=== PATIENT | male | born 1955 | race Caucasian/White ===

== ENCOUNTER 2020-08-28 14:32 | Emergency (ER) | payer OTHER, SELFPAY ==
[2020-08-28 14:33] VITALS: BP 138/88; PULSE 91; RESP 17; TEMP 36.4; O2SAT 99
[2020-08-28] MEDS: SODIUM CHLORIDE 0.9% IV 1,000 ML 999 ML IV CONT (15:15)
[2020-08-28 15:22] LABS: Basophils Absolute Auto 0.1 K/mm3 (0.0-0.1); Basophils Percent Auto 0.7 % (0.2-1.2); Eosinophils Absolute Auto 0.2 K/mm3 (0-0.3); Eosinophils Percent Auto 2.7 % (0-4.4); Hematocrit 46.1 % (42.0-52.0); Immature Granulocyte Absolute 0.02 K/mm3 (0.00-0.031); Immature Granulocyte Percent A 0.3 % (0-0.5); Lymphocytes Percent Auto 33.7 % (18.3-44.2); Mean Corpuscular HGB Conc 34.7 g/dl (32-36); Mean Corpuscular Hemoglobin 31.7 pg (26-34); Mean Corpuscular Volume 91.5 fl (80-100); Monocytes Absolute Auto 0.6 K/mm3 (0.1-0.6); Monocytes Percent Auto 7.4 % (2.6-8.5); Neutrophils Absolute Auto 4.1 K/mm3 (1.3-6.7); Neutrophils Percent Auto 55.2 % (45.5-73.1); Platelet Count Result 150 k/mm3 (150-375); Red Blood Count 5.04 M/mm3 (4.6-6.20); Red Cell Distribution Width 12.8 % (11.5-14.5); White Blood Count 7.4 K/mm3 (4.5-10.0)
[2020-08-28 15:30] LABS: Alanine Aminotransferase 61 U/L (4-50); Albumin Level 4.8 g/dL (3.5-5.1); Alkaline Phosphatase 71 U/L (38-126); Anion Gap 12 mmol/L (8-16); Aspartate Amino Transferase 48 U/L (17-59); Bilirubin,Total 0.4 mg/dL (0.2-1.3); Blood Urea Nitrogen 20 mg/dL (9-20); Carbon Dioxide 23 mmol/L (22-30); Chloride 103 mmol/L (98-107); Estimated Glomerular Filt Rate > 60; Glucose 150 mg/dL (75-110); Sodium 138 mmol/L (137-145)
[2020-08-28 15:36] LABS: Add Urine Microscopic? YES; Appearance Urine Clear (Clear); Bilirubin Urine Negative (Negative); Blood Urine Negative (Negative); Color Urine Yellow (Yellow); Glucose Urine UA 3+ mg/dL (Negative); Ketones Urine Negative (Negative); Leukocyte Esterase Ur Negative LEU/UL (Negative); Nitrate Urine Negative (Negative); Protein Urine Negative (Negative); RBC Urine 0-2 /hpf (0-2); Urobilinogen Urine Negative mg/dL (<2.0); WBC Urine 0-3 /hpf
[2020-08-28 16:11] LABS: Specific Grav Ur 1.036 (1.001-1.035)
[2020-08-28 16:20] LABS: Glucose Point of Care 89 (65-105)
--- NOTE | 2020-08-28 16:24 | ED.GENADULT ---
HPI - General Adult General Chief complaint: Recheck/Abnormal Lab/Rx Stated complaint: hyperglycemia Time Seen by Provider: 08/28/20 14:42 Source: RN notes reviewed History of Present Illness HPI narrative: Patient presents to emergency department from home for hyperglycemia. Patient states that he takes NovoLog 3 times a day 50 units with meals he states that he took his dose at 1230 and ate lunch and then his blood sugar was 570. States that time he dosed himself an additional 50 units of NovoLog at 1 PM and called his PCP recommend come to ER for further evaluation patient states has been feeling fine he denies any nausea or vomiting he states his PCP is setting up to see solution design engineer as well as a diabetic dietitian. He states that his blood sugar has progressed aggressively decreased since taking the medication Related Data Home Medications Medication Instructions Recorded Confirmed aripiprazole 5 mg tablet 5 mg PO BID tablet 08/14/20 atorvastatin 20 mg tablet 20 mg PO DAILY 08/14/20 bupropion HCl 200 mg tablet,12 hr 200 mg PO BID 08/14/20 sustained-release carvedilol 12.5 mg tablet 12.5 mg PO Q12H 08/14/20 empagliflozin 25 mg tablet 25 mg PO DAILY 08/14/20 finasteride 5 mg tablet 5 mg PO DAILY 08/14/20 insulin detemir U-100 100 unit/mL 48 unit SUBCUT QHS ml 08/14/20 subcutaneous solution meloxicam 15 mg tablet 15 mg PO DAILY 08/14/20 omeprazole 20 mg capsule,delayed 20 mg PO DAILY 08/14/20 release tamsulosin 0.4 mg capsule 0.4 mg PO DAILY 08/14/20 Allergies Allergy/AdvReac Type Severity Reaction Status Date / Time No Known Allergies Allergy Verified 08/28/20 14:36 Review of Systems Review of Systems: Narrative: Gen.: Denies fevers or chills ENT: Denies congestion Respiratory: Denies shortness of breath or cough CV: Denies chest pain or palpitations GI: Denies abdominal pain nausea, emesis or diarrhea Musculoskeletal: Denies back pain or muscle pain Neuro: Denies numbness, tingling, weakness or focal weakness Skin: Denies rash Endocrine: See HPI Except as documented, all other systems reviewed and negative PMFSH Past Medical History Medical History Anxiety Depression Diabetes Social History Social History (Updated 08/14/20 @ 10:32 by Christina Irby CMA) Smoking packs per day: 0.5 Smoking cigarettes per day: 10.0 Years smoked: 8 Smoking pack-years: 4.00 Smoking status: Current every day smoker Alcohol intake: never Substance use: never Exam Narrative: Exam Narrative: APPEARANCE: No acute distress, nontoxic, resting in bed EYES: EOMI HEENT: Normocephalic, atraumatic, OMM RESPIRATORY: No respiratory distress Clear to auscultation bilaterally with no rhonchi wheezing or rales. CARDIOVASCULAR: Regular rate and rhythm without murmurs rubs or gallops. ABDOMINAL: Soft, nontender, nondistended, no rebound or guarding MUSCULOSKELETAl: Moves all extremities. No clubbing, cyanosis or edema. NEURO: Awake and alert. Following commands, speech normal, no focal deficits SKIN:: Warm, dry. No rashes lesions or abrasions PSYCHIATRIC: Normal affect/mood, Course Course Emergency Course: Patient's blood sugars remained stable in the ED Of note the patient's blood sugar was 89 I did have the patient eat a sandwich Discussed with patient results of workup and diagnosis. Discussed need for follow-up with primary care, proper use of medication, and reasons to return to the emergency department. Patient understands and agrees to current treatment plan Patient eloped prior to being discharged or receiving paperwork Vital Signs Vital signs: Vital Signs Temperature 97.6 F 08/28/20 14:33 Pulse Rate 91 08/28/20 14:33 Respiratory Rate 17 08/28/20 14:33 Blood Pressure 138/88 08/28/20 14:33 Pulse Oximetry 99 08/28/20 14:33 Temperature 97.6 F 08/28/20 14:33 Pulse Rate 91 08/28/20 14:33 Respiratory Ra
--- NOTE | 2020-08-28 16:40 | PC.NURSE ---
Pt to nurse's desk and states he is not waiting for discharge papers and he is leaving now. Ambulatory out of dept with steady gait.
== END 2020-08-28 16:46 | disposition left against medical advice (07) ==
PROVIDERS: Emergency Provider Emergency Medicine; PCP Family Medicine
DX: E11.65 Type 2 diabetes mellitus with hyperglycemia (principal); F17.210 Nicotine dependence, cigarettes, uncomplicated; F41.9 Anxiety disorder, unspecified; F32.9 Major depressive disorder, single episode, unspecified
CPT/HCPCS: 36415; 80053; 81001; 82948; 85025; 96360; 99283; J7030

== ENCOUNTER 2020-10-31 09:25 | Outpatient (CLI) | payer OTHER, SELFPAY ==
[2020-10-31 16:42] LABS: Hemoglobin A1C 8.3 % (<5.7)
[2020-10-31 16:50] LABS: Free T4 Free Thyroxine 0.79 ng/mL (0.78-2.19)
[2020-10-31 16:59] LABS: Creatinine Urine 81.3 mg/dL
[2020-10-31 17:05] LABS: MALB Creatinine Ratio 115.7 mg/g (0-30); Microalbumin Urine Random 94.1 mg/L (0-16.7)
[2020-11-03 04:47] LABS: Fructosamine 358 umol/L (205-285)
== END 2020-10-31 09:26 | disposition home or self-care (01) ==
PROVIDERS: PCP Family Medicine; Visit Provider Internal Medicine Endocrinology, Diabetes & Metabolism
DX: E11.9 Type 2 diabetes mellitus without complications (principal)
CPT/HCPCS: 36415; 82043; 82985; 83036; 84439; 84443

== ENCOUNTER 2020-11-02 08:00 | Outpatient (CLI) | payer OTHER, SELFPAY ==
--- NOTE | ~2020-11-02 | XR_ITS ---
XR chest 2V DATE: 11/02/2020 08:50 INDICATION: Nicotine dependence TECHNIQUE: PA and lateral views COMPARISON: None FINDINGS: Normal heart size. No hilar or mediastinal enlargement. No pulmonary infiltrate or consolidation, pleural effusion or pulmonary vascular congestion or pneumo thorax is detected. Included skeletal structures are unremarkable. IMPRESSION: No active cardiopulmonary disease Reviewed, dictated and finalized at location A.
[2020-11-02 20:06] LABS: Basophils Absolute Auto 0.1 K/mm3 (0.0-0.1); Eosinophils Absolute Auto 0.2 K/mm3 (0-0.3); Eosinophils Percent Auto 3.1 % (0-4.4); Hematocrit 47.8 % (42.0-52.0); Hemoglobin 15.8 g/dL (14.0-18.0); Immature Granulocyte Absolute 0.01 K/mm3 (0.00-0.031); Immature Granulocyte Percent A 0.1 % (0-0.5); Lymphocytes Absolute Auto 2.03 K/mm3 (0.9-3.2); Lymphocytes Percent Auto 30.1 % (18.3-44.2); Mean Corpuscular HGB Conc 33.1 g/dl (32-36); Mean Corpuscular Hemoglobin 31.8 pg (26-34); Mean Corpuscular Volume 96.2 fl (80-100); Mean Platelet Volume 10.8 fl (7.4-10.4); Monocytes Absolute Auto 0.5 K/mm3 (0.1-0.6); Neutrophils Percent Auto 58.7 % (45.5-73.1); Platelet Count Result 151 k/mm3 (150-375); Red Blood Count 4.97 M/mm3 (4.6-6.20); Red Cell Distribution Width 13.2 % (11.5-14.5); White Blood Count 6.7 K/mm3 (4.5-10.0)
[2020-11-02 20:10] LABS: Add Urine Microscopic? YES; Appearance Urine Clear (Clear); Bilirubin Urine Negative (Negative); Blood Urine Negative (Negative); Color Urine Yellow (Yellow); Glucose Urine UA 3+ mg/dL (Negative); Ketones Urine Negative (Negative); Leukocyte Esterase Ur Negative LEU/UL (Negative); Mucus Urine Heavy /lpf; Nitrate Urine Negative (Negative); Protein Urine 1+ mg/dL (Negative); RBC Urine 0-2 /hpf (0-2); Squamous Epithelial Cell Urine Rare /hpf (Few); Urobilinogen Urine Negative mg/dL (<2.0)
[2020-11-02 20:25] LABS: Specific Grav Ur 1.032 (1.001-1.035)
[2020-11-02 20:28] LABS: Alanine Aminotransferase 81 U/L (4-50); Albumin Level 4.6 g/dL (3.5-5.1); Alkaline Phosphatase 64 U/L (38-126); Anion Gap 13 mmol/L (8-16); Aspartate Amino Transferase 71 U/L (17-59); Bilirubin,Total 0.5 mg/dL (0.2-1.3); Blood Urea Nitrogen 18 mg/dL (9-20); Calcium 9.6 mg/dL (8.4-10.2); Carbon Dioxide 25 mmol/L (22-30); Chloride 103 mmol/L (98-107); Cholesterol 138 mg/dL (0-200); Estimated Glomerular Filt Rate > 60; Glucose 70 mg/dL (65-110); HDL Direct 29 mg/dL; Potassium 3.9 mmol/L (3.4-5.0); Sodium 141 mmol/L (137-145); Triglycerides 246 mg/dL (<150)
[2020-11-02 20:40] LABS: LDL Cholesterol Direct 71 mg/dL
[2020-11-02 21:01] LABS: Prostate Specific Antigen 0.4 ng/mL (< OR = 4.0)
[2020-11-02 21:23] LABS: Hemoglobin A1C 8.4 % (<5.7)
[2020-11-02 21:35] LABS: Folic Acid 13.3 ng/mL (2.76->20)
[2020-11-06 20:54] LABS: C-Peptide 0.27 ng/mL (0.80-3.85)
== END 2020-11-02 08:01 | disposition home or self-care (01) ==
PROVIDERS: PCP Family Medicine; Visit Provider Family Medicine
DX: Z12.5 Encounter for screening for malignant neoplasm of prostate (principal); Z87.891 Personal history of nicotine dependence; E11.9 Type 2 diabetes mellitus without complications; F31.9 Bipolar disorder, unspecified; M25.561 Pain in right knee; M25.562 Pain in left knee; I10 Essential (primary) hypertension; Z82.62 Family history of osteoporosis; Z51.81 Encounter for therapeutic drug level monitoring; Z79.899 Other long term (current) drug therapy; Z00.00 Encounter for general adult medical examination without abnormal findings
CPT/HCPCS: 36415; 71046; 80053; 80061; 81001; 82306; 82607; 82746; 83036; 84153; 84443; 84681; 85025; G0103

== ENCOUNTER 2020-11-17 09:01 | Outpatient (CLI) | payer OTHER, SELFPAY | END 2020-11-17 09:02 | disposition home or self-care (01) | PROVIDERS: PCP Family Medicine; Visit Provider Family Medicine | DX: R74.8 Abnormal levels of other serum enzymes (principal); E11.9 Type 2 diabetes mellitus without complications | CPT/HCPCS: 36415; 84443 ==

== ENCOUNTER 2020-12-28 09:05 | Outpatient (CLI) | payer OTHER, SELFPAY ==
[2020-12-28 19:56] LABS: Add Urine Microscopic? YES; Appearance Urine Clear (Clear); Bilirubin Urine Negative (Negative); Blood Urine Negative (Negative); Color Urine Yellow (Yellow); Glucose Urine UA 3+ mg/dL (Negative); Ketones Urine Negative (Negative); Leukocyte Esterase Ur Negative LEU/UL (NEGATIVE); Mucus Urine Rare /lpf; Nitrate Urine Negative (Negative); Protein Urine 1+ mg/dL (Negative); RBC Urine 0-2 /hpf (0-2); Specific Grav Ur 1.022 (1.001-1.035); Urobilinogen Urine Negative mg/dL (<2.0); WBC Urine 0-3 /hpf (0-3)
[2020-12-28 20:13] LABS: Alanine Aminotransferase 64 U/L (4-50); Albumin Level 4.8 g/dL (3.5-5.1); Alkaline Phosphatase 79 U/L (38-126); Aspartate Amino Transferase 43 U/L (17-59); Bilirubin,Total 0.7 mg/dL (0.2-1.3)
[2020-12-28 20:20] LABS: Hemoglobin A1C 7.7 % (<5.7)
== END 2020-12-28 09:06 | disposition home or self-care (01) ==
PROVIDERS: PCP Family Medicine; Visit Provider Family Medicine
DX: R74.8 Abnormal levels of other serum enzymes (principal); E11.9 Type 2 diabetes mellitus without complications
CPT/HCPCS: 36415; 80076; 81001; 83036

== ENCOUNTER 2021-03-30 12:18 | Outpatient (CLI) | payer OTHER, SELFPAY ==
--- NOTE | 2021-03-30 | ECG_ITS ---
Measurements Intervals [place] Rate: 85 P: 30 FL: 176 QRS: -12 QRSD: 92 T: 19 QT: 354 QTc: 423 Interpretive Statements SINUS RHYTHM DELAYED PRECORDIAL R/S TRANSITION BORDERLINE ECG Electronically Signed On 03-30-2021 13:17:38 MANAGER POST by Derrek Paredes D.O.
[2021-03-30 13:11] LABS: Albumin Level 4.9 g/dL (3.5-5.1); Estimated Glomerular Filt Rate > 60; Glucose 299 mg/dL (65-110); Hemoglobin A1C 7.6 % (<5.7)
[2021-03-30 13:15] LABS: Urine Cotinine NEGATIVE
== END 2021-03-30 12:19 | disposition home or self-care (01) ==
LOC: ANHLAB 12:26
PROVIDERS: PCP Family Medicine; Visit Provider Orthopaedic Surgery
DX: M17.11 Unilateral primary osteoarthritis, right knee (principal); Z01.818 Encounter for other preprocedural examination; R94.31 Abnormal electrocardiogram [ECG] [EKG]
CPT/HCPCS: 80307; 82040; 82565; 82947; 83036; 85014; 85018; 93005

== ENCOUNTER 2021-05-08 12:08 | Outpatient (CLI) | payer OTHER, SELFPAY ==
[2021-05-08 13:31] LABS: Glucose Point of Care 269 mg/dl (65-105)
[2021-05-08 14:04] LABS: Basophils Percent Auto 0.4 % (0.2-1.2); Eosinophils Absolute Auto 0.1 K/mm3 (0-0.3); Eosinophils Percent Auto 1.3 % (0-4.4); Hematocrit 44.8 % (42.0-52.0); Hemoglobin 15.7 g/dL (14.0-18.0); Immature Granulocyte Absolute 0.02 K/mm3 (0.00-0.031); Immature Granulocyte Percent A 0.2 % (0-0.5); Lymphocytes Percent Auto 16.7 % (18.3-44.2); Mean Corpuscular Hemoglobin 31.6 pg (26-34); Mean Corpuscular Volume 90.1 fl (80-100); Mean Platelet Volume 9.4 fl (7.4-10.4); Monocytes Absolute Auto 0.5 K/mm3 (0.1-0.6); Monocytes Percent Auto 5.4 % (2.6-8.5); Neutrophils Absolute Auto 7.3 K/mm3 (1.3-6.7); Platelet Count Result 159 k/mm3 (150-375); Red Blood Count 4.97 M/mm3 (4.6-6.20); Red Cell Distribution Width 12.8 % (11.5-14.5); White Blood Count 9.6 K/mm3 (4.5-10.0)
[2021-05-08 14:28] LABS: Anion Gap 15 mmol/L (8-16); Blood Urea Nitrogen 13 mg/dL (9-20); Carbon Dioxide 26 mmol/L (22-30); Chloride 97 mmol/L (98-107); Estimated Glomerular Filt Rate > 60; Glucose 290 mg/dL (65-110); Potassium 5.1 mmol/L (3.4-5.0); Sodium 138 mmol/L (137-145)
== END 2021-05-08 12:09 | disposition home or self-care (01) ==
LOC: ANHSURGERY 12:12
PROVIDERS: Anesthesiology; PCP Family Medicine; Visit Provider Orthopaedic Surgery
DX: M17.11 Unilateral primary osteoarthritis, right knee (principal); E11.9 Type 2 diabetes mellitus without complications; Z01.818 Encounter for other preprocedural examination
CPT/HCPCS: 36415; 80048; 82948; 85025; 86850; 86900; 86901; 87081

== ENCOUNTER 2021-05-09 10:29 | Outpatient (CLI) | payer OTHER, SELFPAY ==
--- NOTE | 2021-05-09 10:32 | EST_ITS ---
Patient Info Name: Edwardo Ricci Age: 65 years : 1955 Gender: Male Ht: 68 in Wt: 210 lbs BSA: 2.17 m2 HR: 73 bpm BP: 125 / 80 mmHg Exam Date: 05/09/2021 10:44 AM Exam Location: [facility] Patient Status: Outpatient Admit Date: 05/09/2021 Staff Ordering Physician: Derrek Paredes DO Attending Provider: Derrek Paredes DO Exercise Technologist: Jenifer Valentin CT Exercise Physician: Derrek Paredes DO Exam Type: CA stress test treadmill Study Info Indications Z01.810 - Encounter for preprocedural cardiovascular examination R06.02 - Shortness of breath An exercise stress test was performed. Summary 1. 1. Negative Davian exercise stress test for ischemic ST changes by ECG criteria. However, he achieved only 74% MPHR for age group which reduces sensitivity of the test limited primarily by knee pains and he took Carvedilol dose this morning. 2. 2. Reduced functional capacity, achieving 5.6 METs of workload. 3. 3. Appropriate HR response to exercise. 4. 4. Appropriate HR recovery at 1 minute post exercise. 5. 5. No imaging with stress testing. 6. 6. Paient informed of the above results. Protocol: [facility] Stress ECG Details Stage: REST Duration (min): 1 min : 2 sec Speed (mph): 0.0 Grade (%): 0 HR (bpm): 73 SBP (mmHg): 125 DBP (mmHg): 80 METS: --- Stage: REST Duration (min): 6 min : 8 sec Speed (mph): 0.0 Grade (%): 0 HR (bpm): 79 SBP (mmHg): 125 DBP (mmHg): 80 METS: --- Stage: STAGE 1 Duration (min): 1 min : 0 sec Speed (mph): 1.7 Grade (%): 10 HR (bpm): 98 SBP (mmHg): 125 DBP (mmHg): 80 METS: --- Stage: STAGE 1 Duration (min): 2 min : 0 sec Speed (mph): 1.7 Grade (%): 10 HR (bpm): 106 SBP (mmHg): 125 DBP (mmHg): 80 METS: --- Stage: STAGE 1 Duration (min): 3 min : 0 sec Speed (mph): 1.7 Grade (%): 10 HR (bpm): 111 SBP (mmHg): 125 DBP (mmHg): 80 METS: --- Stage: STAGE 2 Duration (min): 0 min : 30 sec Speed (mph): 2.5 Grade (%): 12 HR (bpm): 115 SBP (mmHg): 125 DBP (mmHg): 80 METS: --- Stage: RECOVERY Duration (min): 0 min : 29 sec Speed (mph): 0.0 Grade (%): 0 HR (bpm): 116 SBP (mmHg): 125 DBP (mmHg): 80 METS: --- Stage: RECOVERY Duration (min): 1 min : 29 sec Speed (mph): 0.0 Grade (%): 0 HR (bpm): 108 SBP (mmHg): 142 DBP (mmHg): 106 METS: --- Stage: RECOVERY Duration (min): 2 min : 29 sec Speed (mph): 0.0 Grade (%): 0 HR (bpm): 92 SBP (mmHg): 142 DBP (mmHg): 106 METS: --- Stage: RECOVERY Duration (min): 2 min : 51 sec Speed (mph): 0.0 Grade (%): 0 HR (bpm): 93 SBP (mmHg): 140 DBP (mmHg): 96 METS: --- Rest HR: 79 bpm Peak HR: 116 bpm Rest Sys BP: 125 mmHg Peak Sys BP: 142 mmHg Max Pred HR: 157 bpm % Max Pred HR: 74 % Target HR: 133 bpm Max RPP: 16,472 bpm*mmHg Bose Score: -1 Termination Reason: Maximal effort/unable
== END 2021-05-09 10:30 | disposition home or self-care (01) ==
PROVIDERS: PCP Family Medicine; Visit Provider Internal Medicine Cardiovascular Disease
DX: Z01.810 Encounter for preprocedural cardiovascular examination (principal); R06.00 Dyspnea, unspecified
CPT/HCPCS: 93017

== ENCOUNTER 2021-05-10 00:38 | Day surgery (SDC) | payer OTHER, SELFPAY ==
[2021-05-08 12:34] VITALS: BP 129/81; PULSE 110; RESP 18; TEMP 36.2; O2SAT 96; BMI 32.5
--- NOTE | 2021-05-08 12:51 | PC.NURSE ---
Report to the Outpatient Waiting Room, entrance under the green pavilion located off [facility], at time ___6:00AM____ on date __05/10/21 . OR Time: __7:30AM . - You and your visitor will be asked a series of questions to screen for COVID 19 for your protection. - A mask is required within the hospital. - Only one visitor is allowed at this time. Patient visitors will be guided where to wait when not with patient. Preoperative COVID Testing Requirements: No COVID Test needed if: (proof is required; if not received patient will have Rapid Test prior to entry) - Patient has received COVID Vaccine at least 14 days prior to procedure date or - Patient has positive COVID test result within last 90 days of surgery date. COVID Test needed if above criteria is not met If not COVID vaccinated a COVID test must be conducted within 72 hours of surgery and patient is asked to isolate self from time of testing until procedure. You will go to the [facility] for your COVID testing. The [facility] is located at the corner of [address] [facility]. You will only be called if COVID results are positive and your surgeon may reschedule your elective surgery date. Patients may have clear liquids (water, carbonated beverages, clear teas, apple juice) until 3 hours prior to surgery with a maximum of 20 ounces. - No food from midnight until time of surgery - Infants may have breast milk until 4 hours before surgery, infant formula 6 hours prior to surgery. - Children will be allowed to drink immediately following surgery. If applicable, please bring a bottle or sippy cup to assist with drinking. Juice, water, soda, and popsicles are readily available. For infants on formula, please bring formula the day of surgery. Pacifiers are allowed. Take the following medications with a SIP of water the morning of surgery: ___AMITRIPTYLINE, ARIPIPRAZOLE, BUPROPIAN, CARVEDILOL Medications to discontinue per physician NONE Date to take last dose Please no make-up, nail macanese, hairspray, perfume, deodorant, or body powder the day of surgery. No jewelry (including any body piercings) or valuables the day of surgery, leave them at home. Please take a shower or bath the night before, or the morning of, surgery with an antibacterial soap. Wear comfortable, loose fitting clothing. Children are encouraged to wear pajamas. - Jewelry must be removed prior to entering the operating room. Rings and piercings that are not removed may be cut off. - The hospital will not accept responsibility for valuables. - Please leave all valuables, including medications, at home the day of surgery. If you are going home after surgery, a licensed clark driver must drive you home. - NO public transportation without another adult. - We recommend that an adult stay with you for 24 hours following discharge. - We also recommend that you do not drive, make important decision, drink alcoholic beverages, or take any drugs that were not prescribed by your health care provider for at least 24 hours after your discharge time. For Pediatric surgeries, we recommend two adults accompany the child home (only one inside the building at this time). Follow any additional instructions given to you from your surgeon. Telephone instructions given to ___PATIENT and asked if any additional questions and then verbalized understanding. Patient advised to call surgeon office or pre surgery nurse liaison [phone] if any additional questions.
--- NOTE | 2021-05-08 13:44 | PC.NURSE ---
1330 PT C/O FEELING LIKE BLOOD SUGAR IS TOO HIGH OR TOO LOW, UNABLE TO DECIDE WHICH. REQUESTING THAT WE CHECK HIS BLOOD SUGAR. FINGER LGAEO=[id number], HE STATES THAT IS NORMAL FOR HIM. PLANS TO GO HOME EAT LUNCH AND TAKE SLIDING SCALE INSULIN ORDERED.
--- NOTE | 2021-05-09 13:52 | WPDANESEPPF ---
Anes - Initial Pre Proc Eval Procedure: Operation Date: 05/10/21 07:30 Proposed Procedures p Right Total Knee Arthroplasty - Guillaume Gann MD Date/Time: 05/09/21 13:52 Surgeon: Guillaume Gann MD Pre Op Diagnosis: primary oa right knee Patient Data Age: 65 Gender: M Height: 1.73 m Weight: 97.1 kg Last Vital Signs Temp 36.2 C L 05/08/21 12:34 Pulse 110 H 05/08/21 12:34 Resp 18 05/08/21 12:34 BP 129/81 05/08/21 12:34 Pulse Ox 96 05/08/21 12:34 Allergies Allergy/AdvReac Type Severity Reaction Status Date / Time No Known Allergies Allergy Verified 05/10/21 06:12 Home Medications Medication Instructions Recorded Confirmed Type insulin syringe-needle U-100 1 mL #100 ea 09/13/20 05/09/21 Rx 31 gauge x 5/16 quetiapine 25 mg tablet 25 mg PO QHS #90 tablet 09/18/20 05/10/21 Rx quetiapine 50 mg tablet 50 mg PO QHS #90 tablet 11/27/20 05/10/21 Rx carvedilol 12.5 mg tablet 12.5 mg PO Q12H #60 tablet 02/15/21 05/10/21 Rx metformin 1,000 mg tablet 1,000 mg PO BID #180 tablet 02/20/21 05/10/21 Rx finasteride 5 mg tablet 5 mg PO DAILY #90 tablet 02/26/21 05/10/21 Rx meloxicam 15 mg tablet 15 mg PO DAILY #30 tablet 02/26/21 05/10/21 Rx flash glucose scanning reader #1 ea 02/28/21 05/09/21 Rx flash glucose sensor #1 ea 02/28/21 05/09/21 Rx atorvastatin 20 mg tablet 20 mg PO DAILY #90 tablet 03/12/21 05/10/21 Rx insulin syringe-needle U-100 1 mL #100 ea 03/26/21 05/09/21 Rx 31 gauge x 5/16 tamsulosin 0.4 mg capsule 0.4 mg PO DAILY #90 cap 04/25/21 05/10/21 Rx insulin aspart U-100 100 unit/mL See Rx Instructions .ROUTE TID #30 04/30/21 05/10/21 Rx subcutaneous solution ml amitriptyline 50 mg PO QAM 05/08/21 05/10/21 History aripiprazole 10 mg PO BID 05/08/21 05/10/21 History bupropion HCl 200 mg PO BID 05/08/21 05/10/21 History insulin glargine [Lantus U-100 80 unit SUBCUT HS 05/08/21 05/10/21 History Insulin] omeprazole 20 mg PO QAM 05/08/21 05/10/21 History Patient hx anesthesia problems: none Family hx anesthesia problems: none Results Review: All pre-operative results and documents have been reviewed as part of the pre-operative evaluation. PMFSH Past Medical History Medical History Anxiety Arthritis of right knee Bipolar depression Depression Diabetes Elevated cholesterol History of tobacco abuse Hypertension Paresthesia Right knee pain Smoking addiction Surgical History Surgical History History of right knee surgery x4 Social History Social History Smoking packs per day: 0.5 Smoking cigarettes per day: 10.0 Years smoked: 6 Smoking pack-years: 3.00 Smoking status: Former smoker Tobacco type: cigarettes Smoking end date: 04/11/21 Alcohol intake: never Substance use: never Living arrangements: with family Additional living arrangements comments: Spiritual care concerns: No Anes - Eval Final PreProcedure Day of Procedure 05/09/21 13:52 Patient weight: obese Heart: regular rate and rhythm Lungs: clear to auscultation and normal air movement Airway: Mallampati scale class II Neurological: alert and oriented Last oral intake: >/= 8 hours ASA classification: III Emergent: no Anesthetic plan: proceed Anesthesia type and monitoring: general LMA Results Review: All pre-operative results and documents have been reviewed as part of the pre-operative evaluation. Informed Consent: The patient's anesthetic plan and its attendant risks and benefits were discussed with the patient/family/POA. Questions were solicited and answers provided to the satisfaction of the patient/family/POA.
[2021-05-10] VITALS (18 sets, daily range): BP systolic 119–139; BP diastolic 70–95; PULSE 77–94; RESP 10–20; TEMP 36.2–36.9; O2SAT 90–100
--- NOTE | ~2021-05-10 | XR_ITS ---
EXAMINATION: XR knee RT 2V DATE: 05/10/2021 11:11 CUSTOMER RELATIONS ADVISOR INDICATION: Right total knee arthroplasty TECHNIQUE: 2 views right knee FINDINGS: There is a right total knee arthroplasty in expected position. Subcutaneous gas with fluid and air in the joint are consistent with recent surgery. No evidence of periprosthetic fracture. The re is a partially visualized intramedullary missy in the proximal aspect of the tibia. There is a parti ally visualized healed fracture of the fibular diaphysis. IMPRESSION: 1. Recent right total knee arthroplasty. Reviewed, dictated and finalized at location B. OMER RELATIONS ADVISOR
--- NOTE | ~2021-05-10 | XR_ITS ---
EXAMINATION: XR surgery orthopedic EXAM DATE: 05/10/2021 10:25 INDICATION: Intra Op Knee Right . TECHNIQUE: Portable intraoperative projections of the right knee, tibia and fibula. There is no cecilia or study for comparison. FINDINGS: There is a femoral component to right knee replacement hardware in expected position. Possi ble patellar component or resurfacing, correlate with procedure note. Old fibular and tibial fractur es. Tibial intramedullary missy. IMPRESSION: Intraoperative right knee, tibia/fibula images. Reviewed, dictated and finalized at location A. CART PEDDLER
[2021-05-10] MEDS: ACETAMINOPHEN 500 MG TABLET 1000 MG PO (06:40)
[2021-05-10] MEDS: LACTATED RINGERS 1,000 ML 30 ML IV CONT ×2 (06:45→10:43)
[2021-05-10 06:46] LABS: Glucose Point of Care 269 mg/dl (65-105)
[2021-05-10] MEDS: TRANEXAMIC ACID 1,000MG/ISO100 1,000 MG/100 ML BAG 200 MG IVPB (07:00)
--- NOTE | 2021-05-10 07:08 | SUR.PREOP ---
0630- PT MRSA IS PENDING. LAB CALLED AND STATED IT WAS NOT SENT OUT TILL YESTERDAY AND TAKES 24 HOURS TO RESULT. CALLED DR. STEPHENS AT HOME TO INFORM HIM MRSA WILL NOT BE BACK. HE STATED TO PROCEED WITH SURGERY.
[2021-05-10] MEDS: INSULIN HUMAN REGULAR (*BKC) 100 UNITS/ML SUB-Q (07:10)
[2021-05-10] MEDS: ceFAZolin 2 GM/D5W 50 ML 2 GM/50 ML BAG IVPB ×2 (07:30→16:25)
--- NOTE | 2021-05-10 07:31 | WPDHPUPDATE1 ---
History and Physical Update Update Date/Time: 05/10/21 07:31 History and Physical has been reviewed, including an updated exam of the patient. There are NO changes in the patient's condition. Risks, benefits, and alternatives have been discussed and questions answered. Patient agrees to proceed with procedure.
[2021-05-10] MEDS: GENTAMICIN BONE CEMENT REFOBACIN 1 EACH TOPICAL (09:30)
--- NOTE | 2021-05-10 10:49 | SUR.PHASEI ---
1049- Notified Dr. Llamas patient's BG [phone] at this time. Continue to monitor per Dr. Llamas no orders received at this time.
[2021-05-10 10:50] LABS: Glucose Point of Care 247 mg/dl (65-105)
[2021-05-10] MEDS: oxyCODONE HCL (*CRX) 5 MG TAB IR PO (13:11)
[2021-05-10] MEDS: SODIUM CHLORIDE 0.9% IV 1,000 ML 125 ML IV CONT (13:12)
--- NOTE | 2021-05-10 15:33 | W.PM.PROC2 ---
Procedure Note - Detailed Date of Procedure 05/10/21 Pre-op Diagnosis 1. Primary oa right knee 2. History of tibial shaft fracture with deformity. Post-op Diagnosis same Procedure Performed Right total knee arthroplasty. Surgeon Guillaume Gann MD Butt Welder Sweta Aranda PA-C Anesthesia general Indications Advanced arthritis and tibia recurvatum. Gait disturbance with severe varus thrust and mild hyperextension. History of multiple knee operations in his youth including patellar stabilization surgery with fairly long incision, as well as tibia fibula shaft fractures treated with a flexible missy starting from the proximal 3rd of the tibia. Findings Tibia recurvatum managed with adding posterior slope to the tibia. Confirmed with intraoperative radiographs. Bone quality good. Patella tracked well. Previous incision used. Evidence for distal tendon augmentation from previous patellar instability surgery. Patlella tracking excellent without lateral release. Description of Procedure Preoperative antibiotics were given. Patient was prepped and draped in usual sterile fashion. The knee was carefully examined preoperatively. He was significantly lax both medially but especially laterally in extension. The knee tended toward slight hyperextension accentuated by the recurvatum of the tibia. Previous scar was outlined. The patella tracked very nicely without instability or tilt. The limb was exsanguinated and the tourniquet inflated to 300 mmHg for 99 minutes total during the procedure. A longitudinal incision was created along the anteromedial scar. This was fairly typical for a total knee scar. The tissues were in good shape and healthy-appearing. A trivector approach to the knee was performed. The patella translated laterally easily. At the proximal tibia there appeared to be a significant strip of tendinous tissue migrating from the patella tendon, along the proximal tibia medially. This appeared to perhaps have been part of a reconstructive effort that he had in his youth. Care was taken to preserve some of this tissue throughout the procedure. A modest medial release was performed initially and then increased slightly later during the procedure while doing final balancing. The trochlea showed dysplasia. The intramedullary drill was placed in the femoral canal. 5 degree valgus cut was taken. Slightly more bone was resected medially. 8 mm resection was taken. Bone quality was good. Attention was turned to the tibia. The ACL and PCL were released. The extramedullary guide was placed. There was a missy from a childhood tibia fracture in shaft of the tibia. This would not impact the proximal tibial prosthesis. Tibial slope was difficult to gauge due to the recurvatum. Initial conservative resection was taken with a skim cut through the medial aspect of the worn tibia. Intraoperative x-rays of the entire tibia and knee joint confirmed the suspicion that the cut appeared to be excessively sloped. This was adjusted by adjusting the guide to indicate 0 slope. The final cut had an appropriate amount of slope to compensate for the recurvatum which was important to limit risk of persistent gait disturbance and hyperextension deformity later. Gap balancing and trialing confirmed equal flexion and extension gaps. The medial side was tight ultimately, and a slight additional needle release with an 18 gauge needle was performed. The patella was cut for resurfacing. Patellar tracking was excellent with no thumbs. The meniscal remnants were removed. The tibial bone was prepared. Pulsatile lavage was performed on all bony surfaces prior to cementation. The real components were cemented into position with the trial tibial insert. The real 14 mm posterior stabilized tibial component was placed. The knee demonstrated full range of motion. Good mechanics and appearance. 2-3 mm gap in extension laterally, 2 mm gap posteriorly in flexion. 1 mm gap med
[2021-05-10 16:37] LABS: Glucose Point of Care 329 mg/dl (65-105)
[2021-05-10] MEDS: oxyCODONE HCL (*CRX) 5 MG TAB IR 10 MG PO ×2 (17:09→21:00)
[2021-05-10] MEDS: buPROPion HCL SR (12HR) 100 MG TABCR 200 MG PO (17:15)
[2021-05-10] MEDS: ARIPiprazole 10 MG TABLET PO (17:16)
[2021-05-10] MEDS: INSULIN ASPART (*BKC) 100 UNITS/ML 20 UNITS SUB-Q (17:24)
[2021-05-10] MEDS: INSULIN ASPART (*BKC) 100 UNITS/ML SUB-Q (17:26)
[2021-05-10] MEDS: ASPIRIN 81 MG ENTERIC TABLET PO (17:50)
[2021-05-10] MEDS: metFORMIN HCL 500 MG TABLET 1000 MG PO (17:50)
[2021-05-10] MEDS: SENNA/DOCUSATE SODIUM TABLET 2 TAB PO (17:50)
--- NOTE | 2021-05-10 19:52 | PM.IMCN ---
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 Management per primary service. Patient does have some hyperglycemia with his diabetes mellitus. He usually takes 65 units of Lantus each evening. He has not yet received his Lantus. I have asked the patient to repeat his Accu-Chek at around 11:00 a.m. after he has received his Lantus. If his glucoses are still above 250 at that time will give the patient a small dose of sliding scale insulin. I would like the patient to be closer to euglycemia given his recent operative procedure. He does report frequent hypoglycemic events around lunch time. I suspect the patient's mealtime bolus dose of insulin with his breakfast is likely too large. Will monitor glucoses closely and make adjustments as appropriate. The patient's last hemoglobin A1c was 7.6. Patient does have a history of essential hypertension but his blood pressures are stable and within goal range. Will continue home antihypertensive regimen. The patient does have some history of BPH will continue his home Flomax and finasteride. Will need to monitor urine output as the patient reports having slow weak urinary stream. He still feels as if he is emptying his bladder completely. HPI Data of Consult Consult date: 05/10/21 Requesting Physician: Guillaume Gann MD Primary Care Provider: Srikanth Schrader MD Consult Narrative Narrative: Edwardo Ricci is a 65 year old male with a past medical history of diabetes, hypertension, BPH who presented to the hospital for elective right total knee arthroplasty. The patient underwent surgery earlier today and has done well. He has actually ambulated to the bathroom. He reports that his knee pain is currently a 7/10 in intensity but he just received [place] prior to my evaluation. He does report some slow weak urine stream in the postop interval. He did eat a hamburger, chips and [place] postop. He did not take any insulin with his food and subsequently he has been hyperglycemic with blood glucose is is of 329. At the time of my evaluation the patient has a continuous glucose [place] monitor in place and he checked his sugars while I was at bedside and he was down to 299. He denies any postop nausea. He reports that he is on omeprazole at home due to random intermittent and episodes of vomiting with an empty stomach. He denies history of actual GERD. He was recently diagnosed with peripheral neuropathy after multiple episodes of falls. He does have chronic dry mouth which he attributes to some of his home medications. He reports his last bowel movement was yesterday and was normally formed. He received his 1st 2 doses of Moderna vaccine with his last vaccine July 31, 2020. But has not yet received his booster. Review of Systems Review of Systems: 12 systems were reviewed with pertinent positives and negatives per HPI. Except as documented in the HPI, all other systems were reviewed and are negative. [facility] Past Medical History Medical History (Updated 05/10/21 @ 21:34 b
[2021-05-10] MEDS: INSULIN GLARGINE (*BKC) 100 UNITS/ML 65 UNITS SUB-Q (20:55)
[2021-05-10] MEDS: carvediloL 12.5 MG TABLET PO (20:56)
[2021-05-10] MEDS: QUEtiapine FUMARATE 25 MG TABLET 50 MG PO (20:57)
[2021-05-10] MEDS: QUEtiapine FUMARATE 25 MG TABLET PO (20:57)
[2021-05-11] MEDS: ceFAZolin 2 GM/D5W 50 ML 2 GM/50 ML BAG IVPB ×2 (00:14→07:54)
[2021-05-11 02:00] VITALS: BP 126/83; PULSE 87; RESP 18; TEMP 36.3; O2SAT 96
[2021-05-11] MEDS: oxyCODONE HCL (*CRX) 5 MG TAB IR 10 MG PO ×3 (02:43→12:08)
[2021-05-11 06:00] VITALS: BP 142/77; PULSE 90; RESP 18; TEMP 36.8; O2SAT 96
[2021-05-11 07:47] LABS: Glucose Point of Care 285 mg/dl (65-105)
[2021-05-11 07:55] LABS: Basophils Percent Auto 0.4 % (0.2-1.2); Eosinophils Absolute Auto 0.1 K/mm3 (0-0.3); Eosinophils Percent Auto 1.4 % (0-4.4); Hematocrit 38.4 % (42.0-52.0); Hemoglobin 13.1 g/dL (14.0-18.0); Immature Granulocyte Absolute 0.02 K/mm3 (0.00-0.031); Immature Granulocyte Percent A 0.2 % (0-0.5); Lymphocytes Absolute Auto 0.99 K/mm3 (0.9-3.2); Lymphocytes Percent Auto 11.9 % (18.3-44.2); Mean Corpuscular HGB Conc 34.1 g/dl (32-36); Mean Corpuscular Hemoglobin 31.6 pg (26-34); Mean Corpuscular Volume 92.8 fl (80-100); Monocytes Absolute Auto 0.6 K/mm3 (0.1-0.6); Monocytes Percent Auto 7.3 % (2.6-8.5); Neutrophils Absolute Auto 6.6 K/mm3 (1.3-6.7); Neutrophils Percent Auto 78.8 % (45.5-73.1); Platelet Count Result 155 k/mm3 (150-375); Red Blood Count 4.14 M/mm3 (4.6-6.20); Red Cell Distribution Width 12.9 % (11.5-14.5); White Blood Count 8.4 K/mm3 (4.5-10.0)
[2021-05-11] MEDS: INSULIN ASPART (*BKC) 100 UNITS/ML SUB-Q (07:58)
[2021-05-11] MEDS: INSULIN ASPART (*BKC) 100 UNITS/ML 20 UNITS SUB-Q ×3 (07:58→13:39)
[2021-05-11 08:04] VITALS: PULSE 100
[2021-05-11] MEDS: carvediloL 12.5 MG TABLET PO (08:04)
[2021-05-11] MEDS: polyethylene glycoL 3350 17 GM POWD.PACK PO (08:04)
[2021-05-11] MEDS: SENNA/DOCUSATE SODIUM TABLET 2 TAB PO (08:05)
[2021-05-11] MEDS: MELOXICAM 7.5 MG TABLET 15 MG PO (08:05)
[2021-05-11] MEDS: buPROPion HCL SR (12HR) 100 MG TABCR 200 MG PO (08:05)
[2021-05-11] MEDS: ARIPiprazole 10 MG TABLET PO (08:05)
[2021-05-11] MEDS: AMITRIPTYLINE HCL 25 MG TABLET 50 MG PO (08:05)
[2021-05-11] MEDS: metFORMIN HCL 500 MG TABLET 1000 MG PO (08:05)
[2021-05-11] MEDS: FINASTERIDE 5 MG TABLET PO (08:05)
[2021-05-11] MEDS: ASPIRIN 81 MG ENTERIC TABLET PO (08:05)
[2021-05-11] MEDS: ATORVASTATIN 20 MG TABLET PO (08:05)
--- NOTE | 2021-05-11 08:15 | P.PNIM_ITS ---
Progress Note: A&P Assessment and Plan (1) Status post total right knee replacement: Onset Date: 05/10/21 Code(s): Z96.651 - Presence of right artificial knee joint Status: Acute Assessment and Plan: * Patient is having some moderate amount of postoperative pain. Management per primary service * Current pain is an 8 and 10. * Pain medicine is working * Patient is postop day 1. 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 * Give 1 dose of 70/30 20 units (4) Benign prostatic hyperplasia: Code(s): N40.0 - Benign prostatic hyperplasia without lower urinary tract symptoms Status: Acute Assessment and Plan: * History of BPH will continue his home Flomax and finasteride. * monitor urine output * Reports emptying his bladder completely. (5) Hypomagnesemia: Code(s): E83.42 - Hypomagnesemia Status: Acute Assessment and Plan: * Magnesium 1.6 * Replace with 4 g IV once * Trend * Replace as indicated Time Spent With Patient Time with patient: Greater than 35 minutes Subjective Date/time seen: 05/11/21 0815 Interval history: Date/Time 05/10/211952 Edwardo Ricci is a 65 year old male with a past medical history of diabetes, hypertension, BPH who presented to the hospital for elective right total knee arthroplasty. The patient underwent surgery earlier today and has done well. He has actually ambulated to the bathroom. He reports that his knee pain is currently a 7/10 in intensity but he just received [place] prior to my evaluation. He does report some slow weak urine stream in the postop interval. He did eat a hamburger, chips and [place] postop. He did not take any insulin with his food and subsequently he has been hyperglycemic with blood glucose is is of 329. At the time of my evaluation the patient has a continuous glucose [place] monitor in place and he checked his sugars while I was at bedside and he was down to 299. He denies any postop nausea. He reports that he is on omeprazole at home due to random intermittent and episodes of vomiting with an empty stomach. He denies history of actual GERD. He was recently diagnosed with peripheral neuropathy after multiple episodes of falls. He does have chronic dry mouth which he attributes to some of his home medications. He reports his last bowel movement was yesterday and was normally formed. He received his 1st 2 doses of Moderna vaccine with his last vaccine July 31, 2020. But has not yet received his booster. Date/Time 05/11/21 [id number] Patient is sitting in a chair. Kelly
--- NOTE | 2021-05-11 08:15 | PM.IMPN ---
Progress Note: A&P Assessment and Plan (1) Status post total right knee replacement: Onset Date: 05/10/21 Code(s): Z96.651 - Presence of right artificial knee joint Status: Acute Assessment and Plan: Patient is having some moderate amount of postoperative pain. Management per primary service Current pain is an 8 and 10. Pain medicine is working Patient is postop day 1. 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 Give 1 dose of 70/30 20 units (4) Benign prostatic hyperplasia: Code(s): N40.0 - Benign prostatic hyperplasia without lower urinary tract symptoms Status: Acute Assessment and Plan: History of BPH will continue his home Flomax and finasteride. monitor urine output Reports emptying his bladder completely. (5) Hypomagnesemia: Code(s): E83.42 - Hypomagnesemia Status: Acute Assessment and Plan: Magnesium 1.6 Replace with 4 g IV once Trend Replace as indicated Time Spent With Patient Time with patient: Greater than 35 minutes Subjective Date/time seen: 05/11/21 0815 Interval history: Date/Time 05/10/211952 Edwardo Ricci is a 65 year old male with a past medical history of diabetes, hypertension, BPH who presented to the hospital for elective right total knee arthroplasty. The patient underwent surgery earlier today and has done well. He has actually ambulated to the bathroom. He reports that his knee pain is currently a 7/10 in intensity but he just received [place] prior to my evaluation. He does report some slow weak urine stream in the postop interval. He did eat a hamburger, chips and [place] postop. He did not take any insulin with his food and subsequently he has been hyperglycemic with blood glucose is is of 329. At the time of my evaluation the patient has a continuous glucose [place] monitor in place and he checked his sugars while I was at bedside and he was down to 299. He denies any postop nausea. He reports that he is on omeprazole at home due to random intermittent and episodes of vomiting with an empty stomach. He denies history of actual GERD. He was recently diagnosed with peripheral neuropathy after multiple episodes of falls. He does have chronic dry mouth which he attributes to some of his home medications. He reports his last bowel movement was yesterday and was normally formed. He received his 1st 2 doses of Moderna vaccine with his last vaccine July 31, 2020. But has not yet received his booster. Date/Time 05/11/21 7731 Patient is sitting in a chair. Patient stated that he has pain 8/10 especially in the knee. Patient stated does hurt to walk but he is able to do stairs up and down. He is urinating and fully emptying at this time. Sugars are labile in the 200-300s. However patient did state that he was normally 150-350 is at home. Patient takes insulin at home and is shown to be well controlled. Will give him 1 dose of 70 30 prior to his discharge
[2021-05-11 08:20] LABS: Alanine Aminotransferase 46 U/L (4-50); Albumin Level 4.4 g/dL (3.5-5.1); Alkaline Phosphatase 77 U/L (38-126); Anion Gap 12 mmol/L (8-16); Aspartate Amino Transferase 37 U/L (17-59); Bilirubin,Total 1.2 mg/dL (0.2-1.3); Blood Urea Nitrogen 11 mg/dL (9-20); Calcium 9.1 mg/dL (8.4-10.2); Carbon Dioxide 22 mmol/L (22-30); Chloride 97 mmol/L (98-107); Estimated CRCL calculation 69 ml/min; Estimated Glomerular Filt Rate > 60; Glucose 297 mg/dL (65-110); Magnesium 1.6 mg/dL (1.6-2.3); Potassium 4.5 mmol/L (3.4-5.0); Sodium 131 mmol/L (137-145)
[2021-05-11] MEDS: TAMSULOSIN HCL 0.4 MG CAPSULE PO (09:54)
[2021-05-11] MEDS: PANTOPRAZOLE 40 MG TABLET PO (09:55)
[2021-05-11] MEDS: CYCLOBENZAPRINE HCL 10 MG TABLET PO (09:55)
--- NOTE | 2021-05-11 10:42 | PM.DS ---
DS: Admitting Diagnosis Discharge Date 05/11/21 Admitting Diagnosis OA knee Right DS: Discharge Diagnosis Discharge Diagnosis (1) Status post total right knee replacement: Onset Date: 05/10/21 Code(s): Z96.651 - Presence of right artificial knee joint Status: Acute Assessment and Plan: Postop day 1: Right total knee arthroplasty. Complex case. Patient tolerated procedure well. No complications. Pain manageable with pain medication. No numbness or tingling. We had a lengthy discussion regarding postoperative wound care, limitations, expectations, and exercises. Patient shows good understanding. He has had initial physical therapy and is tolerating it well. DVT prophylaxis: 81 mg baby aspirin b.i.d. for 14 days. Pain medication: Percocet. Patient has followup appointment with Dr. Gann in 3 weeks. DS: Summary Hospital Course Reason for hospitalization: Total knee arthroplasty Hospital Course: Patient tolerated procedure well. Has had initial PT/OT. Status at Discharge Functional status at discharge: uses cane/walker Overall status at discharge: patient is progressing back to baseline Time Spent with Patient Time attestation: Total time spent providing and/or coordinating discharge services: Exam Narrative: Overweight 65 y/o Male. Resting comfortably in bed. Wearing compression socks bilaterally. Dressing intact with no drainage. Moderate swelling. No ecchymosis. No erythema. No hematoma. Range of motion limited due to pain. Calf nontender. Neurologic status intact. No varicosities. Distal pulses palpable. DS: Data Data Completed and Pending Labs on day of discharge: Labs from last 24 hours 05/11/21 05/11/21 05/11/21 07:38 07:26 07:26 WBC 8.4 RBC 4.14 L Hgb 13.1 L Hct 38.4 L MCV 92.8 MCH 31.6 MCHC 34.1 RDW 12.9 Plt Count 155 MPV 10.0 Immature Gran % (Auto) 0.2 Neut % (Auto) 78.8 H Lymph % (Auto) 11.9 L [place] % (Auto) 7.3 Eos % (Auto) 1.4 Baso % (Auto) 0.4 Lymph # (Auto) 0.99 [place] # (Auto) 0.6 Eos # (Auto) 0.1 Baso # (Auto) 0.0 Abs Immat Gran (auto) 0.02 Absolute Neuts (auto) 6.6 Absolute Nucleated RBC 0.0 Nucleated RBC % 0.0 Sodium 131 L Potassium 4.5 Chloride 97 L Carbon Dioxide 22 Anion Gap 12 BUN 11 Creatinine 1.10 Estim Creat Clear Calc 69 Estimated GFR > 60 Glucose 297 H POC Capillary Glucose 285 H Calcium 9.1 Magnesium 1.6 Total Bilirubin 1.2 AST 37 ALT 46 Alkaline Phosphatase 77 Total Protein 7.0 Albumin 4.4 05/10/21 05/10/21 16:30 10:48 WBC RBC Hgb Hct MCV MCH MCHC RDW Plt Count MPV Immature Gran % (Auto) Neut % (Auto) Lymph % (Auto) [place] % (Auto) Eos % (Auto) Baso % (Auto) Lymph # (Auto) [place] # (Auto) Eos # (Auto) Baso # (Auto) Abs Immat Gran (auto) Absolute Neuts (auto) Absolute Nucleated RBC Nucleated RBC % Sodium Potassium Chloride Carbon Dioxide Anion Gap BUN Creatinine Estim Creat Clear Calc Estimated GFR Glucose POC Capillary Glucose 329 H 247 H Calcium Magnesium Total Bilirubin AST ALT Alkaline Phosphatase Total Protein Albumin Discharge Plan Discharge Patient Disposition: Home, Self-Care Discharge Instructions: See green instruction sheet Stand Alone Forms: General Discharge Instructions Follow-up/Referrals: Sweta Aranda PA [Physician Client Resource Specialist] - Discharge Medications: New aspirin 81 mg tablet,delayed release (DR/EC) 81 mg PO BID 14 Days Qty: 28 RF: 0 oxycodone-acetaminophen 5-325 mg tablet 1 - 2 tablet PO Q4-6H MDD 6 PRN (Reason: pain) Qty: 30 RF: 0 Continued Lantus U-100 Insulin 100 unit/mL solution 65 unit subcut HS RF: 0 omeprazole 20 mg capsule,delayed release(DR/EC) 20 mg PO QAM RF: 0 aripiprazole 10 mg tablet
[2021-05-11] MEDS: INSULIN HUMAN NPH (*BKC) 100 UNITS/ML 15 UNITS SUB-Q (12:08)
[2021-05-11 12:34] LABS: Glucose Point of Care 408 mg/dl (65-105)
[2021-05-11 12:34] LABS: Glucose Point of Care 410 mg/dl (65-105)
[2021-05-11 13:34] LABS: Glucose Point of Care 397 mg/dl (65-105)
[2021-05-11 14:50] LABS: Glucose Point of Care 341 mg/dl (65-105)
== END 2021-05-11 15:00 | disposition home or self-care (01) ==
LOC: ANHSURGERY 05:45 → ANHSUROVER 12:17 → ANH2MED 05-11 10:42
PROVIDERS: Nurse Practitioner; PCP Family Medicine; Visit Provider Orthopaedic Surgery
PROC: (CPT 27447; principal; 2021-05-10 07:30)
DX: M17.11 Unilateral primary osteoarthritis, right knee (principal); Z87.81 Personal history of (healed) traumatic fracture; M25.561 Pain in right knee; R53.83 Other fatigue; F31.9 Bipolar disorder, unspecified; R61 Generalized hyperhidrosis; R20.2 Paresthesia of skin; Z87.891 Personal history of nicotine dependence; Z79.84 Long term (current) use of oral hypoglycemic drugs; Z79.4 Long term (current) use of insulin; Z79.82 Long term (current) use of aspirin; E66.9 Obesity, unspecified; Z68.32 Body mass index [BMI] 32.0-32.9, adult; I10 Essential (primary) hypertension; E11.65 Type 2 diabetes mellitus with hyperglycemia; N40.0 Benign prostatic hyperplasia without lower urinary tract symptoms; E83.42 Hypomagnesemia; K21.9 Gastro-esophageal reflux disease without esophagitis; E78.00 Pure hypercholesterolemia, unspecified; G62.9 Polyneuropathy, unspecified
CPT/HCPCS: 27447; 36415; 73560; 80048; 80053; 82948; 83735; 85025; 86850; 86900; 86901; 87081; 93017; 97110; 97116; 97161; 97165; 97530; A9270; C1713; C1776; J0131; J0171; J0690; J1170; J1815; J1885; J2250; J2270; J2405; J2704; J2795; J3010; J7030; J7120

== ENCOUNTER 2021-07-05 11:04 | Outpatient (CLI) | payer OTHER, SELFPAY ==
[2021-07-05 18:58] LABS: Hemoglobin A1C 7.1 % (<5.7)
== END 2021-07-05 11:05 | disposition home or self-care (01) ==
LOC: ANHBWCLAB 11:06
PROVIDERS: PCP Family Medicine; Visit Provider Family Medicine
DX: E11.65 Type 2 diabetes mellitus with hyperglycemia (principal); Z79.4 Long term (current) use of insulin
CPT/HCPCS: 36415; 83036

== ENCOUNTER 2021-08-14 12:52 | Outpatient (CLI) | payer OTHER, SELFPAY ==
[2021-08-14 13:32] LABS: Hematocrit 43.1 % (42.0-52.0); Hemoglobin 14.8 g/dL (14.0-18.0); Mean Corpuscular HGB Conc 34.3 g/dl (32-36); Mean Corpuscular Hemoglobin 30.6 pg (26-34); Platelet Count Result 149 k/mm3 (150-375); Red Blood Count 4.84 M/mm3 (4.6-6.20); Red Cell Distribution Width 13.1 % (11.5-14.5); White Blood Count 10.2 K/mm3 (4.5-10.0)
[2021-08-14 13:34] LABS: Appearance Urine Clear (Clear); Bilirubin Urine Negative (Negative); Blood Urine Negative (Negative); Color Urine Yellow (Yellow); Glucose Urine UA 2+ mg/dL (Negative); Ketones Urine Trace mg/dL (Negative); Leukocyte Esterase Ur Negative LEU/UL (NEGATIVE); Nitrate Urine Negative (Negative); Protein Urine 1+ mg/dL (Negative); Urobilinogen Urine 0.2 mg/dL (<2.0)
[2021-08-14 13:43] LABS: Mucus Urine Rare /lpf; WBC Urine 0-3 /hpf (0-3)
[2021-08-14 13:44] LABS: Alanine Aminotransferase 65 U/L (4-50); Alkaline Phosphatase 87 U/L (38-126); Anion Gap 14 mmol/L (8-16); Aspartate Amino Transferase 48 U/L (17-59); Bilirubin,Total 0.8 mg/dL (0.2-1.3); Blood Urea Nitrogen 11 mg/dL (9-20); Calcium 9.6 mg/dL (8.4-10.2); Carbon Dioxide 22 mmol/L (22-30); Chloride 97 mmol/L (98-107); Estimated Glomerular Filt Rate > 60; Glucose 273 mg/dL (65-110); Potassium 4.3 mmol/L (3.4-5.0); Sodium 133 mmol/L (137-145)
[2021-08-14 13:55] LABS: Add Urine Microscopic? YES
== END 2021-08-14 12:53 | disposition home or self-care (01) ==
PROVIDERS: PCP Family Medicine; Visit Provider Family Medicine
DX: R47.81 Slurred speech (principal); R26.89 Other abnormalities of gait and mobility; R35.0 Frequency of micturition
CPT/HCPCS: 36415; 80053; 81001; 85027; 87077; 87086; 87186

== ENCOUNTER 2021-08-21 06:37 | Outpatient (CLI) | payer OTHER, SELFPAY ==
--- NOTE | ~2021-08-21 | MR_ITS ---
EXAMINATION: MR brain IAC wo con DATE: 08/21/2021 07:41 INDICATION: Slurred speech TECHNIQUE: Magnetic resonance imaging (MRI) of the brain and brainstem was performed without intraven ous contrast. Sequences included sagittal and axial T1-weighted FSE, axial diffusion-weighted FS EPI, axial T2*-weighted GRE, axial T2-weighted FLAIR Propeller, axial T2-weighted Propeller, small field- of-view coronal FIESTA, small lokct-ie-uzri coronal T1-weighted FSE, and small fvmvf-na-kszy axial T1 -weighted SPGR. Apparent diffusion coefficient (ADC) maps were created. COMPARISON: None. FINDINGS: There are no areas of restricted diffusion to suggest acute infarction. No intracranial hemorrhage or abnormal intracranial mass lesion. There are a few scattered areas of nonspecific increased T2-weigh george signal intensity in the cerebral white matter, predominantly involving the deep and periventricul ar white matter which is within normal limits for age. There are no intraparenchymal signal abnormali ties seen on the other pulse sequences. The ventricles are symmetric and normal in size. There are no abnormal extra-axial fluid collections. Normal seventh/eighth cranial nerve complexes. No cerebello pontine angles masses. No evidence of mastoid or middle ear fluid. Flow voids are seen in the cerebr al arteries on the T2-weighted sequences consistent with their expected patency. Mild mucoperiosteal thickening at the bilateral ethmoid sinuses. Visualized orbits and soft tissues are unremarkable. IMPRESSION: 1. No acute intracranial process. 2. A few scattered small foci of nonspecific white matter T2 hyperintensity which is within normal li mits for age and likely sequela of chronic small vessel ischemic disease. Reviewed, dictated and finalized at location A. IMPRESSION: 1. No acute intracranial process. 2. A few scattered small foci of nonspecific white matter T2 hyperintensity whi ch is within normal limits for age and likely sequela of chronic small vessel i schemic disease.
== END 2021-08-21 06:38 | disposition home or self-care (01) ==
PROVIDERS: PCP Family Medicine; Visit Provider Family Medicine
DX: R47.81 Slurred speech (principal); R26.89 Other abnormalities of gait and mobility
CPT/HCPCS: 70551

== ENCOUNTER 2021-10-16 09:37 | Outpatient (CLI) | payer OTHER, SELFPAY ==
--- NOTE | 2021-10-16 11:30 | NEURO_ITS ---
Impression: # Complains of pain and numbness of lower extremities. History of bilateral total knee replacement. 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 # Needle/EMG exam neurogenic. Nerve Conduction Studies Anti Sensory Summary Table Stim Site NR Peak (ms) P-T Amp (?V) Site1 Site2 Delta-P (ms) Dist (cm) Michael (m/s) Left Sup Fibular Anti Sensory (Ant Lat Mall) 14 cm 3.7 5.7 14 cm Ant Lat Mall 3.7 16.0 43 Right Sup Fibular Anti Sensory (Ant Lat Mall) 14 cm 4.0 22.3 14 cm Ant Lat Mall 4.0 16.0 40 Left Sural Anti Sensory (Lat Mall) Calf 3.6 17.6 Calf Lat Mall 3.6 16.0 44 Right Sural Anti Sensory (Lat Mall) Calf 3.9 6.7 Calf Lat Mall 3.9 16.0 41 Motor Summary Table Stim Site NR Onset (ms) O-P Amp (mV) Site1 Site2 Delta-0 (ms) Dist (cm) Michael (m/s) Left Peroneal Motor (Vastus Med) Ankle 4.2 3.3 Popit Ankle 8.8 39.0 44 Popit 13.0 2.0 Right Peroneal Motor (Vastus Med) Ankle 4.4 3.7 Popit Ankle 9.3 37.0 40 Popit 13.7 2.7 Left Tibial Motor (Abd Whitley Brev) Ankle 4.7 2.5 Knee Ankle 8.4 41.0 49 Knee 13.1 0.1 Right Tibial Motor (Abd Whitley Brev) Ankle 4.5 4.6 Knee Ankle 9.6 40.0 42 Knee 14.1 3.1 F Wave Studies NR F-Lat (ms) L-R F-Lat (ms) Left Peroneal (Mrkrs) (EDB) 50.01 0.95 Right Peroneal (Mrkrs) (EDB) 50.96 0.95 Left Tibial (Mrkrs) (Abd Hallucis) 51.67 1.60 Right Tibial (Mrkrs) (Abd Hallucis) 50.06 1.60 EMG Side Muscle Nerve Root Ins Act Fibs Amp Dur Recrt Comment Right AntTibialis Dp Br Fibular L4-5 Nml Nml Nml Nml Nml Right Gastroc Tibial S1-2 Nml Nml Nml Nml Reduced Right Fibularis Long Sup Br Fibular L5-S1 Nml Nml Nml Nml Nml Right Flex Dig Long Tibial L5-S2 Nml Nml Nml Nml Reduced Right Ext Dig Brev Dp Br Fibular L5, S1 Nml Nml Nml Nml Nml Left AntTibialis Dp Br Fibular L4-5 Nml Nml Nml Nml Nml Left Gastroc Tibial S1-2 Nml Nml Nml Nml Reduced Left Fibularis Long Sup Br Fibular L5-S1 Nml Nml Nml Nml Nml Left Flex Dig Long Tibial L5-S2 Nml Nml Nml Nml Reduced Left Ext Dig Brev Dp Br Fibular L5, S1 Nml Nml Nml Nml Nml MTDD
== END 2021-10-16 09:38 | disposition home or self-care (01) ==
PROVIDERS: PCP Family Medicine; Visit Provider Psychiatry & Neurology Neurology
DX: G62.9 Polyneuropathy, unspecified (principal)
CPT/HCPCS: 95886; 95910

== ENCOUNTER 2021-10-29 13:33 | Emergency (ER) | payer OTHER, SELFPAY ==
--- NOTE | ~2021-10-29 | XR_ITS ---
EXAMINATION: XR chest 2V Exam Date/Time: 10/29/2021 14:03 CDT HISTORY: cough UNTIL VOMITING Comparison: 11/02/2020. RESULT: Lines, tubes, and devices: Cholecystectomy clips. Lungs and pleura: Clear. Cardiomediastinal silhouette: Stable cardiomediastinal silhouette. Other: No acute osseous or upper abdominal finding. IMPRESSION: No acute cardiopulmonary process. Reviewed, dictated and finalized at location K.
[2021-10-29 13:35] VITALS: BP 131/87; PULSE 94; RESP 15; TEMP 36.3; O2SAT 100
--- NOTE | 2021-10-29 13:48 | PC.NURSE ---
Orders placed in triage per Dr. Elizabeth's verbal orders.
[2021-10-29 14:01] LABS: Basophils Percent Auto 0.6 % (0.2-1.2); Eosinophils Absolute Auto 0.1 K/mm3 (0-0.3); Eosinophils Percent Auto 1.6 % (0-4.4); Hematocrit 44.7 % (42.0-52.0); Hemoglobin 14.7 g/dL (14.0-18.0); Immature Granulocyte Absolute 0.01 K/mm3 (0.00-0.031); Immature Granulocyte Percent A 0.1 % (0-0.5); Lymphocytes Absolute Auto 1.74 K/mm3 (0.9-3.2); Mean Corpuscular HGB Conc 32.9 g/dl (32-36); Mean Corpuscular Hemoglobin 30.9 pg (26-34); Mean Corpuscular Volume 93.9 fl (80-100); Mean Platelet Volume 9.9 fl (7.4-10.4); Monocytes Absolute Auto 0.4 K/mm3 (0.1-0.6); Neutrophils Absolute Auto 4.4 K/mm3 (1.3-6.7); Neutrophils Percent Auto 65.7 % (45.5-73.1); Platelet Count Result 146 k/mm3 (150-375); Red Blood Count 4.76 M/mm3 (4.6-6.20); White Blood Count 6.7 K/mm3 (4.5-10.0)
[2021-10-29 14:10] LABS: Alanine Aminotransferase 75 U/L (6-50); Alkaline Phosphatase 84 U/L (38-126); Anion Gap 11 mmol/L (8-16); Aspartate Amino Transferase 59 U/L (17-59); Bilirubin,Total 0.7 mg/dL (0.2-1.3); Blood Urea Nitrogen 9 mg/dL (9-20); Calcium 9.6 mg/dL (8.4-10.2); Carbon Dioxide 23 mmol/L (22-30); Chloride 101 mmol/L (98-107); Estimated CRCL calculation 73 ml/min; Estimated Glomerular Filt Rate > 60; Glucose 222 mg/dL (65-110); Potassium 4.2 mmol/L (3.4-5.0); Sodium 135 mmol/L (137-145)
[2021-10-29 14:37] LABS: Influenza A QL RT-PCR Negative (Negative); Influenza B QL RT-PCR Negative (Negative); SARS-CoV-2 RNA PCR Negative
[2021-10-29 16:35] VITALS: BP 141/80; PULSE 94; RESP 16; O2SAT 96
--- NOTE | 2021-10-29 17:48 | ED.GENADULT ---
HPI - General Adult General Chief complaint: Unspecified Stated complaint: vomiting induced by cough x months Time Seen by Provider: 10/29/21 16:37 History of Present Illness HPI narrative: 66-year-old male presenting to the emergency department for evaluation of cough for about 4 months and intermittent nausea for about 2 weeks. Patient states that he has been a smoker for the last 8 years. Patient states that the cough that he has sometimes causes him to have posttussive emesis. Patient also reports he does have some other episodes of emesis unrelated to coughing. Patient denies any associated chest pain or shortness of breath. Related Data Home Medications Medication Instructions Recorded Confirmed amitriptyline 50 mg tablet 50 mg PO QAM 05/08/21 10/18/21 aripiprazole 10 mg tablet 10 mg PO BID 05/08/21 10/18/21 bupropion HCl 200 mg tablet,12 hr 200 mg PO BID 05/08/21 10/18/21 sustained-release Allergies Allergy/AdvReac Type Severity Reaction Status Date / Time No Known Allergies Allergy Verified 10/29/21 13:34 Review of Systems Review of Systems: CONSTITUTIONAL: Denies fever, chills, or sweats. EYES: Denies visual changes, redness, or discharge. ENT: Denies rhinorrhea, congestion, sore throat, or otalgia. CARDIOVASCULAR: Denies chest pain, palpitations, or edema. RESPIRATORY: Intermittent cough, see HPI GASTROINTESTINAL: No abdominal pain but does have some nausea and vomiting not associated with posttussive emesis. See HPI GENITOURINARY: Denies dysuria or hematuria. SKIN: Denies rash or itching. MUSCULOSKELETAL: Denies back pain, joint pain, or myalgia. NEUROLOGIC: Denies headache, numbness, or weakness. PSYCHIATRIC: Denies anxiety or depression. [facility] Past Medical History Medical History Anxiety Arthritis of right knee Ataxia Balance disorder Benign prostatic hyperplasia Bilateral knee pain Bipolar depression BPH (benign prostatic hyperplasia) Chronic insomnia Elevated cholesterol Elevated liver enzymes Former cigarette smoker Gait abnormality GERD (gastroesophageal reflux disease) Hyperlipidemia Hypertension Hypomagnesemia Inadequate sleep hygiene Liver cell damage Neuropathic pain Peripheral neuropathy Pure hypercholesterolemia, unspecified Rib fracture Slurred speech Type 2 diabetes mellitus with hyperglycemia Surgical History Surgical History History of arthroscopy of left knee History of right knee surgery x4 Status post total right knee replacement (05/10/21) Family History Family History Father Age older than 80 years Mother Age older than 80 years Patient's mother is in good health Sibling Fibromyalgia Social History Social History Social History: Patient reported that he started smoking 6 years ago after a bitter divorce. He stops smoking April 11, 2021. He is now remarried. 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 He has 4 children who are all healthy and 21 grand children. He he does not drink alcohol or use illicit substances. Code status: Full code Surrogate decision maker: Smoking packs per day: 0.5 Smoking cigarettes per day: 10.0 Years smoked: 8 Smoking pack-years: 4.00 Smoking status: Current every day smoker Tobacco type: cigarettes Alcohol intake: never Substance use: never Additional living arrangements comments: Spiritual care concerns: No Exam Narrative: APPEARANCE: Well appearing, no pain, no distress, well-nourished. HEAD: normocephalic, atraumatic. EYES: PERRLA/EOMI, conjunctivae clear. NOSE: Normal no drainage THROAT: Pharynx clear, no exudate. NECK: Supple. No adenopathy, no masses. RESPIRATORY: Airway patent, respirations nonlabored. Clear to auscultation
[2021-10-29] MEDS: AZITHROMYCIN 250 MG TABLET 500 MG PO (18:00)
== END 2021-10-29 18:11 | disposition home or self-care (01) ==
PROVIDERS: Emergency Medicine; Emergency Provider Emergency Medicine; PCP Family Medicine
DX: J18.9 Pneumonia, unspecified organism (principal); Z20.822 Contact with and (suspected) exposure to COVID-19; N40.0 Benign prostatic hyperplasia without lower urinary tract symptoms; E78.5 Hyperlipidemia, unspecified; I10 Essential (primary) hypertension; E11.42 Type 2 diabetes mellitus with diabetic polyneuropathy; M17.11 Unilateral primary osteoarthritis, right knee; F31.9 Bipolar disorder, unspecified; F41.9 Anxiety disorder, unspecified; Z96.651 Presence of right artificial knee joint; F17.210 Nicotine dependence, cigarettes, uncomplicated; R11.0 Nausea; Z79.4 Long term (current) use of insulin; Z79.84 Long term (current) use of oral hypoglycemic drugs
CPT/HCPCS: 36415; 71046; 80053; 85025; 87502; 99283; A9270; C9803; U0003; U0005

== ENCOUNTER 2021-11-17 08:19 | Emergency (ER) | payer OTHER, SELFPAY ==
--- NOTE | ~2021-11-17 | XR_ITS ---
XR chest 2V DATE: 11/17/2021 08:58 INDICATION: Cough for a week. Chest/epigastric pain. TECHNIQUE: PA and lateral views COMPARISON: 10/29/2021 PA and lateral chest FINDINGS: Normal heart size. No hilar or mediastinal enlargement. No pulmonary infiltrate or consolid ation, pleural effusion or pulmonary vascular congestion or pneumothorax is detected. Right upper quadrant surgical clips, likely due to cholecystectomy. IMPRESSION: No active cardiopulmonary disease Reviewed, dictated and finalized at location A.
[2021-11-17 08:20] VITALS: BP 146/91; PULSE 107; RESP 16; TEMP 36.6; O2SAT 98
--- NOTE | 2021-11-17 08:51 | ECG_ITS ---
Measurements Intervals [place] Rate: 103 P: 20 AL: 201 QRS: -52 QRSD: 86 T: 6 QT: 303 QTc: 397 Interpretive Statements SINUS TACHYCARDIA INFERIOR MYOCARDIAL INFARCTION , PROBABLY OLD [40+ ms Q WAVE AND/OR ST/T ABNORMALITY IN II/aVF] ANTEROLATERAL MYOCARDIAL INFARCTION , OF INDETERMINATE AGE [40+ ms Q WAVE IN I/aVL/V3- V6] COMPARED TO ECG 03/30/2021 12:53:50 SMALL R-WAVES IN PRECORDIAL LEADS ARE NO LONGER SEEN ? SLIGHTLY DIFFERENT LEAD POSITION VERSUS INTERVAL ME Electronically Signed On 11-17-2021 14:48:59 CDT by Gabo Amezcua M.D.
[2021-11-17] MEDS: IPRATROPIUM BR 0.02% INH SOLN 0.5 MG/2.5 ML VIAL 1 MG INHALATION (09:00)
[2021-11-17] MEDS: ALBUTEROL SULFATE NEB 2.5 MG/3 ML INH 15 MG INHALATION (09:00)
[2021-11-17 09:03] VITALS: PULSE 101; RESP 18
[2021-11-17] MEDS: predniSONE 20 MG TABLET 60 MG PO (09:26)
[2021-11-17 09:58] LABS: Basophils Percent Auto 0.6 % (0.2-1.2); Eosinophils Absolute Auto 0.1 K/mm3 (0-0.3); Eosinophils Percent Auto 2.1 % (0-4.4); Hematocrit 44.5 % (42.0-52.0); Hemoglobin 15.2 g/dL (14.0-18.0); Immature Granulocyte Absolute 0.07 K/mm3 (0.00-0.031); Immature Granulocyte Percent A 1.1 % (0-0.5); Lymphocytes Percent Auto 25.4 % (18.3-44.2); Mean Corpuscular HGB Conc 34.2 g/dl (32-36); Mean Corpuscular Hemoglobin 31.5 pg (26-34); Mean Corpuscular Volume 92.3 fl (80-100); Mean Platelet Volume 10.1 fl (7.4-10.4); Monocytes Absolute Auto 0.3 K/mm3 (0.1-0.6); Monocytes Percent Auto 5.1 % (2.6-8.5); Neutrophils Absolute Auto 4.1 K/mm3 (1.3-6.7); Neutrophils Percent Auto 65.7 % (45.5-73.1); Platelet Count Result 166 k/mm3 (150-375); Red Blood Count 4.82 M/mm3 (4.6-6.20); Red Cell Distribution Width 13.6 % (11.5-14.5); White Blood Count 6.3 K/mm3 (4.5-10.0)
[2021-11-17 10:10] LABS: Alanine Aminotransferase 87 U/L (6-50); Albumin Level 5.1 g/dL (3.5-5.1); Alkaline Phosphatase 90 U/L (38-126); Anion Gap 15 mmol/L (8-16); Aspartate Amino Transferase 82 U/L (17-59); Bilirubin,Total 0.7 mg/dL (0.2-1.3); Blood Urea Nitrogen 14 mg/dL (9-20); Calcium 9.8 mg/dL (8.4-10.2); Carbon Dioxide 20 mmol/L (22-30); Chloride 100 mmol/L (98-107); Estimated CRCL calculation 81 ml/min; Estimated Glomerular Filt Rate > 60; Glucose 255 mg/dL (65-110); Magnesium 1.7 mg/dL (1.6-2.3); Potassium 4.4 mmol/L (3.4-5.0); Sodium 135 mmol/L (137-145)
[2021-11-17 10:14] VITALS: PULSE 107; RESP 28
[2021-11-17 10:18] LABS: NT Pro B Type Natriuretic Pept 41 pg/mL (5-100)
[2021-11-17 10:38] LABS: SARS-CoV-2 RNA PCR Negative
--- NOTE | 2021-11-17 12:13 | PC.NURSE ---
patient opening the door to exam room. patient states that he is ready to go and will leave regardless of results . patient requesting hospital staff email patient with results of labs and imaging. education provided.
--- NOTE | 2021-11-17 17:50 | ED.GENADULT ---
HPI - General Adult General Chief complaint: Unspecified Stated complaint: cough so hard, ruptured something in abd Time Seen by Provider: 11/17/21 08:48 History of Present Illness HPI narrative: 66-year-old male states that he has been coughing for the past week, and he feels that he has been coughing so hard that he popped something in his abdomen. Denies any abdominal pain unless he coughs hard, then it feels sore. No fevers/chills. No n/v. Related Data Home Medications Medication Instructions Recorded Confirmed amitriptyline 50 mg tablet 50 mg PO QAM 05/08/21 11/15/21 aripiprazole 10 mg tablet 10 mg PO BID 05/08/21 11/15/21 bupropion HCl 200 mg tablet,12 hr 200 mg PO BID 05/08/21 11/15/21 sustained-release Allergies Allergy/AdvReac Type Severity Reaction Status Date / Time No Known Allergies Allergy Verified 11/15/21 08:30 Review of Systems Review of Systems: CONST: No fever. HEENT: No sore throat C/V: No chest pain RESP: Cough GI: Reports abdominal soreness when coughing : No dysuria. M/S: No joint pain. SKIN: No rash. NEURO: [No headache or focal numbness or weakness] PSYCH: [No depression] [facility] Past Medical History Medical History Anxiety Arthritis of right knee Ataxia Balance disorder Benign prostatic hyperplasia Bilateral knee pain Bipolar depression BPH (benign prostatic hyperplasia) Chronic insomnia Elevated cholesterol Elevated liver enzymes Former cigarette smoker Gait abnormality GERD (gastroesophageal reflux disease) Hyperlipidemia Hypertension Hypomagnesemia Inadequate sleep hygiene Liver cell damage Neuropathic pain Peripheral neuropathy Pure hypercholesterolemia, unspecified Rib fracture Slurred speech Type 2 diabetes mellitus with hyperglycemia Surgical History Surgical History History of arthroscopy of left knee History of right knee surgery x4 Status post total right knee replacement (05/10/21) Family History Family History Father Age older than 80 years Mother Age older than 80 years Patient's mother is in good health Sibling Fibromyalgia Social History Social History Social History: Patient reported that he started smoking 6 years ago after a bitter divorce. He stops smoking April 11, 2021. He is now remarried. 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 He has 4 children who are all healthy and 21 grand children. He he does not drink alcohol or use illicit substances. Code status: Full code Surrogate decision maker: Smoking packs per day: 0.5 Smoking cigarettes per day: 10.0 Years smoked: 8 Smoking pack-years: 4.00 Smoking status: Current every day smoker Tobacco type: cigarettes Alcohol intake: never Substance use: never Additional living arrangements comments: Spiritual care concerns: No Exam Narrative: EXAMINATION OF ORGAN SYSTEMS/BODY AREAS: Constitutional: Vital signs per nursing GENERAL:[No acute distress, non-toxic appearing.] HEAD: Normal with no signs of head trauma. EYES: EOMI, conjunctiva normal ENT: Hearing grossly intact LUNGS: Prolonged expirations HEART: Tachycardic ABD: [Soft], [nontender to palpation] EXT: Normal range of motion SKIN: [No rashes or lesions.] NEURO: [Alert and oriented x 3. No gross focal sensory or strength deficits.] PSYCH: Normal affect Course Vital Signs Vital signs: Vital Signs Temperature 97.8 F 11/17/21 08:20 Pulse Rate 107 H 11/17/21 08:20 Respiratory Rate 16 11/17/21 08:20 Blood Pressure 146/91 H 11/17/21 08:20 Pulse Oximetry 98 11/17/21 08:20 Oxygen Delivery Room Air 11/17/21 08:20 Temperature 97.8 F 11/17/21 08:20 Pulse Rate 107 H 11/17/21 10:14 Respiratory Rate 28 H 11/17/21 10:14 Blood Pressure 146/91 H 11/17/21
== END 2021-11-17 12:36 | disposition home or self-care (01) ==
PROVIDERS: Emergency Provider Emergency Medicine; PCP Family Medicine
DX: R05.9 Cough, unspecified (principal); Z20.822 Contact with and (suspected) exposure to COVID-19; E11.42 Type 2 diabetes mellitus with diabetic polyneuropathy; E78.5 Hyperlipidemia, unspecified; N40.0 Benign prostatic hyperplasia without lower urinary tract symptoms; K21.9 Gastro-esophageal reflux disease without esophagitis; F31.9 Bipolar disorder, unspecified; F41.9 Anxiety disorder, unspecified; Z96.651 Presence of right artificial knee joint; Z87.891 Personal history of nicotine dependence; Z79.84 Long term (current) use of oral hypoglycemic drugs; Z79.4 Long term (current) use of insulin
CPT/HCPCS: 36415; 71046; 80053; 83735; 83880; 85025; 93005; 94640; 99284; C9803; J7512; U0003; U0005

== ENCOUNTER 2022-01-10 13:44 | Outpatient (CLI) | payer OTHER, SELFPAY ==
[2022-01-10 19:24] LABS: Appearance Urine Clear (Clear); Bilirubin Urine Negative (Negative); Blood Urine Negative (Negative); Color Urine Yellow (Yellow); Glucose Urine UA 3+ mg/dL (Negative); Ketones Urine Trace mg/dL (Negative); Leukocyte Esterase Ur Negative LEU/UL (Negative); Nitrate Urine Negative (Negative); Protein Urine Negative (Negative); Specific Grav Ur 1.025 (1.001-1.035); Urobilinogen Urine 0.2 mg/dL (<2.0); pH Urine 5.5 (5.0-9.0)
[2022-01-10 19:30] LABS: Bacteria Urine Trace /hpf; Mucus Urine Rare /lpf; RBC Urine 0-2 /hpf (0-2); WBC Urine 0-3 /hpf
[2022-01-10 19:35] LABS: Add Urine Microscopic? YES
[2022-01-10 20:30] LABS: Alanine Aminotransferase 101 U/L (6-50); Alkaline Phosphatase 100 U/L (38-126); Anion Gap 15 mmol/L (8-16); Aspartate Amino Transferase 89 U/L (17-59); Bilirubin,Total 0.6 mg/dL (0.2-1.3); Blood Urea Nitrogen 14 mg/dL (9-20); Calcium 10.4 mg/dL (8.4-10.2); Carbon Dioxide 25 mmol/L (22-30); Chloride 97 mmol/L (98-107); Estimated Glomerular Filt Rate > 60; Glucose 216 mg/dL (65-110); Sodium 137 mmol/L (137-145)
[2022-01-10 20:44] LABS: Hepatitis B Surface Antigen Negative (Negative)
[2022-01-10 20:50] LABS: HAV RESULT Negative (Negative); Hepatitis B Core IgM Result Negative (Negative)
[2022-01-10 21:02] LABS: Hepatitis C Virus Antibody Negative (Negative)
== END 2022-01-10 13:45 | disposition home or self-care (01) ==
PROVIDERS: PCP Family Medicine; Visit Provider Family Medicine
DX: R30.0 Dysuria (principal); R74.8 Abnormal levels of other serum enzymes; N28.9 Disorder of kidney and ureter, unspecified; R74.01 Elevation of levels of liver transaminase levels
CPT/HCPCS: 36415; 80069; 80074; 80076; 81001

== ENCOUNTER 2022-01-17 07:45 | Outpatient (CLI) | payer OTHER, SELFPAY ==
--- NOTE | ~2022-01-17 | US_ITS ---
EXAMINATION: US abdomen limited DATE: 01/17/2022 08:35 INDICATION: Right upper quadrant pain TECHNIQUE: Multiple grayscale and Doppler ultrasound images of the abdomen were obtained. COMPARISON: None available FINDINGS: Bowel gas obscures visualization of the pancreas. The liver demonstrates increased echogeni city, heterogenous echotexture, and decreased through transmission. No surface nodularity. Normal hep atopetal flow in the main portal vein. The gallbladder is surgically absent. The normal common bile d uct measures 5 mm. IMPRESSION: 1. Diffuse hepatic steatosis. Reviewed, dictated and finalized at location B.
== END 2022-01-17 07:46 | disposition home or self-care (01) ==
LOC: ANHIMG 07:46
PROVIDERS: PCP Family Medicine; Visit Provider Family Medicine
DX: R74.8 Abnormal levels of other serum enzymes (principal); K76.0 Fatty (change of) liver, not elsewhere classified
CPT/HCPCS: 76705

== ENCOUNTER 2022-01-24 17:40 | Emergency (ER) | payer OTHER, SELFPAY ==
[2022-01-24] VITALS (7 sets, daily range): BP systolic 105–137; BP diastolic 72–89; PULSE 88–91; RESP 15–22; TEMP 36.1; O2SAT 96–100
[2022-01-24 18:54] LABS: Glucose Point of Care 54 mg/dl (65-105)
--- NOTE | 2022-01-24 18:54 | PC.NURSE ---
Pt given meal and juice to increase blood sugar.
--- NOTE | 2022-01-24 19:59 | ED.GENADULT ---
HPI - General Adult General Chief complaint: Recheck/Abnormal Lab/Rx Stated complaint: emesis, high blood sugar Time Seen by Provider: 01/24/22 19:02 History of Present Illness HPI narrative: Patient is a 66-year-old male who presents ER with concerns for nausea and vomiting and possible DKA. Reports his blood sugar this morning was around 350 and he took his insulin aspart. He then had an episode of vomiting in the morning and 1 episode of vomiting in the evening. He did not eat all day long. Upon arrival here his sugar was in the 50s and he was feeling sweaty. He has now been able to drink juice, eat a bag of chips, and eat a sandwich. No abdominal discomfort. No vomiting at this time. No fevers or chills or sweats. No chest pain or chest pressure. Related Data Home Medications Medication Instructions Recorded Confirmed amitriptyline 50 mg tablet 50 mg PO QAM 05/08/21 11/15/21 aripiprazole 10 mg tablet 10 mg PO BID 05/08/21 11/15/21 bupropion HCl 200 mg tablet,12 hr 200 mg PO BID 05/08/21 11/15/21 sustained-release Allergies Allergy/AdvReac Type Severity Reaction Status Date / Time No Known Allergies Allergy Verified 01/24/22 18:45 Review of Systems Review of Systems: All systems reviewed & are unremarkable except as noted in HPI and below Constitutional: Constitutional: Denies chills, Denies fatigue and Denies fever(s) ENT: Denies nasal congestion and Denies sore throat Cardiovascular: Cardiovascular: Denies chest pain, Denies rapid heart rate and Denies radiating jaw, neck or arm pain Respiratory: Respiratory: Denies cough and Denies dyspnea Gastrointestinal: Gastrointestinal: Denies abdominal pain, Denies diarrhea, Reports nausea and Reports vomiting [facility] Past Medical History Medical History Anxiety Arthritis of right knee Ataxia Balance disorder Benign prostatic hyperplasia Bilateral knee pain Bipolar depression BPH (benign prostatic hyperplasia) Chronic insomnia Elevated cholesterol Elevated liver enzymes Former cigarette smoker Gait abnormality GERD (gastroesophageal reflux disease) Hyperlipidemia Hypertension Hypomagnesemia Inadequate sleep hygiene Liver cell damage Neuropathic pain Peripheral neuropathy Pure hypercholesterolemia, unspecified Rib fracture Slurred speech Type 2 diabetes mellitus with hyperglycemia Surgical History Surgical History History of arthroscopy of left knee History of right knee surgery x4 Status post total right knee replacement (05/10/21) Family History Family History Father Age older than 80 years Mother Age older than 80 years Patient's mother is in good health Sibling Fibromyalgia Social History Social History Social History: Patient reported that he started smoking 6 years ago after a bitter divorce. He stops smoking April 11, 2021. He is now remarried. 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 He has 4 children who are all healthy and 21 grand children. He he does not drink alcohol or use illicit substances. Code status: Full code Surrogate decision maker: Smoking packs per day: 0.5 Smoking cigarettes per day: 10.0 Years smoked: 8 Smoking pack-years: 4.00 Smoking status: Current every day smoker Tobacco type: cigarettes Alcohol intake: never Substance use: never Additional living arrangements comments: Spiritual care concerns: No Exam Narrative: GENERAL: Well-appearing, well-nourished, and in no acute distress. HEAD: Normocephalic, atraumatic. EYES: PERRL and EOMI. ENT: Mucous membranes moist. CHEST: Clear to auscultation. No respiratory distress. HEART: Regular rate and rhythm. Normal peripheral pulses. ABDOMEN: Soft, nontender, non
[2022-01-24 20:01] LABS: Glucose Point of Care 70 mg/dl (65-105)
[2022-01-24 20:01] LABS: Glucose Point of Care 127 mg/dl (65-105)
[2022-01-24 20:03] LABS: Basophils Absolute Auto 0.1 K/mm3 (0.0-0.1); Basophils Percent Auto 0.5 % (0.2-1.2); Eosinophils Absolute Auto 0.2 K/mm3 (0-0.3); Eosinophils Percent Auto 1.1 % (0-4.4); Hematocrit 46.9 % (42.0-52.0); Hemoglobin 15.9 g/dL (14.0-18.0); Immature Granulocyte Absolute 0.09 K/mm3 (0.00-0.031); Immature Granulocyte Percent A 0.7 % (0-0.5); Lymphocytes Percent Auto 29.5 % (18.3-44.2); Mean Corpuscular HGB Conc 33.9 g/dl (32-36); Mean Corpuscular Hemoglobin 32.3 pg (26-34); Mean Corpuscular Volume 95.3 fl (80-100); Mean Platelet Volume 9.8 fl (7.4-10.4); Monocytes Percent Auto 7.3 % (2.6-8.5); Neutrophils Absolute Auto 8.3 K/mm3 (1.3-6.7); Neutrophils Percent Auto 60.9 % (45.5-73.1); Platelet Count Result 302 k/mm3 (150-375); Red Blood Count 4.92 M/mm3 (4.6-6.20); Red Cell Distribution Width 13.5 % (11.5-14.5); White Blood Count 13.6 K/mm3 (4.5-10.0)
[2022-01-24 20:12] LABS: Alanine Aminotransferase 77 U/L (6-50); Albumin Level 5.3 g/dL (3.5-5.1); Alkaline Phosphatase 108 U/L (38-126); Anion Gap 18 mmol/L (8-16); Aspartate Amino Transferase 60 U/L (17-59); Bilirubin,Total 0.7 mg/dL (0.2-1.3); Blood Urea Nitrogen 26 mg/dL (9-20); Carbon Dioxide 23 mmol/L (22-30); Chloride 96 mmol/L (98-107); Estimated CRCL calculation 66 ml/min; Estimated Glomerular Filt Rate > 60; Glucose 61 mg/dL (65-110); Potassium 3.9 mmol/L (3.4-5.0); Sodium 137 mmol/L (137-145)
[2022-01-24 20:53] LABS: Glucose Point of Care 113 mg/dl (65-105)
== END 2022-01-24 21:45 | disposition home or self-care (01) ==
PROVIDERS: Emergency Provider Emergency Medicine; PCP Family Medicine
DX: E11.649 Type 2 diabetes mellitus with hypoglycemia without coma (principal); E11.42 Type 2 diabetes mellitus with diabetic polyneuropathy; Z79.4 Long term (current) use of insulin; F41.9 Anxiety disorder, unspecified; M17.9 Osteoarthritis of knee, unspecified; N40.0 Benign prostatic hyperplasia without lower urinary tract symptoms; E78.00 Pure hypercholesterolemia, unspecified; Z87.891 Personal history of nicotine dependence; K21.9 Gastro-esophageal reflux disease without esophagitis; E78.5 Hyperlipidemia, unspecified; I10 Essential (primary) hypertension; Z96.651 Presence of right artificial knee joint
CPT/HCPCS: 36415; 80053; 82948; 85025; 99283

== ENCOUNTER 2022-02-14 10:42 | Outpatient (CLI) | payer OTHER, SELFPAY ==
[2022-02-14 19:15] LABS: Prostate Specific Antigen 0.2 ng/mL (< OR = 4.0)
== END 2022-02-14 10:43 | disposition home or self-care (01) ==
LOC: ANHBWCLAB 10:43
PROVIDERS: PCP Family Medicine; Visit Provider Family Medicine
DX: Z00.00 Encounter for general adult medical examination without abnormal findings (principal); E11.9 Type 2 diabetes mellitus without complications; F31.9 Bipolar disorder, unspecified; Z12.5 Encounter for screening for malignant neoplasm of prostate; I10 Essential (primary) hypertension; R94.5 Abnormal results of liver function studies; R27.0 Ataxia, unspecified; G62.9 Polyneuropathy, unspecified; N40.0 Benign prostatic hyperplasia without lower urinary tract symptoms; E78.5 Hyperlipidemia, unspecified
CPT/HCPCS: 36415; 84153; G0103

== ENCOUNTER 2022-02-28 09:15 | Outpatient (RCR) | payer OTHER, SELFPAY ==
[2022-02-21 09:37] VITALS: BMI 29.9
[2022-02-21 10:23] VITALS: BMI 29.9
== END 2022-05-20 14:34 | disposition home or self-care (01) ==
LOC: ANHDMC 09:15
PROVIDERS: PCP Family Medicine; Visit Provider Internal Medicine Endocrinology, Diabetes & Metabolism
DX: E11.65 Type 2 diabetes mellitus with hyperglycemia (principal); Z71.3 Dietary counseling and surveillance; Z71.89 Other specified counseling
CPT/HCPCS: 97802; 99199; G0108

== ENCOUNTER 2022-03-18 14:14 | Outpatient (CLI) | payer OTHER, SELFPAY ==
[2022-03-18 19:09] LABS: Alanine Aminotransferase 75 U/L (6-50); Albumin Level 5.2 g/dL (3.5-5.1); Alkaline Phosphatase 79 U/L (38-126); Anion Gap 15 mmol/L (8-16); Aspartate Amino Transferase 81 U/L (17-59); Bilirubin,Total 0.5 mg/dL (0.2-1.3); Blood Urea Nitrogen 15 mg/dL (9-20); Calcium 10.6 mg/dL (8.4-10.2); Carbon Dioxide 22 mmol/L (22-30); Chloride 102 mmol/L (98-107); Estimated Glomerular Filt Rate > 60; Glucose 88 mg/dL (65-110); Potassium 4.1 mmol/L (3.4-5.0); Sodium 139 mmol/L (137-145)
== END 2022-03-18 14:15 | disposition home or self-care (01) ==
PROVIDERS: PCP Family Medicine; Visit Provider Family Medicine
DX: E11.29 Type 2 diabetes mellitus with other diabetic kidney complication (principal); E11.65 Type 2 diabetes mellitus with hyperglycemia; R80.9 Proteinuria, unspecified; Z79.4 Long term (current) use of insulin; G62.9 Polyneuropathy, unspecified; I10 Essential (primary) hypertension
CPT/HCPCS: 36415; 80053

== ENCOUNTER 2022-04-02 11:25 | Outpatient (CLI) | payer OTHER, SELFPAY | END 2022-04-02 11:26 | disposition home or self-care (01) | PROVIDERS: PCP Family Medicine; Visit Provider Family Medicine | DX: K21.9 Gastro-esophageal reflux disease without esophagitis (principal); R11.10 Vomiting, unspecified | CPT/HCPCS: 36415; 82607 ==

== ENCOUNTER 2022-04-30 07:12 | Outpatient (CLI) | payer OTHER, SELFPAY ==
--- NOTE | ~2022-04-30 | NM_ITS ---
EXAM: NM gastric emptying study DATE: 04/30/2022 11:54 INDICATION: Nausea and vomiting TECHNIQUE: A gastric emptying study was performed using the methodology of Hailey CARPENTER, et al. J Nucl Med 2007; 48:568-572. The patient was given a meal consisting of 2 scrambled eggs labeled with 1.037 mCi Tc-99m sulfur colloid, 2 slices of toast, two packages of jam, and approximately 120 mL of water . Simultaneous anterior and posterior 1-min images of the abdomen were obtained with the patient supi ne at multiple time points over a total period of 4 hours. The geometric mean of anterior and posteri or views was determined, and the percentage retention was calculated for each time point. COMPARISON: None. FINDINGS: Gastric retention of the radiotracer-labeled meal was 39%, 21%, and 10% at the 1-hour, 2-hour, and 4- hour time points, respectively. With this technique, apparent rapid gastric emptying is suggested by <30% gastric retention at 1 hour. Delayed gastric emptying is defined by gastric retention of >90% at 1 hour, >60% retention at 2 hours, or >10% retention at 4 hours. IMPRESSION: 1. Normal gastric emptying. Reviewed, dictated and finalized at location A. E CUTTER IMPRESSION: 1. Normal gastric emptying.
== END 2022-04-30 07:13 | disposition home or self-care (01) ==
PROVIDERS: PCP Family Medicine; Visit Provider Nurse Practitioner
DX: R11.2 Nausea with vomiting, unspecified (principal); R68.81 Early satiety; E11.65 Type 2 diabetes mellitus with hyperglycemia; Z79.4 Long term (current) use of insulin
CPT/HCPCS: 78264; A9541

== ENCOUNTER 2022-05-02 13:27 | Outpatient (CLI) | payer OTHER, SELFPAY ==
--- NOTE | ~2022-05-02 | CT_ITS ---
EXAMINATION: CTA brain carotid DATE: 05/02/2022 14:18 INDICATION: Abnormal gait and mobility. TECHNIQUE: Computed tomographic angiography (CTA) of the head was performed without and with 100 mL O mnipaque-350 intravenous contrast. CTA of the neck was performed with intravenous contrast. Automated exposure control and iterative reconstruction technique were employed. The dose-length product was 1 733.79 mGy-cm. Maximum intensity projection and volume rendered 3D-reconstructions were created by allie carrero technologist on a separate workstation. COMPARISON: Brain MRI 08/21/2021 FINDINGS: HEAD CTA: There is no intracranial hemorrhage, acute infarction, or abnormal intracranial mass lesion . There are scattered areas of low attenuation in the cerebral white matter, which is within normal l imits for the patient's age. The ventricles are normal in size. The orbits are normal. There is mild mucosal thickening in the paranasal sinuses. The mastoid air cells are normal. The vertebral arteries are codominant. There is no significant stenosis of basilar artery or the posterior cerebral arterie s. There is total occlusion of cervical right internal carotid artery with supraclinoid reconstitutio n. There is no significant stenosis of intracranial left internal carotid artery. There is no signifi cant stenosis of the anterior or middle cerebral arteries. Anterior communicating artery is normal. T here is no significant stenosis of the posterior communicating arteries. There is no aneurysm. NECK CTA: The visualized portions of the lung apices demonstrate patchy airspace and groundglass opac ities in right upper lobe. There is mild atelectasis bilaterally. There are no pathologically enlarge d lymph nodes. There is no significant stenosis of the vertebral arteries. There is total occlusion o f right cervical internal carotid artery. There is no visible plaque in proximal left internal caroti d artery. There is 0% stenosis of the proximal left internal carotid artery relative to normal distal artery lumen diameter. There is mild cervical spondylosis. IMPRESSION: 1. Normal aging brain. 2. 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 3. 0% stenosis of the proximal left internal carotid artery relative to normal distal artery lumen di ameter. 4. Patchy airspace and groundglass opacities in right lung upper lobe, consistent with atelectasis ve rsus pneumonia. Reviewed, dictated and finalized at location A. LEM MANAGER IMPRESSION: 1. Normal aging brain. 2. 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 3. 0% stenosis of the proximal left internal carotid artery relative to normal distal artery lumen diameter. 4. Patchy airspace and groundglass opacities in right lung upper lobe, consiste nt with atelectasis versus pneumonia.
[2022-05-02 13:56] LABS: Estimated Glomerular Filt Rate > 60
== END 2022-05-02 13:28 | disposition home or self-care (01) ==
PROVIDERS: PCP Family Medicine; Visit Provider Psychiatry & Neurology Neurology
DX: R26.9 Unspecified abnormalities of gait and mobility (principal); I65.21 Occlusion and stenosis of right carotid artery; R91.8 Other nonspecific abnormal finding of lung field
CPT/HCPCS: 70496; 70498; Q9967

== ENCOUNTER 2022-05-10 10:11 | Outpatient (CLI) | payer OTHER, SELFPAY ==
--- NOTE | ~2022-05-10 | XR_ITS ---
EXAMINATION: XR UGIAC w barium swallow DATE: 05/10/2022 10:53 INDICATION: Nausea with vomiting. TECHNIQUE: Thick barium contrast with gas effervescent crystals were administered orally. Fluoroscop ic images of the esophagus, stomach, and proximal duodenum were obtained in various projections. The reafter, overhead images of the abdomen were performed. 1.4 minutes minutes of fluroscopy. 51 images. FINDINGS: Gastric emptying study dated 04/30/2022 Tertiary contractions are present in the mid and distal esophagus, consistent with presbyesophagus. N o persistent areas of narrowing or obstruction of flow of contrast. Small sliding hiatal hernia with gastroesophageal reflux. The gastric folds are normal. There is a diverticulum of the third segment o f the duodenum. IMPRESSION: 1. Small sliding hiatal hernia with gastroesophageal reflux. 2: Duodenal diverticulum. 3: Presbyesophagus. Reviewed, dictated and finalized at location A. RY PACKER
== END 2022-05-10 10:12 | disposition home or self-care (01) ==
PROVIDERS: PCP Family Medicine; Visit Provider Nurse Practitioner
DX: R11.2 Nausea with vomiting, unspecified (principal); R68.81 Early satiety; E11.65 Type 2 diabetes mellitus with hyperglycemia; Z79.4 Long term (current) use of insulin; K44.9 Diaphragmatic hernia without obstruction or gangrene; K57.10 Diverticulosis of small intestine without perforation or abscess without bleeding; K22.89 Other specified disease of esophagus
CPT/HCPCS: 74246

== ENCOUNTER 2022-05-18 06:10 | Emergency (ER) | payer OTHER, SELFPAY ==
[2022-05-18] VITALS (16 sets, daily range): BP systolic 121–142; BP diastolic 74–93; PULSE 71–103; RESP 13–22; TEMP 36.7–36.8; O2SAT 95–99
--- NOTE | ~2022-05-18 | CT_ITS ---
EXAMINATION: CTA brain carotid DATE: 05/18/2022 08:00 INDICATION: Left-sided facial tingling TECHNIQUE: Computed tomographic angiography (CTA) of the head was performed without and with 100 mL O mnipaque-350 intravenous contrast. CTA of the neck was performed with intravenous contrast. The dose- length product was 1687.21 mGy-cm. Maximum intensity projection and volume rendered 3D-reconstruction s were created by the technologist on a separate workstation. Automated exposure control and iterativ e reconstruction technique were employed. COMPARISON: 05/02/2022 FINDINGS: HEAD CTA: There is no acute intraparenchymal hemorrhage. No evidence of mass lesion. No evidence of a cute infarction. There is mild periventricular and subcortical hypodensity probably related to small vessel ischemic disease. Intracranial calcified cerebral atherosclerosis is noted. There are no extra -axial collections. There is no mass effect or midline shift. Changes in the globes are likely from o cular lens surgery. There is mild mucosal thickening of the paranasal sinuses. There is no significant stenosis of the basilar artery or posterior cerebral arteries. There is no si gnificant stenosis of the intracranial internal carotid arteries or the anterior or middle cerebral a rteries. The anterior communicating artery and posterior communicating arteries are normal. There is no aneurysm. NECK CTA: The thyroid gland is unremarkable. The submandibular and parotid glands are symmetric. Ther e is no lymphadenopathy. There are no masses identified. The airway is unremarkable. There is mild ce rvical spondylosis. The superior mediastinum is unremarkable. Mild atelectasis is noted in the visual ized lung apices. There is complete occlusion of the cervical right internal carotid artery. There is 0% stenosis of th e proximal left internal carotid artery relative to normal distal artery lumen diameter. IMPRESSION: 1. No acute intracranial abnormality. Normal head CTA. 2. Complete occlusion of the cervical internal right carotid artery. 3. 0% stenosis of the proximal left internal carotid artery relative to normal distal artery lumen di ameter. Reviewed, dictated and finalized at location A. SFORMATION LEAD IMPRESSION: 1. No acute intracranial abnormality. Normal head CTA. 2. Complete occlusion of the cervical internal right carotid artery. 3. 0% stenosis of the proximal left internal carotid artery relative to normal distal artery lumen diameter.
--- NOTE | 2022-05-18 06:32 | ECG_ITS ---
Measurements Intervals [place] Rate: 90 P: 21 MO: 183 QRS: -25 QRSD: 92 T: 10 QT: 355 QTc: 435 Interpretive Statements SINUS RHYTHM INDETERMINATE AXIS POSSIBLE ANTERIOR MYOCARDIAL INFARCTION , PROBABLY OLD [30 ms Q WAVE IN V3/V4, OR R < 0.2 mV IN V4] CANNOT RULE OUT INFERIOR INFARCTION, AGE UNDETERMINED NONSPECIFIC T-WAVE ABNORMALITY ABNORMAL ECG COMPARED TO ECG 11/17/2021 09:21:22 SINUS RHYTHM NOW PRESENT Electronically Signed On 05-18-2022 12:47:55 HEALTH CARE MARKETING SPECIALIST by Alfie Chu M.D.
--- NOTE | 2022-05-18 06:36 | ED.GENADULT ---
HPI - General Adult General Chief complaint: Neuro Symptoms/Deficit <Mina Quinones MD - Last Filed: 05/18/22 18:55> Stated complaint: left side face pain, started at 1999 yesterday <Mina Quinones MD - Last Filed: 05/18/22 18:55> Time Seen by Provider: 05/18/22 06:30 <Mina Quinones MD - Last Filed: 05/18/22 18:55> History of Present Illness HPI narrative: 66-year-old male presenting to the emergency department for evaluation of intermittent left-sided facial pain since 8 PM last night. Patient states since last night he has had intermittent short lasting left-sided facial pain that involves the left forehead and behind his left eye. Patient states he has had no associated numbness or weakness. Patient describes the pain as sharp and brief. Patient is unsure of how many times the pain has occurred. Patient denies any falls or injuries. Patient states he has been taking his blood thinners. Patient does have a significant history of CVA with his most recent being in January. Patient does take Plavix. At time of exam patient denies any headache and denies any current facial pain. Patient recent CTA brain did show complete occlusion of the cervical right internal carotid artery. <Mina Quinones MD - Last Filed: 05/18/22 18:55> Related Data Home medications: Home Medications Medication Instructions Recorded Confirmed aripiprazole 10 mg tablet 10 mg PO BID 05/08/21 05/09/22 bupropion HCl 200 mg tablet,12 hr 200 mg PO BID 05/08/21 05/09/22 sustained-release varenicline 1 mg tablet 1 mg PO DAILY 05/13/22 05/13/22 amitriptyline 50 mg tablet mg 05/18/22 flash glucose sensor (FreeStyle 05/18/22 05/18/22 Emmy 2 Sensor kit) ketorolac 0.5 % eye drops drp 05/18/22 lorazepam 2 mg tablet mg 05/18/22 moxifloxacin 0.5 % eye drops drp 05/18/22 prednisolone acetate 1 % eye drp 05/18/22 drops,suspension quetiapine 50 mg tablet mg 05/18/22 <Mina Quinones MD - Last Filed: 05/18/22 18:55> Allergies/adverse reactions: Allergies Allergy/AdvReac Type Severity Reaction Status Date / Time No Known Allergies Allergy Verified 05/18/22 06:31 <Mina Quinones MD - Last Filed: 05/18/22 18:55> Review of Systems Review of Systems: CONSTITUTIONAL: Denies fever, chills, or sweats. EYES: Denies visual changes, redness, or discharge. ENT: Denies rhinorrhea, congestion, sore throat, or otalgia. CARDIOVASCULAR: Denies chest pain, palpitations, or edema. RESPIRATORY: Denies cough or dyspnea. GASTROINTESTINAL: Denies abdominal pain, nausea, vomiting, or diarrhea. GENITOURINARY: Denies dysuria or hematuria. SKIN: Denies rash or itching. MUSCULOSKELETAL: Denies back pain, joint pain, or myalgia. NEUROLOGIC: Left-sided facial pain <Mina Quinones MD - Last Filed: 05/18/22 18:55> [facility] Past Medical History Medical History: Medical History Anxiety Arthritis of right knee Ataxia Balance disorder Benign prostatic hyperplasia Bilateral knee pain Bipolar depression BPH (benign prostatic hyperplasia) Cataracts, bilateral Chronic insomnia Early satiety Elevated cholesterol Elevated liver enzymes Former cigarette smoker Gait abnormality GERD (gastroesophageal reflux disease) Hx of colonic polyp Hyperlipidemia Hypertension Hypomagnesemia Inadequate sleep hygiene Liver cell damage Nausea and vomiting Neuropathic pain Peripheral neuropathy Pulmonary embolism 02/2022 Pure hypercholesterolemia, unspecified Rib fracture Slurred speech Type 2 diabetes mellitus with hyperglycemia <Mina Quinones MD - Last Filed: 05/18/22 18:55> Surgical History Surgical History: Surgical History History of arthroscopy of left knee History of eye surgery 04/2022-removal bilateral cataracts History of right knee surgery x4 Status post total right knee repla
[2022-05-18 06:43] LABS: Glucose Point of Care 357 mg/dl (65-105)
[2022-05-18 06:49] LABS: Basophils Absolute Auto 0.1 K/mm3 (0.0-0.1); Basophils Percent Auto 0.9 % (0.2-1.2); Eosinophils Absolute Auto 0.2 K/mm3 (0-0.3); Eosinophils Percent Auto 3.3 % (0-4.4); Hematocrit 40.1 % (42.0-52.0); Hemoglobin 13.1 g/dL (14.0-18.0); Immature Granulocyte Absolute 0.01 K/mm3 (0.00-0.031); Immature Granulocyte Percent A 0.2 % (0-0.5); Lymphocytes Absolute Auto 1.54 K/mm3 (0.9-3.2); Lymphocytes Percent Auto 27.8 % (18.3-44.2); Mean Corpuscular HGB Conc 32.7 g/dl (32-36); Mean Corpuscular Hemoglobin 29.6 pg (26-34); Mean Corpuscular Volume 90.5 fl (80-100); Mean Platelet Volume 9.7 fl (7.4-10.4); Monocytes Absolute Auto 0.4 K/mm3 (0.1-0.6); Monocytes Percent Auto 6.3 % (2.6-8.5); Neutrophils Absolute Auto 3.4 K/mm3 (1.3-6.7); Neutrophils Percent Auto 61.5 % (45.5-73.1); Platelet Count Result 149 k/mm3 (150-375); Red Blood Count 4.43 M/mm3 (4.6-6.20); Red Cell Distribution Width 14.1 % (11.5-14.5); White Blood Count 5.5 K/mm3 (4.5-10.0)
[2022-05-18] MEDS: SODIUM CHLORIDE 0.9% IV 1,000 ML 999 ML IV CONT (06:56)
[2022-05-18 06:59] LABS: INR 1.1; Prothrombin Time 13.3 Seconds (11.1-14.7)
[2022-05-18 07:00] LABS: Chloride 101 mmol/L (98-107); Partial Thromboplastin Time 27.1 SECONDS (22.3-36.8)
[2022-05-18 07:05] LABS: Alanine Aminotransferase 57 U/L (6-50); Albumin Level 4.1 g/dL (3.5-5.1); Alkaline Phosphatase 73 U/L (38-126); Anion Gap 12 mmol/L (8-16); Aspartate Amino Transferase 52 U/L (17-59); Bilirubin,Total 0.5 mg/dL (0.2-1.3); Blood Urea Nitrogen 12 mg/dL (9-20); Calcium 8.9 mg/dL (8.4-10.2); Carbon Dioxide 22 mmol/L (22-30); Estimated CRCL calculation 80 ml/min; Estimated Glomerular Filt Rate > 60; Glucose 361 mg/dL (65-110); Potassium 4.3 mmol/L (3.4-5.0); Sodium 135 mmol/L (137-145)
[2022-05-18] MEDS: INSULIN HUMAN REGULAR (*BKC) 100 UNITS/ML 7 UNITS IV PUSH (07:12)
[2022-05-18 09:12] LABS: Appearance Urine Clear (Clear); Bilirubin Urine Negative (Negative); Blood Urine Negative (Negative); Color Urine Yellow (Yellow); Glucose Urine UA 2+ mg/dL (Negative); Ketones Urine Negative (Negative); Leukocyte Esterase Ur Negative LEU/UL (Negative); Nitrate Urine Negative (Negative); Protein Urine Negative (Negative); Urobilinogen Urine 0.2 mg/dL (<2.0); pH Urine 5.5 (5.0-9.0)
[2022-05-18 09:23] LABS: Add Urine Microscopic? YES; Mucus Urine Rare /lpf; RBC Urine 0-2 /hpf (0-2)
== END 2022-05-18 10:04 | disposition home or self-care (01) ==
PROVIDERS: Emergency Medicine; Emergency Provider Emergency Medicine; PCP Family Medicine
DX: R51.9 Headache, unspecified (principal); E11.65 Type 2 diabetes mellitus with hyperglycemia; E78.5 Hyperlipidemia, unspecified; I10 Essential (primary) hypertension; F41.9 Anxiety disorder, unspecified; F32.A Depression, unspecified; Z87.891 Personal history of nicotine dependence; Z86.711 Personal history of pulmonary embolism; Z79.01 Long term (current) use of anticoagulants; Z86.73 Personal history of transient ischemic attack (TIA), and cerebral infarction without residual deficits
CPT/HCPCS: 36415; 70496; 70498; 80053; 81001; 82948; 85025; 85610; 85730; 93005; 96361; 96374; 99284; J1815; J7030; Q9967

== ENCOUNTER 2022-08-12 09:23 | Outpatient (CLI) | payer OTHER, SELFPAY ==
[2022-08-12 18:35] LABS: Microalbumin Urine Random 11.7 mg/L (0-16.7)
[2022-08-12 18:46] LABS: Creatinine Urine 47.7 mg/dL; MALB Creatinine Ratio 24.5 mg/g (0-30)
[2022-08-12 18:57] LABS: Hemoglobin A1C 7.7 % (<5.7)
== END 2022-08-12 09:24 | disposition home or self-care (01) ==
PROVIDERS: PCP Family Medicine; Visit Provider Family Medicine
DX: E11.9 Type 2 diabetes mellitus without complications (principal)
CPT/HCPCS: 36415; 82043; 83036

== ENCOUNTER 2022-08-20 08:00 | Outpatient (RCR) | payer OTHER, SELFPAY ==
[2022-06-04 09:31] VITALS: BMI 31.1
[2022-06-04 10:30] VITALS: BMI 31.1
[2022-08-20 08:04] VITALS: BMI 32.1
[2022-08-20 08:24] VITALS: BMI 32.1
== END 2022-08-29 08:23 | disposition home or self-care (01) ==
LOC: ANHDMC 08:00
PROVIDERS: PCP Family Medicine; Visit Provider Internal Medicine Endocrinology, Diabetes & Metabolism
DX: E11.65 Type 2 diabetes mellitus with hyperglycemia (principal); Z71.3 Dietary counseling and surveillance
CPT/HCPCS: 97803

== ENCOUNTER 2022-08-21 10:14 | Outpatient (CLI) | payer OTHER, SELFPAY ==
[2022-08-21 17:42] LABS: HDL Direct 24 mg/dL
[2022-08-21 17:53] LABS: LDL Cholesterol Direct 63 mg/dL
== END 2022-08-21 10:15 | disposition home or self-care (01) ==
LOC: ANHWCLAB 10:15
PROVIDERS: PCP Family Medicine; Visit Provider Internal Medicine Endocrinology, Diabetes & Metabolism
DX: E11.29 Type 2 diabetes mellitus with other diabetic kidney complication (principal); E11.65 Type 2 diabetes mellitus with hyperglycemia; E78.5 Hyperlipidemia, unspecified; R74.8 Abnormal levels of other serum enzymes; R80.9 Proteinuria, unspecified; Z71.3 Dietary counseling and surveillance
CPT/HCPCS: 36415; 83718; 83721

== ENCOUNTER 2022-09-10 15:03 | Outpatient (CLI) | payer OTHER, SELFPAY ==
[2022-09-10 20:12] LABS: Appearance Urine Clear (Clear); Bacteria Urine 2+ /hpf; Bilirubin Urine Negative (Negative); Blood Urine Negative (Negative); Color Urine Yellow (Yellow); Glucose Urine UA 1+ mg/dL (Negative); Ketones Urine Negative (Negative); Leukocyte Esterase Ur 2+ LEU/UL (Negative); Nitrate Urine Negative (Negative); Non Pathogenic Casts 0-2; Protein Urine Negative (Negative); RBC Urine 0-2 /hpf (0-2); Specific Grav Ur 1.017 (1.001-1.035); Squamous Epithelial Cell Urine None seen /hpf (Few); Urobilinogen Urine 0.2 mg/dL (<2.0); WBC Urine 51-100 /hpf
[2022-09-10 20:19] LABS: Add Urine Microscopic? YES
== END 2022-09-10 15:04 | disposition home or self-care (01) ==
LOC: ANHBWCLAB 15:04
PROVIDERS: PCP Family Medicine; Visit Provider Nurse Practitioner
DX: R30.0 Dysuria (principal)
CPT/HCPCS: 81001; 87086; 87147; 87181; 87186

== ENCOUNTER 2022-09-11 14:19 | Outpatient (CLI) | payer OTHER, SELFPAY ==
--- NOTE | ~2022-09-11 | MR_ITS ---
MRI of the lumbar spine Clinical History: Back pain, unsteady gait Technique: Axial T2-weighted images, and sagittal T1-weighted, T2-weighted, and T2 fat-sat images wer e acquired. Findings: There is no fracture or subluxation of the lumbar spine. Vertebral bodies maintain normal h eight and alignment. No focal or suspicious bone marrow signal abnormality seen. At L1-L2, L2-L3, L3-L4, there is no significant disc bulge or herniation. No spinal canal stenosis or neural foraminal narrowing at these levels. There is mild to moderate facet arthropathy at these lev els. At L4-L5, there is diffuse disc bulge with moderate to advanced facet arthropathy. There is bilateral lateral recess stenosis, right worse than left. There is moderate to severe bilateral neural foramin al narrowing. At L5-S1, there is disc bulge with tiny annular fissure. There is moderate facet arthropathy. No spin al canal stenosis. There is minimal left neural foraminal narrowing. Right neural foramen preserved. Paravertebral soft tissues are unremarkable. Impression: Moderate degenerative spondylosis at L4-L5. Mild degenerative spondylitic changes at L5-S1. Reviewed, dictated and finalized at [facility]. Impression: Moderate degenerative spondylosis at L4-L5. Mild degenerative spondylitic changes at L5-S1.
--- NOTE | ~2022-09-11 | MR_ITS ---
EXAMINATION: MR brain/brain stem wo con DATE: 09/11/2022 15:12 INDICATION: ataxia TECHNIQUE: Magnetic resonance imaging (MRI) of the brain and brainstem was performed without intraven ous contrast. Sequences included sagittal and axial T1-weighted SE, axial diffusion-weighted FS EPI A SSET, axial T2*-weighted GRE, axial T2-weighted FLAIR Propeller, and axial T2-weighted Propeller. Pos tcontrast axial and coronal T1-weighted SE was obtained. Apparent diffusion coefficient (ADC) maps we re created. COMPARISON: MRI brain 08/21/2021, CTA brain carotid 05/02/2022 and 05/18/2022. FINDINGS: No abnormal restricted diffusion to suggest acute ischemic infarct. No MRI evidence of hemorrhage or extra-axial collection. No suspicious foci of susceptibility to suggest prior intraparenchymal hemorr lynn. Scattered foci of white matter hyperintensity, likely representing mild small vessel ischemic d isease. No evidence of advanced or lobar predominant parenchymal volume loss. Normal ventricular morp hology and size. The basilar cisterns are patent. Loss of normal flow void in the right internal curran tid artery, representing the known chronic occlusion. Paranasal sinuses are within normal limits. Ronald ateral lens replacements, otherwise the globes and orbital contents are within normal limits. IMPRESSION: No acute intracranial process detected. Reviewed, dictated and finalized at location K.
== END 2022-09-11 14:20 | disposition home or self-care (01) ==
PROVIDERS: PCP Family Medicine; Visit Provider Student in an Organized Health Care Education/Training Program
DX: R26.89 Other abnormalities of gait and mobility (principal); M47.896 Other spondylosis, lumbar region; M47.897 Other spondylosis, lumbosacral region
CPT/HCPCS: 70551; 72148

== ENCOUNTER 2022-09-19 10:25 | Emergency (ER) | payer OTHER, SELFPAY ==
[2022-09-19 10:27] VITALS: BP 117/79; PULSE 70; RESP 19; TEMP 36.6; O2SAT 99
[2022-09-19 10:34] LABS: Glucose Point of Care 65 mg/dl (65-105)
[2022-09-19 10:41] VITALS: RESP 13; O2SAT 99
[2022-09-19 11:35] VITALS: BP 124/72; PULSE 70; RESP 16; O2SAT 99
[2022-09-19 11:46] LABS: Glucose Point of Care 157 mg/dl (65-105)
[2022-09-19 12:27] LABS: Glucose Point of Care 235 mg/dl (65-105)
[2022-09-19 13:20] LABS: Basophils Percent Auto 0.4 % (0.2-1.2); Eosinophils Absolute Auto 0.1 K/mm3 (0-0.3); Eosinophils Percent Auto 1.4 % (0-4.4); Immature Granulocyte Absolute 0.04 K/mm3 (0.00-0.031); Immature Granulocyte Percent A 0.5 % (0-0.5); Lymphocytes Absolute Auto 1.46 K/mm3 (0.9-3.2); Mean Corpuscular HGB Conc 31.7 g/dl (32-36); Mean Corpuscular Hemoglobin 28.4 pg (26-34); Mean Corpuscular Volume 89.7 fl (80-100); Mean Platelet Volume 9.6 fl (7.4-10.4); Monocytes Absolute Auto 0.4 K/mm3 (0.1-0.6); Monocytes Percent Auto 4.3 % (2.6-8.5); Neutrophils Absolute Auto 6.1 K/mm3 (1.3-6.7); Neutrophils Percent Auto 75.4 % (45.5-73.1); Platelet Count Result 166 k/mm3 (150-375); Red Blood Count 4.57 M/mm3 (4.6-6.20); Red Cell Distribution Width 14.9 % (11.5-14.5); White Blood Count 8.1 K/mm3 (4.5-10.0)
[2022-09-19 13:36] LABS: Alanine Aminotransferase 69 U/L (6-50); Albumin Level 4.8 g/dL (3.5-5.1); Alkaline Phosphatase 70 U/L (38-126); Anion Gap 14 mmol/L (8-16); Aspartate Amino Transferase 65 U/L (17-59); Bilirubin,Total 0.4 mg/dL (0.2-1.3); Blood Urea Nitrogen 11 mg/dL (9-20); Calcium 8.8 mg/dL (8.4-10.2); Carbon Dioxide 22 mmol/L (22-30); Chloride 96 mmol/L (98-107); Estimated CRCL calculation 75 ml/min; Estimated Glomerular Filt Rate > 60; Glucose 253 mg/dL (65-110); Potassium 4.3 mmol/L (3.4-5.0); Sodium 132 mmol/L (137-145)
[2022-09-19 13:55] VITALS: BP 110/67; PULSE 78; RESP 16; O2SAT 99
--- NOTE | 2022-09-19 14:10 | ED.RECABL ---
HPI - Recheck/Abnormal Lab/Rx General Chief Complaint: Recheck/Abnormal Lab/Rx Stated Complaint: LOW BG Time Seen by Provider: 09/19/22 12:07 History of Present Illness HPI narrative: This is a 66-year-old male with past history of type 2 diabetes, on metformin and insulin (15 units with sliding scale adjustment 3 times a day with meals), who presents emergency department for hypoglycemia. The patient states he was seated on a couch, when he became lightheaded and diaphoretic. His monitor noted a low blood glucose in the 50s. Despite eating, he continued to have decrease in blood sugars. EMS was contacted and the patient's glucose was in the 20s. He was given D10 and transported here for evaluation. The patient states he has not had any recent change of his medications, and has not felt sick lately The patient's who is at bedside, notes the patient's memory appears to be worsening and is not sure if he may be overdosing his insulin. She also notes the patient has been exercising more regularly. Related Data Home Medications Medication Instructions Recorded Confirmed aripiprazole 10 mg tablet 10 mg PO BID 05/08/21 09/17/22 bupropion HCl 200 mg tablet,12 hr 200 mg PO BID 05/08/21 09/17/22 sustained-release amitriptyline 50 mg tablet mg 05/18/22 09/17/22 flash glucose sensor (FreeStyle 05/18/22 09/17/22 Emmy 2 Sensor kit) quetiapine 50 mg tablet mg 05/18/22 09/17/22 Allergies Allergy/AdvReac Type Severity Reaction Status Date / Time No Known Allergies Allergy Verified 09/19/22 10:39 Review of Systems Review of Systems: CONSTITUTIONAL: Denies fever, chills, or sweats. CARDIOVASCULAR: Denies chest pain, palpitations, or edema. RESPIRATORY: Denies cough or dyspnea. GASTROINTESTINAL: Denies abdominal pain, nausea, vomiting, or diarrhea. GENITOURINARY: Denies dysuria or hematuria. SKIN: Denies rash or itching. MUSCULOSKELETAL: Denies back pain, joint pain, or myalgia. NEUROLOGIC: Denies headache, numbness, dizziness, or weakness. PSYCHIATRIC: Denies anxiety or depression. [facility] Past Medical History Medical History Anxiety Arthritis of right knee Ataxia Balance disorder Benign prostatic hyperplasia Bilateral knee pain Bipolar depression BPH (benign prostatic hyperplasia) Burning with urination Cataracts, bilateral Chronic insomnia Early satiety Elevated cholesterol Elevated liver enzymes Former cigarette smoker Gait abnormality GERD (gastroesophageal reflux disease) Hx of colonic polyp Hyperlipidemia Hypertension Hypomagnesemia Inadequate sleep hygiene Liver cell damage Nausea and vomiting Neuropathic pain Peripheral neuropathy Pulmonary embolism 02/2022 Pure hypercholesterolemia, unspecified Rib fracture Slurred speech Type 2 diabetes mellitus with hyperglycemia Surgical History Surgical History History of arthroscopy of left knee History of eye surgery 04/2022-removal bilateral cataracts History of right knee surgery x4 Status post total right knee replacement (05/10/21) Family History Family History Father Age older than 80 years Mother Age older than 80 years Patient's mother is in good health Sibling Fibromyalgia Social History Social History Social History: Patient reported that he started smoking 6 years ago after a bitter divorce. He stops smoking April 11, 2021. He is now remarried. 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 He has 4 children who are all healthy and 21 grand children. He he does not drink alcohol or use illicit substances. Code status: Full code Surrogate decision maker: Smoking packs per day: 0.5 Smoking cigarettes per day: 10.0 Years smoked: 8 Smoking pack-years: 4.00 Smoking status: Current every day
== END 2022-09-19 15:15 | disposition home or self-care (01) ==
PROVIDERS: Emergency Provider Preventive Medicine Aerospace Medicine; PCP Family Medicine
DX: E11.649 Type 2 diabetes mellitus with hypoglycemia without coma (principal); I10 Essential (primary) hypertension; E11.42 Type 2 diabetes mellitus with diabetic polyneuropathy; E78.00 Pure hypercholesterolemia, unspecified; N40.0 Benign prostatic hyperplasia without lower urinary tract symptoms; M17.11 Unilateral primary osteoarthritis, right knee; K21.9 Gastro-esophageal reflux disease without esophagitis; F41.9 Anxiety disorder, unspecified; F31.9 Bipolar disorder, unspecified; Z96.651 Presence of right artificial knee joint; Z86.711 Personal history of pulmonary embolism; Z87.891 Personal history of nicotine dependence; Z86.010 Personal history of colon polyps; Z98.42 Cataract extraction status, left eye; Z98.41 Cataract extraction status, right eye; Z79.84 Long term (current) use of oral hypoglycemic drugs; Z79.4 Long term (current) use of insulin
CPT/HCPCS: 36415; 80053; 82948; 85025; 99283

== ENCOUNTER 2022-10-08 11:03 | Outpatient (CLI) | payer OTHER, SELFPAY ==
--- NOTE | ~2022-10-08 | XR_ITS ---
Right foot Technique: AP and lateral views were obtained. Clinical History: Pain Findings: No acute fracture or dislocation is seen. Osseous alignment is anatomic. Joint spaces are p reserved without erosive or degenerative change. Soft tissues are unremarkable. Impression: Unremarkable right foot radiographs. Reviewed, dictated and finalized at location . Impression: Unremarkable right foot radiographs.
== END 2022-10-08 11:04 | disposition home or self-care (01) ==
LOC: ANHBWCIMG 11:04
PROVIDERS: PCP Family Medicine; Visit Provider Nurse Practitioner Adult Health
DX: M79.671 Pain in right foot (principal)
CPT/HCPCS: 73620

== ENCOUNTER 2022-10-29 07:50 | Outpatient (RCR) | payer OTHER, SELFPAY ==
[2022-10-29 07:59] VITALS: BMI 31.4
[2022-10-29 08:23] VITALS: BMI 31.4
== END 2023-01-20 12:55 | disposition home or self-care (01) ==
LOC: ANHDMC 07:50
PROVIDERS: PCP Family Medicine; Visit Provider Internal Medicine Endocrinology, Diabetes & Metabolism
DX: E11.65 Type 2 diabetes mellitus with hyperglycemia (principal); Z71.3 Dietary counseling and surveillance
CPT/HCPCS: 97803

== ENCOUNTER 2022-11-07 11:10 | Outpatient (CLI) | payer OTHER, SELFPAY ==
[2022-11-07 19:52] LABS: Alanine Aminotransferase 59 U/L (6-50); Albumin Level 5.1 g/dL (3.5-5.1); Alkaline Phosphatase 70 U/L (38-126); Anion Gap 16 mmol/L (8-16); Aspartate Amino Transferase 77 U/L (17-59); Bilirubin,Total 0.5 mg/dL (0.2-1.3); Blood Urea Nitrogen 12 mg/dL (9-20); Calcium 9.7 mg/dL (8.4-10.2); Carbon Dioxide 23 mmol/L (22-30); Chloride 99 mmol/L (98-107); Estimated Glomerular Filt Rate > 60; Glucose 117 mg/dL (65-110); Potassium 3.7 mmol/L (3.4-5.0); Sodium 138 mmol/L (137-145)
[2022-11-07 20:09] LABS: Hemoglobin A1C 8.2 % (<5.7)
[2022-11-07 20:09] LABS: Free T4 Free Thyroxine 0.98 ng/mL (0.78-2.19)
[2022-11-07 20:14] LABS: Basophils Absolute Auto 0.1 K/mm3 (0.0-0.1); Basophils Percent Auto 0.8 % (0.2-1.2); Eosinophils Absolute Auto 0.2 K/mm3 (0-0.3); Eosinophils Percent Auto 2.4 % (0-4.4); Hematocrit 44.3 % (42.0-52.0); Hemoglobin 13.5 g/dL (14.0-18.0); Immature Granulocyte Absolute 0.02 K/mm3 (0.00-0.031); Immature Granulocyte Percent A 0.3 % (0-0.5); Lymphocytes Absolute Auto 1.56 K/mm3 (0.9-3.2); Lymphocytes Percent Auto 20.6 % (18.3-44.2); Mean Corpuscular HGB Conc 30.5 g/dl (32-36); Mean Corpuscular Hemoglobin 28.2 pg (26-34); Mean Corpuscular Volume 92.7 fl (80-100); Mean Platelet Volume 9.9 fl (7.4-10.4); Monocytes Absolute Auto 0.5 K/mm3 (0.1-0.6); Neutrophils Absolute Auto 5.2 K/mm3 (1.3-6.7); Neutrophils Percent Auto 68.9 % (45.5-73.1); Platelet Count Result 183 k/mm3 (150-375); Red Blood Count 4.78 M/mm3 (4.6-6.20); Red Cell Distribution Width 15.9 % (11.5-14.5); White Blood Count 7.6 K/mm3 (4.5-10.0)
[2022-11-07 20:20] LABS: Prostate Specific Antigen 1.1 ng/mL (< OR = 4.0)
[2022-11-07 20:30] LABS: Appearance Urine Cloudy (Clear); Bacteria Urine None Seen /hpf; Bilirubin Urine Negative (Negative); Blood Urine Negative (Negative); Color Urine Yellow (Yellow); Glucose Urine UA Negative (Negative); Ketones Urine Negative (Negative); Leukocyte Esterase Ur 3+ LEU/UL (Negative); Need Manual Microscopic Reviewed; Nitrate Urine Negative (Negative); Non Pathogenic Casts 0-2; Protein Urine Trace mg/dL (Negative); RBC Urine 0-2 /hpf (0-2); Specific Grav Ur 1.019 (1.001-1.035); Squamous Epithelial Cell Urine Occasional /hpf (Few); Urobilinogen Urine 0.2 mg/dL (<2.0); WBC Urine >100 /hpf; pH Urine 5.5 (5.0-9.0)
[2022-11-07 20:33] LABS: Add Urine Microscopic? YES
[2022-11-07 20:56] LABS: Folic Acid 5.3 ng/mL (2.76->20)
== END 2022-11-07 11:11 | disposition home or self-care (01) ==
PROVIDERS: PCP Family Medicine; Visit Provider Nurse Practitioner Adult Health
DX: R68.89 Other general symptoms and signs (principal); R41.3 Other amnesia; N40.0 Benign prostatic hyperplasia without lower urinary tract symptoms; Z12.5 Encounter for screening for malignant neoplasm of prostate; E11.649 Type 2 diabetes mellitus with hypoglycemia without coma; Z79.899 Other long term (current) drug therapy
CPT/HCPCS: 36415; 80053; 81001; 82607; 82746; 83036; 84153; 84439; 84443; 85025; 87086; 87147; 87181; 87186; G0103

== ENCOUNTER 2022-11-15 08:17 | Observation (INO) | payer OTHER, SELFPAY ==
[2022-11-15] VITALS (19 sets, daily range): BP systolic 121–150; BP diastolic 71–99; PULSE 85–120; RESP 20–31; TEMP 36.8–38.1; O2SAT 94–100; BMI 31.8
--- NOTE | ~2022-11-15 | XR_ITS ---
EXAMINATION: XR chest 1V portable DATE: 11/15/2022 08:43 INDICATION: Cough. Back pain. TECHNIQUE: A single frontal view of the chest was obtained. COMPARISON: Chest 2 views 11/17/2021 FINDINGS: There is no pneumonia, pleural effusion, or pneumothorax. The heart size is normal. There a re prominent paracardial fat pads. IMPRESSION: 1. No acute cardiopulmonary disease. Reviewed, dictated and finalized at location B.
--- NOTE | ~2022-11-15 | CT_ITS ---
EXAMINATION: CTA chest PE abdomen pel DATE: 11/15/2022 09:56 INDICATION: Shortness of breath. Fever. Suprapubic tenderness. TECHNIQUE: Computed tomography angiography (CTA) of the chest was performed with 100 mL Omnipaque-350 intravenous contrast timed to evaluate the pulmonary arteries. Coronal maximum intensity projection 3D-reconstructions were created by the technologist. Computed tomography (CT) of the abdomen and pelv is was performed with intravenous contrast. Automated exposure control and iterative reconstruction t echnique were employed. The dose-length product was 1432.83 mGy-cm. COMPARISON: None. FINDINGS: CTA chest: There are airspace and groundglass opacities involving right upper lobe and right lower lo be, consistent with pneumonia. There is mild atelectasis in left lower lobe. No pleural effusion. The heart size is normal. There are coronary artery calcifications. No pericardial effusion. There is no pulmonary embolus. There is a moderate-sized sliding hiatal hernia. There is mild chronic anterior w edging of T11 vertebral body. CT abdomen and pelvis: The liver and spleen are normal. There are changes of cholecystectomy. The murcia creas, adrenal glands, and right kidney are normal. There is a 2 mm stone in left kidney. There is ca lcified atherosclerosis of the aorta and many of the other arteries. The bladder is decompressed by a Chand catheter. The prostate is mildly enlarged. There are bilateral inguinal hernias containing fat . There are no dilated loops of bowel. The appendix is normal. There are no pathologically enlarged l ymph nodes. There is no free intraperitoneal fluid. There is subcutaneous fat stranding in right lowe r quadrant of the abdomen. There is a chronic right L5 pars defect. There is mild lumbar spondylosis. IMPRESSION: 1. No pulmonary embolus. 2. Airspace and groundglass opacities involving right upper lobe and right lower lobe, consistent wit h pneumonia. 3. Moderate-sized sliding hiatal hernia. 4. Subcutaneous fat stranding in right lower quadrant of the abdomen, consistent with inflammation. Reviewed, dictated and finalized at location B. IMPRESSION: 1. No pulmonary embolus. 2. Airspace and groundglass opacities involving right upper lobe and right lowe r lobe, consistent with pneumonia. 3. Moderate-sized sliding hiatal hernia. 4. Subcutaneous fat stranding in right lower quadrant of the abdomen, consisten t with inflammation.
--- NOTE | 2022-11-15 08:30 | ECG_ITS ---
Measurements Intervals [place] Rate: 117 P: 20 LA: 184 QRS: -38 QRSD: 88 T: 15 QT: 310 QTc: 433 Interpretive Statements SINUS TACHYCARDIA INDETERMINATE AXIS PREVIOUS INFERIOR WALL TN POOR R-WAVE PROGRESSION ABNORMAL ECG COMPARED TO ECG 05/18/2022 06:41:49 SINUS TACHYCARDIA NOW PRESENT Electronically Signed On 11-15-2022 13:07:12 CDT by Gabo Amezcua M.D.
--- NOTE | 2022-11-15 08:36 | ED.GENADULT ---
HPI - General Adult General Chief complaint: Weakness Stated complaint: gen weak History of Present Illness HPI narrative: 67-year-old male presented the ED for evaluation of increased generalized weakness, tachycardia low-grade fever. Patient reports he has felt weak over the last few days. Patient reports he has had a dry cough. Patient does have history of urinary tension. Patient was walking to the restroom today when he felt that the walk took him longer than usual due to his increased fatigue. Patient denies any current chest pain or shortness of breath. Patient states he has a history of smoking and is a current smoker Related Data Home Medications Medication Instructions Recorded Confirmed aripiprazole 10 mg tablet 10 mg PO BID 05/08/21 11/15/22 bupropion HCl 200 mg tablet,12 hr 200 mg PO BID 05/08/21 11/15/22 sustained-release amitriptyline 50 mg tablet 50 mg PO QHS 05/18/22 11/15/22 flash glucose sensor (FreeStyle 05/18/22 11/11/22 Emmy 2 Sensor kit) quetiapine 50 mg tablet 50 mg PO QHS 05/18/22 11/15/22 Allergies Allergy/AdvReac Type Severity Reaction Status Date / Time tramadol AdvReac Itching Verified 11/15/22 12:06 Review of Systems Review of Systems: All systems reviewed & are unremarkable except as noted in HPI and below PMFSH Past Medical History Medical History Anxiety Arthritis of right knee Ataxia Balance disorder Benign prostatic hyperplasia Bilateral knee pain Bipolar depression BPH (benign prostatic hyperplasia) Burning with urination Cataracts, bilateral Chronic insomnia Early satiety Elevated cholesterol Elevated liver enzymes Former cigarette smoker Gait abnormality GERD (gastroesophageal reflux disease) Hx of colonic polyp Hyperlipidemia Hypertension Hypomagnesemia Inadequate sleep hygiene Liver cell damage Nausea and vomiting Neuropathic pain Peripheral neuropathy Pulmonary embolism 02/2022 Pure hypercholesterolemia, unspecified Rib fracture Slurred speech Type 2 diabetes mellitus with hyperglycemia Surgical History Surgical History H/O colonoscopy with polypectomy History of arthroscopy of left knee History of eye surgery 04/2022-removal bilateral cataracts History of right knee surgery x4 Status post total right knee replacement (05/10/21) Family History Family History Father Age older than 80 years Hypertension Mother Age older than 80 years Patient's mother is in good health Sibling Fibromyalgia Diabetes mellitus Mother Dementia Social History Social History Social History: Patient reported that he started smoking 6 years ago after a bitter divorce. He stops smoking April 11, 2021. He is now remarried. 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 He has 4 children who are all healthy and 21 grand children. He he does not drink alcohol or use illicit substances. Code status: Full code Surrogate decision maker: Smoking packs per day: 0.5 Smoking cigarettes per day: 10.0 Years smoked: 8 Smoking pack-years: 4.00 Smoking status: Current every day smoker Tobacco type: cigarettes Second hand tobacco smoke exposure: No Smoking end date: 04/12/22 Alcohol intake: never Substance use: never Substance use type: does not use Lack of Transportation: No Lack of Food: Never True Current Housing: I Have Housing Concerned About Future Housing: No Difficulty Paying Gas/Electric Bills: No Difficulty Paying for Meds: No Currently Unemployed: No Education: Trade/Vocational Certificate Difficulty w/ Childcare or Family Care: No Living arrangements: with family Additional living arrangements comments: Gender identity (if verbalized by the patient): Male Spiritual
[2022-11-15 08:53] LABS: Basophils Absolute Auto 0.1 K/mm3 (0.0-0.1); Basophils Percent Auto 0.5 % (0.2-1.2); Eosinophils Absolute Auto 0.1 K/mm3 (0-0.3); Eosinophils Percent Auto 0.5 % (0-4.4); Hematocrit 40.6 % (42.0-52.0); Hemoglobin 13.1 g/dL (14.0-18.0); Immature Granulocyte Absolute 0.05 K/mm3 (0.00-0.031); Immature Granulocyte Percent A 0.5 % (0-0.5); Lymphocytes Absolute Auto 0.72 K/mm3 (0.9-3.2); Lymphocytes Percent Auto 6.8 % (18.3-44.2); Mean Corpuscular HGB Conc 32.3 g/dl (32-36); Mean Corpuscular Hemoglobin 28.4 pg (26-34); Mean Corpuscular Volume 87.9 fl (80-100); Mean Platelet Volume 10.5 fl (7.4-10.4); Monocytes Absolute Auto 0.5 K/mm3 (0.1-0.6); Monocytes Percent Auto 4.7 % (2.6-8.5); Neutrophils Absolute Auto 9.2 K/mm3 (1.3-6.7); Platelet Count Result 175 k/mm3 (150-375); Red Blood Count 4.62 M/mm3 (4.6-6.20); Red Cell Distribution Width 15.6 % (11.5-14.5); White Blood Count 10.6 K/mm3 (4.5-10.0)
[2022-11-15] MEDS: ACETAMINOPHEN 500 MG TABLET 1000 MG PO (08:57)
[2022-11-15 08:59] LABS: Appearance Urine Clear (Clear); Bilirubin Urine Negative (Negative); Blood Urine Negative (Negative); Color Urine Yellow (Yellow); Glucose Urine UA 3+ mg/dL (Negative); Ketones Urine 1+ mg/dL (Negative); Leukocyte Esterase Ur Negative LEU/UL (Negative); Nitrate Urine Negative (Negative); Protein Urine Negative (Negative); pH Urine 6.5 (5.0-9.0)
[2022-11-15 09:02] LABS: Lactic Acid Reflex 3.5 mmol/L (0.7-2.0)
[2022-11-15 09:03] LABS: Alanine Aminotransferase 55 U/L (6-50); Albumin Level 4.7 g/dL (3.5-5.1); Alkaline Phosphatase 69 U/L (38-126); Anion Gap 13 mmol/L (8-16); Aspartate Amino Transferase 54 U/L (17-59); Bilirubin,Total 0.7 mg/dL (0.2-1.3); Blood Urea Nitrogen 13 mg/dL (9-20); Calcium 9.5 mg/dL (8.4-10.2); Carbon Dioxide 20 mmol/L (22-30); Chloride 99 mmol/L (98-107); Estimated CRCL calculation 65 ml/min; Estimated Glomerular Filt Rate > 60; Glucose 280 mg/dL (65-110); Potassium 4.4 mmol/L (3.4-5.0); Sodium 132 mmol/L (137-145)
[2022-11-15 09:08] LABS: Prothrombin Time 13.1 Seconds (11.1-14.7)
[2022-11-15 09:08] LABS: Add Urine Microscopic? NO
[2022-11-15 09:09] LABS: Partial Thromboplastin Time 25.5 SECONDS (22.3-36.8)
[2022-11-15] MEDS: SODIUM CHLORIDE 0.9% IV 1,000 ML 999 ML IV CONT (09:25)
[2022-11-15 09:28] LABS: Influenza A QL RT-PCR Negative (Negative); Influenza B QL RT-PCR Negative (Negative); RSV RNA, RT-PCR Negative (Negative); SARS-CoV-2 RNA PCR Negative (Negative)
[2022-11-15] MEDS: SODIUM CHLORIDE 0.9% IV 2,700 ML/1,000 ML BAG 999 ML IV CONT (10:21)
[2022-11-15 10:29] LABS: Glucose Point of Care 279 mg/dl (65-105)
[2022-11-15] MEDS: AZITHROMYCIN 500 MG/NS 250 ML 500 MG/250 ML BAG 250 MG IVPB (10:36)
--- NOTE | 2022-11-15 11:43 | ADMGEN ---
This patient, Edwardo Ricci, was admitted to [facility] Surg Room 323-02. Patient/family oriented to hospital policies and general routines including ID bracelet, bed and alarms, visiting hours, pain management, procedures, bathroom and other care routines, personal items, smoking policy, room service/diet, and visiting hours. Information on how to activate the Rapid Response Team has been discussed. Patient/Family are encouraged to report perceived risks to care and to ask questions if they do not understand what they are told or what they should do.
[2022-11-15 11:48] LABS: Glucose Point of Care 250 mg/dl (65-105)
[2022-11-15 11:49] LABS: Reflex Lactic Acid Yes or No Add Lactic
--- NOTE | 2022-11-15 12:25 | PM.IMHP ---
H&P: HPI History of Present Illness Date/Time: 11/15/22 12:25 Chief Complaint: Generalized weakness Narrative: This is a 67-year-old male patient who came into the emergency room to be assessed for generalized weakness and tachycardia with a low-grade fever. The patient has a history of BPH and is now having some urinary retention. The patient stated that he just saw his urologist and was placed on medication for BPH. The patient is still having difficulty urinating. He has also been having a dry cough. The patient was walking to the restroom today when he felt too weak to walk. He denies any chest pain or shortness for breath. The patient is a current smoker. His white counts 10.6 H&H is 13.1 and 40.6. Sodium 132 and carbon dioxide 20. His glucose is 280. The patient does have a continues glucose monitor and is on insulin. His lactic acid was 3.5 now 2.4. He has 3+ glucose in his urine and 1+ ketone. He is negative for influenza A/B RSV and COVID. Chest x-ray was read as the following. No pulmonary embolus. 2. Airspace and groundglass opacities involving right upper lobe and right lower lobe, consistent with pneumonia. 3. Moderate-sized sliding hiatal hernia. 4. Subcutaneous fat stranding in right lower quadrant of the abdomen, consistent with inflammation. Chest x-ray was read as no acute cardiopulmonary disease. The patient was given Tylenol normal saline fluids, Rocephin, and azithromycin, the patient is being admitted to observation status on the date of service of 11/15/2022 Review of Systems Review of Systems: All systems reviewed & are unremarkable except as noted in HPI and below Constitutional: Constitutional: Reports as per HPI and Reports no additional constitutional complaints Eyes: Eyes: Reports as per HPI and Reports no additional eye complaints ENT: Reports system reviewed and no additional complaints, except as documented and Reports Normal hearing present Cardiovascular: Cardiovascular: Reports no additional cardiovascular complaints Respiratory: Respiratory: Reports no additional respiratory complaints and Reports no additional respiratory complaints Gastrointestinal: Gastrointestinal: Reports as per HPI and Reports no additional gastrointestinal complaints Musculoskeletal: Musculoskeletal: Reports no additional musculoskeletal complaints Integumentary/Breasts: Skin/Breast: Reports system reviewed and no additional complaints, except as docu and Reports as per HPI Neurologic: Reports system reviewed and no additional complaints, except as documented, Reports as per HPI and Reports Normal hearing present Psychiatric: Psychiatric: Reports no additional psychiatric complaints and Reports as per HPI Endocrine: Endocrine: Reports no additional endocrine complaints Hematologic/Lymphatic: Hematologic/Lymphatic: Reports no additional hematologic/lymphatic complaints Allergic/Immunologic: Allergic/Immunologic: Reports no additional allergic/immunologic complaints [facility] Past Medical History Medical History Anxiety Arthritis of right knee Ataxia Balance disorder Benign prostatic hyperplasia Bilateral knee pain Bipolar depression BPH (benign prostatic hyperplasia) Burning with urination Cataracts, bilateral Chronic insomnia Early satiety Elevated cholesterol Elevated liver enzymes Former cigarette smoker Gait abnormality GERD (gastroesophageal reflux disease) Hx of colonic polyp Hyperlipidemia Hypertension Hypomagnesemia Inadequate sleep hygiene Liver cell damage Nausea and vomiting Neuropathic pain Peripheral neuropathy Pulmonary embolism 02/2022 Pure hypercholesterolemia, unspecified Rib fracture Slurred speech Type 2 diabetes mellitus with hyperglycemia Surgical History Surgical History (Updated 11/15/22 @ 15:10 by Sherry Weiner NP) H/O colonoscopy with polypectomy History of arthroscopy of left knee History of eye surgery 1/2
[2022-11-15 12:59] LABS: Lactic Acid 2.4 mmol/L (0.7-2.0)
--- NOTE | 2022-11-15 16:28 | WPDURCON ---
Assessment and Plan Assessment and plan (1) Acute urinary retention: Code(s): R33.8 - Other retention of urine Status: Acute Assessment and Plan: I suggest keeping tom in for 7-10 days then f/u in the office for a voiding trial. Secondary to either UTI or BPH that is refractory to medications. (2) BPH (benign prostatic hyperplasia): Code(s): N40.0 - Benign prostatic hyperplasia without lower urinary tract symptoms Status: Acute Assessment and Plan: If he fails a voiding trial in the office I suggested he have a cysto in preparation for a TURP. He declines keeping a tom in for a week, although he understands removing it too early runs a risk of another UTI or retention that could cause him another trip to the ER for a tom or VISHAL. He doesn't comprehend the repercussion of removing his Tom today after it was just placed. (3) UTI (urinary tract infection): Code(s): N39.0 - Urinary tract infection, site not specified Status: Acute Assessment and Plan: Continue IV ceftriaxone and tailor to repeat culture results. NO further evaluation necessary at this time. Urology Consult Note HPI Date Seen: 11/15/22 Time Seen: 16:28 Requesting Physician: Haroldo Kat MD Primary Care Provider: Srikanth Schrader MD Consult Narrative Reason for consult: Retention/Chronic UTI/BPH Narrative: Edwardo Ricci is a 67 year old male who has a history of Bi-Polar disorder, BPH and retention as well as chronic UTI's. He was seen by PCP on 11/07/22 who diagnosed him with a UTI and treated him with Cipro. He has had 2 days of Cipro BID for his Coagulase Negative Staph infection, but is c/o frequency, urgency, nocturia x4, slow stream, but denies dysuria, hematuria. He has had symptoms of BPH for years and has been on Tamsulosin and Finasteride from Dr. Case. He had a tom placed in the ER today with >500cc of urine on return. He had a UTI prior to the one on 11/07/22. He is upset about having a tom in place and want's it removed right away. He had a CTA today that was urologically normal, a creatinine that was 1.10, WBC 10.6. he is afebrile currently but reported a fever upon arrival. Review of Systems Cardiovascular: Cardiovascular: Denies chest pain Respiratory: Respiratory: Reports no additional respiratory complaints Gastrointestinal: Gastrointestinal: Denies abdominal pain, Denies nausea and Denies vomiting Genitourinary: Genitourinary: Denies hematuria, Denies dysuria, Denies flank pain, Reports urinary frequency, Reports urinary hesitancy, Denies urinary incontinence and Reports urinary urgency [facility] Past Medical History Medical History Anxiety Arthritis of right knee Ataxia Balance disorder Benign prostatic hyperplasia Bilateral knee pain Bipolar depression BPH (benign prostatic hyperplasia) Burning with urination Cataracts, bilateral Chronic insomnia Early satiety Elevated cholesterol Elevated liver enzymes Former cigarette smoker Gait abnormality GERD (gastroesophageal reflux disease) Hx of colonic polyp Hyperlipidemia Hypertension Hypomagnesemia Inadequate sleep hygiene Liver cell damage Nausea and vomiting Neuropathic pain Peripheral neuropathy Pulmonary embolism 02/2022 Pure hypercholesterolemia, unspecified Rib fracture Slurred speech Type 2 diabetes mellitus with hyperglycemia Surgical History Surgical History H/O colonoscopy with polypectomy History of arthroscopy of left knee History of eye surgery 04/2022-removal bilateral cataracts History of right knee surgery x4 Status post total right knee replacement (05/10/21) Family History Family History Father Age older than 80 years Hypertension Mother Age older than 80 years Patient's mother is in good he
[2022-11-15 16:51] LABS: Glucose Point of Care 293 mg/dl (65-105)
[2022-11-15] MEDS: ARIPiprazole 10 MG TABLET PO (17:11)
[2022-11-15] MEDS: buPROPion HCL SR (12HR) 100 MG TABCR 200 MG PO (17:11)
[2022-11-15] MEDS: PANTOPRAZOLE 40 MG TABLET PO (17:11)
[2022-11-15] MEDS: TAMSULOSIN HCL 0.4 MG CAPSULE 0.8 MG PO (17:12)
[2022-11-15] MEDS: INSULIN ASPART (*BKC) 100 UNITS/ML SUB-Q ×2 (17:12→20:59)
[2022-11-15] MEDS: carvediloL 12.5 MG TABLET PO (20:55)
[2022-11-15] MEDS: QUEtiapine FUMARATE 25 MG TABLET 50 MG PO (20:55)
[2022-11-15] MEDS: AMITRIPTYLINE HCL 25 MG TABLET 50 MG PO (20:55)
[2022-11-15 22:13] LABS: Glucose Point of Care 348 mg/dl (65-105)
[2022-11-15] MEDS: INSULIN GLARGINE (*BKC) 100 UNITS/ML 40 UNITS SUB-Q (22:25)
--- NOTE | 2022-11-16 02:22 | PCRCNOTE ---
Pt did not want to be woken for his 0200 tx, will resume at 0800
[2022-11-16 05:12] LABS: Glucose Point of Care 240 mg/dl (65-105)
[2022-11-16 06:00] VITALS: BP 114/64; PULSE 69; RESP 20; TEMP 36.5; O2SAT 97
[2022-11-16 06:54] LABS: Basophils Percent Auto 0.6 % (0.2-1.2); Eosinophils Absolute Auto 0.1 K/mm3 (0-0.3); Eosinophils Percent Auto 1.5 % (0-4.4); Hemoglobin 10.7 g/dL (14.0-18.0); Immature Granulocyte Absolute 0.03 K/mm3 (0.00-0.031); Immature Granulocyte Percent A 0.5 % (0-0.5); Immature Platelet Fraction Pct 3.9 % (0.9-11.2); Lymphocytes Absolute Auto 1.28 K/mm3 (0.9-3.2); Lymphocytes Percent Auto 19.6 % (18.3-44.2); Mean Corpuscular HGB Conc 31.5 g/dl (32-36); Mean Corpuscular Hemoglobin 27.7 pg (26-34); Mean Corpuscular Volume 88.1 fl (80-100); Monocytes Absolute Auto 0.3 K/mm3 (0.1-0.6); Monocytes Percent Auto 4.8 % (2.6-8.5); Neutrophils Absolute Auto 4.8 K/mm3 (1.3-6.7); Platelet Count Result 141 k/mm3 (150-375); Red Blood Count 3.86 M/mm3 (4.6-6.20); Red Cell Distribution Width 15.8 % (11.5-14.5); White Blood Count 6.5 K/mm3 (4.5-10.0)
[2022-11-16 07:06] LABS: Alanine Aminotransferase 37 U/L (6-50); Albumin Level 3.7 g/dL (3.5-5.1); Alkaline Phosphatase 56 U/L (38-126); Anion Gap 7 mmol/L (8-16); Aspartate Amino Transferase 26 U/L (17-59); Bilirubin,Total 0.4 mg/dL (0.2-1.3); Blood Urea Nitrogen 9 mg/dL (9-20); Calcium 8.6 mg/dL (8.4-10.2); Carbon Dioxide 24 mmol/L (22-30); Chloride 104 mmol/L (98-107); Estimated CRCL calculation 80 ml/min; Estimated Glomerular Filt Rate > 60; Glucose 212 mg/dL (65-110); Lactate Dehydrogenase 115 U/L (120-246); Magnesium 1.9 mg/dL (1.6-2.3); Potassium 3.7 mmol/L (3.4-5.0); Sodium 135 mmol/L (137-145)
[2022-11-16 07:29] LABS: Glucose Point of Care 228 mg/dl (65-105)
[2022-11-16 07:30] LABS: Hemoglobin A1C 8.2 % (<5.7)
[2022-11-16] MEDS: ENOXAPARIN 40 MG/0.4 ML SYRINGE SUB-Q (08:37)
[2022-11-16 08:38] VITALS: PULSE 74
[2022-11-16] MEDS: ATORVASTATIN 20 MG TABLET PO (08:38)
[2022-11-16] MEDS: carvediloL 12.5 MG TABLET PO (08:38)
[2022-11-16] MEDS: buPROPion HCL SR (12HR) 100 MG TABCR 200 MG PO ×2 (08:38→16:58)
[2022-11-16] MEDS: CLOPIDOGREL BISULFATE 75 MG TABLET PO (08:38)
[2022-11-16] MEDS: PANTOPRAZOLE 40 MG TABLET PO ×2 (08:38→16:58)
[2022-11-16] MEDS: ARIPiprazole 10 MG TABLET PO ×2 (08:38→16:58)
[2022-11-16] MEDS: TAMSULOSIN HCL 0.4 MG CAPSULE 0.8 MG PO (08:38)
[2022-11-16] MEDS: GABAPENTIN 100 MG CAPSULE PO ×3 (08:42→16:58)
[2022-11-16] MEDS: INSULIN ASPART (*BKC) 100 UNITS/ML SUB-Q ×3 (08:42→16:58)
[2022-11-16] MEDS: AZITHROMYCIN 500 MG/NS 250 ML 500 MG/250 ML BAG 250 MG IVPB (08:56)
[2022-11-16 08:59] VITALS: PULSE 78; RESP 16
[2022-11-16] MEDS: ALBUTEROL SULFATE NEB 2.5 MG/3 ML INH INHALATION (09:07)
[2022-11-16] MEDS: IPRATROPIUM BR 0.02% INH SOLN 0.5 MG/2.5 ML VIAL INHALATION (09:07)
[2022-11-16 09:15] VITALS: PULSE 73; RESP 16
[2022-11-16 09:16] VITALS: O2SAT 97
[2022-11-16 11:56] LABS: Glucose Point of Care 306 mg/dl (65-105)
[2022-11-16 14:00] VITALS: BP 117/73; PULSE 72; RESP 20; TEMP 36.1; O2SAT 97
[2022-11-16 16:39] LABS: Glucose Point of Care 256 mg/dl (65-105)
--- NOTE | 2022-11-16 17:32 | PM.DS ---
DS: Admitting Diagnosis Discharge Date 11/16/22 Admitting Diagnosis Generalized weakness. DS: Discharge Diagnosis Discharge Diagnosis (1) Sepsis: Code(s): A41.9 - Sepsis, unspecified organism Status: Acute (2) Pneumonia: Code(s): J18.9 - Pneumonia, unspecified organism Status: Acute (3) UTI (urinary tract infection): Code(s): N39.0 - Urinary tract infection, site not specified Status: Acute (4) Acute urinary retention: Code(s): R33.8 - Other retention of urine Status: Acute (5) Type 2 diabetes mellitus with hypoglycemia without coma: Qualifiers: Diabetes mellitus director long term care insulin use: with alf use Qualified Code(s): E11.649 - Type 2 diabetes mellitus with hypoglycemia without coma; Z79.4 - director long term care (current) use of insulin Code(s): E11.649 - Type 2 diabetes mellitus with hypoglycemia without coma Status: Acute (6) BPH (benign prostatic hyperplasia): Code(s): N40.0 - Benign prostatic hyperplasia without lower urinary tract symptoms Status: Acute (7) Hyperlipidemia: Qualifiers: Hyperlipidemia type: other hyperlipidemia Qualified Code(s): E78.49 - Other hyperlipidemia Code(s): E78.5 - Hyperlipidemia, unspecified Status: Acute (8) Anxiety: Code(s): F41.9 - Anxiety disorder, unspecified Status: Acute (9) Neuropathic pain: Code(s): M79.2 - Neuralgia and neuritis, unspecified Status: Acute (10) Hypertension: Qualifiers: Hypertension type: primary hypertension Qualified Code(s): I10 - Essential (primary) hypertension Code(s): I10 - Essential (primary) hypertension Status: Acute DS: Summary Hospital Course Reason for hospitalization: 67-year-old male patient who came into the emergency room to be assessed for generalized weakness and tachycardia with a low-grade fever.??Please see H&P for details Hospital Course: Patient presents with weakness. EKG shows sinus tachycardia and old inferior wall TX with poor R-wave progression. No change from prior EKG except patient now with sinus tachycardia. He had a temperature 100.5?. His lactic acid was elevated 3.5 and this trended downward. Patient had a positive urine culture with coag-negative staph on 11/07/2022. Patient was seen by Urology on 11/13/2022 and started on ciprofloxacin. Blood culture collected here and is negative to date. Chest x-ray was clear. CT of the chest, abdomen and pelvis showed no PE but did show airspace disease with ground-glass opacities involving the right upper lobe and right lower lobe consistent with pneumonia. He also had a moderate size hiatal hernia and subcutaneous fat stranding in the right lower quadrant of the abdomen consistent with inflammation although nothing seen on exam. In the emergency room patient was noted to have urine retention with at least 500 mL of retained urine. Patient was started on Rocephin azithromycin for pneumonia. It was felt patient had sepsis on admission with his tachycardia, low-grade fever and lactic acidosis. The source was pneumonia. White count was mildly elevated at 10 but on repeat this normalized. Had a mild non gap metabolic acidosis but that resolved probably related to lactic acidosis. His glucose was elevated but his hemoglobin A1c was 8.2 suggesting poor diabetic control prior to admission. TSH was normal. Urinalysis showed 3+ glucose 1+ ketone but otherwise was negative. Influenza, RSV and COVID were negative. Urology was consulted. They recommended discharging patient with Chand catheter with a voiding trial to be performed in the clinic. Patient is agreeable to be discharged with Chand catheter. Patient overall did well and was able to be discharged home on 11/16/2022. Will decrease Elavil given the urine retention. Status at Discharge Cognitive/behavioral status at discharge: stable Time Spent with Patient T
== END 2022-11-16 18:43 | disposition home or self-care (01) ==
LOC: ANHED 10:22 → ANH3MEDSUR 12:24
PROVIDERS: Nurse Practitioner; Admitting Provider Hospitalist; Emergency Provider Emergency Medicine; PCP Family Medicine; Visit Provider Internal Medicine
DX: A41.9 Sepsis, unspecified organism (principal); J18.9 Pneumonia, unspecified organism; N39.0 Urinary tract infection, site not specified; N40.1 Benign prostatic hyperplasia with lower urinary tract symptoms; R33.8 Other retention of urine; Z20.822 Contact with and (suspected) exposure to COVID-19; E11.649 Type 2 diabetes mellitus with hypoglycemia without coma; F41.9 Anxiety disorder, unspecified; R53.83 Other fatigue; E78.00 Pure hypercholesterolemia, unspecified; R26.9 Unspecified abnormalities of gait and mobility; E11.42 Type 2 diabetes mellitus with diabetic polyneuropathy; E11.65 Type 2 diabetes mellitus with hyperglycemia; I10 Essential (primary) hypertension; K76.9 Liver disease, unspecified; K44.9 Diaphragmatic hernia without obstruction or gangrene; E87.1 Hypo-osmolality and hyponatremia; R94.31 Abnormal electrocardiogram [ECG] [EKG]; E83.42 Hypomagnesemia; E78.49 Other hyperlipidemia; D64.9 Anemia, unspecified; Z83.3 Family history of diabetes mellitus; K21.9 Gastro-esophageal reflux disease without esophagitis; R74.01 Elevation of levels of liver transaminase levels; M17.11 Unilateral primary osteoarthritis, right knee; F51.04 Psychophysiologic insomnia; F31.9 Bipolar disorder, unspecified; Z96.0 Presence of urogenital implants; Z79.01 Long term (current) use of anticoagulants; Z79.4 Long term (current) use of insulin; Z79.84 Long term (current) use of oral hypoglycemic drugs; Z79.899 Other long term (current) drug therapy; Z86.711 Personal history of pulmonary embolism; Z87.891 Personal history of nicotine dependence; Z82.49 Family history of ischemic heart disease and other diseases of the circulatory system
CPT/HCPCS: 36415; 71045; 71275; 74177; 80053; 81003; 82948; 83036; 83605; 83615; 83735; 84443; 85025; 85055; 85610; 85730; 87040; 87637; 93005; 94640; 96361; 96365; 96372; 96375; 96376; 99285; A9270; G0378; J0456; J0696; J1650; J1815; J7030; Q9967

== ENCOUNTER 2022-11-19 10:01 | Inpatient (IN) | payer OTHER, SELFPAY ==
[2022-11-19] VITALS (34 sets, daily range): BP systolic 118–150; BP diastolic 66–87; PULSE 68–127; RESP 16–27; TEMP 36.8–37.7; O2SAT 92–99; BMI 31.6; BMI 30.3
--- NOTE | ~2022-11-19 | CT_ITS ---
Clinical Indication: Shortness of breath CT Scan of the Chest with Contrast: Technique: Contiguous sections were acquired throughout the chest after intravenous administration of 100 cc of Omnipaque 350. Dose reduction technique was used on this scan by utilizing automated expos ure control and iterative reconstruction technique. The dose-length product (DLP) was 1211.06 mGy-cm. COMPARISON: 11/15/2022 Findings: There is no evidence of any significant mediastinal, hilar or axillary lymphadenopathy. There is no f illing defect in the pulmonary arterial tree to suggest pulmonary embolus. There is no evidence of ao rtic dissection or aneurysm. Small hiatal hernia present. There is no evidence of pleural or pericardial effusion. There patchy areas of groundglass pulmonary disease, worst in the bilateral upper lobes, but also pre sent in the superior segment of the right lower lobe. Images through the upper abdomen reveal no abnormalities. Impression: No evidence of pulmonary embolus, aortic dissection, or aortic aneurysm. Patchy groundglass pulmonary disease, as detailed above, suspicious for multifocal pneumonia. Small hiatal hernia. Reviewed, dictated and finalized at [facility]. Impression: No evidence of pulmonary embolus, aortic dissection, or aortic aneurysm. Patchy groundglass pulmonary disease, as detailed above, suspicious for multifo crista pneumonia. Small hiatal hernia.
--- NOTE | ~2022-11-19 | XR_ITS ---
EXAMINATION: XR barium swallow modified DATE: 11/20/2022 09:32 INDICATION: Dysphagia. Recurrent pneumonia. TECHNIQUE: The patient was given barium-containing material of multiple consistencies to swallow by t arun speech pathologist while I performed fluoroscopy. Fluoroscopy exposure time was 0.8 minutes. The n umber of fluoroscopy images saved to the PACS was 1. Dose-area product was 0.653 Gy-cm^2. FINDINGS: The oral stage, pharyngeal stage, and cervical/esophageal stage of the swallow are normal. IMPRESSION: 1. Normal modified barium swallow. 2. Please refer to the speech therapy report for recommendations. Reviewed, dictated and finalized at location A.
--- NOTE | ~2022-11-19 | XR_ITS ---
Clinical Indication: Weakness AP and lateral views of the chest: Comparison: 11/15/2022 Findings: The lungs are clear, without evidence of focal consolidation or pleural effusion. Cardiome diastinal silhouette is within normal limits. Bones and soft tissues are unremarkable. Impression: Clear lungs. Reviewed, dictated and finalized at location . Impression: Clear lungs.
--- NOTE | 2022-11-19 10:09 | ECG_ITS ---
Measurements Intervals [place] Rate: 124 P: 25 PA: 172 QRS: -34 QRSD: 88 T: 20 QT: 312 QTc: 449 Interpretive Statements SINUS TACHYCARDIA INDETERMINATE AXIS CONSIDER PREVIOUS INFERIOR CA ABNORMAL ECG COMPARED TO ECG 11/15/2022 08:43:10 NO SIGNIFICANT CHANGES Electronically Signed On 11-19-2022 13:23:52 CDT by Gabo Amezcua M.D.
[2022-11-19 10:33] LABS: Basophils Percent Auto 0.3 % (0.2-1.2); Eosinophils Absolute Auto 0.1 K/mm3 (0-0.3); Hematocrit 40.2 % (42.0-52.0); Hemoglobin 13.2 g/dL (14.0-18.0); Immature Granulocyte Absolute 0.03 K/mm3 (0.00-0.031); Immature Granulocyte Percent A 0.3 % (0-0.5); Lymphocytes Absolute Auto 0.56 K/mm3 (0.9-3.2); Lymphocytes Percent Auto 5.9 % (18.3-44.2); Mean Corpuscular HGB Conc 32.8 g/dl (32-36); Mean Corpuscular Hemoglobin 28.1 pg (26-34); Mean Corpuscular Volume 85.7 fl (80-100); Mean Platelet Volume 9.5 fl (7.4-10.4); Monocytes Absolute Auto 0.5 K/mm3 (0.1-0.6); Monocytes Percent Auto 5.4 % (2.6-8.5); Neutrophils Absolute Auto 8.2 K/mm3 (1.3-6.7); Neutrophils Percent Auto 87.1 % (45.5-73.1); Platelet Count Result 181 k/mm3 (150-375); Red Blood Count 4.69 M/mm3 (4.6-6.20); Red Cell Distribution Width 15.5 % (11.5-14.5); White Blood Count 9.5 K/mm3 (4.5-10.0)
[2022-11-19 10:39] LABS: Appearance Urine Clear (Clear); Bacteria Urine None Seen /hpf; Bilirubin Urine Negative (Negative); Blood Urine 2+ (Negative); Color Urine Yellow (Yellow); Glucose Urine UA 2+ mg/dL (Negative); Ketones Urine Trace mg/dL (Negative); Leukocyte Esterase Ur Negative LEU/UL (Negative); Nitrate Urine Negative (Negative); Non Pathogenic Casts 0-2; Protein Urine 1+ mg/dL (Negative); RBC Urine 21-50 /hpf (0-2); Squamous Epithelial Cell Urine None seen /hpf (Few); Urobilinogen Urine 0.2 mg/dL (<2.0); WBC Urine 0-5 /hpf; pH Urine 7.5 (5.0-9.0)
[2022-11-19 10:40] LABS: Add Urine Microscopic? YES
[2022-11-19 10:44] LABS: Alanine Aminotransferase 66 U/L (6-50); Alkaline Phosphatase 78 U/L (38-126); Anion Gap 14 mmol/L (8-16); Aspartate Amino Transferase 64 U/L (17-59); Bilirubin,Total 0.8 mg/dL (0.2-1.3); Blood Urea Nitrogen 15 mg/dL (9-20); Calcium 9.9 mg/dL (8.4-10.2); Carbon Dioxide 24 mmol/L (22-30); Chloride 99 mmol/L (98-107); Estimated CRCL calculation 60 ml/min; Estimated Glomerular Filt Rate > 60; Glucose 262 mg/dL (65-110); Potassium 4.2 mmol/L (3.4-5.0); Sodium 137 mmol/L (137-145)
--- NOTE | 2022-11-19 12:04 | ED.WEAKNESS ---
HPI - Weakness General Chief complaint: Weakness Stated complaint: weakness Time Seen by Provider: 11/19/22 12:00 History of Present Illness HPI Narrative: Patient is a 67-year-old male with a history of diabetes, BPH, hyperlipidemia presenting with confusion and weakness. Patient's is at bedside and assists with the history. He was recently hospitalized here for pneumonia and discharged several days ago. He was sent home on a Z-Harshil and Augmentin. States that he completed the Z-Harshil. States that he seemed to be improving over the weekend but over the last day he has been increasingly weak and confused. His states that he was unable to get out of bed today because he was so weak. Patient complains of some shortness of breath and generalized weakness but denies chest pain, abdominal pain, headache, numbness, leg swelling, vomiting, diarrhea. States that he was discharged with a Chand catheter and he has had some burning in his penis. Related Data Home Medications Medication Instructions Recorded Confirmed aripiprazole 10 mg tablet 10 mg PO BID 05/08/21 11/19/22 bupropion HCl 200 mg tablet,12 hr 200 mg PO BID 05/08/21 11/19/22 sustained-release flash glucose sensor (FreeStyle 05/18/22 11/19/22 Emmy 2 Sensor kit) quetiapine 50 mg tablet 50 mg PO QHS 05/18/22 11/19/22 insulin aspart U-100 100 unit/mL 5 unit subcut TID 11/19/22 11/19/22 subcutaneous solution insulin glargine-yfgn 100 unit/mL 40 unit subcut HS 11/19/22 11/19/22 subcutaneous solution (Semglee (insulin glargine-yfgn)) Allergies Allergy/AdvReac Type Severity Reaction Status Date / Time tramadol AdvReac Itching Verified 11/19/22 17:22 Review of Systems Review of Systems: All systems reviewed & are unremarkable except as noted in HPI and below PMFSH Past Medical History Medical History Anxiety Arthritis Ataxia Benign prostatic hyperplasia Bipolar depression Chronic insomnia Colon polyp Former cigarette smoker Gastroesophageal reflux disease Hyperlipidemia Hypertension Peripheral neuropathy Pulmonary embolism (02/2022) Rib fracture 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 Type 2 diabetes mellitus Surgical History Surgical History (Updated 11/19/22 @ 16:34 by Meseret Colvin PA-C) History of arthroscopy of left knee History of bilateral cataract extraction (04/2022) History of colonoscopy with polypectomy History of right knee joint replacement (05/10/21) History of right knee surgery x4 Family History Family History Father Age older than 80 years Hypertension Mother Age older than 80 years Patient's mother is in good health Sibling Fibromyalgia Diabetes mellitus Mother Dementia Social History Social History (Updated 11/19/22 @ 16:35 by Meseret Colvin PA-C) Social History: Patient reported that he started smoking 6 years ago after a bitter divorce. He stops smoking April 11, 2021. He is now remarried. 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 He has 4 children who are all healthy and 21 grand children. He he does not drink alcohol or use illicit substances. Code status: Full code Surrogate decision maker: Mona Mandistella, spouse Smoking packs per day: 0.5 Smoking cigarettes per day: 10.0 Years smoked: 8 Smoking pack-years: 4.00 Smoking status: Former smoker Tobacco type: cigarettes Second hand tobacco smoke exposure: No Smoking end date: 04/12/22 Alcohol intake: never Substance use: never Substance use type: does not use Lack of Transportation: No Lack of Food: Never True Current Housing: I Have Housing Concerned About Future Housing: No Difficulty Paying Gas/Electric Bills: No Difficulty Paying for Meds: No Currently Unemployed: No Educat
[2022-11-19] MEDS: LACTATED RINGERS 1,000 ML 999 ML IV CONT ×2 (12:27)
[2022-11-19] MEDS: KETOROLAC 15 MG/ML VIAL (*BKC) IV PUSH (12:31)
[2022-11-19 12:48] LABS: Lactic Acid Reflex 2.6 mmol/L (0.7-2.0)
[2022-11-19 13:14] LABS: Influenza A QL RT-PCR Negative (Negative); Influenza B QL RT-PCR Negative (Negative); SARS-CoV-2 RNA PCR Negative (Negative)
[2022-11-19] MEDS: CEFEPIME 2 GM/NS 50 ML 2 GM/50 ML BAG IVPB ×2 (14:08→21:03)
[2022-11-19] MEDS: VANCOMYCIN 1,250 MG/NS 250 ML 1,250 MG/250 ML BAG 166.67 MG IVPB (14:53)
[2022-11-19 15:12] LABS: Glucose Point of Care 369 mg/dl (65-105)
[2022-11-19] MEDS: INSULIN HUMAN REGULAR (*BKC) 100 UNITS/ML 7 UNITS SUB-Q (15:22)
[2022-11-19 15:36] LABS: Reflex Lactic Acid Yes or No Add Lactic
--- NOTE | 2022-11-19 15:40 | PM.IMHP ---
H&P: HPI History of Present Illness Date/Time: 11/19/22 16:00 Chief Complaint: Weakness. Narrative: This is a pleasant 67-year-old male with history of TIA, insulin-dependent diabetes, hypertension, hyperlipidemia, benign prostatic hyperplasia, bipolar disorder, and more recent issues with memory loss who presented to the emergency department via EMS from home for evaluation of weakness. The patient provides the following history for he does not really remember what happened earlier today and his provides additional history. He was discharged from the hospital 3 days ago after an overnight stay in which he was admitted with pneumonia and acute urinary retention. He improved quickly and was discharged on amoxicillin/clavulanic acid and azithromycin. Chand catheter remained in place on discharge. He seemed to be doing okay on discharge however the last 24 hours or so he has become increasingly weak and confused. This morning he was still sleep when his left for work which is unusual for him. A couple of hours thereafter she tried to phone him to remind him about an upcoming appointment this afternoon however he did not answer the phone. She went home to check on him and reports that she was able to wake him up however he was quite confused and in fact he was not even able to swing his legs to the side of the bed to stand up. She then called 911. The patient does not remember what exactly transpired this morning and he does not even remember the ambulance ride. At this time he reports feeling just fine. His appetite remains poor however he does deny nausea, vomiting, and dysgeusia. He has a cough which does not seem to be productive. He denies fever, chills, and sweats. He also denies headache, neck ache, sinus congestion, and sore throat. No chest pain or pleuritic pain. He denies diarrhea. He also denies recent issues with dysphagia and concerns for aspiration. In the ED: Temperature was 99.9? on arrival with stable vital signs. CBC was pretty unremarkable. Electrolytes were normal. Random glucose was 262. AST and ALT were mildly elevated but not significantly so. Urine was positive for 2+ glucose, trace ketones, 2+ blood, 21 to 50 rbc's, 0 to 5 WBC. He tested negative for influenza and COVID. Chest x-ray was normal. Chest CTA showed patchy ground-glass pulmonary disease suspicious for multifocal pneumonia and a small hiatal hernia. It was negative for PE. He received a dose of cefepime 2 g IV and vancomycin 1250 mg IV. He is being admitted in this setting for further treatment. Review of Systems Review of Systems: Twelve systems were reviewed. He reports ongoing issues with memory loss the last few years and in fact he had an appointment with Dr. Barrios today for evaluation. He is worried that he has early dementia. He seems to have more short-term memory loss but he has been having issues with getting lost while driving. For instance he got lost driving to his doctor's appointment; he has been seeing that doctor for many years. He has ataxia. No recent falls, trauma, or head injuries. No recent change in medications. He denies drug and alcohol abuse. Reports some mild discomfort at the Chand catheter site. No lower back or suprapubic pain. Except as documented, all other systems were reviewed and are negative. [facility] Past Medical History Medical History Anxiety Arthritis Ataxia Benign prostatic hyperplasia Bipolar depression Chronic insomnia Colon polyp Former cigarette smoker Gastroesophageal reflux disease Hyperlipidemia Hypertension Peripheral neuropathy Pulmonary embolism (02/2022) Rib fracture 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 Type 2 diabetes mellitus Surgical History Surgical History (Updated 11/19/22 @ 16:34 by Meseret Colvin PA-C) History of arthroscopy of left knee His
[2022-11-19] MEDS: VANCOMYCIN 1,000 MG/NS 250 ML 1,000 MG/250 ML BAG 250 MG IVPB (16:29)
[2022-11-19 16:30] LABS: Lactic Acid 2.6 mmol/L (0.7-2.0)
--- NOTE | 2022-11-19 16:34 | ADMGEN ---
This patient, Edwardo Ricci, was admitted to [facility] Surg Room 324-01. Patient/family oriented to hospital policies and general routines including ID bracelet, bed and alarms, visiting hours, pain management, procedures, bathroom and other care routines, personal items, smoking policy, room service/diet, and visiting hours. Information on how to activate the Rapid Response Team has been discussed. Patient/Family are encouraged to report perceived risks to care and to ask questions if they do not understand what they are told or what they should do.
[2022-11-19] MEDS: INSULIN ASPART (*BKC) 100 UNITS/ML SUB-Q ×2 (18:41→21:38)
[2022-11-19] MEDS: INSULIN GLARGINE (*BKC) 100 UNITS/ML 40 UNITS SUB-Q (23:32)
[2022-11-19] MEDS: carvediloL 12.5 MG TABLET PO (23:36)
[2022-11-19] MEDS: AMITRIPTYLINE HCL 25 MG TABLET PO (23:39)
[2022-11-19] MEDS: buPROPion HCL SR (12HR) 100 MG TABCR 200 MG PO (23:40)
[2022-11-19] MEDS: ARIPiprazole 10 MG TABLET PO (23:40)
[2022-11-19] MEDS: QUEtiapine FUMARATE 25 MG TABLET 50 MG PO (23:41)
[2022-11-19] MEDS: GABAPENTIN 100 MG CAPSULE PO (23:41)
[2022-11-20 01:23] VITALS: BP 119/70; PULSE 76; RESP 16; TEMP 36.4; O2SAT 96
[2022-11-20 01:37] LABS: Glucose Point of Care 377 mg/dl (65-105)
[2022-11-20 01:37] LABS: Glucose Point of Care 294 mg/dl (65-105)
[2022-11-20 01:37] LABS: Glucose Point of Care 370 mg/dl (65-105)
[2022-11-20] MEDS: CEFEPIME 2 GM/NS 50 ML 2 GM/50 ML BAG IVPB ×3 (05:28→21:08)
[2022-11-20 06:00] VITALS: BP 113/76; PULSE 65; RESP 18; TEMP 36.3; O2SAT 97
[2022-11-20 06:33] LABS: Mean Corpuscular HGB Conc 32.4 g/dl (32-36); Mean Corpuscular Hemoglobin 28.4 pg (26-34); Mean Corpuscular Volume 87.9 fl (80-100); Mean Platelet Volume 9.7 fl (7.4-10.4); Platelet Count Result 159 k/mm3 (150-375); Red Blood Count 3.87 M/mm3 (4.6-6.20); Red Cell Distribution Width 15.6 % (11.5-14.5); White Blood Count 7.4 K/mm3 (4.5-10.0)
[2022-11-20 06:40] LABS: Lactic Acid Reflex 1.4 mmol/L (0.7-2.0)
[2022-11-20 06:46] LABS: Alanine Aminotransferase 44 U/L (6-50); Alkaline Phosphatase 56 U/L (38-126); Anion Gap 8 mmol/L (8-16); Aspartate Amino Transferase 34 U/L (17-59); Bilirubin,Total 0.6 mg/dL (0.2-1.3); Blood Urea Nitrogen 13 mg/dL (9-20); CRP 7.6 mg/dL (<1.0); Calcium 8.7 mg/dL (8.4-10.2); Carbon Dioxide 25 mmol/L (22-30); Chloride 99 mmol/L (98-107); Estimated CRCL calculation 72 ml/min; Estimated Glomerular Filt Rate > 60; Glucose 284 mg/dL (65-110); Magnesium 1.9 mg/dL (1.6-2.3); Potassium 3.9 mmol/L (3.4-5.0); Sodium 132 mmol/L (137-145)
[2022-11-20 07:44] LABS: Glucose Point of Care 321 mg/dl (65-105)
[2022-11-20] MEDS: buPROPion HCL SR (12HR) 100 MG TABCR 200 MG PO ×2 (09:42→21:09)
[2022-11-20] MEDS: ATORVASTATIN 20 MG TABLET PO (09:42)
[2022-11-20 09:44] VITALS: PULSE 66
[2022-11-20] MEDS: TAMSULOSIN HCL 0.4 MG CAPSULE 0.8 MG PO (09:44)
[2022-11-20] MEDS: CLOPIDOGREL BISULFATE 75 MG TABLET PO (09:44)
[2022-11-20] MEDS: carvediloL 12.5 MG TABLET PO ×2 (09:44→21:09)
[2022-11-20] MEDS: PANTOPRAZOLE 40 MG TABLET PO ×2 (09:44→17:13)
[2022-11-20] MEDS: GABAPENTIN 100 MG CAPSULE PO ×3 (09:44→17:12)
[2022-11-20] MEDS: ARIPiprazole 10 MG TABLET PO ×2 (09:44→21:09)
[2022-11-20] MEDS: INSULIN ASPART (*BKC) 100 UNITS/ML SUB-Q ×3 (09:47→17:12)
--- NOTE | 2022-11-20 09:48 | PCSTNOTE ---
Please refer to the Bedside Swallow Evaluation in the EMR. Please note, silent aspiration cannot be ruled out at bedside.
--- NOTE | 2022-11-20 09:48 | PCSTNOTE ---
Please refer to the Modified Barium Swallow Evaluation in the EMR. Please ignore note for Bedside Swallow Evaluation completed. Thank you.
[2022-11-20] MEDS: SODIUM CHLORIDE 0.9% IV 1,000 ML 100 ML IV CONT (09:57)
[2022-11-20] MEDS: ENOXAPARIN 40 MG/0.4 ML SYRINGE SUB-Q (09:57)
--- NOTE | 2022-11-20 11:28 | PM.IMPN ---
Progress Note: A&P Assessment and Plan (1) Pneumonia: Code(s): J18.9 - Pneumonia, unspecified organism Status: Acute Assessment and Plan: Continue cefepime and vancomycin. Modified swallow study obtained to rule out aspiration. Patient cleared. Check Legionella and pneumococcal urinary antigens as well as mycoplasma IgM. (2) Confusion: Code(s): R41.0 - Disorientation, unspecified Status: Acute Assessment and Plan: He reports issues with memory loss the past couple of years. Ataxia as well. increasing confusion the last 24 hours is likely due to underlying infection. (3) Type 2 diabetes mellitus with hyperglycemia: Qualifiers: Diabetes mellitus shelter insulin use: with varnish supervisor use Qualified Code(s): E11.65 - Type 2 diabetes mellitus with hyperglycemia; Z79.4 - shelter (current) use of insulin Code(s): E11.65 - Type 2 diabetes mellitus with hyperglycemia Status: Acute Assessment and Plan: Recent hemoglobin A1c was 8.2%. Continue basal insulin. Initiate sliding scale insulin, Accu-Cheks, and hypoglycemic protocol. (4) Urinary retention: Code(s): R33.9 - Retention of urine, unspecified Status: Acute Assessment and Plan: Chand catheter remains in place. Follow-up with Urology as outpatient. (5) Hypertension: Qualifiers: Hypertension type: primary hypertension Qualified Code(s): I10 - Essential (primary) hypertension Code(s): I10 - Essential (primary) hypertension Status: Acute Assessment and Plan: Continue antihypertensives and monitor. (6) Right carotid artery occlusion: Code(s): I65.21 - Occlusion and stenosis of right carotid artery Status: Acute Assessment and Plan: Chronic total occlusion of the cervical right ICA noted on CTA in May 2022. (7) Elevated LFTs: Code(s): R79.89 - Other specified abnormal findings of blood chemistry Status: Acute Assessment and Plan: AST and ALT are mildly elevated, does not appear to an uncommon finding for this patient. Abdominal exam is benign. Monitor. Subjective Date/time seen: 11/20/22 11:28 Interval history: Stable Review of Systems Review of Systems: All systems reviewed & are unremarkable except as noted in HPI and below Exam Narrative: General: Well-developed, nontoxic-appearing gentleman supine in bed. HEENT: Normocephalic, atraumatic. PERRL, EOMI. Changes of prior cataract surgery with lens implants. Sclera anicteric. Conjunctiva mildly injected. Oral mucosa moist. Oropharynx clear. Neck: Supple. No lymphadenopathy. Respiratory: Respirations are nonlabored and he is speaking in full sentences. Lung sounds are a bit diminished at the right base but are otherwise clear to auscultation. Cardiovascular: Tachycardic with S1-S2. Gastrointestinal: Abdomen is soft, nontender, and nondistended with positive bowel sounds. Skin: Warm and dry. No rash or lesions on limited exam. Extremities: No cyanosis, clubbing, or edema. Radial and pedal pulses intact. Neurological: Alert and oriented x3; he is confused about the events that happened earlier this morning however. Cranial nerves 2-12 are grossly intact. Speech is clear. No facial asymmetry. No pronator drift. No gross focal deficits to casual conversation. Psychiatric: Pleasant and cooperative. Appropriate mood. Slightly forgetful. Objective Data Vital Signs Vital Signs: Vital Signs - 24 hr 11/19/22 11:30 11/19/22 11:46 11/19/22 12:00 Temperature Pulse Rate 116 H 116 H 116 H Respiratory Rate 20 21 H 23 H Blood Pressure Pulse Oximetry Oxygen Delivery 11/19/22 12:15 11/19/22 12:30 11/19/22 12:36 Temperature Pulse Rate 114 H 110 H 106 H Respiratory Rate 23 H 16 17 Blood Pressure 122/84 Pulse Oximetry 95 95 Oxygen Delivery 11/19/22 12:45 11/19/22 12:46 11/19/22 13:21 Temperature
[2022-11-20 11:55] LABS: Glucose Point of Care 452 mg/dl (65-105)
[2022-11-20] MEDS: INSULIN ASPART (*BKC) 100 UNITS/ML 10 UNITS SUB-Q ×2 (12:08→17:12)
[2022-11-20 14:00] VITALS: BP 120/80; PULSE 73; RESP 20; TEMP 36.6; O2SAT 96
[2022-11-20 17:01] LABS: Glucose Point of Care 306 mg/dl (65-105)
[2022-11-20] MEDS: INSULIN GLARGINE (*BKC) 100 UNITS/ML 40 UNITS SUB-Q (21:02)
[2022-11-20] MEDS: QUEtiapine FUMARATE 25 MG TABLET 50 MG PO (21:09)
[2022-11-20] MEDS: AMITRIPTYLINE HCL 25 MG TABLET PO (21:10)
[2022-11-20 21:11] LABS: Glucose Point of Care 356 mg/dl (65-105)
[2022-11-20 22:00] VITALS: BP 127/75; PULSE 74; RESP 18; TEMP 35.8; O2SAT 95
[2022-11-21] VITALS (7 sets, daily range): BP systolic 108–128; BP diastolic 74–80; PULSE 67–77; RESP 12–16; TEMP 35.9–37.1; O2SAT 97–98
[2022-11-21 02:20] LABS: Estimated CRCL calculation 71 ml/min; Estimated Glomerular Filt Rate > 60
[2022-11-21 02:35] LABS: Vancomycin Trough 8.2 ug/mL (10.0-20.0)
[2022-11-21] MEDS: VANCOMYCIN HCL 2,000 MG in SODIUM CHLORIDE 0.9% IV 500 ML 250 MG IVPB (04:24)
[2022-11-21 05:24] LABS: Glucose Point of Care 343 mg/dl (65-105)
[2022-11-21] MEDS: CEFEPIME 2 GM/NS 50 ML 2 GM/50 ML BAG IVPB ×3 (06:01→23:15)
[2022-11-21 08:15] LABS: Glucose Point of Care 318 mg/dl (65-105)
--- NOTE | 2022-11-21 08:16 | PM.IMPN ---
Progress Note: A&P Assessment and Plan (1) Pneumonia: Code(s): J18.9 - Pneumonia, unspecified organism Status: Acute Assessment and Plan: Continue cefepime and vancomycin started 11/19. No signs of aspiration on MBS. Check Legionella and pneumococcal urinary antigens as well as mycoplasma IgM. 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 Continue basal insulin. Initiate sliding scale insulin, Accu-Cheks, and hypoglycemic protocol. Blood glucose reviewed 11/21 (4) Urinary retention: Code(s): R33.9 - Retention of urine, unspecified Status: Acute Assessment and Plan: Chand catheter remains in place. Follow-up with Urology as outpatient. (5) Hypertension: Qualifiers: Hypertension type: primary hypertension Qualified Code(s): I10 - Essential (primary) hypertension Code(s): I10 - Essential (primary) hypertension Status: Acute Assessment and Plan: Continue antihypertensives and monitor. Blood pressure reviewed 11/21 (6) Right carotid artery occlusion: Code(s): I65.21 - Occlusion and stenosis of right carotid artery Status: Acute Assessment and Plan: Chronic total occlusion of the cervical right ICA noted on CTA in May 2022. (7) Elevated LFTs: Code(s): R79.89 - Other specified abnormal findings of blood chemistry Status: Acute Assessment and Plan: AST and ALT are mildly elevated, does not appear to an uncommon finding for this patient. Abdominal exam is benign. Monitor. Plan DVT prophylaxis with Lovenox GI prophylaxis not indicated Code status full code Subjective Date/time seen: 11/21/22 08:16 Interval history: 67-year-old male with history of TIA, diabetes, hypertension, hyperlipidemia is presenting with weakness and being treated for multifocal pneumonia. No overnight events noted. No chest pain or shortness of breath. No nausea, vomiting or diarrhea. No fevers or chills. Review of Systems Review of Systems: 12 point review of systems was assessed and was negative except as noted in the HPI Exam Narrative: General: No acute distress, alert and oriented per baseline HEENT: Atraumatic, normocephalic, mucous membranes moist CV: Regular rate and rhythm, S1, S2 Lungs: Clear to auscultation bilaterally, no rales or crackles noted, no wheezes, good air entry Abdomen: Soft, nontender, nondistended Extremities: Normal to inspection Skin: No rashes noted, no lesions or wounds seen Psych: Euthymic, normal affect Objective Data Vital Signs Vital Signs: Vital Signs - 24 hr 11/20/22 09:44 11/20/22 14:00 11/20/22 20:00 Temperature 97.9 F Pulse Rate 66 73 Respiratory Rate 20 Blood Pressure 120/80 Pulse Oximetry 96 Oxygen Delivery Room Air 11/20/22 22:00 11/21/22 06:00 Temperature 96.4 F L 96.7 F L Pulse Rate 74 67 Respiratory Rate 18 16 Blood Pressure 127/75 125/80 Pulse Oximetry 95 98 Oxygen Delivery Intake/Output Intake/Output: Intake & Output 11/18/22 11/19/22 11/20/22 11/21/22 23:59 23:59 23:59 23:59 Intake Total 2840 1800 200 Output Total 1625 3350 750 Balance 9215 -0922 -219 Meds/Results Medications: Active Medications Generic Name Dose Route Start Last Admin Trade Name Freq PRN Reason Stop Dose Admin Acetaminophen 650 mg 11/19/22 16:49 Acetaminophen 325 Mg Tablet PO Q6H PRN
[2022-11-21 08:25] LABS: Basophils Percent Auto 0.5 % (0.2-1.2); Eosinophils Absolute Auto 0.1 K/mm3 (0-0.3); Eosinophils Percent Auto 2.3 % (0-4.4); Hematocrit 36.6 % (42.0-52.0); Hemoglobin 11.6 g/dL (14.0-18.0); Immature Granulocyte Absolute 0.03 K/mm3 (0.00-0.031); Immature Granulocyte Percent A 0.5 % (0-0.5); Lymphocytes Absolute Auto 1.39 K/mm3 (0.9-3.2); Lymphocytes Percent Auto 24.6 % (18.3-44.2); Mean Corpuscular HGB Conc 31.7 g/dl (32-36); Mean Corpuscular Hemoglobin 28.6 pg (26-34); Mean Corpuscular Volume 90.1 fl (80-100); Mean Platelet Volume 10.4 fl (7.4-10.4); Monocytes Absolute Auto 0.3 K/mm3 (0.1-0.6); Monocytes Percent Auto 5.1 % (2.6-8.5); Neutrophils Absolute Auto 3.8 K/mm3 (1.3-6.7); Platelet Count Result 176 k/mm3 (150-375); Red Blood Count 4.06 M/mm3 (4.6-6.20); Red Cell Distribution Width 15.7 % (11.5-14.5); White Blood Count 5.7 K/mm3 (4.5-10.0)
[2022-11-21] MEDS: INSULIN ASPART (*BKC) 100 UNITS/ML SUB-Q ×4 (08:29→20:50)
[2022-11-21] MEDS: INSULIN ASPART (*BKC) 100 UNITS/ML 10 UNITS SUB-Q ×3 (08:29→17:06)
[2022-11-21] MEDS: buPROPion HCL SR (12HR) 100 MG TABCR 200 MG PO ×2 (08:30→21:09)
[2022-11-21] MEDS: ATORVASTATIN 20 MG TABLET PO (08:30)
[2022-11-21] MEDS: CLOPIDOGREL BISULFATE 75 MG TABLET PO (08:30)
[2022-11-21] MEDS: PANTOPRAZOLE 40 MG TABLET PO ×2 (08:30→17:09)
[2022-11-21] MEDS: GABAPENTIN 100 MG CAPSULE PO ×3 (08:30→17:06)
[2022-11-21] MEDS: TAMSULOSIN HCL 0.4 MG CAPSULE 0.8 MG PO (08:30)
[2022-11-21] MEDS: ARIPiprazole 10 MG TABLET PO ×2 (08:30→21:08)
[2022-11-21] MEDS: carvediloL 12.5 MG TABLET PO ×2 (08:31→21:07)
[2022-11-21] MEDS: ENOXAPARIN 40 MG/0.4 ML SYRINGE SUB-Q (08:31)
[2022-11-21 08:34] LABS: Alanine Aminotransferase 46 U/L (6-50); Albumin Level 4.2 g/dL (3.5-5.1); Alkaline Phosphatase 65 U/L (38-126); Anion Gap 9 mmol/L (8-16); Aspartate Amino Transferase 54 U/L (17-59); Bilirubin,Total 0.5 mg/dL (0.2-1.3); Blood Urea Nitrogen 14 mg/dL (9-20); Calcium 8.9 mg/dL (8.4-10.2); Carbon Dioxide 27 mmol/L (22-30); Chloride 98 mmol/L (98-107); Estimated CRCL calculation 72 ml/min; Estimated Glomerular Filt Rate > 60; Glucose 340 mg/dL (65-110); Potassium 4.3 mmol/L (3.4-5.0); Sodium 134 mmol/L (137-145)
[2022-11-21 11:34] LABS: Glucose Point of Care 351 mg/dl (65-105)
[2022-11-21 12:50] LABS: Mycoplasma IgM Antibody Titer 166 U/mL (<770)
[2022-11-21 16:58] LABS: Glucose Point of Care 260 mg/dl (65-105)
[2022-11-21] MEDS: INSULIN GLARGINE (*BKC) 100 UNITS/ML 40 UNITS SUB-Q (20:54)
[2022-11-21 20:55] LABS: Glucose Point of Care 405 mg/dl (65-105)
[2022-11-21] MEDS: QUEtiapine FUMARATE 25 MG TABLET 50 MG PO (21:06)
[2022-11-21] MEDS: AMITRIPTYLINE HCL 25 MG TABLET PO (21:08)
[2022-11-22 01:27] LABS: Glucose Point of Care 331 mg/dl (65-105)
[2022-11-22] MEDS: CEFEPIME 2 GM/NS 50 ML 2 GM/50 ML BAG IVPB ×2 (05:20→13:18)
[2022-11-22 06:00] VITALS: BP 115/80; PULSE 65; RESP 16; TEMP 36.3; O2SAT 96
[2022-11-22 06:24] LABS: Basophils Percent Auto 0.6 % (0.2-1.2); Eosinophils Absolute Auto 0.1 K/mm3 (0-0.3); Eosinophils Percent Auto 2.9 % (0-4.4); Hematocrit 38.2 % (42.0-52.0); Hemoglobin 12.3 g/dL (14.0-18.0); Immature Granulocyte Absolute 0.03 K/mm3 (0.00-0.031); Immature Granulocyte Percent A 0.6 % (0-0.5); Lymphocytes Absolute Auto 1.24 K/mm3 (0.9-3.2); Lymphocytes Percent Auto 25.8 % (18.3-44.2); Mean Corpuscular HGB Conc 32.2 g/dl (32-36); Mean Corpuscular Hemoglobin 27.9 pg (26-34); Mean Corpuscular Volume 86.6 fl (80-100); Monocytes Absolute Auto 0.3 K/mm3 (0.1-0.6); Monocytes Percent Auto 6.3 % (2.6-8.5); Neutrophils Absolute Auto 3.1 K/mm3 (1.3-6.7); Neutrophils Percent Auto 63.8 % (45.5-73.1); Platelet Count Result 188 k/mm3 (150-375); Red Blood Count 4.41 M/mm3 (4.6-6.20); Red Cell Distribution Width 15.1 % (11.5-14.5); White Blood Count 4.8 K/mm3 (4.5-10.0)
[2022-11-22 06:39] LABS: Alanine Aminotransferase 65 U/L (6-50); Albumin Level 4.3 g/dL (3.5-5.1); Alkaline Phosphatase 71 U/L (38-126); Anion Gap 9 mmol/L (8-16); Aspartate Amino Transferase 65 U/L (17-59); Bilirubin,Total 0.7 mg/dL (0.2-1.3); Blood Urea Nitrogen 14 mg/dL (9-20); Calcium 9.1 mg/dL (8.4-10.2); Carbon Dioxide 23 mmol/L (22-30); Chloride 97 mmol/L (98-107); Estimated CRCL calculation 71 ml/min; Estimated Glomerular Filt Rate > 60; Glucose 365 mg/dL (65-110); Potassium 4.3 mmol/L (3.4-5.0); Sodium 129 mmol/L (137-145)
[2022-11-22 07:55] LABS: Glucose Point of Care 385 mg/dl (65-105)
[2022-11-22] MEDS: INSULIN ASPART (*BKC) 100 UNITS/ML 10 UNITS SUB-Q (09:15)
[2022-11-22] MEDS: CLOPIDOGREL BISULFATE 75 MG TABLET PO (09:16)
[2022-11-22] MEDS: PANTOPRAZOLE 40 MG TABLET PO (09:16)
[2022-11-22] MEDS: buPROPion HCL SR (12HR) 100 MG TABCR 200 MG PO (09:16)
[2022-11-22] MEDS: ATORVASTATIN 20 MG TABLET PO (09:16)
[2022-11-22] MEDS: INSULIN ASPART (*BKC) 100 UNITS/ML SUB-Q (09:16)
[2022-11-22 09:17] VITALS: PULSE 65
[2022-11-22] MEDS: carvediloL 12.5 MG TABLET PO (09:17)
[2022-11-22] MEDS: TAMSULOSIN HCL 0.4 MG CAPSULE 0.8 MG PO (09:17)
[2022-11-22] MEDS: ENOXAPARIN 40 MG/0.4 ML SYRINGE SUB-Q (09:17)
[2022-11-22] MEDS: GABAPENTIN 100 MG CAPSULE PO ×2 (09:17→12:21)
--- NOTE | 2022-11-22 09:31 | PM.DS ---
DS: Admitting Diagnosis Discharge Date 11/22/22 Admitting Diagnosis sob DS: Discharge Diagnosis Discharge Diagnosis (1) Pneumonia: Code(s): J18.9 - Pneumonia, unspecified organism Status: Acute Assessment and Plan: Continue cefepime and vancomycin started 11/19. No signs of aspiration on MBS. Check Legionella and pneumococcal urinary antigens as well as mycoplasma IgM. (2) Confusion: Code(s): R41.0 - Disorientation, unspecified Status: Acute Assessment and Plan: Resolving, likely secondary to infection, monitor (3) Type 2 diabetes mellitus with hyperglycemia: Qualifiers: Diabetes mellitus long-term insulin use: with long-term use Qualified Code(s): E11.65 - Type 2 diabetes mellitus with hyperglycemia; Z79.4 - intermediate (current) use of insulin Code(s): E11.65 - Type 2 diabetes mellitus with hyperglycemia Status: Acute Assessment and Plan: Recent hemoglobin A1c was 8.2%. Continue basal insulin. Initiate sliding scale insulin, Accu-Cheks, and hypoglycemic protocol. Blood glucose reviewed 11/21 (4) Urinary retention: Code(s): R33.9 - Retention of urine, unspecified Status: Acute Assessment and Plan: Chand catheter remains in place. Follow-up with Urology as outpatient. (5) Hypertension: Qualifiers: Hypertension type: primary hypertension Qualified Code(s): I10 - Essential (primary) hypertension Code(s): I10 - Essential (primary) hypertension Status: Acute Assessment and Plan: Continue antihypertensives and monitor. Blood pressure reviewed 11/21 (6) Right carotid artery occlusion: Code(s): I65.21 - Occlusion and stenosis of right carotid artery Status: Acute Assessment and Plan: Chronic total occlusion of the cervical right ICA noted on CTA in May 2022. (7) Elevated LFTs: Code(s): R79.89 - Other specified abnormal findings of blood chemistry Status: Acute Assessment and Plan: AST and ALT are mildly elevated, does not appear to an uncommon finding for this patient. Abdominal exam is benign. Monitor. Plan DVT prophylaxis with Lovenox GI prophylaxis not indicated Code status full code DS: Summary Hospital Course Hospital Course: 67-year-old male with history of TIA, diabetes, hypertension, hyperlipidemia is presenting with weakness and being treated for multifocal pneumonia. He was initiated on vancomycin cefepime and all symptoms resolved. Versus well came back negative and vancomycin was discontinued. He continued to improve. He was discharged on Levaquin to complete a 14 day course. He should follow-up outpatient with repeat CT to confirm resolution with his PCP. Please see above and med rec for details. Time Spent with Patient Time attestation: Total time spent providing and/or coordinating discharge services: Exam Narrative: General: No acute distress, alert and oriented per baseline HEENT: Atraumatic, normocephalic, mucous membranes moist CV: Regular rate and rhythm, S1, S2 Lungs: Clear to auscultation bilaterally, no rales or crackles noted, no wheezes, good air entry Abdomen: Soft, nontender, nondistended Extremities: Normal to inspection Skin: No rashes noted, no lesions or wounds seen Psych: Euthymic, normal affect DS: Data Data Completed and Pending Labs on day of discharge: Labs from last 24 hours 11/22/22 11/22/22 11/22/22 07:31 05:53 01:24 WBC 4.8 RBC 4.41 L Hgb 12.3 L Hct 38.2 L MCV 86.6 MCH 27.9 MCHC 32.2 RDW 15.1 H Plt Count 188 MPV 10.0 Immature Gran % (Auto) 0.6 H Neut % (Auto) 63.8 Lymph % (Auto) 25.8 [place] % (Auto) 6.3 Eos % (Auto) 2.9 Baso % (Auto) 0.6 Lymph # (Auto) 1.24 [place] # (Auto) 0.3 Eos # (Auto) 0.1 Baso # (Auto) 0.0 Abs Immat Gran (auto) 0.03 Absolute Neuts (auto) 3.1 Absolute Nucleat
[2022-11-22] MEDS: ARIPiprazole 10 MG TABLET PO (09:55)
[2022-11-22 11:52] LABS: Glucose Point of Care 424 mg/dl (65-105)
[2022-11-22] MEDS: INSULIN ASPART (*BKC) 100 UNITS/ML 20 UNITS SUB-Q (12:21)
[2022-11-22 13:29] LABS: Glucose Point of Care 434 mg/dl (65-105)
[2022-11-23 22:46] LABS: Pneumococcal Antigen Urine Not Detected (Not Detected)
[2022-11-26 06:46] LABS: Legionella pneumophila Ag Ur Not Detected (Not Detected)
== END 2022-11-22 14:30 | disposition home or self-care (01) | DRG 195 ==
LOC: ANHED 12:00 → ANH3MEDSUR 16:12
PROVIDERS: Emergency Medicine; Hospitalist; Physician Assistant; Admitting Provider Chiropractor; Emergency Provider Emergency Medicine; PCP Family Medicine; Visit Provider Student in an Organized Health Care Education/Training Program
DX: J18.9 Pneumonia, unspecified organism (principal); R41.0 Disorientation, unspecified; R27.0 Ataxia, unspecified; E11.65 Type 2 diabetes mellitus with hyperglycemia; E11.42 Type 2 diabetes mellitus with diabetic polyneuropathy; N40.1 Benign prostatic hyperplasia with lower urinary tract symptoms; R33.8 Other retention of urine; I10 Essential (primary) hypertension; I65.21 Occlusion and stenosis of right carotid artery; K21.9 Gastro-esophageal reflux disease without esophagitis; E78.5 Hyperlipidemia, unspecified; R74.01 Elevation of levels of liver transaminase levels; F41.9 Anxiety disorder, unspecified; F31.9 Bipolar disorder, unspecified; Z79.4 Long term (current) use of insulin; Z87.891 Personal history of nicotine dependence; Z86.73 Personal history of transient ischemic attack (TIA), and cerebral infarction without residual deficits; Z86.711 Personal history of pulmonary embolism; Z98.42 Cataract extraction status, left eye; Z98.41 Cataract extraction status, right eye; Z96.651 Presence of right artificial knee joint; Z79.84 Long term (current) use of oral hypoglycemic drugs; Z79.02 Long term (current) use of antithrombotics/antiplatelets
CPT/HCPCS: 36415; 71046; 71275; 80053; 80202; 81001; 82565; 82607; 82948; 83605; 83735; 84443; 85025; 85027; 86140; 86738; 87040; 87081; 87449; 87636; 87899; 92611; 93005; 96361; 96365; 96366; 96367; 96372; 96375; 99285; A9270; G0378; J0692; J1650; J1815; J1885; J3370; J7030; J7040; J7120; Q9967

== ENCOUNTER 2022-11-28 11:50 | Emergency (ER) | payer OTHER, SELFPAY ==
--- NOTE | ~2022-11-28 | XR_ITS ---
EXAMINATION: XR chest 1V portable DATE: 11/28/2022 13:39 INDICATION: Congestion. COVID-19 positive. TECHNIQUE: A single frontal view of the chest was obtained. COMPARISON: Chest 2 views 11/19/2022 FINDINGS: The patient is rotated to his left. There is no pneumonia, pleural effusion, or pneumothora x. The heart size is normal. There is a prominent left paracardial fat pad. IMPRESSION: 1. No acute cardiopulmonary disease. Reviewed, dictated and finalized at location A.
[2022-11-28 11:50] VITALS: BP 108/67; PULSE 66; RESP 20; TEMP 36.6; O2SAT 100
[2022-11-28 11:54] VITALS: O2SAT 100
[2022-11-28 12:00] VITALS: PULSE 67; RESP 22; O2SAT 100
[2022-11-28 12:01] VITALS: BP 107/67; PULSE 67; RESP 24; O2SAT 99
[2022-11-28 12:02] LABS: Glucose Point of Care 76 mg/dl (65-105)
[2022-11-28 12:23] VITALS: PULSE 66; RESP 27; O2SAT 100
[2022-11-28 12:45] LABS: Influenza A QL RT-PCR Negative (Negative); Influenza B QL RT-PCR Negative (Negative); SARS-CoV-2 RNA PCR Positive (Negative)
[2022-11-28 13:02] VITALS: PULSE 68; RESP 20; O2SAT 95
--- NOTE | 2022-11-28 13:19 | ED.GENADULT ---
HPI - General Adult General Chief complaint: Upper Respiratory Infection Stated complaint: upper respiratory Time Seen by Provider: 11/28/22 12:38 History of Present Illness HPI narrative: 67-year-old male presented the ED for evaluation for burning in his lungs after his recently tested positive for COVID. Patient was just discharged from the hospital recently for a double pneumonia and is still on antibiotics. Patient states that he does have increased burning in his chest but denies any shortness of breath. Patient denies any chest pain nausea vomiting diarrhea Related Data Home Medications Medication Instructions Recorded Confirmed aripiprazole 10 mg tablet 10 mg PO BID 05/08/21 11/19/22 bupropion HCl 200 mg tablet,12 hr 200 mg PO BID 05/08/21 11/19/22 sustained-release flash glucose sensor (FreeStyle 05/18/22 11/19/22 Emmy 2 Sensor kit) quetiapine 50 mg tablet 50 mg PO QHS 05/18/22 11/19/22 insulin aspart U-100 100 unit/mL 5 unit subcut TID 11/19/22 11/19/22 subcutaneous solution insulin glargine-yfgn 100 unit/mL 40 unit subcut HS 11/19/22 11/19/22 subcutaneous solution (Semglee (insulin glargine-yfgn)) Allergies Allergy/AdvReac Type Severity Reaction Status Date / Time tramadol AdvReac Itching Verified 11/28/22 11:57 Review of Systems Review of Systems: All systems reviewed & are unremarkable except as noted in HPI and below PMFSH Past Medical History Medical History Anxiety Arthritis Ataxia Benign prostatic hyperplasia Bipolar depression Chronic insomnia Colon polyp Former cigarette smoker Gastroesophageal reflux disease Hyperlipidemia Hypertension Peripheral neuropathy Pulmonary embolism (02/2022) Rib fracture 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 Type 2 diabetes mellitus Surgical History Surgical History (Updated 11/19/22 @ 16:34 by Meseret Colvin PA-C) History of arthroscopy of left knee History of bilateral cataract extraction (04/2022) History of colonoscopy with polypectomy History of right knee joint replacement (05/10/21) History of right knee surgery x4 Family History Family History Father Age older than 80 years Hypertension Mother Age older than 80 years Patient's mother is in good health Sibling Fibromyalgia Diabetes mellitus Mother Dementia Social History Social History (Updated 11/19/22 @ 16:35 by Meseret Colvin PA-C) Social History: Patient reported that he started smoking 6 years ago after a bitter divorce. He stops smoking April 11, 2021. He is now remarried. 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 He has 4 children who are all healthy and 21 grand children. He he does not drink alcohol or use illicit substances. Code status: Full code Surrogate decision maker: Mona Ricci, spouse Smoking packs per day: 0.5 Smoking cigarettes per day: 10.0 Years smoked: 8 Smoking pack-years: 4.00 Smoking status: Former smoker Tobacco type: cigarettes Second hand tobacco smoke exposure: No Smoking end date: 04/12/22 Alcohol intake: never Substance use: never Substance use type: does not use Lack of Transportation: No Lack of Food: Never True Current Housing: I Have Housing Concerned About Future Housing: No Difficulty Paying Gas/Electric Bills: No Difficulty Paying for Meds: No Currently Unemployed: No Education: Trade/Vocational Certificate Difficulty w/ Childcare or Family Care: No Living arrangements: with family Additional living arrangements comments: Lives with in [place]. 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 Spiritual care concerns: No Exam Narrative: APPEARANCE: Well appearing, no pain, no di
== END 2022-11-28 14:02 | disposition home or self-care (01) ==
PROVIDERS: Emergency Provider Emergency Medicine; PCP Family Medicine
DX: U07.1 COVID-19 (principal); E11.9 Type 2 diabetes mellitus without complications; I10 Essential (primary) hypertension; Z86.711 Personal history of pulmonary embolism; Z87.891 Personal history of nicotine dependence
CPT/HCPCS: 71045; 82948; 87636; 99283

== ENCOUNTER 2022-11-29 06:34 | Outpatient (CLI) | payer OTHER, SELFPAY ==
--- NOTE | ~2022-11-29 | CT_ITS ---
EXAMINATION: CT abdomen pelvis wo con DATE: 11/29/2022 07:05 INDICATION: Chronic urinary tract infection TECHNIQUE: Computed tomography (CT) of the abdomen and pelvis was performed without intravenous contr ast. The dose-length product (DLP) was 874.33 mGy-cm. Automated exposure control and iterative recons truction technique were employed. COMPARISON: 11/15/2022 FINDINGS: The lung bases are clear. The heart size is normal. There are changes of cholecystectomy. T he liver, spleen, pancreas, and adrenal glands are normal. A moderate-sized sliding hiatal hernia is noted. The right kidney is unremarkable. There is a 2 mm nonobstructing stone of the left kidney. No pathologically enlarged abdominal or pelvic lymph nodes are identified. No free intraperitoneal gas o r evidence of bowel obstruction. The appendix is normal. A chronic right L5 pars defect is noted. The re is mild lumbar spondylosis. There are bilateral inguinal hernias containing fat. There is persiste nt subcutaneous fat stranding in the right lower quadrant of the abdomen, consistent with inflammatio n. IMPRESSION: 1. Nonobstructing left nephrolithiasis. Reviewed, dictated and finalized at location B.
--- NOTE | ~2022-11-29 | XR_ITS ---
EXAMINATION: XR abdomen/kub 1V INDICATION: Chronic urinary tract infection TECHNIQUE: Supine views of the abdomen were obtained on 2 radiographs. COMPARISON: CT from today FINDINGS: The small left kidney stone described on CT is not identified. The lung bases are clear. Th e bowel gas pattern is normal. Cholecystectomy clips are noted. There is mild osteoarthritis of the h ips. IMPRESSION: 1. Known small left kidney stone not identified. Reviewed, dictated and finalized at location B.
== END 2022-11-29 06:35 | disposition home or self-care (01) ==
PROVIDERS: PCP Family Medicine; Visit Provider Nurse Practitioner Adult Health
DX: N39.0 Urinary tract infection, site not specified (principal); N20.0 Calculus of kidney
CPT/HCPCS: 74018; 74176

== ENCOUNTER 2022-12-02 21:57 | Emergency (ER) | payer OTHER, SELFPAY ==
--- NOTE | ~2022-12-02 | XR_ITS ---
EXAMINATION: XR chest 2V DATE: 12/03/2022 00:57 INDICATION: Cough. COVID-19 positive. TECHNIQUE: Frontal and lateral views of the chest were obtained. COMPARISON: Chest single view 11/28/2022, CT abdomen and pelvis 11/29/2022 FINDINGS: There is mild atelectasis in the lower lung zones. No pleural effusion or pneumothorax. The heart size is normal. Surgical clips in the right upper quadrant are likely from cholecystectomy. IMPRESSION: 1. Mild atelectasis in the lower lung zones. Reviewed, dictated and finalized at location A.
--- NOTE | 2022-12-03 00:58 | ED.GENADULT ---
HPI - General Adult General Chief complaint: Upper Respiratory Infection <MATTHIEU Momin Last Filed: 12/03/22 03:44> Source: patient <MATTHIEU Momin Last Filed: 12/03/22 03:44> Mode of arrival: ambulatory <MATTHIEU Momin Last Filed: 12/03/22 03:44> Limitations: no limitations <MATTHIEU Momin Last Filed: 12/03/22 03:44> History of Present Illness HPI narrative: This is a 67-year-old male who presents to the ED with chief complaint of persistent cough for 1-1/2 weeks. Patient states that he was diagnosed with double pneumonia by his primary care doctor but has not had a chest x-ray and is scheduled for for this. Patient states that he took levofloxacin for a week and finished that 2 days ago. He states he is still having cough, runny nose, congestion. He states that he coughed so much tonight that he hurt his low back. Denies productive cough. Denies fevers, chills, shortness of breath, chest pain. After I reviewed the charts it is revealed that he had COVID diagnosed 5 days ago in this department. I asked him about this and he states he has no recollection of being diagnosed with COVID. <Cristobal Nix PA-C - Last Filed: 12/03/22 03:44> Related Data Home medications: Home Medications Medication Instructions Recorded Confirmed aripiprazole 10 mg tablet 10 mg PO BID 05/08/21 11/19/22 bupropion HCl 200 mg tablet,12 hr 200 mg PO BID 05/08/21 11/19/22 sustained-release flash glucose sensor (FreeStyle 05/18/22 11/19/22 Emmy 2 Sensor kit) quetiapine 50 mg tablet 50 mg PO QHS 05/18/22 11/19/22 insulin aspart U-100 100 unit/mL 5 unit subcut TID 11/19/22 11/19/22 subcutaneous solution insulin glargine-yfgn 100 unit/mL 40 unit subcut HS 11/19/22 11/19/22 subcutaneous solution (Semglee (insulin glargine-yfgn)) <MATTHIEU Momin Last Filed: 12/03/22 03:44> Allergies/adverse reactions: Allergies Allergy/AdvReac Type Severity Reaction Status Date / Time tramadol AdvReac Itching Verified 12/03/22 01:18 <Cristobal Nix PA-C - Last Filed: 12/03/22 03:44> Review of Systems Review of Systems: All systems as dictated in HPI <Cristobal Nix PA-C - Last Filed: 12/03/22 03:44> [facility] Past Medical History Medical History: Medical History Anxiety Arthritis Ataxia Benign prostatic hyperplasia Bipolar depression Chronic insomnia Colon polyp Former cigarette smoker Gastroesophageal reflux disease Hyperlipidemia Hypertension Peripheral neuropathy Pulmonary embolism (02/2022) Rib fracture 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 Type 2 diabetes mellitus <Cristobal Nix PA-C - Last Filed: 12/03/22 03:44> Surgical History Surgical History: Surgical History (Updated 11/19/22 @ 16:34 by Meseret Colvin PA-C) History of arthroscopy of left knee History of bilateral cataract extraction (04/2022) History of colonoscopy with polypectomy History of right knee joint replacement (05/10/21) History of right knee surgery x4 <Cristobal Nix PA-C - Last Filed: 12/03/22 03:44> Family History Family History: Family History Father Age older than 80 years Hypertension Mother Age older than 80 years Patient's mother is in good health Sibling Fibromyalgia Diabetes mellitus Mother Dementia <Cristobal Nix PA-C - Last Filed: 12/03/22 03:44> Social History Social History: Social History (Updated 11/19/22 @ 16:35 by Meseret Colvin PA-C) Social History: Patient reported that he started smoking 6 years ago after a bitter divorce. He stops smoking April 11, 2021. He is now remarried. 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 He has 4 children who are all healthy and 21 grand children. He he does not dri
--- NOTE | 2022-12-03 01:14 | PC.NURSE ---
This RN assumed care of pt @0100. Report given by Irena FLORES.
[2022-12-03 01:15] VITALS: BP 120/83; PULSE 81; RESP 14; TEMP 36.9; O2SAT 98
[2022-12-03 01:18] VITALS: O2SAT 98
[2022-12-03] MEDS: ACETAMINOPHEN 325 MG TABLET 650 MG PO (01:41)
[2022-12-03] MEDS: IBUPROFEN 600 MG TABLET PO (01:41)
== END 2022-12-03 02:03 | disposition home or self-care (01) ==
PROVIDERS: Emergency Provider Physician Assistant; PCP Family Medicine
DX: U07.1 COVID-19 (principal); I10 Essential (primary) hypertension; I65.21 Occlusion and stenosis of right carotid artery; E78.5 Hyperlipidemia, unspecified; E11.42 Type 2 diabetes mellitus with diabetic polyneuropathy; N40.0 Benign prostatic hyperplasia without lower urinary tract symptoms; M19.90 Unspecified osteoarthritis, unspecified site; F31.9 Bipolar disorder, unspecified; F41.9 Anxiety disorder, unspecified; Z96.651 Presence of right artificial knee joint; Z86.010 Personal history of colon polyps; Z87.891 Personal history of nicotine dependence; Z86.711 Personal history of pulmonary embolism; Z98.42 Cataract extraction status, left eye; Z98.41 Cataract extraction status, right eye; Z79.4 Long term (current) use of insulin; Z79.84 Long term (current) use of oral hypoglycemic drugs
CPT/HCPCS: 71046; 99283; A9270

== ENCOUNTER 2022-12-06 14:54 | Outpatient (CLI) | payer OTHER, SELFPAY ==
--- NOTE | ~2022-12-06 | CT_ITS ---
EXAMINATION: CT diagnostic chest wo con DATE: 12/06/2022 15:20 INDICATION: Covid 19 pneumonia. Cough. TECHNIQUE: Computed tomography (CT) of the chest was performed without intravenous contrast. Automate d exposure control and iterative reconstruction technique were employed. Exam dose: 340.21 mGy-cm to emilee exam DLP. COMPARISON: 12/03/2022 PA and lateral chest 11/28/2021 portable AP chest 11/19/2022 CT pulmonary scan FINDINGS: Normal heart size. Coronary artery calcifications. No pericardial or pleural effusion. Normal caliber of the thoracic aorta. No hilar or mediastinal mass lesion or lymphadenopathy. There is virtually complete resolution of right upper and lower lobe patchy groundglass infiltrates s emilia 11/19/2022. There is persistent patchy groundglass infiltrate of the left upper lobe including lingula, mildly im proved since 11/19/2022. Status post cholecystectomy. Normal morphology of the adrenal glands. Small sliding hiatal hernia. No suspicious osteolytic or osteoblastic lesions. IMPRESSION: Interval improvement of patchy bilateral groundglass infiltrates, especially on the righ t, consistent with resolving pneumonia, very possibly Covid 19 Reviewed, dictated and finalized at Location A. Reviewed, dictated and finalized at location A. IMPRESSION: Interval improvement of patchy bilateral groundglass infiltrates, especially on the right, consistent with resolving pneumonia, very possibly Cov id 19
== END 2022-12-06 14:55 | disposition home or self-care (01) ==
LOC: ANHIMG 15:02
PROVIDERS: PCP Family Medicine; Visit Provider Nurse Practitioner Adult Health
DX: U07.1 COVID-19 (principal); J12.82 Pneumonia due to coronavirus disease 2019
CPT/HCPCS: 71250

== ENCOUNTER 2022-12-09 07:46 | Outpatient (CLI) | payer OTHER, SELFPAY ==
[2022-12-09 19:54] LABS: Anion Gap 11 mmol/L (8-16); Blood Urea Nitrogen 11 mg/dL (9-20); Calcium 9.4 mg/dL (8.4-10.2); Carbon Dioxide 26 mmol/L (22-30); Chloride 99 mmol/L (98-107); Estimated Glomerular Filt Rate > 60; Glucose 247 mg/dL (65-110); Potassium 4.4 mmol/L (3.4-5.0); Sodium 136 mmol/L (137-145)
== END 2022-12-09 07:47 | disposition home or self-care (01) ==
PROVIDERS: PCP Family Medicine; Visit Provider Family Medicine
DX: E87.1 Hypo-osmolality and hyponatremia (principal)
CPT/HCPCS: 36415; 80048

== ENCOUNTER 2023-01-25 08:49 | Observation (INO) | payer OTHER, SELFPAY ==
[2023-01-25] VITALS (36 sets, daily range): BP systolic 106–137; BP diastolic 61–89; PULSE 69–85; RESP 13–23; TEMP 36.3–36.9; O2SAT 96–100; BMI 29.9
--- NOTE | ~2023-01-25 | MR_ITS ---
EXAMINATION: MR brain/brain stem wo/w con DATE: 01/26/2023 12:26 INDICATION: Cerebrovascular accident. TECHNIQUE: Magnetic resonance imaging (MRI) of the brain and brainstem was performed without and with 17 mL MultiHance intravenous contrast. COMPARISON: Head CT 01/25/2023, brain MRI 09/11/2022 FINDINGS: There are scattered areas of nonspecific increased T2-weighted signal intensity in the cere bral white matter, which is within normal limits for the patient's age. There is no intracranial hemo rrhage, acute infarction, or abnormal intracranial mass lesion. The ventricles are normal in size. Th ere is chronic total occlusion of right internal carotid artery. There are likely changes of ocular l ens replacement surgeries. The mastoid air cells are normal. The paranasal sinuses are clear. IMPRESSION: 1. Normal aging brain. 2. 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 Reviewed, dictated and finalized at location A.
--- NOTE | ~2023-01-25 | XR_ITS ---
EXAMINATION: XR hip LT min 3V w AP pelvis DATE: 01/26/2023 11:53 INDICATION: Left hip pain. Fall. TECHNIQUE: An anteroposterior view of the pelvis on 2 radiographs and 3 views of left hip were obtain ed. COMPARISON: None. FINDINGS: Bone alignment is normal. No fracture. There is mild osteoarthritis of the hips. IMPRESSION: 1. Mild osteoarthritis of the hips. Reviewed, dictated and finalized at location A.
--- NOTE | ~2023-01-25 | CT_ITS ---
EXAMINATION: CTA brain carotid DATE: 01/25/2023 10:12 INDICATION: Left hemiparesis. Confusion. TECHNIQUE: Computed tomographic angiography (CTA) of the head was performed without and with 100 mL O mnipaque-350 intravenous contrast. CTA of the neck was performed with intravenous contrast. Automated exposure control and iterative reconstruction technique were employed. The dose-length product was 1 701.78 mGy-cm. Maximum intensity projection and volume rendered 3D-reconstructions were created by allie carrero technologist on a separate workstation. COMPARISON: Head CT 05/18/2022, brain MRI 09/11/2022 FINDINGS: HEAD CTA: There is no intracranial hemorrhage, acute infarction, or abnormal intracranial mass lesion . The ventricles are normal in size. There are likely changes of ocular lens replacement surgeries. T here is mild mucosal thickening in the paranasal sinuses. The mastoid air cells are normal. The verte bral arteries are codominant. There is no significant stenosis of basilar artery or the posterior cer ebral arteries. There is total occlusion of right internal carotid artery with supraclinoid reconstit ution. There is no significant stenosis of the anterior or middle cerebral arteries. Anterior communi cating artery is normal. Right posterior communicating artery is normal. A left posterior communicati ng artery is not identified. There is no aneurysm. NECK CTA: There are no pathologically enlarged lymph nodes. There is no significant stenosis of the v ertebral arteries. There is total occlusion of cervical right internal carotid artery. There is 0% st enosis of the proximal left internal carotid artery relative to normal distal artery lumen diameter ( NASCET criteria). There is mild cervical spondylosis. IMPRESSION: 1. Normal brain. 2. 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 3. 0% stenosis of the proximal left internal carotid artery relative to normal distal artery lumen di amtyrel. Reviewed, dictated and finalized at location A. IMPRESSION: 1. Normal brain. 2. 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 3. 0% stenosis of the proximal left internal carotid artery relative to normal distal artery lumen diameter.
--- NOTE | ~2023-01-25 | XR_ITS ---
EXAMINATION: XR chest 2V DATE: 01/26/2023 11:53 INDICATION: Weakness. TECHNIQUE: Frontal and lateral views of the chest were obtained. COMPARISON: Chest 2 views 12/03/2022 FINDINGS: There is no pneumonia, pleural effusion, or pneumothorax. The heart size is normal. IMPRESSION: 1. No acute cardiopulmonary disease. Reviewed, dictated and finalized at location A.
--- NOTE | 2023-01-25 09:17 | ECG_ITS ---
Measurements Intervals [place] Rate: 77 P: 9 NH: 200 QRS: -29 QRSD: 107 T: 14 QT: 366 QTc: 416 Interpretive Statements SINUS RHYTHM LOW QRS VOLTAGE IN PRECORDIAL LEADS PATTERN CONSISTENT WITH PULMONARY DISEASE Electronically Signed On 01-26-2023 12:52:20 CDT by Arthur Grossman M.D.
[2023-01-25 09:39] LABS: Basophils Percent Auto 0.5 % (0.2-1.2); Eosinophils Absolute Auto 0.1 K/mm3 (0-0.3); Eosinophils Percent Auto 2.3 % (0-4.4); Hematocrit 36.4 % (42.0-52.0); Hemoglobin 11.4 g/dL (14.0-18.0); Immature Granulocyte Absolute 0.02 K/mm3 (0.00-0.031); Immature Granulocyte Percent A 0.4 % (0-0.5); Lymphocytes Absolute Auto 1.46 K/mm3 (0.9-3.2); Lymphocytes Percent Auto 26.3 % (18.3-44.2); Mean Corpuscular HGB Conc 31.3 g/dl (32-36); Mean Corpuscular Hemoglobin 28.2 pg (26-34); Mean Corpuscular Volume 90.1 fl (80-100); Mean Platelet Volume 10.7 fl (7.4-10.4); Monocytes Absolute Auto 0.4 K/mm3 (0.1-0.6); Monocytes Percent Auto 6.8 % (2.6-8.5); Neutrophils Absolute Auto 3.5 K/mm3 (1.3-6.7); Neutrophils Percent Auto 63.7 % (45.5-73.1); Platelet Count Result 176 k/mm3 (150-375); Red Blood Count 4.04 M/mm3 (4.6-6.20); Red Cell Distribution Width 15.8 % (11.5-14.5); White Blood Count 5.6 K/mm3 (4.5-10.0)
[2023-01-25 09:50] LABS: Lactic Acid Reflex 2.9 mmol/L (0.7-2.0)
[2023-01-25 09:51] LABS: Alanine Aminotransferase 38 U/L (6-50); Albumin Level 4.5 g/dL (3.5-5.1); Alkaline Phosphatase 68 U/L (38-126); Anion Gap 10 mmol/L (8-16); Aspartate Amino Transferase 38 U/L (17-59); Bilirubin,Total 0.6 mg/dL (0.2-1.3); Blood Urea Nitrogen 15 mg/dL (9-20); Carbon Dioxide 26 mmol/L (22-30); Chloride 98 mmol/L (98-107); Estimated CRCL calculation 62 ml/min; Estimated Glomerular Filt Rate > 60; Glucose 251 mg/dL (65-110); Potassium 4.4 mmol/L (3.4-5.0); Sodium 134 mmol/L (137-145)
[2023-01-25 09:55] LABS: Partial Thromboplastin Time 26.9 SECONDS (22.3-36.8); Prothrombin Time 13.6 Seconds (11.1-14.7)
[2023-01-25 10:31] LABS: Influenza A QL RT-PCR Negative (Negative); Influenza B QL RT-PCR Negative (Negative); RSV RNA, RT-PCR Negative (Negative); SARS-CoV-2 RNA PCR Negative (Negative)
--- NOTE | 2023-01-25 10:43 | ED.GENADULT ---
HPI - General Adult General Chief complaint: Weakness Stated complaint: frequent falls Time Seen by Provider: 01/25/23 08:56 History of Present Illness HPI narrative: 67-year-old male with history of TIA approximately 2 years ago and current diabetes presents to the emergency department for evaluation for gait instability. Patient reports approximate 2 days ago he was having low blood sugar and was found in the front yard with a blood sugar in the 20s. Patient was treated by EMS but patient declined transport to the hospital at that time. Patient family state that he has had worsening gait instability since then has been leaning to the left even when using a walker. Patient denies any focal numbness or weakness. Related Data Home Medications Medication Instructions Recorded Confirmed aripiprazole 10 mg tablet 10 mg PO BID 05/08/21 01/25/23 bupropion HCl 200 mg tablet,12 hr 200 mg PO BID 05/08/21 01/25/23 sustained-release quetiapine 50 mg tablet 100 mg PO QHS 05/18/22 01/25/23 amitriptyline 50 mg tablet 75 mg PO QHS 01/25/23 01/25/23 tamsulosin 0.4 mg capsule 0.4 mg PO BID 01/25/23 01/25/23 Allergies Allergy/AdvReac Type Severity Reaction Status Date / Time No Known Allergies Allergy Unverified 01/25/23 09:22 Review of Systems Review of Systems: All systems reviewed & are unremarkable except as noted in HPI and below PMFSH Past Medical History Medical History Anxiety Arthritis Ataxia Benign prostatic hyperplasia Bipolar depression Chronic insomnia Colon polyp Former cigarette smoker Gastroesophageal reflux disease Hyperlipidemia Hypertension Peripheral neuropathy Pulmonary embolism (02/2022) Rib fracture 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 Type 2 diabetes mellitus Surgical History Surgical History History of arthroscopy of left knee History of bilateral cataract extraction (04/2022) History of colonoscopy with polypectomy History of right knee joint replacement (05/10/21) History of right knee surgery x4 Family History Family History Father Age older than 80 years Hypertension Mother Age older than 80 years Patient's mother is in good health Sibling Fibromyalgia Diabetes mellitus Mother Dementia Social History Social History Social History: Patient reported that he started smoking 6 years ago after a bitter divorce. He stops smoking April 11, 2021. He is now remarried. 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 He has 4 children who are all healthy and 21 grand children. He he does not drink alcohol or use illicit substances. Code status: Full code Surrogate decision maker: Mona Ricci, spouse Smoking packs per day: 0.5 Smoking cigarettes per day: 10.0 Years smoked: 8 Smoking pack-years: 4.00 Smoking status: Former smoker Second hand tobacco smoke exposure: No Alcohol intake: never Substance use: never Substance use type: does not use Lack of Transportation: No Lack of Food: Never True Current Housing: I Have Housing Concerned About Future Housing: No Difficulty Paying Gas/Electric Bills: No Difficulty Paying for Meds: No Currently Unemployed: No Education: Trade/Vocational Certificate Difficulty w/ Childcare or Family Care: No Living arrangements: with family Additional living arrangements comments: Lives with in [place]. 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 Spiritual care concerns: No Exam Narrative: APPEARANCE: Well appearing, no pain, no distress, well-nourished. HEAD: normocephalic, atraumatic. EYES: PERRLA/EOMI, conjunctivae cinthya
[2023-01-25] MEDS: SODIUM CHLORIDE 0.9% IV 500 ML 999 ML IV CONT (11:18)
--- NOTE | 2023-01-25 11:46 | PC.NURSE ---
pt unable to void at this time. pt offered ice water and has fluids going.
[2023-01-25 12:08] LABS: Appearance Urine Clear (Clear); Bilirubin Urine Negative (Negative); Blood Urine Negative (Negative); Color Urine Yellow (Yellow); Glucose Urine UA 1+ mg/dL (Negative); Ketones Urine Negative (Negative); Leukocyte Esterase Ur Negative LEU/UL (Negative); Nitrate Urine Negative (Negative); Protein Urine Negative (Negative); Urobilinogen Urine 0.2 mg/dL (<2.0); pH Urine 5.5 (5.0-9.0)
[2023-01-25 12:14] LABS: Specific Grav Ur 1.075 (1.001-1.035)
[2023-01-25 12:15] LABS: Add Urine Microscopic? NO
[2023-01-25 12:37] LABS: Reflex Lactic Acid Yes or No Add Lactic
--- NOTE | 2023-01-25 13:05 | PC.NURSE ---
called for food tray @[id number]
[2023-01-25 13:22] LABS: Lactic Acid 3.3 mmol/L (0.7-2.0)
--- NOTE | 2023-01-25 13:59 | PM.IMHP ---
H&P: HPI History of Present Illness Date/Time: 01/25/23 14:00 Chief Complaint: Frequent falls. Narrative: This is a pleasant 67-year-old male with history of TIA, insulin-dependent diabetes, hypertension, hyperlipidemia, benign prostatic hyperplasia, bipolar disorder, and more recent issues with memory loss who presented to the emergency department via EMS from home for evaluation of frequent falls. The patient provides the following history. His balance has been poor for well over a year and he has a history of falls despite using a cane or walker at home. He has participated in physical therapy 3 times which he states did not help him whatsoever. encouraged him to come in today as he has fallen 4 times since last evening. Two of those times he hit the ground and the other 2 times he fell back onto the couch in which he was trying to stand. thinks his left side looked weak today but the patient had not really notice that. He has some bruising on his thigh but luckily he sustained no injuries in the falls and there was no head trauma or loss of consciousness. He denies syncope, near syncope, lightheadedness, dizziness, and vertigo. He also denies chest pain, pleuritic pain, racing heart, and shortness of breath. No vertigo, acute vision changes, facial droop, or difficulty speaking or swallowing. He denies focal weakness and paresthesias however he was noted to have a weaker left hip flexor on that side when compared to the right on exam. Of note he did have an episode of hypoglycemia several days ago in which neighbors found him lying in his yd. EMS was summoned and he was given dextrose with improvement. He declines transport to the hospital at that time. He has not had any episodes of hypoglycemia and the last couple of days. Review of Systems Review of Systems: Twelve systems were reviewed and are negative except for as per HPI. [facility] Past Medical History Medical History Anxiety Arthritis Ataxia Benign prostatic hyperplasia Bipolar depression Chronic insomnia Colon polyp Former cigarette smoker Gastroesophageal reflux disease Hyperlipidemia Hypertension Peripheral neuropathy Pulmonary embolism (02/2022) Rib fracture 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 Type 2 diabetes mellitus Surgical History Surgical History History of arthroscopy of left knee History of bilateral cataract extraction (04/2022) History of colonoscopy with polypectomy History of right knee joint replacement (05/10/21) History of right knee surgery x4 Family History Family History Father Age older than 80 years Hypertension Mother Age older than 80 years Patient's mother is in good health Sibling Fibromyalgia Diabetes mellitus Mother Dementia Social History Social History (Updated 01/25/23 @ 18:28 by Meseret Colvin PA-C) Social History: Code status: Full code Surrogate decision maker: Mona Mandistelal, spouse Smoking packs per day: 0.5 Smoking cigarettes per day: 10.0 Years smoked: 8 Smoking pack-years: 4.00 Smoking status: Former smoker Second hand tobacco smoke exposure: No Alcohol intake: never Substance use: never Substance use type: does not use Lack of Transportation: No Lack of Food: Never True Current Housing: I Have Housing Concerned About Future Housing: No Difficulty Paying Gas/Electric Bills: No Difficulty Paying for Meds: No Currently Unemployed: No Education: Trade/Vocational Certificate Difficulty w/ Childcare or Family Care: No Living arrangements: with family Additional living arrangements comments: Lives with in [place]. Has 4 children and 21 grandchildren. Occupation/Educ
--- NOTE | 2023-01-25 15:27 | ADMGEN ---
This patient, Edwardo Ricci, was admitted to Medical Room 349-01. Patient/family oriented to hospital policies and general routines including ID bracelet, bed and alarms, visiting hours, pain management, procedures, bathroom and other care routines, personal items, smoking policy, room service/diet, and visiting hours. Information on how to activate the Rapid Response Team has been discussed. Patient/Family are encouraged to report perceived risks to care and to ask questions if they do not understand what they are told or what they should do.
[2023-01-25 17:04] LABS: Glucose Point of Care 166 mg/dl (65-105)
[2023-01-25] MEDS: PANTOPRAZOLE 40 MG TABLET BY MOUTH (20:30)
[2023-01-25] MEDS: AMITRIPTYLINE HCL 25 MG TABLET 75 MG PO (20:31)
[2023-01-25] MEDS: carvediloL 12.5 MG TABLET BY MOUTH (20:31)
[2023-01-25] MEDS: QUEtiapine FUMARATE 100 MG TABLET PO (20:33)
[2023-01-25 21:30] LABS: Glucose Point of Care 257 mg/dl (65-105)
[2023-01-26] VITALS (12 sets, daily range): BP systolic 116–150; BP diastolic 65–106; PULSE 71–99; RESP 16–20; TEMP 36.2; O2SAT 96–99
[2023-01-26 00:17] LABS: Glucose Point of Care 256 mg/dl (65-105)
[2023-01-26 05:40] LABS: Hematocrit 36.3 % (42.0-52.0); Hemoglobin 11.6 g/dL (14.0-18.0); Mean Corpuscular Hemoglobin 28.1 pg (26-34); Mean Corpuscular Volume 87.9 fl (80-100); Mean Platelet Volume 9.7 fl (7.4-10.4); Platelet Count Result 152 k/mm3 (150-375); Red Blood Count 4.13 M/mm3 (4.6-6.20); Red Cell Distribution Width 15.5 % (11.5-14.5); White Blood Count 5.3 K/mm3 (4.5-10.0)
[2023-01-26 05:52] LABS: Potassium 4.7 mmol/L (3.4-5.0)
[2023-01-26 06:32] LABS: Anion Gap 13 mmol/L (8-16); Blood Urea Nitrogen 12 mg/dL (9-20); Carbon Dioxide 21 mmol/L (22-30); Chloride 99 mmol/L (98-107); Estimated CRCL calculation 71 ml/min; Estimated Glomerular Filt Rate > 60; Glucose 309 mg/dL (65-110); Magnesium 1.9 mg/dL (1.6-2.3); Sodium 133 mmol/L (137-145)
[2023-01-26 06:53] LABS: Glucose Point of Care 321 mg/dl (65-105)
[2023-01-26 07:49] LABS: Glucose Point of Care 336 mg/dl (65-105)
[2023-01-26] MEDS: INSULIN ASPART (*BKC) 100 UNITS/ML SUB-Q ×2 (08:50→12:32)
[2023-01-26] MEDS: PANTOPRAZOLE 40 MG TABLET BY MOUTH ×2 (08:54→20:51)
[2023-01-26] MEDS: buPROPion HCL SR (12HR) 100 MG TABCR 200 MG PO ×2 (08:54→20:51)
[2023-01-26] MEDS: ARIPiprazole 10 MG TABLET PO ×2 (08:54→17:21)
[2023-01-26] MEDS: ATORVASTATIN 20 MG TABLET PO (08:54)
[2023-01-26] MEDS: GABAPENTIN 100 MG CAPSULE PO ×2 (08:54→17:21)
[2023-01-26] MEDS: carvediloL 12.5 MG TABLET BY MOUTH ×2 (08:54→20:51)
[2023-01-26] MEDS: CLOPIDOGREL BISULFATE 75 MG TABLET PO (08:54)
[2023-01-26] MEDS: TAMSULOSIN HCL 0.4 MG CAPSULE PO ×2 (08:55→17:25)
[2023-01-26] MEDS: ENOXAPARIN 40 MG/0.4 ML SYRINGE SUB-Q (08:56)
--- NOTE | 2023-01-26 10:59 | PM.IMPN ---
Progress Note: A&P Assessment and Plan (1) Frequent falls: Code(s): R29.6 - Repeated falls Status: Acute Assessment and Plan: Patient has had falls for the past 6-12 months that are worsening. He has done PT without benefit. MR Brain in August showing no acute findings. MR Lumbar spine showing moderate degenerative spondylosis L4-5 and mild L5-S1. He does have symptoms prior to the fall and seems to occur when he is not using his walker/cane. He is on Abilify, Seroquel and Elavil that can cause orthostatic HoTN, falls, dystonia. Balance problems may be related to peripheral neuropathy and/or medications and/or lumbar pathology. Brain CT did not show any acute findings. Lactic elevated. Consider occult infection. UA clear. Check CXR and BCx. Repeat Lactic. Initiate fall precautions. Check left hip xray. PT/OT if no fracture. Check bladder scan given the risk of urine retention from his medications. Decrease Elavil. (2) Left leg weakness: Code(s): R29.898 - Other symptoms and signs involving the musculoskeletal system Status: Acute Assessment and Plan: Concern for left leg weakness. Possibly related to the lumbar spine findings. Check TSH, B12/folate/RPR. (3) Type 2 diabetes mellitus: Code(s): E11.9 - Type 2 diabetes mellitus without complications Status: Acute Assessment and Plan: Random glucose was over 250. He obtained a new insulin pump just the day before admission. He stated that he did not feel he had low glucose causing the falls but did have an episode on glucose of 20 recently. A1c 8.2 in November. The patient's blood glucose was reviewed on 01/26 Glucose uncontrolled. Continue AccuCheks covering with sliding scale. Hypoglycemia protocol available as needed. Advance lantus. (4) Hypertension: Qualifiers: Hypertension type: primary hypertension Qualified Code(s): I10 - Essential (primary) hypertension Code(s): I10 - Essential (primary) hypertension Status: Acute Assessment and Plan: Patient's blood pressure was reviewed on 01/26 Blood pressure remains well controlled. Not orthostatic. Will continue current medications. (5) Right carotid artery occlusion: Code(s): I65.21 - Occlusion and stenosis of right carotid artery Status: Acute Assessment and Plan: A known, chronic finding. Continue statin and Plavix Plan DVT Prophylaxis - Lovenox Code status - full Subjective Date/time seen: 01/26/23 10:59 Interval history: 67yo male with tobacco abuse, DM and PAD here for frequent falls. Patient has been having multiple falls over the past 6-12 months. He has noted that his falls have increased recently. He normally walks with a walker or a cane. He states he does not fall when he uses the walker or cane. He fell twice prior to admission walking from the bedroom to the living room. Denies any lightheadedness, chest pain or dizziness prior to the event. He does feel funny with whole body heaviness prior to the fall. He starts to walk with baby steps. Sometimes the symptoms pass but sometimes he falls. He denies any syncope. No seizure-like activity. He denies any incontinence or tongue biting. He does complain of left hip pain from the recent fall. He was brought to the emergency room because he had trouble getting up after the last fall. He denies any fever or chills. No shortness of breath or cough. He does have chronic left lower back pain. He smokes half a pack a day. He denies any claudication symptoms but does state that after exercising on a bicycle and treadmill, he does develop calf pain on occasion. Has peripheral neuropathy. Was on Vignesh but now stopped. He was complaining of thigh pain so his doctor increased his Elavil recently. Exam Narrative: AF 97.2 117/69 86 16 96% ra Gen - NARD Chest - Mild left basilar inspiratory crackles otherwise clear. CV - RRR S1/S2. Tele
--- NOTE | 2023-01-26 11:28 | WPDNEURCNPN ---
Assessment and Plan Assessment and plan (1) Left leg weakness: Code(s): R29.898 - Other symptoms and signs involving the musculoskeletal system Status: Acute (2) Frequent falls: Code(s): R29.6 - Repeated falls Status: Acute (3) Gait instability: Code(s): R26.81 - Unsteadiness on feet Status: Acute (4) Type 2 diabetes mellitus: Code(s): E11.9 - Type 2 diabetes mellitus without complications Status: Acute (5) Neuropathy: Code(s): G62.9 - Polyneuropathy, unspecified Status: Acute (6) Carotid artery, internal, occlusion: Code(s): I65.29 - Occlusion and stenosis of unspecified carotid artery Status: Acute Plan Edwardo Ricci is a 67 year old male with a history of HTN, HLD, diabetes, diabetic neuropathy, carotid disease, bipolar disorder presenting due to worsening of falls, in the setting of new left sided weakness. He has a history of chronic R ICA occlusion. Will need to evaluate for stroke. Suspect ongoing balance issues/falls to be related to diabetic neuropathy as evidenced on exam. - MRI brain w/o contrast - If there is stroke, will need surface echocardiogram, LDL, A1c checked - Continue Plavix 75mg daily and Lipitor 20mg daily - Add aspirin 81mg daily if there is evidence of new stroke Consult date: 01/26/23 Reason for consult: Falls HPI: Edwardo Ricci is a 67 year old male with a history of HTN, HLD, diabetes, diabetic neuropathy, carotid disease, bipolar disorder presenting due to worsening of falls. Patient has previously been seen by me in Neurology clinic in the past year. He still feels very unstable and feels that he is going to fall at anytime. He has a walker and a cane, but he still feels unsteady if he walks for a longer period. He denies any numbness or tingling in his legs. 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 He does have lower back pain. He had an MRI brain done a year ago in September 2022 that was unremarkable. The back pain stays in the lower back and does not seem to radiate. MRI lumbar spine showed mild to moderate spondylitic changes in L4/L5 and L5/S1. He had an MRI cervical spine done that showed C4-C5 spondylosis and mild spinal stenosis with left neuroforaminal narrowing. Patient presented yesterday after having four falls in the past day. also felt that his left side looked weak. He also had an episode of hypoglycemia several days ago in which neighbors found him lying in his yard. EMS was called and they gave him dextrose which helped, although he declined transfer to hospital. Patient did eventually come in yesterday due to concerns for left sided weakness and the worsening of falls. His last A1c was 8.2. He also has had CTA brain/caroid which shows complete occlusion of the cervical right ICA, which is an unchanged finding. He has previously seen a neurosurgeon for the carotid stenosis and was told that there was enough collateral flow and that he did not surgery at this time. Patient denies any numbness in his feet but does report numbness in his thighs. He cannot really elaborate what he feels before he falls but denies any dizziness or lightheadedness. He does feel something that indicates that he is about to fall, but he cannot really go into detail about what he means by this. Review of Systems Constitutional: Constitutional: Denies chills, Denies fever(s) and Denies weight loss Eyes: Eyes: Denies diplopia and Denies loss of vision ENT: Denies dizziness, Denies hearing loss and Denies tinnitus Cardiovascular: Cardiovascular: Denies chest pain, Denies syncope and Denies dyspnea Respiratory: Respiratory: Denies cough, Denies dyspnea and Denies wheezing Gastrointestinal: Gastrointestinal: Denies abdominal pain, Denies change in bowel habits and Denies vomiting Genitourinary: Genitourinary: Denies urinary incontinence Musculoskeletal: Muscul
[2023-01-26] MEDS: LORazepam (*CRX) 0.5 MG TABLET PO (11:31)
[2023-01-26 12:20] LABS: Hemoglobin A1C 7.9 % (<5.7)
[2023-01-26 12:31] LABS: Glucose Point of Care 350 mg/dl (65-105)
[2023-01-26 16:26] LABS: Reflex Lactic Acid Yes or No Add Lactic
[2023-01-26 16:55] LABS: Glucose Point of Care 401 mg/dl (65-105)
[2023-01-26] MEDS: INSULIN ASPART (*BKC) 100 UNITS/ML 10 UNITS SUB-Q ×2 (17:21→21:44)
[2023-01-26 17:33] LABS: Lactic Acid 1.6 mmol/L (0.7-2.0)
[2023-01-26] MEDS: AMITRIPTYLINE HCL 25 MG TABLET 50 MG PO (20:50)
[2023-01-26] MEDS: QUEtiapine FUMARATE 100 MG TABLET PO (20:51)
[2023-01-26] MEDS: INSULIN GLARGINE (*BKC) 100 UNITS/ML 45 UNITS SUB-Q (20:51)
[2023-01-26 21:43] LABS: Glucose Point of Care > 500 mg/dl (65-105)
[2023-01-26 21:58] LABS: Rapid Plasma Reagin Non-Reactive (NonReactive)
[2023-01-27] VITALS (10 sets, daily range): BP systolic 106–133; BP diastolic 59–82; PULSE 67–93; RESP 18; TEMP 35.9–36.5; O2SAT 98–99; BMI 29.9
[2023-01-27 06:32] LABS: Anion Gap 7 mmol/L (8-16); Blood Urea Nitrogen 13 mg/dL (9-20); Calcium 8.9 mg/dL (8.4-10.2); Carbon Dioxide 29 mmol/L (22-30); Chloride 100 mmol/L (98-107); Estimated CRCL calculation 71 ml/min; Estimated Glomerular Filt Rate > 60; Glucose 292 mg/dL (65-110); Potassium 4.2 mmol/L (3.4-5.0); Sodium 136 mmol/L (137-145)
[2023-01-27 07:29] LABS: Glucose Point of Care 327 mg/dl (65-105)
[2023-01-27] MEDS: ENOXAPARIN 40 MG/0.4 ML SYRINGE SUB-Q (08:29)
[2023-01-27] MEDS: buPROPion HCL SR (12HR) 100 MG TABCR 200 MG PO ×2 (08:30→20:19)
[2023-01-27] MEDS: ATORVASTATIN 20 MG TABLET PO (08:30)
[2023-01-27] MEDS: PANTOPRAZOLE 40 MG TABLET BY MOUTH ×2 (08:30→20:19)
[2023-01-27] MEDS: GABAPENTIN 100 MG CAPSULE PO ×2 (08:30→17:11)
[2023-01-27] MEDS: TAMSULOSIN HCL 0.4 MG CAPSULE PO ×2 (08:30→17:11)
[2023-01-27] MEDS: CLOPIDOGREL BISULFATE 75 MG TABLET PO (08:30)
[2023-01-27] MEDS: carvediloL 12.5 MG TABLET BY MOUTH ×2 (08:30→20:19)
[2023-01-27] MEDS: ARIPiprazole 10 MG TABLET PO ×2 (08:33→17:11)
[2023-01-27] MEDS: INSULIN GLARGINE (*BKC) 100 UNITS/ML 10 UNITS SUB-Q (08:50)
[2023-01-27] MEDS: INSULIN ASPART (*BKC) 100 UNITS/ML SUB-Q ×3 (08:51→17:37)
[2023-01-27 11:58] LABS: Glucose Point of Care 427 mg/dl (65-105)
[2023-01-27] MEDS: INSULIN ASPART (*BKC) 100 UNITS/ML 10 UNITS SUB-Q (12:24)
[2023-01-27 17:29] LABS: Glucose Point of Care 391 mg/dl (65-105)
--- NOTE | 2023-01-27 17:41 | PM.IMPN ---
Progress Note: A&P Assessment and Plan (1) Frequent falls: Code(s): R29.6 - Repeated falls Status: Acute Assessment and Plan: Patient has had falls for the past 6-12 months that are worsening. He has done PT without benefit. MR Brain in August showing no acute findings. MR Lumbar spine showing moderate degenerative spondylosis L4-5 and mild L5-S1. He does have pre-syncope type symptoms prior to the fall and seems to occur when he is not using his walker/cane. He is on Abilify, Seroquel and Elavil that can cause orthostatic HoTN, falls, dystonia. Balance problems may be related to peripheral neuropathy and/or medications and/or lumbar pathology. Brain CT did not show any acute findings. B12/folate normal. TSH normal. RPR nonreactive. Check MMA since B12 level around 300 Consider occult infection. Lactic elevated. UA clear. CXR clear. BCx NGTD. Repeat Lactic normal. Brain MR showing no acute findings. No pelvic of hip fractures. Continue fall precautions. Continue PT/OT Patieint does not qualift for SNF. Home tomorrow with therapy if BCx remain negative. (2) Left leg weakness: Code(s): R29.898 - Other symptoms and signs involving the musculoskeletal system Status: Acute Assessment and Plan: Concern for left leg weakness. Possibly related to the lumbar spine findings. Continue therapy (3) Type 2 diabetes mellitus: Code(s): E11.9 - Type 2 diabetes mellitus without complications Status: Acute Assessment and Plan: He obtained a new insulin pump just the day before admission. He does not feel that his falls related to low glucose A1c 7.9. The patient's blood glucose was reviewed on 01/27 Glucose still uncontrolled. Continue AccuCheks covering with sliding scale. Hypoglycemia protocol available as needed. Advance lantus. Add meal time insulin (4) Hypertension: Qualifiers: Hypertension type: primary hypertension Qualified Code(s): I10 - Essential (primary) hypertension Code(s): I10 - Essential (primary) hypertension Status: Acute Assessment and Plan: Patient's blood pressure was reviewed on 01/27 Blood pressure remains well controlled. Not orthostatic. Will continue current medications. (5) Right carotid artery occlusion: Code(s): I65.21 - Occlusion and stenosis of right carotid artery Status: Acute Assessment and Plan: A known, chronic finding. Continue statin and Plavix Plan DVT Prophylaxis - Lovenox Code status - full Subjective Date/time seen: 01/27/23 17:41 Interval history: 67yo male with tobacco abuse, DM and PAD here for frequent falls. in the room states that she works 10hour days and can not monitor the patient. Patietn is forgetful per . He was recently put on an insulin pump. She states this is better since thee wee times he would forget that he took his insulin and would take another dose. No CP or SOB. He is walking with walker with contact guard. Exam Narrative: AF 97.7 124/76 72 18 99% ra Gen - NARD Chest - CTA bilaterally, nml RR CV - RRR S1/S2. Tele showing no significant dysrhythmias Abd - Soft, NT/ND, Positive BS Ext - No pedal edema. Psych - Nml mood and affect Skin - Warm and dry. Objective Data Vital Signs Vital Signs: Vital Signs - 24 hr 01/26/23 20:51 01/26/23 20:51 01/26/23 20:00 Temperature 97.1 F L Pulse Rate 90 79 Respiratory Rate 16 Blood Pressure 150/72 H Pulse Oximetry 97 Oxygen Delivery Room Air 01/26/23 20:00 01/27/23 00:00 01/27/23 04:03 Temperature 97.6 F Pulse Rate 82 93 76 Respiratory Rate 18 Blood Pressure 129/82 Pulse Oximetry 98 Oxygen Delivery 01/27/23 04:00 01/27/23 08:30 01/27/23 08:00 Temperature Pulse Rate 68 69 67 Respiratory Rate Blood Pressure Pulse Oximetry Oxygen Delivery 01/27/23 14:00 01/27/23 14:00 01/27/23 14:00 Temperature 97.7 F
[2023-01-27 20:14] LABS: Glucose Point of Care 334 mg/dl (65-105)
[2023-01-27] MEDS: AMITRIPTYLINE HCL 25 MG TABLET 50 MG PO (20:19)
[2023-01-27] MEDS: QUEtiapine FUMARATE 100 MG TABLET PO (20:19)
[2023-01-27] MEDS: INSULIN GLARGINE (*BKC) 100 UNITS/ML 45 UNITS SUB-Q (20:20)
[2023-01-28] VITALS: PULSE 67
[2023-01-28 04:00] VITALS: PULSE 68
[2023-01-28 06:00] VITALS: BP 117/79; PULSE 68; RESP 18; TEMP 36.6; O2SAT 98
[2023-01-28 08:00] VITALS: PULSE 70
[2023-01-28 08:32] LABS: Glucose Point of Care 318 mg/dl (65-105)
--- NOTE | 2023-01-28 08:46 | PM.DS ---
DS: Admitting Diagnosis Discharge Date 01/28/23 Admitting Diagnosis Falls DS: Discharge Diagnosis Discharge Diagnosis (1) Frequent falls: Code(s): R29.6 - Repeated falls Status: Acute (2) Left leg weakness: Code(s): R29.898 - Other symptoms and signs involving the musculoskeletal system Status: Acute (3) Type 2 diabetes mellitus: Code(s): E11.9 - Type 2 diabetes mellitus without complications Status: Acute (4) Hypertension: Qualifiers: Hypertension type: primary hypertension Qualified Code(s): I10 - Essential (primary) hypertension Code(s): I10 - Essential (primary) hypertension Status: Acute (5) Right carotid artery occlusion: Code(s): I65.21 - Occlusion and stenosis of right carotid artery Status: Acute DS: Summary Hospital Course Reason for hospitalization: 67yo male with tobacco abuse, DM and PAD here for frequent falls. Please see H&P for details. Hospital Course: Patient has had falls for the past 6-12 months that are worsening. He has done PT without benefit. MR Brain in August showing no acute findings. MR Lumbar spine showing moderate degenerative spondylosis L4-5 and mild L5-S1. He does have pre-syncope type symptoms prior to the fall and his falls seem to occur when he is not using his walker/cane. He is on Abilify, Seroquel and Elavil that can cause orthostatic HoTN, falls, and dystonia. Elavil dose was increased recently. Balance problems may be related to peripheral neuropathy and/or medications and/or lumbar pathology. Brain CT here did not show any acute findings. Folate normal. TSH normal. RPR nonreactive. B12 low end of normal. B12 replaced and MMA ordered. Lactic acid elevated so we considered occult infection. UA clear. CXR clear. BCx NGTD. Repeat Lactic normal. Brain MR showing no acute findings but again showed the chronic total occlusion of the right internal carotid artery. We continued statin and Plavix. XR showing no pelvic of hip fractures. Neurology consulted and appreciate their input. He obtained a new insulin pump just the day before admission. He does not feel that his falls are related to low glucose. A1c 7.9. The patient's blood glucose was monitored with AccuCheks covering with sliding scale.? Hypoglycemia protocol was available as needed. We held the pump due to MRI and covered him with insulin SQ. medical educator worked with patient. Patient was not orthostatic. We cut his Elavil back. He worked with PT/OT. Patient did not qualify for SNF. Plan for Home with home health. He overall did well and was able to be discharged on 01/28/23 Status at Discharge Cognitive/behavioral status at discharge: stable Time Spent with Patient Time attestation: Total time spent providing and/or coordinating discharge services: 39 minutes Time spent: Greater than 30 minutes Exam Narrative: AF 97.9 117/79 68 18 98% ra Gen - NARD Chest - CTA bilaterally, nml RR CV - RRR S1/S2. Tele showing no significant dysrhythmias Abd - Soft, NT/ND, Positive BS Ext - No pedal edema. Neuro - alert and appropriate. Heel to roth mildly dysmetric bilaterally Psych - Nml mood and affect Skin - Warm and dry. DS: Data Data Completed and Pending Labs on day of discharge: Labs from last 24 hours 01/28/23 01/28/23 01/27/23 08:28 05:59 20:05 POC Capillary Glucose 318 H 334 H Methylmalonic Acid Pending 01/27/23 01/27/23 17:15 11:53 POC Capillary Glucose 391 H 427 H Methylmalonic Acid Preliminary micro results at discharge 01/26/23 08:58 Blood Culture - Preliminary Blood 01/26/23 09:01 Blood Culture - Preliminary Blood Discharge Plan Discharge Attending physician on discharge: Jered Lugo Consulting providers: Marla Barrios Discharging Clinician: Jered Lugo Anticipated Discharge Date/Time: 01/28/23 09:06 Patient Disposition: Home Health Service Activity
[2023-01-28] MEDS: INSULIN ASPART (*BKC) 100 UNITS/ML SUB-Q ×2 (09:43)
[2023-01-28 09:45] VITALS: PULSE 92
[2023-01-28] MEDS: ARIPiprazole 10 MG TABLET PO (09:45)
[2023-01-28] MEDS: carvediloL 12.5 MG TABLET BY MOUTH (09:45)
[2023-01-28] MEDS: buPROPion HCL SR (12HR) 100 MG TABCR 200 MG PO (09:45)
[2023-01-28] MEDS: ATORVASTATIN 20 MG TABLET PO (09:45)
[2023-01-28] MEDS: PANTOPRAZOLE 40 MG TABLET BY MOUTH (09:45)
[2023-01-28] MEDS: GABAPENTIN 100 MG CAPSULE PO (09:45)
[2023-01-28] MEDS: CLOPIDOGREL BISULFATE 75 MG TABLET PO (09:45)
[2023-01-28] MEDS: TAMSULOSIN HCL 0.4 MG CAPSULE PO (09:45)
[2023-01-28] MEDS: CYANOCOBALAMIN INJ 1,000 MCG/ML VIAL 1000 MCG IM (09:46)
[2023-01-28] MEDS: ENOXAPARIN 40 MG/0.4 ML SYRINGE SUB-Q (09:56)
--- NOTE | 2023-01-28 10:35 | PC.NURSE ---
Discharge paperwork faxed to [facility].
[2023-01-31 09:02] LABS: Methylmalonic Acid 104 nmol/L (87-318)
== END 2023-01-28 10:37 | disposition home health service (06) ==
LOC: ANHED 13:23 → ANH3MED 19:13
PROVIDERS: Physician Assistant; Admitting Provider Hospitalist; Emergency Provider Emergency Medicine; PCP Nurse Practitioner Adult Health; Visit Provider Internal Medicine
DX: R29.6 Repeated falls (principal); R29.898 Other symptoms and signs involving the musculoskeletal system; E11.42 Type 2 diabetes mellitus with diabetic polyneuropathy; E11.649 Type 2 diabetes mellitus with hypoglycemia without coma; I10 Essential (primary) hypertension; F41.9 Anxiety disorder, unspecified; Z20.822 Contact with and (suspected) exposure to COVID-19; I65.21 Occlusion and stenosis of right carotid artery; Z99.89 Dependence on other enabling machines and devices; R41.3 Other amnesia; M19.90 Unspecified osteoarthritis, unspecified site; Z11.4 Encounter for screening for human immunodeficiency virus [HIV]; N40.0 Benign prostatic hyperplasia without lower urinary tract symptoms; M16.0 Bilateral primary osteoarthritis of hip; F31.9 Bipolar disorder, unspecified; F51.04 Psychophysiologic insomnia; K21.9 Gastro-esophageal reflux disease without esophagitis; E78.5 Hyperlipidemia, unspecified; Z86.73 Personal history of transient ischemic attack (TIA), and cerebral infarction without residual deficits; Z86.711 Personal history of pulmonary embolism; Z87.891 Personal history of nicotine dependence; Z79.02 Long term (current) use of antithrombotics/antiplatelets; Z79.4 Long term (current) use of insulin; Z79.84 Long term (current) use of oral hypoglycemic drugs; Z79.899 Other long term (current) drug therapy; Z83.3 Family history of diabetes mellitus
CPT/HCPCS: 36415; 70496; 70498; 70553; 71046; 73502; 80048; 80053; 81003; 82607; 82746; 82948; 83036; 83605; 83735; 83921; 84443; 85025; 85027; 85610; 85730; 86592; 87040; 87637; 93005; 96360; 96372; 97110; 97161; 97165; 97530; 97535; 99285; A9270; A9577; G0378; J1650; J1815; J3420; J7040; Q9967

== ENCOUNTER 2023-02-10 14:32 | Emergency (ER) | payer OTHER, SELFPAY ==
--- NOTE | ~2023-02-10 | CT_ITS ---
EXAMINATION: CT brain wo con DATE: 02/10/2023 15:30 INDICATION: Fall. Patient on blood thinners. TECHNIQUE: Computed tomography (CT) of the head was performed without intravenous contrast. The mA wa s adjusted according to patient size. Iterative reconstruction technique was employed. Exam dose: 60 5.33 mGy-cm total exam DLP. COMPARISON: 01/26/2023 MRI brain/brainstem 01/25/2023 CTA brain carotid FINDINGS: Moderately prominent cerebellar and central and cortical cerebral atrophy. There is nonspec ific diminished attenuation of the cerebral white matter, likely due to chronic small vessel ischemic changes. Bilateral carotid siphon internal carotid artery calcifications. Vertebral and basilar majo ry calcifications. No intracranial mass lesion or hemorrhage or cerebrovascular accident, midline shift or mass effect i s detected. No subdural or epidural hematoma. No fracture or bone destruction of the cranial vault. The mastoid air cells and included paranasal sinuses are normally developed and aerated. IMPRESSION: No skull fracture or acute intracranial abnormality Reviewed, dictated and finalized at Location A. Reviewed, dictated and finalized at location B.
[2023-02-10 14:50] VITALS: BP 129/78; PULSE 84; RESP 20; TEMP 36.3; O2SAT 99
--- NOTE | 2023-02-10 14:58 | ED.GENADULT ---
HPI - General Adult General Chief complaint: Fall Stated complaint: multiple falls History of Present Illness HPI narrative: Edwardo Ricci is a 67 y/o male who was d/c from after being admitted for frequent falls. He refused rehab and was encouraged to use a walker. At his follow up appointment a few days ago his PCP noted that he has had about 5 falls since d/c and his brings him in today after he had another ground level fall hitting his head and was not using his walker. He denies syncope/ denies LOC reports his legs just gave out. Denies neck pain / headache Related Data Home Medications Medication Instructions Recorded Confirmed aripiprazole 10 mg tablet 10 mg PO BID 05/08/21 02/03/23 bupropion HCl 200 mg tablet,12 hr 200 mg PO BID 05/08/21 02/03/23 sustained-release quetiapine 50 mg tablet 100 mg PO QHS 05/18/22 02/03/23 tamsulosin 0.4 mg capsule 0.4 mg PO BID 01/25/23 02/03/23 Allergies Allergy/AdvReac Type Severity Reaction Status Date / Time No Known Allergies Allergy Verified 02/10/23 14:53 [facility] Past Medical History Medical History Anxiety Arthritis Ataxia Benign prostatic hyperplasia Bipolar depression Chronic insomnia Colon polyp Former cigarette smoker Gastroesophageal reflux disease Hyperlipidemia Hypertension Peripheral neuropathy Pulmonary embolism (02/2022) Rib fracture 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 Type 2 diabetes mellitus Surgical History Surgical History History of arthroscopy of left knee History of bilateral cataract extraction (04/2022) History of colonoscopy with polypectomy History of right knee joint replacement (05/10/21) History of right knee surgery x4 Family History Family History Father Age older than 80 years Hypertension Mother Age older than 80 years Patient's mother is in good health Sibling Fibromyalgia Diabetes mellitus Mother Dementia Social History Social History Social History: Code status: Full code Surrogate decision maker: Mona Ricci, spouse Smoking packs per day: 0.5 Smoking cigarettes per day: 10.0 Years smoked: 8 Smoking pack-years: 4.00 Smoking status: Former smoker Second hand tobacco smoke exposure: No Alcohol intake: never Substance use: never Substance use type: does not use Lack of Transportation: No Lack of Food: Never True Current Housing: I Have Housing Concerned About Future Housing: No Difficulty Paying Gas/Electric Bills: No Difficulty Paying for Meds: No Currently Unemployed: No Education: Trade/Vocational Certificate Difficulty w/ Childcare or Family Care: No Living arrangements: with family Additional living arrangements comments: Lives with in [place]. Has 4 children and 21 grandchildren. 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 Spiritual care concerns: No Course Vital Signs Vital signs: Vital Signs Temperature 36.3 C L 02/10/23 14:50 Pulse Rate 84 02/10/23 14:50 Respiratory Rate 20 02/10/23 14:50 Blood Pressure 129/78 02/10/23 14:50 Pulse Oximetry 99 02/10/23 14:50 Oxygen Delivery Room Air 02/10/23 14:50 Temperature 36.3 C L 02/10/23 14:50 Pulse Rate 84 02/10/23 14:50 Respiratory Rate 20 02/10/23 14:50 Blood Pressure 129/78 02/10/23 14:50 Pulse Oximetry 99 02/10/23 14:50 Oxygen Delivery Room Air 02/10/23 14:50 Medical Decision Making Vital Signs Vital Signs: Vital Signs Temperature 36.3 C L 02/10/23 14:50 Pulse Rate 84 02/10/23 14:50 Respiratory Rate 20 02/10/23 14:50 Blood Pressure
--- NOTE | 2023-02-10 19:45 | PC.NURSE ---
female family member took pt home, d/t wait time.
== END 2023-02-10 19:46 | disposition left against medical advice (07) ==
PROVIDERS: Emergency Provider Nurse Practitioner Family; PCP Nurse Practitioner Adult Health
DX: S09.90XA Unspecified injury of head, initial encounter (principal); Z91.81 History of falling; R29.6 Repeated falls; I10 Essential (primary) hypertension; E78.5 Hyperlipidemia, unspecified; E11.42 Type 2 diabetes mellitus with diabetic polyneuropathy; F31.9 Bipolar disorder, unspecified; F41.9 Anxiety disorder, unspecified; N40.0 Benign prostatic hyperplasia without lower urinary tract symptoms; K21.9 Gastro-esophageal reflux disease without esophagitis; Z86.711 Personal history of pulmonary embolism; Z87.891 Personal history of nicotine dependence; Z79.4 Long term (current) use of insulin; Z79.84 Long term (current) use of oral hypoglycemic drugs; Z79.02 Long term (current) use of antithrombotics/antiplatelets; W18.30XA Fall on same level, unspecified, initial encounter
CPT/HCPCS: 70450; 99199; 99284

== ENCOUNTER 2023-02-18 09:27 | Outpatient (CLI) | payer OTHER, SELFPAY ==
[2023-02-18 19:29] LABS: Appearance Urine Clear (Clear); Bilirubin Urine Negative (Negative); Blood Urine Negative (Negative); Color Urine Yellow (Yellow); Glucose Urine UA 2+ mg/dL (Negative); Ketones Urine Negative (Negative); Leukocyte Esterase Ur Negative LEU/UL (Negative); Nitrate Urine Negative (Negative); Protein Urine Negative (Negative); Urobilinogen Urine 0.2 mg/dL (<2.0); pH Urine 5.5 (5.0-9.0)
[2023-02-18 19:31] LABS: Add Urine Microscopic? NO
== END 2023-02-18 09:28 | disposition home or self-care (01) ==
PROVIDERS: PCP Nurse Practitioner Adult Health; Visit Provider Nurse Practitioner Adult Health
DX: R39.9 Unspecified symptoms and signs involving the genitourinary system (principal)
CPT/HCPCS: 81003

== ENCOUNTER 2023-03-20 09:09 | Outpatient (RCR) | payer OTHER, SELFPAY | END 2023-06-09 10:06 | disposition home or self-care (01) | LOC: ANHDMC 09:09 | PROVIDERS: PCP Nurse Practitioner Adult Health; Visit Provider Nurse Practitioner Family | DX: E11.649 Type 2 diabetes mellitus with hypoglycemia without coma (principal); R41.3 Other amnesia; R68.89 Other general symptoms and signs; Z71.89 Other specified counseling | CPT/HCPCS: G0108 ==

== ENCOUNTER 2023-04-02 10:28 | Outpatient (CLI) | payer OTHER, SELFPAY ==
[2023-04-03 20:20] LABS: Appearance Urine Clear (Clear); Bilirubin Urine Negative (Negative); Blood Urine Negative (Negative); Color Urine Yellow (Yellow); Glucose Urine UA Negative (Negative); Ketones Urine Negative (Negative); Leukocyte Esterase Ur Negative LEU/UL (NEGATIVE); Nitrate Urine Negative (Negative); Protein Urine Negative (Negative); Specific Grav Ur 1.009 (1.001-1.035); Urobilinogen Urine 0.2 mg/dL (<2.0)
[2023-04-03 20:26] LABS: Add Urine Microscopic? NO
== END 2023-04-02 10:29 | disposition home or self-care (01) ==
PROVIDERS: PCP Nurse Practitioner Adult Health; Visit Provider Nurse Practitioner Adult Health
DX: R35.0 Frequency of micturition (principal)
CPT/HCPCS: 81003

== ENCOUNTER 2023-05-06 10:24 | Outpatient (CLI) | payer OTHER, SELFPAY ==
[2023-05-06 20:59] LABS: LDL Cholesterol Direct 62 mg/dL
[2023-05-06 21:11] LABS: Alanine Aminotransferase 50 U/L (6-50); Alkaline Phosphatase 71 U/L (38-126); Anion Gap 11 mmol/L (8-16); Aspartate Amino Transferase 62 U/L (17-59); Bilirubin,Total 0.6 mg/dL (0.2-1.3); Blood Urea Nitrogen 12 mg/dL (9-20); Calcium 10.4 mg/dL (8.4-10.2); Carbon Dioxide 29 mmol/L (22-30); Chloride 98 mmol/L (98-107); Cholesterol 117 mg/dL (0-200); Estimated Glomerular Filt Rate > 60; Glucose 59 mg/dL (65-110); HDL Direct 30 mg/dL; Potassium 4.1 mmol/L (3.4-5.0); Sodium 138 mmol/L (137-145); Triglycerides 207 mg/dL (<150)
[2023-05-06 21:52] LABS: Hemoglobin A1C 9.3 % (<5.7)
[2023-05-06 22:02] LABS: Creatinine Urine 60.1 mg/dL
[2023-05-06 22:06] LABS: MALB Creatinine Ratio 10.6 mg/g (0-30); Microalbumin Urine Random 6.4 mg/L (0-16.7)
== END 2023-05-06 10:25 | disposition home or self-care (01) ==
PROVIDERS: PCP Family Medicine; Visit Provider Nurse Practitioner Adult Health
DX: E11.9 Type 2 diabetes mellitus without complications (principal)
CPT/HCPCS: 36415; 80053; 80061; 82043; 83036

== ENCOUNTER 2023-06-04 10:09 | Outpatient (CLI) | payer OTHER, SELFPAY | END 2023-06-04 10:10 | disposition home or self-care (01) | LOC: ANHBWCLAB 10:10 | PROVIDERS: PCP Family Medicine; Visit Provider Family Medicine | DX: E11.9 Type 2 diabetes mellitus without complications (principal) | CPT/HCPCS: 36415; 83036 ==

== ENCOUNTER 2023-06-24 13:54 | Outpatient (CLI) | payer OTHER, SELFPAY ==
--- NOTE | ~2023-06-24 | XR_ITS ---
EXAMINATION: XR toe 5th LT min 2V DATE: 06/24/2023 14:12 INDICATION: Pain, erythema and swelling at the left fifth toe TECHNIQUE: Dorsal plantar and lateral views of the left fifth were obtained. COMPARISON: None FINDINGS: Bone alignment is normal. No fracture. Joint spaces are normal with no cortical erosions or osteophyt osis. No periosteal reaction. Soft tissues are unremarkable. IMPRESSION: Negative left fifth toe radiographs. Reviewed, dictated and finalized at location L.
== END 2023-06-24 13:55 | disposition home or self-care (01) ==
LOC: ANHBWCLAB 13:56 → ANHBWCIMG 13:59
PROVIDERS: PCP Nurse Practitioner Adult Health; Visit Provider Nurse Practitioner Adult Health
DX: M79.675 Pain in left toe(s) (principal)
CPT/HCPCS: 73660

== ENCOUNTER 2023-09-16 13:18 | Outpatient (CLI) | payer OTHER, SELFPAY ==
--- NOTE | ~2023-09-16 | XR_ITS ---
EXAMINATION: XR chest 2V DATE: 09/16/2023 13:28 INDICATION: Cough and congestion. TECHNIQUE: Frontal and lateral views of the chest were obtained. COMPARISON: Chest 2 views 01/26/2023 FINDINGS: There is no pneumonia, pleural effusion, or pneumothorax. The heart size is normal. IMPRESSION: 1. No acute cardiopulmonary disease. Reviewed, dictated and finalized at location A.
== END 2023-09-16 13:19 | disposition home or self-care (01) ==
PROVIDERS: PCP Nurse Practitioner Adult Health; Visit Provider Nurse Practitioner Adult Health
DX: R05.9 Cough, unspecified (principal)
CPT/HCPCS: 71046

== ENCOUNTER 2023-10-08 11:28 | Outpatient (CLI) | payer OTHER, SELFPAY ==
[2023-10-08 19:04] LABS: Basophils Absolute Auto 0.1 K/mm3 (0.0-0.1); Basophils Percent Auto 0.8 % (0.2-1.2); Eosinophils Absolute Auto 0.1 K/mm3 (0-0.3); Eosinophils Percent Auto 2.1 % (0-4.4); Hematocrit 43.3 % (42.0-52.0); Hemoglobin 13.7 g/dL (14.0-18.0); Immature Granulocyte Absolute 0.02 K/mm3 (0.00-0.031); Immature Granulocyte Percent A 0.3 % (0-0.5); Lymphocytes Percent Auto 36.4 % (18.3-44.2); Mean Corpuscular HGB Conc 31.6 g/dl (32-36); Mean Corpuscular Hemoglobin 27.1 pg (26-34); Mean Corpuscular Volume 85.6 fl (80-100); Mean Platelet Volume 9.9 fl (7.4-10.4); Monocytes Absolute Auto 0.4 K/mm3 (0.1-0.6); Monocytes Percent Auto 5.8 % (2.6-8.5); Neutrophils Absolute Auto 3.3 K/mm3 (1.3-6.7); Neutrophils Percent Auto 54.6 % (45.5-73.1); Platelet Count Result 178 k/mm3 (150-375); Red Blood Count 5.06 M/mm3 (4.6-6.20); Red Cell Distribution Width 15.5 % (11.5-14.5); White Blood Count 6.1 K/mm3 (4.5-10.0)
[2023-10-08 19:29] LABS: Alanine Aminotransferase 49 U/L (6-50); Alkaline Phosphatase 72 U/L (38-126); Anion Gap 12 mmol/L (4-12); Aspartate Amino Transferase 48 U/L (17-59); Bilirubin,Total 0.5 mg/dL (0.2-1.3); Blood Urea Nitrogen 18 mg/dL (9-20); Calcium 10.1 mg/dL (8.4-10.2); Carbon Dioxide 24 mmol/L (22-30); Chloride 103 mmol/L (98-107); Estimated Glomerular Filt Rate > 60; Glucose 142 mg/dL (65-110); Magnesium 2.1 mg/dL (1.6-2.3); Potassium 3.8 mmol/L (3.4-5.0); Sodium 139 mmol/L (137-145)
[2023-10-08 20:12] LABS: Creatinine Urine 57.8 mg/dL
[2023-10-08 20:19] LABS: MALB Creatinine Ratio 11.9 mg/g (0-30); Microalbumin Urine Random 6.9 mg/L (0-16.7)
== END 2023-10-08 11:29 | disposition home or self-care (01) ==
LOC: ANHBWCLAB 11:30
PROVIDERS: PCP Nurse Practitioner Adult Health; Visit Provider Nurse Practitioner Adult Health
DX: E11.9 Type 2 diabetes mellitus without complications (principal); I10 Essential (primary) hypertension; E78.5 Hyperlipidemia, unspecified; E53.8 Deficiency of other specified B group vitamins; R41.3 Other amnesia
CPT/HCPCS: 36415; 80053; 82043; 82565; 82607; 83036; 83735; 84443; 85025

== ENCOUNTER 2024-02-18 09:08 | Outpatient (CLI) | payer OTHER, SELFPAY ==
[2024-02-18 21:16] LABS: Alanine Aminotransferase 36 U/L (6-50); Albumin Level 5.1 g/dL (3.5-5.1); Alkaline Phosphatase 66 U/L (38-126); Anion Gap 13 mmol/L (4-12); Aspartate Amino Transferase 69 U/L (17-59); Bilirubin,Total 0.7 mg/dL (0.2-1.3); Blood Urea Nitrogen 11 mg/dL (9-20); Calcium 10.5 mg/dL (8.4-10.2); Carbon Dioxide 26 mmol/L (22-30); Chloride 96 mmol/L (98-107); Cholesterol 123 mg/dL (0-200); Estimated Glomerular Filt Rate > 60; Glucose 269 mg/dL (65-110); HDL Direct 31 mg/dL; Potassium 4.3 mmol/L (3.4-5.0); Sodium 135 mmol/L (137-145); Triglycerides 221 mg/dL (<150)
[2024-02-18 21:28] LABS: LDL Cholesterol Direct 55 mg/dL
[2024-02-18 21:45] LABS: Hemoglobin A1C 9.2 % (<5.7)
[2024-02-18 21:47] LABS: Creatinine Urine 60.8 mg/dL
[2024-02-18 21:51] LABS: MALB Creatinine Ratio 15.6 mg/g (0-30); Microalbumin Urine Random 9.5 mg/L (0-16.7)
== END 2024-02-18 09:09 | disposition home or self-care (01) ==
LOC: ANHBWCLAB 09:10
PROVIDERS: PCP Nurse Practitioner Adult Health; Visit Provider Nurse Practitioner Adult Health
DX: E53.8 Deficiency of other specified B group vitamins (principal); E11.9 Type 2 diabetes mellitus without complications
CPT/HCPCS: 36415; 80053; 80061; 82043; 82565; 82607; 83036

== ENCOUNTER 2024-02-27 05:12 | Day surgery (SDC) | payer OTHER, SELFPAY ==
[2024-02-19 11:53] VITALS: BMI 26.8
--- NOTE | 2024-02-19 12:20 | PC.NURSE ---
Pt was instructed to call his primary for diabetes control prior to his colonoscopy.
--- NOTE | 2024-02-24 09:01 | PC.NURSE ---
02/20/2024 Spoke with PATIENT regarding medication CLOPIDOGREL, pt instructed to hold clopidogrel starting on Friday02/23/2024 until he hears from me as we are waiting for Dr. Adkins to approve. 02/23/2024. Spoke with patient and he forgot to not take it this morning, verified with Dr. Crowe he is okay to proceed with holding plavix x3 days. Pt. called at 1500 [address] receiving confirmation from Dr[address] Adkins's office that he is okay to hold x4 day, he verbalizes understanding that he will hold clopidogrel as of today with his last dose this morning 02/23/2024. 02/24/2024 Pt called this morning asking about Insulin and he is once again instructed to call his Investigator and ask for instructions. Pt states he has an appt. with her this afternoon, I told him to discuss this at that time for instructions from her.
[2024-02-27 06:29] VITALS: BP 110/80; PULSE 82; RESP 18; TEMP 36; O2SAT 100
[2024-02-27] MEDS: LACTATED RINGERS 1,000 ML 150 ML IV CONT (06:38)
[2024-02-27 06:42] LABS: Glucose Point of Care 190 mg/dl (65-105)
--- NOTE | 2024-02-27 07:08 | P.PNAN_ITS ---
Anes - Initial Pre Proc Eval Procedure: Operation Date: 02/27/24 07:30 Proposed Procedures p Colonoscopy - Jose Angelo MD Date/Time: 02/27/24 07:08 Surgeon: Jose Angelo MD Pre Op Diagnosis: fecal abnormalities Patient Data Age: 68 Gender: M Height: 1.73 m Weight: 77.6 kg Last Vital Signs Temp 96.8 F L 02/27/24 06:29 Pulse 82 02/27/24 06:29 Resp 18 02/27/24 06:29 BP 110/80 02/27/24 06:29 Pulse Ox 100 02/27/24 06:29 O2 Del Method Room Air 02/27/24 06:29 Allergies Allergy/AdvReac Type Severity Reaction Status Date / Time No Known Allergies Allergy Verified 02/27/24 06:23 Home Medications Medication Instructions Recorded Confirmed Type bupropion HCl 200 mg tablet,12 hr 200 mg PO BID 05/08/21 02/27/24 History sustained-release quetiapine 50 mg tablet 150 mg PO QHS 05/18/22 02/27/24 History finasteride 5 mg tablet 5 mg PO DAILY 03/10/23 02/27/24 History tamsulosin 0.4 mg capsule 0.4 mg PO DAILY #90 caps 10/29/23 02/27/24 Rx aripiprazole 20 mg tablet 10 mg PO BID 02/13/24 02/27/24 History atorvastatin 20 mg tablet 20 mg PO DAILY 02/13/24 02/27/24 History carvedilol 12.5 mg tablet 12.5 mg PO BID 02/13/24 02/27/24 History clopidogrel 75 mg tablet 75 mg PO DAILY 02/13/24 02/27/24 History flash glucose sensor (FreeStyle 02/13/24 02/27/24 History Emmy 2 Sensor kit) fluticasone propionate 50 2 spray intranasal DAILY 14 days 02/13/24 02/27/24 Rx mcg/actuation nasal #15.8 mL spray,suspension (Flonase Allergy Relief) insulin aspart U-100 100 unit/mL 50 unit subcut DAILY 02/13/24 02/27/24 History subcutaneous solution insulin glargine-yfgn 100 unit/mL 40 unit subcut QPM 02/13/24 02/27/24 History (3 mL) subcutaneous pen (Semglee (insulin glargine-yfgn) Pen) metformin 1,000 mg tablet 1,000 mg PO BID 02/13/24 02/27/24 History pantoprazole 40 mg tablet,delayed 40 mg PO DAILY 02/13/24 02/27/24 History release rpaeumtn-gdtfetmzr-hnizrkvaz 3.5 4 drp RIGHT EAR Q8H 10 days #10 mL 02/18/24 02/27/24 Rx mg-10,000 unit/mL-1 % ear drops,susp Farxiga 5 mg tablet (dapagliflozin 5 mg PO QAM #30 tabs 02/24/24 02/27/24 Rx propanediol) glucagon 1 mg/0.2 mL subcutaneous 1 mg (0.2 mL) subcut ONCE PRN 02/25/24 02/27/24 Rx auto-injector (Gvoke HypoPen hypoglycemia #0.2 mL 1-Pack) Laboratory Tests 02/27/24 06:37 POC Capillary Glucose 190 H mg/dl (65-105) Patient hx anesthesia problems: none Family hx anesthesia problems: none Results Review: All pre-operative results and documents have been reviewed as part of the pre- operative evaluation. 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 Sleep disorder, unspecified Type 2 diabetes mellitus Surgical History Surgical History History of arthroscopy of left knee History of bilateral cataract extraction (04/2022) History of colonoscopy with polypectomy History of right knee joint replacement (05/10/21) History of right knee surgery x4 Family History Family History Father Age older than 80 years Hypertension Mother Age older than 80 years Patient's mother is in good health Sibling Fibromyalgia Diabetes mellitus Mother Dementia Social History Social History Social History: Code status: Full code Surrogate decision maker: Mona Ricci, spouse Smoking packs per day: 0.5 Smoking cigarettes per day: 10.0 Years smoked: 8 Smoking pack-years: 4.00 Smoking status: Former smoker Tobacco type: cigarettes Second hand tobacco smoke exposure: No Alcohol intake: never Substance use: never Substance use type: does not use Do You Feel Safe in your Home?: Yes Lack of Transportation: No Lack of Food: Never True Current Housing: I Have Housing Concerned About Future Housing: No Difficulty Paying Gas/Electric Bills: No Difficulty Paying for Meds: No Currently Unemployed: No Education: Trade/Vocational Certificate Difficulty w/ Childcare or Family Care: No Living arrangements: with family Additional living arrangements comments: Lives with in [place]. Has 4 children and 21 grandchildren. 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 Spiritual care concerns: No Anes - Eval Final PreProcedure Day of Procedure 02/27/24 07:08 Patient weight: normal Heart: regular rate and rhythm Lungs: clear to auscultation Airway: Mallampati scale and special considerations (Upper caps. ) Neurological: alert and oriented Last oral intake: >/= 8 hours ASA classification: III Emergent: no Anesthetic plan: proceed Anesthesia type and monitoring: general GIVS and standard monitoring Results Review: All pre-operative results and documents have been reviewed as part of the pre- operative evaluation. HTN, hyperlipidemia, DM (fsbs 190), pt states that he does cardio at gym every day for 50 minutes, no cp or sob. Informed Consent: The patient's anesthetic plan and its attendant risks and benefits were discussed with the patient/family/POA. Questions were solicited and answers provided to the satisfaction of the patient/family/POA.
--- NOTE | 2024-02-27 07:18 | P.HP_ITS ---
History of Present Illness History of Present Illness Consent: Risks, benefits, and alternatives have been discussed and questions answered. Patient agrees to proceed with procedure. Chief complaint: fecal abnormalities Narrative: Edwardo Ricci is a 68 year old male with colon polyp 4 years ago, + colgouard now Review of Systems Review of Systems: All systems reviewed & are unremarkable except as noted in HPI and below PMFSH Past Medical History Medical History Anxiety Arthritis Ataxia Benign prostatic hyperplasia Bipolar depression Chronic insomnia Colon polyp Diabetic polyneuropathy Former cigarette smoker Gastroesophageal reflux disease Hyperlipidemia Hypertension Lumbar spondylosis MCI (mild cognitive impairment) Peripheral neuropathy Pulmonary embolism (02/2022) Rib fracture 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 Sleep disorder, unspecified Type 2 diabetes mellitus Surgical History Surgical History History of arthroscopy of left knee History of bilateral cataract extraction (04/2022) History of colonoscopy with polypectomy History of right knee joint replacement (05/10/21) History of right knee surgery x4 Family History Family History Father Age older than 80 years Hypertension Mother Age older than 80 years Patient's mother is in good health Sibling Fibromyalgia Diabetes mellitus Mother Dementia Social History Social History Social History: Code status: Full code Surrogate decision maker: Mona Ricci, spouse Smoking packs per day: 0.5 Smoking cigarettes per day: 10.0 Years smoked: 8 Smoking pack-years: 4.00 Smoking status: Former smoker Tobacco type: cigarettes Second hand tobacco smoke exposure: No Alcohol intake: never Substance use: never Substance use type: does not use Do You Feel Safe in your Home?: Yes Lack of Transportation: No Lack of Food: Never True Current Housing: I Have Housing Concerned About Future Housing: No Difficulty Paying Gas/Electric Bills: No Difficulty Paying for Meds: No Currently Unemployed: No Education: Trade/Vocational Certificate Difficulty w/ Childcare or Family Care: No Living arrangements: with family Additional living arrangements comments: Lives with in [place]. Has 4 children and 21 grandchildren. 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 Spiritual care concerns: No Meds Home Medications and Allergies Home Medications Medication Instructions Recorded Confirmed Type bupropion HCl 200 mg tablet,12 hr 200 mg PO BID 05/08/21 02/27/24 History sustained-release quetiapine 50 mg tablet 150 mg PO QHS 05/18/22 02/27/24 History finasteride 5 mg tablet 5 mg PO DAILY 03/10/23 02/27/24 History tamsulosin 0.4 mg capsule 0.4 mg PO DAILY #90 caps 10/29/23 02/27/24 Rx aripiprazole 20 mg tablet 10 mg PO BID 02/13/24 02/27/24 History atorvastatin 20 mg tablet 20 mg PO DAILY 02/13/24 02/27/24 History carvedilol 12.5 mg tablet 12.5 mg PO BID 02/13/24 02/27/24 History clopidogrel 75 mg tablet 75 mg PO DAILY 02/13/24 02/27/24 History flash glucose sensor (FreeStyle 02/13/24 02/27/24 History Emmy 2 Sensor kit) fluticasone propionate 50 2 spray intranasal DAILY 14 days 02/13/24 02/27/24 Rx mcg/actuation nasal #15.8 mL spray,suspension (Flonase Allergy Relief) insulin aspart U-100 100 unit/mL 50 unit subcut DAILY 02/13/24 02/27/24 History subcutaneous solution insulin glargine-yfgn 100 unit/mL 40 unit subcut QPM 02/13/24 02/27/24 History (3 mL) subcutaneous pen (Semglee (insulin glargine-yfgn) Pen) metformin 1,000 mg tablet 1,000 mg PO BID 02/13/24 02/27/24 History pantoprazole 40 mg tablet,delayed 40 mg PO DAILY 02/13/24 02/27/24 History release xhuffulz-vveoorgls-bixdexaym 3.5 4 drp RIGHT EAR Q8H 10 days #10 mL 02/18/24 02/27/24 Rx mg-10,000 unit/mL-1 % ear drops,susp Farxiga 5 mg tablet (dapagliflozin 5 mg PO QAM #30 tabs 02/24/24 02/27/24 Rx propanediol) glucagon 1 mg/0.2 mL subcutaneous 1 mg (0.2 mL) subcut ONCE PRN 02/25/24 02/27/24 Rx auto-injector (Gvoke HypoPen hypoglycemia #0.2 mL 1-Pack) Allergies Allergy/AdvReac Type Severity Reaction Status Date / Time No Known Allergies Allergy Verified 02/27/24 06:23 Vital Signs Vital Signs - 24 hr 02/27/24 06:29 Temperature 96.8 F L Pulse Rate 82 Respiratory Rate 18 Blood Pressure 110/80 Pulse Oximetry 100 Oxygen Delivery Room Air Exam Const: General: comfortable and no acute distress HENMT: Face/Nose/Sinus: Normal nares present Eyes: General: appearance normal, both eyes and all related structures Neck: Neck: no JVD Resp: Auscultation: clear to auscultation bilaterally Cardio: Rate: regular rate Rhythm: regular rhythm GI: Inspection: non-distended GI Palp: Yes Soft to palpation Skin: General skin exam: normal color Neuro: General: gait normal Speech: normal speech Extrem: General: normal to inspection Psych: Mental Status: mental status grossly normal Assessment and Plan Assessment and plan (1) Positive colorectal cancer screening using Cologuard test: Code(s): R19.5 - Other fecal abnormalities Status: Acute Assessment and Plan: colonoscopy
[2024-02-27 07:51] VITALS: BP 90/58; PULSE 75; RESP 18; O2SAT 95
[2024-02-27 08:00] LABS: Glucose Point of Care 140 mg/dl (65-105)
[2024-02-27 08:01] VITALS: BP 88/43; PULSE 64; RESP 18; O2SAT 100
[2024-02-27 08:11] VITALS: BP 111/70; PULSE 65; RESP 18; O2SAT 100
== END 2024-02-27 08:35 | disposition home or self-care (01) ==
PROVIDERS: PCP Nurse Practitioner Adult Health; Referring Provider Nurse Practitioner Adult Health; Visit Provider Internal Medicine Gastroenterology
PROC: 0DJD8ZZ Inspection of Lower Intestinal Tract, Via Natural or Artificial Opening Endoscopic (ICD-10-PCS; CPT 45378; principal; 2024-02-27 07:30)
DX: R19.5 Other fecal abnormalities (principal); D12.0 Benign neoplasm of cecum; D12.4 Benign neoplasm of descending colon; K57.30 Diverticulosis of large intestine without perforation or abscess without bleeding; K64.8 Other hemorrhoids; E11.42 Type 2 diabetes mellitus with diabetic polyneuropathy; I10 Essential (primary) hypertension; E78.5 Hyperlipidemia, unspecified; K21.9 Gastro-esophageal reflux disease without esophagitis; F31.9 Bipolar disorder, unspecified; F41.9 Anxiety disorder, unspecified; N40.0 Benign prostatic hyperplasia without lower urinary tract symptoms; Z79.4 Long term (current) use of insulin; Z79.84 Long term (current) use of oral hypoglycemic drugs; Z87.891 Personal history of nicotine dependence
CPT/HCPCS: 45385; 82948; 88305; J2003; J2704; J7120

== ENCOUNTER 2024-05-14 13:25 | Outpatient (CLI) | payer OTHER, SELFPAY ==
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
--- OUTSIDE RECORDS SUMMARY | 2024-05-14 13:29 | XMS_ITS | Clinical Summary ---
Author Organization [facility] Address [address] [place] [address] Care Team Providers Care Test Rack Operator Name Role Phone Srikanth Schrader MD Primary Care Provider [phone] Allergies Active Allergy Reactions Criticality Noted Date Comments Tramadol Itching Low 10/10/2014 Medications glucose 4 gram chewable tablet Take 4 tablets (16 g total) by mouth as needed for low blood sugar Active tamsulosin (FLOMAX) 0.4 mg extended release capsule Take 0.4 mg by mouth daily 11/27/19 21 Active metFORMIN (GLUCOPHAGE) 1,000 mg tablet Take 1 tablet (1,000 mg total) by mouth 2 (two) times a day 11/20/19 21 Active buPROPion SR (WELLBUTRIN SR) 200 mg 12 hr tablet Take 1 tablet (200 mg total) by mouth 2 (two) times a day 11/20/19 21 Active atorvastatin (LIPITOR) 20 mg tablet Take 1 tablet (20 mg total) by mouth daily 12/05/19 21 Active omeprazole (PriLOSEC) 20 mg capsule TAKE 1 CAPSULE BY MOUTH ONCE DAILY FOR 30 DAYS 11/21/19 21 Active finasteride (PROSCAR) 5 mg tablet Take 1 tablet (5 mg total) by mouth daily 11/28/19 21 Active meloxicam (MOBIC) 15 mg tablet Take 1 tablet (15 mg total) by mouth daily 11/27/19 21 Active carvediloL (COREG) 12.5 mg tablet TAKE 1 TABLET BY MOUTH EVERY 12 HOURS WITH A MEAL OR FOOD 12/03/19 21 Active LORazepam (Ativan) 2 mg tablet Take one tablet one hour before MRI. May repeat once if not sedated in one hour. Do not drive with Ativan 2 tablet 04/25/19 Active Additional Information Patient not taking.Reported on 06/13/2022 clopidogreL (PLAVIX) 75 mg tablet 06/10/19 Active FreeStyle Emmy 2 Sensor kit DIRECTED TO MONITOR GLUCOSE 04/17/19 Active insulin aspart (NovoLOG) 100 unit/mL vial for injection INJECT 20 BEFORE BREAKFAST, 20 UNITS BEFORE LUNCH AND 10 UNITS BEFORE DINNER. PLUS A SLIDING SCALE MAX PER DAY: 90 UNITS/DAY. 250-300: 2 UNITS 301-350: 4 UNITS 351-400: 6 UNITS 401-450:8 UNITS >451: 10 UNITS 04/29/19 23 Active LANTUS 100 unit/mL vial for injection INJECT 45 UNITS SUBCUTANEOUSLY NIGHTLY 03/10/20 22 Active ketorolac (ACULAR) 0.5 % ophthalmic solution INSTILL 1 DROP INTO OPERATIVE EYE 4 TIMES DAILY FOR 14 DAYS THEN INSTILL 1 DROP INTO OPERATIVE EYE TWICE DAILY FOR 14 DAYS THEN STOP 05/22/[address] (PROTONIX) 40 mg EC tablet 06/10/19 23 Active QUEtiapine (SEROquel) 50 mg tablet Take 2 tablets (100 mg total) by mouth nightly 06/01/19 23 Active insulin syringe-needle U-100 1 mL 31 gauge x 15/64 syringe USE 1 NEW SYRINGE 4 TIMES DAILY 05/02/19 23 Active varenicline tartrate (CHANTIX) 1 mg tablet 06/13/19 23 Active azithromycin (ZITHROMAX) 250 mg tablet 11/17/19 23 Active gabapentin (NEURONTIN) 100 mg capsule Take 1 capsule (100 mg total) by mouth 3 (three) times a day 01/15/20 23 Active SEMGLEE-yfgn 100 unit/mL vial for injection INJECT 40 UNITS SUBCUTANEOUSLY AT BEDTIME 01/10/20 23 Active ARIPiprazole (ABILIFY) 20 mg tablet Take 0.5 tablets (10 mg total) by mouth 2 (two) times a day 01/08/20 23 Active amitriptyline (ELAVIL) 75 mg tabletIndication s:Meralgia paresthetica of both lower extremities Take 1 tablet (75 mg total) by mouth nightly 90 tablet 3 01/18/20 23 Active Active Problems Problem Noted Date Diagnosed Date Family history of ischemic h eart disease and other diseases of the circulatory system 06/13/2022 Frequent falls 03/26/2022 Acute focal neurological deficit 03/08/2022 Bipolar disorder 03/08/2022 BPH (benign prostatic hyperplasia) 03/08/2022 Community acquired pneumonia 03/08/2022 Dehydration 03/08/2022 Diabetic neuropathy 03/08/2022 Elevated lactic acid level 03/08/2022 Hypomagnesemia 03/08/2022 Hyponatremia 03/08/2022 Physical deconditioning 03/08/2022 Type 2 diabetes mellitus with hyperglycemia ([facility]) 03/08/2022 DKA (diabetic ketoacidosis) ([facility]) 01/19/2022 Meralgia paresthetica of both lower extremities 12/08/2020 Dermatophytosis of nail 08/12/2017 Diabetic polyneuropathy asso ciated with type 2 diabetes mellitus ([facility]) 08/12/2017 Subungual hematoma of great toe of right foot Syncope 12/17/2016 TIA involving right internal carotid artery 11/12 Dyslipidemia 08/28/2016 Personal history of nicotine dependence 08/29/19 Sinus tachycardia 08/28/2016 Abnormal EKG 08/12/2016 Diabetes mellitus 08/12/2016 Hypertension 08/12/2016 Hyperlipidemia 06/18/2016 Microalbuminuria 06/18/2016 Type 2 diabetes mellitus wit hout complication, with long-term current use of insulin ([facility]) 06/18/2016 Primary osteoarthritis of right knee 10/10/2014 Knee pain 06/01/2014 Overview (07/19/2016): Knee pain Trauma 06/12/2010 Encounters Date Type Department Care Team Description 04/14/2024 11:24 PM [facility] - 04/14/2024 11:59 PM TREE [facility]IST Hospital Encounter [facility] Emergency, Room R Discharge Disposition: Discharge to home or self care from Last 3 Months Immunizations Name Administration Dates Next Due Influenza, Quadrivalent, Spl it, Intramuscular 01/05/2018,12/04/2016,05/14/2016 Influenza, Trivalent, IM (MDV) 06/01/2014 Moderna SARS-CoV-2 Monovalen t Vaccination (12+ YRS) 07/31/2020,07/03/2020 Pneumococcal Polysaccharide PPV23 12/19/2016 Tdap 04/08/2017 Surgical History Surgery Date Site/Laterality Comments KNEE ARTHROSCOPY Arthroscopy knee ROTATOR CUFF REPAIR FL UPPER GI AIR CONTRAST W KUB 11/13/2017 Left Medical History Medical History Date Comments High cholesterol Diabetes mellitus (HCC) Anxiety Bipolar disorder (HCC) Depression Type 2 diabetes mellitus (HCC) Family History Medical History Relation Name Comments Hypertension Father Hypertension; Relation Name Status Comments Father Social History Tobacco Use Types Packs/Day Years Used Date Smoking Tobacco: Former Cigarettes Q uit: 05/15/2022 Smokeless Tobacco: Never Tobacco Cessation:Counseling Given: No AUDIT-C Answer Date Recorded Q1: How often do you have a drink containing alc ohol? Never 06/13/2022 Average Number of Drinks Not on file 023 Q3: How often do you have si x or more drinks on one occasion? 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 Gender Identity Not on file Sexual Orientation Not on file Occupation Industry Job Start Date Job End Date On disability Not on file Not on file Not on file Obstetrics History Last Filed Vital Signs Vital Sign Reading Time Taken Comments Blood Pressure 121/84 01/17/2023 9:43 AM CDT Pulse 99 01/17/2023 9:43 AM CDT Temperature 36.7 ??C (98 ??F) 10/18/2017 9:17 AM CDT Respiratory Rate 16 01/17/2023 9:43 AM CDT Oxygen Saturation 98% 01/17/2023 9:43 AM CDT Inhaled Oxygen Concentration - - Weight 90.3 kg (199 lb) 01/17/2023 9:43 AM CDT Height 172.7 cm (5' 8 ) 01/17/2023 9:43 AM CDT Body Mass Index 30.26 01/17/2023 9:43 AM CDT Plan of Treatment Health Maintenance Due Date Last Done Comments Albumin Creatinine Ratio, Urine 1957 Colon Cancer Screening-Colonoscopy 1957 Depression Screening 1957 Fall Risk Assessment 1957 Hepatitis C Screening 1957 Prostate Cancer Screening-PSA 1957 Dilated Eye Exam 1957 Foot Exam 1957 Hepatitis B Screening 09/21/1975 Zoster Vaccine (1 of 2) 09/21/2007 Hemoglobin A1C 06/15/2017 12/16/2016 Pneumococcal vaccine 65+ (2 of 2 - PCV) 12/19/2017 12/19/2016 eGFR 10/18/2018 10/18/2017, 09/0 07/2016, 12/16/2016, Additional history exists Abdominal Aortic Aneurysm (A AA) Screen 2022 Well Visit 65+ 2022 Lipid Panel 03/09/2023 03/09/2022 Covid-19 Vaccine (3 - 2023-2 5 season) 2023 07/31/2020, 07/03/2020 Influenza Vaccine (#1) 2023 8, 12/04/2016, 05/14/2016, Additional history exists DTaP/Tdap/Td Vaccine (2 - Td or Tdap) 04/08/2027 04/08/2017 Procedures Procedure Name Priority Date/Time Associated Diagnosis Comments EGFR STAT 10/18/2017 9:40 AM CDT HEMOGLOBIN A1C Routine 12/16/2016 1:23 AM CDT from Last 3 Months or Most Recently Relevant to Health Maintenance Results * eGFR (10/18/2017 9:40 AM CDT) eGFR >60 mL/min/1.7 3 m2 [facility] ([place]) Comment: Interpretive Data Reference Interval Normal ?>/= 90 mL/min/1.73m2 Mildly decreased* ? 60 - 89 mL/min/1.73m2 Mildly to moderately decreased ?45 - 59 mL/min/1.73m2 Moderately to severely decreased ??30 - 44 mL/min/1.73m2 Severely decreased ?15 - 29 mL/min/1.73m2 Kidney Failure ?< 15 ??mL/min/1.73m2 *Relative to young adult level If -Hungarian multiply value by 1.16. Estimated glomerular filtration rate is determined by the CKD-EPI equation recommended by the National Kidney Foundation (KDIGO 2012 Clinical Practice Guideline for the Evaluation and Management of Chronic Kidney Disease. Kidney Intnl Suppl Apr 2012;3:1). The CKD-EPI equation should not be used for patients with unstable renal function and has not been validated in children and those over 70. Current interpretive data was last reviewed 2015. Blood specimen (specimen) 10/18/2017 9:40 AM CDT 10/18/2017 9:57 AM CDT Narrative [facility] ([place]) - 10/18/2017 10:18 AM CDT us Raven Anton MD LAB BLOOD ORDERABLE S Final Result Performing Organization Address City/[facility]/ZIP Co de Phone Number [facility] ([place]) [address] [facility] [employer] [place] [address] * (ABNORMAL) Hemoglobin A1c (12/16/2016 1:23 AM CDT) Hgb A1C 8.0(H) 4.0 - 6.0 % [facility] ([place]) Estimated Average Glucose [address] [facility] ([place] Blood specimen (specimen) 12/16/2016 1:23 AM CDT 12/16/2016 1:38 AM CDT us Mitzi Jones MD LAB BLOOD ORDERABLES Final Re sult [facility] ([place]) [address] [facility] [employer] [place] [address] from Last 3 Months or Most Recently Relevant to Health Maintenance Insurance [facility] Care Teams Test Rack Operator Relationship Specialty Start Date End Date Srikanth Schrader MD PCP - General 12/11/20
--- OUTSIDE RECORDS SUMMARY | 2024-05-14 13:29 | XMS_ITS | CONTINUITY OF CARE DOCUMENT ---
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 Dyslipidemia active Skyler Allen MD Tobacco use, quit active Skyler Allen MD ENCOUNTERS Date Type Provider Location Encounter Diag nosis 7 - 9 In-person encounter Office Visit Skyler Allen MD [facility] Family History of Hypertension:Diabetes mellitusSinus tachycardiaDyslipidemiaTobacco use, quit 1 - 4 In-person encounter Office Visit Skyler Allen MD [facility] Abnormal EKGHTNDiabetes mellitus VITAL SIGNS Date Observation Value Provider Body Mass Index (Ratio) 28.65 kg/m2 Nahum Allen MD respiratory rate E&M 18 /min Freida Lora blood pressure, resting Yes Marielena Lora pulse rate 127 /min Freida Lora oxygen saturation, oximetry 98 % Freida Lora blood pressure, diastolic 80 mm[Hg] Moisés Lora blood pressure, systolic 132 mm[Hg] Perez Lora blood pressure, cuff size regular Moisés Lora weight E&M 194 [lb_av] Freida Lora height E&M 69 [in_i] Freida Lora Body Mass Index (Ratio) 29.53 kg/m2 Nahum Allen MD blood pressure, cuff size regular Fawad rri Kristen blood pressure, diastolic 101 mm[Hg] Fawad rrjuventino Kristen blood pressure, systolic 142 mm[Hg] Pamela Peterson oxygen saturation, oximetry 97 % Joanna Peterson respiratory rate E&M 16 /min Joanna santos pulse rate 105 /min Joanna robledo weight E&M 200 [lb_av] Joanna daviser height E&M 69 [in_i] Joanna Martinez lder ALLERGIES Allergy Name Onset Date Reaction Criticality Status TYLENOL WITH CODIENE Low Criticality active HYDROCODONE Low Criticality active TRAMADOL Low Criticality active RESULTS Date Observation Value Provider Reference Range Interpretation Location 8 free thyroxine index 7.7 ??g/dL [facility] 4.4 - 11.4 8 triiodothyronine uptake 1.0 TBI [facility] 0.8 - 1.3 8 thyroxine, serum, total 7.7 ??G/DL [facility] 4.5 - 11.7 8 thyroid stimulating hormone, serum 4.120 ??IU/ML [facility] 0.270 - 4.200 8 very low density lipoproteins 44.0 mg/dL [facility] 5.0 - 40.0 High 8 LDL/HDL (low-density lipoprotein/high-den sity lipoprotein) ratio 4.7 RATIO [facility] - 8 lipoprotein, beta, serum, point, quantitative, calculated 127.0 (?) [facility] 0.0 - 100.0 High 8 HDL cholesterol, serum 27.0 mg/dL [facility] 35.0 - 55.0 Low 8 cholesterol, serum 198.0 mg/dL [facility] 0.0 - 200.0 8 triglyceride, serum, fasting 220.0 mg/dL [facility] 0.0 - 150.0 High 8 anion gap, serum 19.2 [facility] - 8 albumin/globulin ratio, serum 2.0 g/dL [facility] 1.1 - 2.5 8 globulin, serum 2.7 [facility] 2.3 - 3.8 8 urea nitrogen/creatinine ratio, serum 15.6 [facility] - 8 Estimated Glomerular Filtration Rate (calc) 92.1 (?) [facility] 59.0 - 8 chloride, serum 99.8 mmol/L [facility] 98.0 - 107.0 8 potassium, serum 3.9 mmol/L [facility] 3.5 - 5.1 8 sodium, serum 139.0 mmol/L [facility] 136.0 - 145.0 8 creatinine, serum 0.9 mg/dL [facility] 0.7 - 1.2 8 carbon dioxide, venous blood 20.0 mmol/L [facility] 22.0 - 29.0 Low 8 albumin, serum 5.4 g/dL [facility] 3.5 - 5.2 High 8 calcium, serum 10.0 mg/dL [facility] 8.6 - 10.2 8 aspartate aminotransferase (SGOT), serum 49.0 1/L [facility] 0.0 - 40.0 High 8 alkaline phosphatase, serum 65.0 1/L [facility] 40.0 - 130.0 8 alanine aminotransferase (SGPT), serum 109.0 1/L [facility] 0.0 - 41.0 High 8 protein, total, serum 8.1 g/dL [facility] 6.6 - 8.7 8 bilirubin, serum, total 0.5 mg/dL [facility] 0.0 - 1.2 8 urea nitrogen, blood 14.0 mg/dL [facility] 6.0 - 20.0 8 blood glucose, random 151.0 mg/dL [facility] 74.0 - 99.0 High 8 hemoglobin A1C, blood, as % of total hemoglobin 7.3 % [facility] 4.0 - 5.6 High HISTORY OF MEDICATION USE Medication Status Instructions Dates Provider Indications Com ments ASPIRIN ADULT LOW DOSE 81 MG ORAL TABLET DELAYED RELEASE active One Tab By Mouth Daily 1 Abdulaziz Campos CARVEDILOL 12.5 MG ORAL TABLET active take on pill twice a day 1 Andrés Saha NP OLANZAPINE 15 MG ORAL TABLET active as directed 1 Joanna Peterson METFORMIN HCL 1000 MG ORAL TABLET active take one pill twice a day 1 Joanna Peterson LANTUS 100 UNIT/ML SUBCUTANEOUS SOLUTION active 25 units at bedtime 1 Skyler Allen MD KETOROLAC TROMETHAMINE 10 MG ORAL TABLET active as directed 1 Joanna Peterson DILAUDID 2 MG ORAL TABLET active as directed 1 Joanna Peterson HUMALOG 100 UNIT/ML SUBCUTANEOUS SOLUTION active sliding scale three times a day 1 Skyler Allen MD SOCIAL HISTORY Date Observation Value Provider social history E&M Smoking Histo ry: P gladis is a former smoker. Skyler Allen MD alcohol use no Andrés Saha NP smoking, year quit 2016 Andrés Saha NP number of years as a smoker 7 a Andrés Saha NP smoking history, tot al pack/day 1/2 Skyler Allen MD cigarette use yes Andrés Saha NP smoking status Former smoker Andrés Saha NP social history reviewed E&M revi ewed - no changes required Andrés Saha NP number of grandchildren Skyler Allen MD social history E&M S moking History: Yoselyn griffith is a former smoker. Abdulaziz Campos social history reviewed E&M kiel ewed - no changes required Abdulaziz Campos alcohol use no Joanna Martinez lder number of years as a smoker 7 a Joanna Kristen smoking history, tot al pack/day 1/2 ppd Joanna Harryhammad smoking, year quit 2015 Joanna Mejia enatiffeldsuzanne cigarette use yes Joanna de souza smoking status Former smoker Joanna Boateng normaer FAMILY HISTORY Family Member Condition Mother Negative FH of Coron willam Artery Disease Father Family History of Hy pertension: INSURANCE PROVIDERS Payer name Policy type / Coverage type [facility] party ID [facility] MEDICA[facility] (2) Medicaid [id number] ADVANCE DIRECTIVES Name Date DISCUSSED - NO DECISION MADE TREATMENT PLAN Date Name Performer cardiology:BP today: 132/80 P rior BP: 142/101 (08/12/2016) His updated medication list for this problem includes: Aspirin Adult Low Dose 81 Mg Oral Tbec (Aspirin) ..... One tab by mouth daily Carvedilol 12.5 Mg Oral Tabs (Carvedilol) ..... Take on pill twice a day Skyler Allen MD cardiology:Increase Coreg to 12. 5 BID. Skyler Allen MD cardiology:His [facility] ed medication list for this problem includes: Aspirin Adult Low Dose 81 Mg Oral Tbec (Aspirin) ..... One tab by mouth daily Metformin Hcl 1000 Mg Oral Tabs (Metformin hcl) ..... Take one pill twice a day Lantus 100 Unit/ml Sc Soln (Insulin glargine) ..... 25 units at bedtime Humalog 100 Unit/ml Sc Soln (Insulin lispro) ..... Sliding scale three times a day Skyler Allen MD EP: H is updated medication list for this problem includes: Aspirin Adult Low Dose 81 Mg Oral Tbec (Aspirin) ..... One tab by mouth daily Coreg 3.125 Mg Tabs (Carvedilol) ..... One tab. twice daily Abdulaziz Campos EP: O rders: S NOMED-CT: [id number] Current Medications Documented (SCT-[id number]) E KG (CPT-41993) C omplete Echo (CPT-11434) S TR - Adenosine (CPT-08978) His updated medication list for this problem includes: Aspirin Adult Low Dose 81 Mg Oral Tbec (Aspirin) ..... One tab by mouth daily Coreg 3.125 Mg Tabs (Carvedilol) ..... One tab. twice daily Abdulaziz Campos Date Name HEMOGLOBIN A1c LIPID PANEL THYROID PANEL WITH T SH, 3RD GENERATION BASIC METABOLIC PANE L W/EGFR COMPREHENSIVE METABO LIC PANEL, W/EGFR STR - Adenosine Complete Echo HISTORY OF PROCEDURES Procedure Date Procedure Name Provider Procedure Notes S tatus Stress EKG Blu Wallace MD completed Regadenoson, 4 units Jonesus Hadley james MD completed Cardiolite, 2 units Jonesus Shelia yancey MD completed SPECT Images Yoel Funez MD compl eted Schedule Followup Skyler hurd MD in 6 months completed EKG Skyler griggs MD completed SNOMED-CT: [id number] Current Medications Documented Skyler Allen MD completed EKG Skyler griggs MD completed SNOMED-CT: [id number] Current Medications Documented Skyelr Allen MD completed
--- OUTSIDE RECORDS SUMMARY | 2024-05-14 13:29 | XMS_ITS | Referral Summary ---
Author Organization [facility] Address [address] [place] [address] Care Team Providers Care Actuarial Intern Name Role Phone Srikanth Schrader MD Primary Care Provider [phone] Encounters Date Type Department Care Team Description 04/14/2024 11:24 PM MEDICAL LAB SCIENTIST - 04/14/2024 11:59 PM MEDICAL LAB SCIENTIST Hospital Encounter [facility] Emergency, Room R Discharge Disposition: Discharge to home or self care from Last 3 Months Allergies Active Allergy Reactions Criticality Noted Date [...] not drive with Ativan 2 tablet 04/25/19 23 Active Additional Information Patient not taking.Reported on 06/13/2022 clopidogreL (PLAVIX) 75 mg tablet 06/10/19 23 Active FreeStyle Emmy 2 Sensor kit DIRECTED [...] by mouth nightly 90 tablet 3 01/18/20 Active Active Problems Problem Noted Date Diagnosed [...] 03/08/2022 Type 2 diabetes mellitus with hyperglycemia ([facility]) 03/08/2022 DKA (diabetic ketoacidosis) ([facility]) 01/19/2022 Meralgia paresthetica of both lower extremities 12/08/2020 Dermatophytosis of nail 08/12/2017 Diabetic polyneuropathy asso ciated with type 2 diabetes mellitus ([facility]) 08/12/2017 Subungual hematoma of great toe of right foot Syncope 12/17/2016 TIA involving right internal carotid artery 11/12 Dyslipidemia 08/28/2016 Personal history of nicotine dependence 08/29/19 Sinus tachycardia 08/28/2016 Abnormal EKG 08/12/2016 Diabetes mellitus 08/12/2016 Hypertension 08/12/2016 Hyperlipidemia 06/18/2016 Microalbuminuria 06/18/2016 Type 2 diabetes mellitus wit hout complication, with long-term current use of insulin ([facility]) 06/18/2016 Primary osteoarthritis of right knee 10/10/2014 Knee pain 06/01/2014 Overview (07/19/2016): Knee pain Trauma 06/12/2010 Immunizations Name Administration Dates Next Due Influenza, Quadrivalent, Spl it, Intramuscular 01/05/2018,12/04/2016,05/14/2016 Influenza, Trivalent, IM (MDV) 06/01/2014 Moderna SARS-CoV-2 Monovalen t Vaccination (12+ YRS) 07/31/2020,07/03/2020 Pneumococcal Polysaccharide PPV23 12/19/2016 Tdap 04/08/2017 Social History Tobacco Use Types Packs/Day Years [...] on file Legal Sex Male 3:33 AM MEDICAL LAB SCIENTIST Gender Identity Not on file Sexual Orientation Not on file Occupation Industry Job Start Date Job End Date On disability Not on file Not on file Not on file Last Filed Vital Signs Vital Sign Reading [...] 01/17/2023 9:43 AM CDT Plan of Treatment Not on file Procedures Procedure Name Priority Date/Time Associated Diagnosis [...] ??mL/min/1.73m2 *Relative to young adult level If -[place] multiply value by 1.16. Estimated glomerular filtration [...] MD LAB BLOOD ORDERABLE S Final Result [facility] ([place]) [address] [facility] Department [place] [address] * (ABNORMAL) Hemoglobin A1c (12/16/2016 1:23 AM CDT) Hgb A1C 8.0(H) 4.0 - 6.0 % [facility] ([place]) Estimated Average Glucose 183 [facility] ([place]) Blood specimen (specimen) 12/16/2016 1:23 AM CDT 12/16/2016 1:38 AM CDT us Mitzi Jones MD LAB BLOOD ORDERABLES Final Re sult [facility] ([place]) [address] [facility] [place] [address] from Last 3 Months or Most Recently Relevant to Health Maintenance Insurance [facility] Member Subscriber Plan / Payer (Ef fective 2016-Present) Name:MandishilaEdwardo cortés Relation to Subscriber:Self Name:Edwardo Ricci Payer ID:[id number] (NAIC) Group ID:Not on file Type:MEDICAID RISK OTHER Address: [address] [place], [place] [id number] [place] [address] [facility] Care Teams Actuarial Intern Relationship Specialty Start Date End Date Srikanth Schrader MD PCP - General 12/11/20
--- OUTSIDE RECORDS SUMMARY | 2024-05-14 13:30 | XMS_ITS | Encounter Summary ---
Author Organization [facility] Address [address] [place] [address] Phone Care Team Providers Care Sales And Service Engineer Name Role Phone Joel Denson MD Unavailable Lisa Goldberg APRN Primary Care Provider [phone] Sea Hdez MD Unavailable [phone] Deysi Carballo MD Unavailable Nicolás Wright MD Unavailable [phone] Reason for Visit * Reason Onset Date Comments Referral 08/21/2023 External Urology Referral Encounter Details Date Type Department Care Team (Late st Contact Info) Description 08/21/2023 Telephone [facility] [address] [place] [address] Lisa Goldberg APRN [address] [place] [address] Referral (External Urology Referral) Social History Tobacco Use Types Packs/Day Years Used Date Smoking Tobacco: Every Day Cigarettes 0.5 10 Started: 12/17/2006; Last attempted to quit: 12/17/2016 Smokeless Tobacco: Never Alcohol Use Standard Drinks/Week Comments No 0 (1 standard drink = 0.6 oz pur e alcohol) Sex and Gender Information Value Date Recorded Sex Assigned at Not on file Legal Sex Male 10:28 PM CDT Gender Identity Not on file Sexual Orientation Not on file 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 BACKGROUND: Referral unable to be processed. ASSESSMENT: Request for provider review due to the following reason(s): Insurance complication. RECOMMENDATION: Based on the above information the provider has the following option(s): Unable to obtain authorization due to patient payor's listed PCP mismatch with ordering provider office. Please contact patient for updated information in order to process referral. [employer] requires that patient's PCPbe the referring provider. documented in this encounter Plan of Treatment Not on file documented as of this encounter Visit Diagnoses Not on filedocumented in this encounter Additional Health Concerns Infection Onset Date Last Indicated Resolved Time COVID - 19 04/13/2024 04/13/2024 04/13/2024 3:36 PM GRINDER LAP Assessment Noted Time PHQ-9 Depression Total Score: 0 04/23/19 17 9:00 AM GRINDER LAP documented as of this encounter Care Teams Sales And Service Engineer Relationship Specialty Start Date End Date Lisa Goldberg APRN [address] [place] [address] PCP - General Advanced Practice Nurse 12/12/22 Joel Denson MD [address] [place] [address] Psychiatry 12/17/16 Sea Hdez MD [address] [address] Consulting Physician Urology 07/08/23 Deysi Carballo MD [address] [address] Consulting Physician Endocrinology 07/25/23 Nicolás Wright MD [address] [place] [address] Consulting Physician Neurology 08/11/23 documented as of this encounter
--- OUTSIDE RECORDS SUMMARY | 2024-05-14 13:30 | XMS_ITS | Clinical Summary ---
Author Organization [facility] Address [address] [place] [address] Care Team Providers Care Spotter Driver Name Role Phone Ovi Leavitt MD Unavailable Sang Gutierrez Md, MD Primary Care Provider Unavailable Source Comments [facility],non-owned Affiliates and Associated Physician Practices is amultiple site organization consisting of ambulatory clinics and hospital sitesin [place], [place], [place] and [place]. This disclosure is being madepursuant to the Care Everywhere program and may not contain all information available regarding this patient. Last updated 18.[facility] Allergies Active Allergy Reactions Criticality Noted Date Comments Tramadol Itching 10/10/2014 Medications * Be aware that medications may not be up to date on this document. Alwaysverify current medications with the patient. Medication Sig Dispensed Refills Start Date End Date Status hydrocodone-acetamin ophen (VICODIN) 5-500 MG tablet Take 1-2 Tabs by mouth 4 times daily as needed for Pain. 20 Tab 0 06/12/2010 Active gabapentin (NEURONTIN) 100 MG capsuleIndications:R ight knee pain 08/13/2014 Active naproxen (NAPROSYN) 500 MG tablet TAKE ONE TABLET BY MOUTH TWICE DAILY WITH MEALS 60 tablet 2 08/12/2017 Active cyclobenzaprine (FLEXERIL) 10 MG tablet Take 1 tablet by mouth 3 times daily as needed for Muscle Spasms 30 tablet 10/18/2017 Active oxyCODONE-acetaminop hen (PERCOCET) 10-325 MG tablet Take 1 tablet by mouth every 6 hours as needed for Pain 9 tablet 10/18/2017 Active methylPREDNISolone (MEDROL DOSEPAK) 4 MG tablet Take by mouth as directed 21 tablet 10/18/2017 Active Active Problems Problem Noted Date Diagnosed Date Primary osteoarthritis of right knee 10/10/2014 Trauma 06/12/2010 Social History Tobacco Use Types Packs/Day Years Used Date Smoking Tobacco: Never Smokeless Tobacco: Never Alcohol Use Standard Drinks/Week Comments No 0 (1 standard drink = 0.6 oz pur e alcohol) Sex and Gender Information Value Date Recorded Sex Assigned at Not on file Gender Identity Not on file Sexual Orientation Not on file Last Filed Vital Signs Vital Sign Reading Time Taken Comments Blood Pressure 109/83 10/18/2017 6:54 PM CDT Pulse 69 10/18/2017 6:54 PM CDT Temperature 36.7 ??C (98.1 ??F) 10/18/2017 2:11 PM CD T Respiratory Rate 19 10/18/2017 6:54 PM CDT Oxygen Saturation 97% 10/18/2017 6:54 PM CDT Inhaled Oxygen Concentration - - Weight 88.5 kg (195 lb) 10/18/2017 2:11 PM CDT Height 172.7 cm (5' 8 ) 10/18/2017 2:11 PM CDT Body Mass Index 29.65 10/18/2017 2:11 PM CDT Plan of Treatment Health Maintenance Due Date Last Done Comments COLOGUARD (AGES 45-75) - COL ON CA SCREENING 1957 COLON MONITORING 1957 COLONOSCOPY - COLON CA SCREENING 1957 CT COLONOGRAPHY - COLON CA SCREENING 1957 Colorectal Cancer Screening 1957 FIT - COLON CA SCREENING 1957 FLEX SIG - COLON CA SCREENING 1957 LIPID TESTING 1957 HEPATITIS C SCREENING 09/16/1975 DTAP/TDAP/TD VACCINES (1 - Tdap) 1976 PNEUMOCOCCAL VACCINE 50+ (1 of 1 - PCV) 09/21/2007 ZOSTER VACCINE (1 of 2) 09/21/2007 SCREENING FOR DIABETES 10/18/2020 10/18/2017 COVID-19 VACCINE (1 - 2023-2 5 season) 2023 INFLUENZA VACCINE (#1) 2023 DEPRESSION SCREENING 04/14/2024 MEDICARE AWV ? CALENDAR YEAR 2024 Respiratory Syncytial Virus (RSV) Vaccine Pt: or over 60 yrs (1 - 1-dose 75+ series) 2032 HEPATITIS B VACCINE Aged Out No longe r eligible based on patient's age to complete this topic HIB VACCINE Aged Out No longer eligi ble based on patient's age to complete this topic HPV VACCINE Aged Out No longer eligi ble based on patient's age to complete this topic MENINGOCOCCAL (Group B) VACCINE Aged Out No longer eligible based on patient's age to complete this topic MENINGOCOCCAL VACCINE Aged Out No fiona moo eligible based on patient's age to complete this topic Procedures Procedure Name Priority Date/Time Associated Diagnosis Comments GLUCOSE - POINT OF CARE Routine 10/18/2017 3:31 PM CDT from Last 3 Months or Most Recently Relevant to Health Maintenance Results * (ABNORMAL) GLUCOSE - POINT OF CARE (10/18/2017 3:31 PM CDT) Glucose WB/POC 157(H) 70 - 115 mg/dL 10/18/2017 3:48 PM CDT [facility] Specimen Type Arterial/C apillary 10/18/2017 3:48 PM CDT [facility] Blood BLOOD SPECIMEN / Unknown 10/18/2017 3:31 PM CDT 10/18/2017 3:48 PM CDT Narrative [facility] - 10/18/2017 3:48 PM CDT Aerial Installer: Rebecca ??Cheyanne Clarence Dobson MD LAB - POINT OF CARE ORDERABLES [address] [phone] from Last 3 Months or Most Recently Relevant to Health Maintenance Care Teams Spotter Driver Relationship Specialty Start Date End Date Sang Gutierrez MD, MD PCP - General Internal Medicine 06/24/16 Ovi Leavitt MD Orthopedic Surgery 10/10/14
--- OUTSIDE RECORDS SUMMARY | 2024-05-14 13:30 | XMS_ITS | Patient Health Summary ---
Author Organization [facility] Address [address] [facility] [place] [address] Care Team Providers Care Auto Transmission Technician Name Role Phone Ovi Leavitt MD Unavailable Sang Gutierrez Md, MD Primary Care Provider Unavailable Note from [facility],non-owned Affiliates and Associated Physician Practices is amultiple site organization consisting of ambulatory clinics and hospital sitesin [place], [place], [place] and [place]. This disclosure is being madepursuant to the Care Everywhere program and may not contain all information available regarding this patient. Last updated 18.[facility] Allergies * Tramadol(Itching) Medications * Be aware that medications may not be up to date on this document. Alwaysverify current medications with the patient. * hydrocodone-acetaminophen (VICODIN) 5-500 MG tablet(Started 06/12/2010) Take 1-2 Tabs by mouth 4 times daily as needed for Pain. * gabapentin (NEURONTIN) 100 MG capsule(Started 08/13/2014) * naproxen (NAPROSYN) 500 MG tablet(Started 08/12/2017) TAKE ONE TABLET BY MOUTH TWICE DAILY WITH MEALS 2 refills remaining * cyclobenzaprine (FLEXERIL) 10 MG tablet(Started 10/18/2017) Take 1 tablet by mouth 3 times daily as needed for Muscle Spasms * oxyCODONE-acetaminophen (PERCOCET) 10-325 MG tablet(Started 10/18/2017) Take 1 tablet by mouth every 6 hours as needed for Pain * methylPREDNISolone (MEDROL DOSEPAK) 4 MG tablet(Started 10/18/2017) Take by mouth as directed Active Problems Problem Noted Date Diagnosed Date [...] Mass Index 29.65 10/18/2017 2:11 PM CDT Procedures * URINALYSIS W/MICROSCOPIC NO CULTURE(Performed 10/18/2017) * CULTURE URINE(Performed 10/18/2017) * MRI LUMBAR SPINE WO CONTRAST(Performed 10/18/2017) Performed for Left-sided back pain, unspecified back location, unspecified chronicity * GLUCOSE - POINT OF CARE(Performed 10/18/2017) * XR KNEE RIGHT 4VW OR MORE(Performed 02/25/2017) * XR FEMUR RIGHT 2VW(Performed 10/16/2016) * GLUCOSE ACCUCHECK(Performed 09/11/2016) * GLUCOSE ACCUCHECK(Performed 09/11/2016) * GLUCOSE ACCUCHECK(Performed 09/11/2016) * XR TIBIA FIBULA RIGHT 2VW(Performed 10/10/2014) Performed for Right knee pain * XR KNEE RIGHT 3VW(Performed 10/10/2014) Performed for Right knee pain * XR TIBIA FIBULA RIGHT 2VW(Performed 06/12/2010) Performed for Trauma Results * (ABNORMAL) URINALYSIS W/MICROSCOPIC NO CULTURE (10/18/2017 6:13 PM CDT) Color UA Yellow Straw, Yellow, Colorless, Light Yellow 10/18/2017 6:55 PM [facility] Clarity UA Clear Clear 10/18/2017 6:55 PM [facility] Specific Mertens UA 1.033(H) 1.001 - 1.030 10/18/2017 6:55 PM [facility] pH UA 5.5 5.0 - 8.0 10/18/2017 6:55 PM [facility] Protein UA 30(A) <=20 mg/dL 10/18/2017 6:55 PM [facility] Glucose UA >1000(A) Negative mg/dL 10/18/2017 6:55 PM [facility] Ketone UA 15(A) Negative mg/dL 10/18/2017 6:55 PM [facility] Bilirubin UA Negative Negative mg/dL 10/18/2017 6:55 PM [facility] Blood UA Negative Negative 10/18/2017 6:55 PM [facility] Nitrite UA Negative Negative 10/18/2017 6:55 PM [facility] Leukocyte Esterase Negative Negative 10/18/2017 6:55 PM [facility] Urobilinogen UA <2.0 <2.0 mg/dL 8 6:55 PM [facility] RBC UA 2 0 - 8 /HPF 10/18/2017 6:55 PM [facility] WBC UA 1 0 - 2 /HPF 10/18/2017 6:55 PM [facility] Bacteria UA Rare Rare, Occasional, None /HPF 10/18/2017 6:55 PM [facility] Mucus UA Many(A) None /LPF 10/18/2017 6:55 PM [facility] Urine URINE SPECIMEN OBTAINED BY CLEAN CATCH PROCEDURE / Unknown Collection / Unknown 10/18/2017 6:13 PM CDT 10/18/2017 6:17 PM CDT Claudia Villegas MD LAB - URINALYSIS ORD ERABLES [facility] [address] [phone] * CULTURE URINE (10/18/2017 6:13 PM CDT) Culture Urine No growth (<1,000 CFU/mL) ALEX 10/20/2017 1:35 PM CDT [facility] MICROBIOLOGY Urine URINE SPECIMEN OBTAINED BY CLEAN CATCH PROCEDURE / Unknown Collection / Unknown 10/18/2017 6:13 PM CDT 10/18/2017 6:17 PM CDT Claudia Villegas MD LAB - MICROBIOLOGY O RDERABLES [facility] MICROBIOLOGY [address] [place] [address], [facility] [phone] * MRI LUMBAR SPINE WO CONTRAST (10/18/2017 5:11 PM CDT) Anatomical Region Laterality Modality Spine Magnetic Resonan ce 10/18/2017 5:31 PM CDT Impressions 10/19/2017 12:24 PM CDT IMPRESSION: 1. Mild posterior disc bulge with superimposed posterior annular tear and extrusion at L4-5 resulting in mild central canal and bilateral neural foraminal stenosis as detailed above. I, Dr. KAY ORDAZ M.D. have personally reviewed and interpreted this examination/study. This report was electronically signed by KAY ORDAZ M.D. ??on 10/19/2017 12:24 PM . Narrative 10/19/2017 12:24 PM CDT EXAMINATION: Magnetic resonance imaging (MRI) of the lumbar spine without contrast HISTORY: Back pain TECHNIQUE: MRI of the lumbar spine was performed without contrast according to standard protocol. FINDINGS: No prior study is available for comparison at the time of this dictation. The alignment is normal. Vertebral bodies are normal in height without evidence of compression fractures. There is mild diffuse patchy T1 hyperintensity throughout the bone marrow which may represent red marrow reconversion in appropriate clinical setting. A small hemangioma is noted in L1 vertebral body superiorly. The conus medullaris terminates at the level of L1 and the distal spinal cord signal intensity is normal. The anterior and posterior longitudinal ligaments as well as the posterior ligamentous complex appear intact. There is disc desiccation with mild disc height loss at L4-5 and L5-S1. No soft tissue abnormality is identified. L1-L2: There is no disc bulge. There is no central canal stenosis. There is no facet osteoarthritis. There is no neural foraminal stenosis. L2-L3: There is no disc bulge. There is no central canal stenosis. There is no facet osteoarthritis. There is no neural foraminal stenosis. L3-L4: There is no disc bulge. There is no central canal stenosis. There is no facet osteoarthritis. There is no neural foraminal stenosis. L4-L5: There is posterior disc bulge, posterior annular tear, and superimposed extrusion of the disc superiorly measuring 1.2 cm (series 2 image 11). There is mild central canal stenosis. There is mild bilateral facet osteoarthritis. There is moderate right and severe left neural foraminal stenosis. L5-S1: There is mild posterior disc bulge. There is no central canal stenosis. There is bilateral facet osteoarthritis. There is moderate bilateral neural foraminal stenosis. Procedure Note Kay Ordaz MD - 10/19/2017 EXAMINATION: Magnetic resonance imaging (MRI) of the lumbar spinewithout contrast HISTORY: Back pain TECHNIQUE: MRI of the lumbar spine was performed without contrast according to standard protocol. FINDINGS: No prior study is available for comparison at the time of this dictation. The alignment is normal. Vertebral bodies are normal in height without evidence of compression fractures. There is mild diffuse patchy T1 hyperintensity throughout the bone marrow which may represent red marrow reconversion in appropriate clinical setting. A small hemangioma isnoted in L1 vertebral body superiorly. The conus medullaris terminates at the level of L1 and the distal spinal cord signal intensity is normal. The anterior and posterior longitudinal ligaments as well as the posterior ligamentous complex appear intact. There is disc desiccation with mild disc height loss at L4-5 and L5-S1. No soft tissue abnormality is identified. L1-L2: There is no disc bulge. There is no central canal stenosis. There is no facet osteoarthritis. There is no neural foraminal stenosis. L2-L3: There is no disc bulge. There is no central canal stenosis. There is no facet osteoarthritis. There is no neural foraminal stenosis. L3-L4: There is no disc bulge. There is no central canal stenosis. There is no facet osteoarthritis. There is no neural foraminal stenosis. L4-L5: There is posterior disc bulge, posterior annular tear, and superimposed extrusion of the disc superiorly measuring 1.2 cm (series 2 image 11). There is mild central canal stenosis. There is mild bilateral facet osteoarthritis. There is moderate right and severe left neural foraminal stenosis. L5-S1: There is mild posterior disc bulge. There is no central canal stenosis. There is bilateral facet osteoarthritis. There is moderate bilateral neural foraminal stenosis. IMPRESSION: 1. Mild posterior disc bulge with superimposed posterior annular tearand extrusion at L4-5 resulting in mild central canal and bilateral neural foraminal stenosis as detailed above. I, Dr. KAY ORDAZ M.D. have personally reviewed and interpreted this examination/study. This report was electronically signed by KAY ORDAZ M.D. on 10/19/2017 12:24 PM . Claudia Villegas MD MR ORDERABLES * (ABNORMAL) GLUCOSE - POINT OF CARE (10/18/2017 3:31 PM CDT) Glucose WB/POC 157(H) 70 - 115 mg/dL 10/18/2017 3:48 PM CDT [facility] Specimen Type Arterial/C apillary 10/18/2017 3:48 PM CDT [facility] Blood BLOOD SPECIMEN / Unknown 10/18/2017 3:31 PM CDT 10/18/2017 3:48 PM CDT Narrative [facility] - 10/18/2017 3:48 PM CDT Corrections Caseworker: Rebecca Allen Clarence Dobson MD LAB - POINT OF CARE ORDERABLES [address] [phone] * XR KNEE RIGHT 4VW OR MORE (02/25/2017 9:04 AM STEEL POURER HELPER) Anatomical Region Laterality Modality Lower Extremity Other Impressions 02/25/2017 9:44 AM STEEL POURER HELPER IMPRESSION: Tricompartmental osteoarthritis, 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 This report was electronically signed by PIOTR ABREU MD ??on 02/25/2017 9:44 AM . Narrative 02/25/2017 9:44 AM STEEL POURER HELPER Exam: ??XR KNEE RIGHT 4+ VW History: ??R Knee Pain Comparison: None. Findings: No acute fracture or dislocation is identified. There is moderate to severe joint space narrowing in the medial compartment with near fxlb-bk-[id number] contact. Tricompartmental osteophytes are present. There is loss of the normal valgus carrying angle and lateral tibial subluxation. No effusion is seen. An intramedullary missy is partly visible in the tibia. Procedure Note Piotr Abreu MD - 07/11/2017 Exam: XR KNEE RIGHT 4+ VW History: R Knee Pain Comparison: None. Findings: No acute fracture or dislocation is identified. There is moderate tosevere joint space narrowing in the medial compartment with piogzqkh-yx-ckuh contact. Tricompartmental osteophytes are present. There isloss of the normal valgus carrying angle and lateral tibial subluxation. No effusion is seen. An intramedullary missy ispartly visible in the tibia. IMPRESSION IMPRESSION: Tricompartmental osteoarthritis, greatest in the medialcompartment where it is moderate to severe. This report was electronically signed by PIOTR ABREU MD on02/25/2017 9:44 AM . Ha Serrano MD DIAGNOSTIC IMAGING ORDERABLES * XR FEMUR RIGHT 2VW (10/16/2016 10:58 AM CDT) Anatomical Region Laterality Modality Lower Extremity Other Impressions 10/16/2016 11:21 AM CDT IMPRESSION: No femoral fracture. This report was electronically signed by PIOTR ABREU MD ??on 10/16/2016 11:21 AM . Narrative 10/16/2016 11:21 AM CDT Exam: ??XR FEMUR RIGHT 2+ VW History: ??pain Comparison: None. Findings: No femoral fracture is present. There is no bone erosion or periosteal reaction. Bone density and the soft tissues appear normal. Osteoarthritis is noted in the knee. Procedure Note Piotr Abreu MD - 07/11/2017 Exam: XR FEMUR RIGHT 2+ VW History: pain Comparison: None. Findings: No femoral fracture is present. There is no bone erosion or periostealreaction. Bone density and the soft tissues appear normal. Osteoarthritisis noted in the knee. IMPRESSION IMPRESSION: No femoral fracture. This report was electronically signed by PIOTR ABREU MD on 10/16/201611:21 AM . Perez Gonzalez MD DIAGNOSTIC IMAGING O RDMAGDY * (ABNORMAL) GLUCOSE ACCUCHECK (09/11/2016 2:49 PM CDT) Only the most recent of3 resultswithin the time period is included. Glucose, Fingerstick 189(H) 70-115mg/d L mg/dL [facility] ([facility]) Comment:Corrections Caseworker: WAN JAMES DAVID 09/11/2016 2:49 PM CDT Perez Gonzalez MD LAB - CHEMISTRY MARTÍN SANDERSON [facility] ([facility]) * XR TIBIA AND FIBULA 2 VW RIGHT (10/10/2014 1:58 PM CDT) Only the most recent of2 resultswithin the time period is included. Anatomical Region Laterality Modality Lower Extremity Radiographic [facility] ging Narrative 10/10/2014 2:59 PM CDT Juana Verdin, RT(R) ? 10/10/2014 ??2:59 PM See progress notes for results Ovi Leavitt MD DIAGNOSTIC IMAGING O ORENERAASHLEY * XR KNEE 3 VW RIGHT (10/10/2014 1:58 PM CDT) Anatomical Region Laterality Modality Lower Extremity Radiographic [facility] ging Narrative 10/10/2014 2:59 PM CDT Juana Verdin, RT(R) ? 10/10/2014 ??2:59 PM See progress notes for results Ovi Leavitt MD DIAGNOSTIC IMAGING O RDERAASHLEY Care Teams Auto Transmission Technician Relationship Specialty Start Date End Date Sang Gutierrez MD, PCP - General Internal Medicine 06/24/16 Ovi Leavitt MD Orthopedic Surgery 10/10/14
--- OUTSIDE RECORDS SUMMARY | 2024-05-14 13:30 | XMS_ITS | Encounter Summary ---
Author Organization [facility] Address [address] [place] [address] Phone Care Team Providers Care Dna Analyst Name Role Phone Joel Denson MD Unavailable Lisa Goldberg APRN Primary Care Provider [phone] Sea Hdez MD Unavailable [phone] Deysi Carballo MD Unavailable Nicolás Wright MD Unavailable Reason for Referral * Consult, Test & Initiate Treatment (Routine) - Closed Specialty Diagnoses / Procedures Referred By Sarah nunn Referred To Contact Diagnoses Urinary retention Sea Hdez MD [address] [facility] [address] [place] [address] Phone: tel: fax: [facility] [address] [place] [address] Phone: tel: fax: Referral ID Status Reason Start Date Expiration Date Visits Re quested Visits Authorized [id number] Closed 07/15/2023 1 1 Scheduling Instructions Edwardo is being referred to [place]/ [facility] or other specialist in patient's insurance network for Urodynamic testing. See below for Edwardo's current medications, allergies and problem list. CURRENT MEDS: Current Outpatient Medications: albuterol 108 (90 Base) MCG/ACT Aerosol Solution, take 2 Puffs by inhalation every 6 hours as needed for Wheezing or Cough., Disp: 18 g, Rfl: 0 amitriptyline (ELAVIL) 75 MG Tablet, Take 75 mg by mouth nightly., Disp: , Rfl: Aripiprazole (Abilify) 20 MG Tablet, Take 10 mg by mouth 2 times daily., Disp: , Rfl: aspirin 81 MG Chewable Tablet, Take 1 Tab by mouth daily., Disp: 6 Tab, Rfl: 0 atorvastatin (LIPITOR) 20 MG Tablet, Take 20 mg by mouth daily., Disp: , Rfl: BuPROPion HCl 200 MG TABLET SR 12 HR, Take 200 mg by mouth 2 times daily. [id number], Disp: , Rfl: carvedilol (COREG) 12.5 MG Tablet, Take 12.5 mg by mouth 2 times daily., Disp: , Rfl: clopidogrel (PLAVIX) 75 MG Tablet, Take 1 Tablet by mouth daily., Disp: 90 Tablet, Rfl: 0 finasteride (Proscar) 5 MG Tablet, Take 5 mg by mouth daily., Disp: , Rfl: insulin lispro (HumaLOG) 100 UNIT/ML Solution, 15 Units by Subcutaneous route 3 times daily (before meals). Correctional factor insulin of 1:15 if > 140 mg/dl. Up to 100 units per day, Disp: 30 mL, Rfl: 0 metFORMIN (GLUCOPHAGE) 1000 MG Tablet, TAKE 1 TABLET BY MOUTH TWICE DAILY WITH MEALS, Disp: 180 Tab, Rfl: 1 ondansetron (ZOFRAN-ODT) 4 MG TABLET DISPERSIBLE, Take 1 Tablet by mouth every 6 hours as needed for Nausea - 1st line., Disp: 10 Tablet, Rfl: 0 pantoprazole (PROTONIX) 40 MG Tablet Delayed Response, Take 1 Tablet by mouth daily., Disp: 30 Tablet, Rfl: 0 polyethylene glycol (GLYCOLAX, MIRALAX) 17 g Pack, Take 1 Packet by mouth 2 times daily as needed for Constipation - 1st line. Dissolve in 4-8 oz of liquid. Indications: Constipation, Disp: 90 Packet, Rfl: 0 QUEtiapine Fumarate (SEROQUEL) 50 MG Tablet, Take 50 mg by mouth daily., Disp: , Rfl: senna (SENOKOT) 8.6 MG Tablet, Take 1 Tablet by mouth 2 times daily as needed for Constipation - 2nd line., Disp: 30 Tablet, Rfl: 0 tamsulosin (FLOMAX) 0.4 MG Capsule, Take 1 Capsule by mouth daily., Disp: , Rfl: varenicline (CHANTIX) 0.5 MG Tablet, Take 1 mg by mouth 2 times daily., Disp: , Rfl: No current facility-administered medications for this visit. ALLERGIES: No Known Allergies PROBLEM LIST: Patient Active Problem List: Diabetes mellitus (HCC) Type 2 diabetes mellitus without complication, with long-term current use of insulin (HCC) Hyperlipidemia Microalbuminuria TIA involving right internal carotid artery Hypertension Syncope Subungual hematoma of great toe of right foot Diabetic polyneuropathy associated with type 2 diabetes mellitus (HCC) Dermatophytosis of nail DKA (diabetic ketoacidosis) (HCC) Acute focal neurological deficit Community acquired pneumonia Dehydration Physical deconditioning Frequent falls Elevated lactic acid level Hypomagnesemia Hyponatremia Type 2 diabetes mellitus with hyperglycemia (HCC) Diabetic neuropathy (HCC) BPH (benign prostatic hyperplasia) Bipolar disorder (HCC) Encounter Details Date Type Department Care Team (Late st Contact Info) Description 07/11/2023 Telephone [facility] [address] [place] [address] Sea Hdez MD [address] [address] Social History Tobacco Use Types Packs/Day Years Used Date Smoking Tobacco: Every Day Cigarettes Last attempted to quit: 12/17/2016 Smokeless Tobacco: Never Alcohol Use Standard Drinks/Week Comments No 0 (1 standard drink = 0.6 oz pur e alcohol) Sex and Gender Information Value Date Recorded Sex Assigned at Not on file Legal Sex Male 10:28 PM CDT Gender Identity Not on file Sexual Orientation Not on file 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 * Telephone Encounter - Amparo Wasserman - 07/14/2023 9:46 AM CDT Message left for pt to call back. * Telephone Encounter - Sea Hdez MD - 07/11/2023 9:29 AM CDT Please let patient know that I reviewed his records from Dr. Case. Interestingly, there is no evidence of an enlarged prostate. Given this I am somewhat concerned that this may be a bladder pressure issue which may be associated with his diabetes. To determine this I do recommend proceeding with a urodynamic study. This will allow us to determine if there was any evidence of obstruction versus poor bladder function. Can you please schedule him for urodynamics over at the [place] office. Please make office visit after urodynamics completed with me. documented in this encounter Plan of Treatment Scheduled Referrals Name Type Priority Associated Diagnoses Orde r Schedule EXTERNAL UROLOGY REFERRAL Outpatient Referral Routine Urinary retention Expected: 07/15/2023, Expires: 07/14/2024 documented as of this encounter Visit Diagnoses Diagnosis Urinary retention- Primary Retention of urine, unspecified documented in this encounter Additional Health Concerns Infection Onset Date Last Indicated Resolved Time COVID - 19 04/13/2024 04/13/2024 04/13/2024 3:36 PM [employer] Assessment Noted Time PHQ-9 Depression Total Score: 0 04/23/19 17 9:00 AM [employer] documented as of this encounter Care Teams Dna Analyst Relationship Specialty Start Date End Date Lisa Goldberg APRN [address] [place] [address] PCP - General Advanced Practice Nurse 12/12/22 Joel Denson MD [address] [place] [address] Psychiatry 12/17/16 Sea Hdez MD #[address] [address] Consulting Physician Urology 07/08/23 Deysi Carballo MD #[address] [id number] Consulting Physician Endocrinology 07/25/23 Nicolás Wright MD #[address] [place] [id number] Consulting Physician Neurology 08/11/23 documented as of this encounter
--- OUTSIDE RECORDS SUMMARY | 2024-05-14 13:30 | XMS_ITS | Clinical Summary ---
Author Organization [facility] Address [address] [place] [address] Phone Care Team Providers Care Tire Worker Name Role Phone Joel Denson MD Unavailable Lisa Goldberg APRN Primary Care Provider [phone] Sea Hdez MD Unavailable [phone] Deysi Carballo MD Unavailable Nicolás Wright MD Unavailable [phone] Allergies No known active allergies Medications atorvastatin (LIPITOR) 20 MG Tablet Take 20 mg by mouth daily. Active BuPROPion HCl 200 MG TABLET SR 12 HR Take 200 mg by mouth 2 times daily. [id number] Active Aripiprazole (Abilify) 20 MG Tablet Take 10 mg by mouth 2 times daily. Active finasteride (Proscar) 5 MG Tablet Take 5 mg by mouth daily. Active carvedilol (COREG) 12.5 MG Tablet Take 12.5 mg by mouth 2 times daily. Active tamsulosin (FLOMAX) 0.4 MG Capsule Take 1 Capsule by mouth daily. 12/29/19 Active amitriptyline (ELAVIL) 75 MG Tablet Take 75 mg by mouth nightly. 02/15/20 Active ondansetron (ZOFRAN-ODT) 4 MG TABLET DISPERSIBLE Take 1 Tablet by mouth every 6 hours as needed for Nausea - 1st line. 10 Tablet 03/10/20 Active senna (SENOKOT) 8.6 MG Tablet Take 1 Tablet by mouth 2 times daily as needed for Constipation - 2nd line. 30 Tablet 03/10/20 22 Active clopidogrel (PLAVIX) 75 MG Tablet Take 1 Tablet by mouth daily. 90 Tablet 03/10/20 22 Active pantoprazole (PROTONIX) 40 MG Tablet Delayed Response Take 1 Tablet by mouth daily. 30 Tablet 03/10/20 22 Active Insulin Glargine Solostar (Toujeo SoloStar) 300 UNIT/ML Solution Pen-injector 60 Units by Subcutaneous route nightly. 30 mL 1 09/17/19 24 Active metFORMIN (GLUCOPHAGE) 1000 MG Tablet Take 1 Tablet by mouth 2 times daily (with meals). 180 Tablet 1 09/17/19 24 Active insulin aspart (NovoLOG FlexPen) 100 UNIT/ML Solution Pen-injector 15 units at breakfast, 20 units at lunch, and 15 units at dinner; correctional factor insulin of 1:15 if .140 mg/dL, up to 100 units per day 90 mL 1 09/19/19 24 Active QUEtiapine Fumarate (SEROquel) 50 MG Tablet Take 1 Tablet by mouth 3 times daily. 90 Tablet 04/15/19 25 Active aspirin 81 MG Chewable Tablet Take 1 Tab by mouth daily. 6 Tab 12/01/19 17 025 Discontinu ed(Med List Clean Up) albuterol 108 (90 Base) MCG/ACT Aerosol Solution take 2 Puffs by inhalation every 6 hours as needed for Wheezing or Cough. 18 g 01/20/20 21 025 Discontinu ed(Med List Clean Up) varenicline (CHANTIX) 0.5 MG Tablet Take 1 mg by mouth 2 times daily. 025 Discontinu ed(Med List Clean Up) polyethylene glycol (GLYCOLAX, MIRALAX) 17 g PackIndications :Constipation Take 1 Packet by mouth 2 times daily as needed for Constipation - 1st line. Dissolve in 4-8 oz of liquid. Indications: Constipation 90 Packet 03/10/20 22 025 Discontinu ed(Med List Clean Up) QUEtiapine Fumarate (SEROquel) 50 MG Tablet Take 3 Tablets by mouth nightly for 30 days. 90 Tablet 04/13/20 24 025 Active Problems Problem Noted Date Diagnosed Date Acute focal neurological deficit 03/08/2022 Community acquired pneumonia 03/08/2022 Dehydration 03/08/2022 Physical deconditioning 03/08/2022 Frequent falls 03/08/2022 Elevated lactic acid level 03/08/2022 Hypomagnesemia 03/08/2022 Hyponatremia 03/08/2022 Type 2 diabetes mellitus with hyperglycemia 02/13 Diabetic neuropathy 03/08/2022 BPH (benign prostatic hyperplasia) 03/08/2022 Bipolar disorder 03/08/2022 DKA (diabetic ketoacidosis) 01/19/2022 Subungual hematoma of great toe of right foot Diabetic polyneuropathy asso ciated with type 2 diabetes mellitus 08/12/2017 Dermatophytosis of nail 08/12/2017 Syncope 12/17/2016 TIA involving right internal carotid artery 11/12 Hypertension 11/29/2016 Type 2 diabetes mellitus wit hout complication, with long-term current use of insulin 06/18/2016 Hyperlipidemia 06/18/2016 Microalbuminuria 06/18/2016 Diabetes mellitus Encounters Date Type Department Care Team Description 04/14/2024 11:43 PM [facility] - 04/15/2024 1:26 AM [facility] Emergency [facility] Emergency [address] [place] [address] Cayetano Romero MD Insomnia Discharge Disposition: Discharged to home or Selfcare 04/13/2024 3:15 PM [facility] [facility] - 04/13/2024 6:07 PM [facility] Emergency [facility] Emergency [address] [place] [address] Judah Barragan MD Medication withdrawal (HCC) Discharge Disposition: Discharged to home or Selfcare 04/13/2024 Travel from Last 3 Months Immunizations Immunization Administration Dates Next Due Influenza Vaccine, Quadrivalent, PF 02/14/2022 Influenza, High-dose, Quadrivalent 12/28/2022 Influenza, Injectable, Quadrivalent 01/05/2018,0 12/04/2016,05/14/2016 Influenza, Seasonal, Injectable, Undefined 06/01 Pneumococcal Vaccine Adult - 23 Valent 7 Pneumococcal conjugate PCV20 , polysaccharide [id number] conjugate, adjuvant, PF 08/07/2021,07/24/2021 RSV, Recombinant, Protein Quiroga bunit Rsvpref, Adjuvant Recon (Arexvy) 12/28/2022 TDAP Vaccine 04/08/2017 Family History Medical History Relation Name Comments Hypertension Father Depression Mother Depression Sister Relation Name Status Comments Father Alive Mother Alive Sister Social History Tobacco Use Types Packs/Day Years [...] 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 Not on file Not on file Not on file Last Filed Vital Signs Vital Sign Reading Time Taken Comments Blood Pressure 97/63 04/15/2024 1:16 AM [employer] [employer] M[employer]INE FE[employer] Pulse 56 04/15/2024 1:16 AM [employer]INE [employer] Temperature 36.3 ??C (97.4 ??F) 04/13/2024 2:17 PM CS T Respiratory Rate 18 04/15/2024 1:16 AM [employer] M[employer]INE [employer] Oxygen Saturation 97% 04/15/2024 1:16 AM [employer] MACHINE FE[employer]ER Inhaled Oxygen Concentration - - Weight 76.2 kg (168 lb) 04/14/2024 11:48 PM [employer]ING MACHINE FE[employer] Height 172.7 cm (5' 8 ) 04/14/2024 11:48 PM [employer]ING MACHINE FEEDER Body Mass Index 25.54 04/14/2024 11:48 PM [employer] GR[employer]ING MACHINE FEEDER Plan of Treatment Health Maintenance Due Date Last Done Comments Diabetes: Eye Exam 1955 Hepatitis C Virus (HCV) Screening 1955 Cologuard 09/21/2007 Immunochemical Fecal Occult Blood 09/21/2007 Zoster Immunization (1 of 2) 09/21/2007 PSA Discussion 2012 Colonoscopy 01/17/2020 01/16/2017 Colorectal Cancer Screening 01/17/2020 AAA Screening Ultrasound 2022 Influenza Immunization (#1) 12/14/202312/13, 02/14/2022, 01/05/2018, Additional history exists SARS-COV-2 Immunization ( season) 2023 07/24/2021, 07/31/2020, 07/03/2020 Diabetes: Hemoglobin A1c 02/03/2024 024, 03/08/2022, 06/05/2017, Additional history exists Diabetes: Foot Exam 08/03/2024 08/04/2023 Diabetes: Nephropathy Screening 04/13/2025 04/13/2024, 04/12/2022, 01/19/2022, Additional history exists Td Immunization Every 10 Years (Adults With 1 Tdap) 04/08/2027 04/08/2017 01/16/2017 DTaP/Tdap/Td Immunization Discontinued 04/08/2017 TdaP Immunization Discontinued 04/08/2017 Pneumococcal Immunization (50+ years) Completed 08/07/2021, 07/24/2021, 12/19/2016 Pneumococcal Immunization Combined Discontinued 08/07/2021, 07/24/2021, 12/19/2016 Respiratory Syncytial Virus (RSV) Immunization (Adult) Completed 12/28/2022 Hepatitis B Immunization Aged Out No longer eligible based on patient's age to complete this topic Meningococcal Immunization (ACWY) Aged Out No longer eligible based on patient's age to complete this topic Rotavirus Immunization Aged Out No lo nger eligible based on patient's age to complete this topic Procedures Procedure Name Priority Date/Time Associated Diagnosis Comments CBC WITH AUTO DIFFERENTIAL STAT 04/13/2024 3:52 PM DISC P[employer] GRINDING MACHINE FEEDER SALICYLATE LEVEL STAT 04/13/2024 3:5 2 PM [employer] P[employer]ING MACHINE FEEDER ACETAMINOPHEN (TYLENOL) STAT 04/13/2024 3:52 PM [employer] P[employer] GR[employer]ING MACHINE FEEDER THYROID STIMULATING HORMONE (TSH) STAT 04/13/2024 3:52 PM [employer] P[employer] GR[employer]ING MACHINE FEEDER MAGNESIUM (MG) STAT 04/13/2024 3:52 PM [employer] PAD GRINDING MACHINE FEEDER ETHYL ALCOHOL (ETHANOL) STAT 04/13/2024 3:52 PM [employer] PAD GRINDING MACHINE FEEDER CMP (COMPREHENSIVE METABOLIC PANEL) STAT 04/13/2024 3:52 PM [employer] P[employer] GRINDING MACHINE FEEDER COMPLETE BLOOD COUNT (CBC) WITH DIFF STAT 04/13/2024 3:52 PM DISC PAD GRINDING MACHINE FEEDER URINALYSIS REFLEX IF INDICATED BY ABNORMAL RESULTS STAT 04/13/2024 3:10 PM [employer] P[employer] GR[employer]ING MACHINE FEEDER URINE DRUG SCREEN STAT 04/13/2024 3:1 0 PM [employer] P[employer] GR[employer]ING MACHINE FEEDER RSV,SARS-COV-2,INFLUEN ZA A&B BY PCR STAT 04/13/2024 2:45 PM DIS[employer] PAD GRINDING MACHINE FEEDER POCT GLYCOSYLATED HEMOGLOBIN Routine 08/04/2023 2:24 PM CDT Type 2 diabetes mellitus without complication, with long-term current use of insulin ([facility]) from Last 3 Months or Most Recently Relevant to Health Maintenance Results * CBC with Auto Differential (04/13/2024 3:52 PM DIS[employer] P[employer] GRINDING MACHINE FEEDER) WBC 7.59 4.00 - 12.00 10(3)/mcL 04/13/2024 4:15 PM DISC PAD GRINDING MACHINE FEEDER [facility] RBC 4.71 4.40 - 5.80 10(6)/mcL 04/13/2024 4:15 PM DISC PAD GRINDING MACHINE FEEDER [facility] HEMOGLOBIN (HGB) 13.6 13.0 - 16.5 g/dL 04/13/2024 4:15 PM DISC PAD GRINDING MACHINE FEEDER [facility] HEMATOCRIT (HCT) 39.4 38.0 - 50.0 % 04/13/2024 4:15 PM DIS[employer] P[employer] GRINDING MACHINE FEEDER [facility] MCV 83.7 82.0 - 96.0 fL 04/13/2024 4:15 PM [employer] P[employer] GRINDING MACHINE FEEDER [facility] MCH 28.9 26.0 - 32.0 pg 04/13/2024 4:15 PM DISC P[employer] GRINDING MACHINE FEEDER [facility] MCHC 34.5 31.0 - 36.0 g/dL 04/13/2024 4:15 PM DISC P[employer] GRINDING MACHINE FEEDER [facility] PLATELET COUNT 178 140 - 440 10(3)/mcL 04/13/2024 4:15 PM DISC PAD GRINDING MACHINE FEEDER [facility] RDW 14.4 11.8 - 15.5 % 04/13/2024 4:15 PM DISC PAD GRINDING MACHINE FEEDER [facility] MPV 10.0 8.0 - 12.6 fL 04/13/2024 4:15 PM [facility] NEUTROPHILS 59.4 40.0 - 68.0 % 04/13/2024 4:15 PM DISC PAD GRINDING MACHINE FEEDER [facility] LYMPHOCYTES 29.5 19.0 - 49.0 % 04/13/2024 4:15 PM DISC PAD GRINDING MACHINE [facility] MONOCYTES 7.8 3.0 - 13.0 % 04/13/2024 4:15 PM DISC P[employer] GRINDING MACHINE [facility]ER [facility] EOSINOPHILS 2.9 0.0 - 8.0 % 04/13/2024 4:15 PM [facility] BASOPHILS 0.4 0.0 - 1.0 % 04/13/2024 4:15 PM [facility] ABSOLUTE NEUTROPHILS 4.51 1.40 - 5.30 10(3)/[facility] 04/13/2024 4:15 PM [facility] ABSOLUTE LYMPHOCYTES 2.24 0.90 - 3.30 10(3)/[facility] 04/13/2024 4:15 PM [facility] ABSOLUTE MONOCYTES 0.59 0.10 - 0.90 10(3)/[facility] 04/13/2024 4:15 PM [facility] ABSOLUTE EOSINOPHIL 0.22 0.00 - 0.50 10(3)/[facility] 04/13/2024 4:15 PM [facility] ABSOLUTE BASOPHILS 0.03 0.00 - 0.10 10(3)/[facility] 04/13/2024 4:15 PM [facility] NRBC PER 100 WBC 0 04/13/20 4:15 PM [facility] Blood Venipuncture / Unknown 04/13/2024 3:52 PM [employer] P[employer] GR[employer]ING MACHINE FEEDER 04/13/2024 3:58 PM [employer] P[employer] GRINDING MACHINE FEEDER us Judah Barragan MD HEMATOLOGY ORDERABLES Final Result [facility] [address] [place] [address] * (ABNORMAL) Acetaminophen Level (04/13/2024 3:52 PM DISC P[employer] GRINDING MACHINE FEEDER) ACETAMINOPHEN <3(L) 10 - 30 mcg/mL 04/13/2024 4:22 PM [employer] P[employer] GRINDING MACHINE FEEDER [facility] Blood Venipuncture / Unknown 04/13/2024 3:52 PM [employer]ING MACHINE FEEDER 04/13/2024 3:58 PM [employer] P[employer] GRINDING MACHINE FEEDER Judah Barragan MD CHEMISTRY ORDERABLES F inal Result Performing Organization Address City/[facility] Co de Phone Number [facility] [address] [place] [address] * Thyroid Stimulating Hormone (TSH) (04/13/2024 3:52 PM DIS[employer] P[employer] GRINDING MACHINE FEEDER) TSH 3.953 0.300 - 5.000 mIU/L 04/13/2024 4:39 PM DISC PAD GRINDING MACHINE FEEDER [facility] Blood Venipuncture / Unknown 04/13/2024 3:52 PM [employer] P[employer] GRINDING MACHINE FEEDER 04/13/2024 3:58 PM DIS[employer] P[employer] GRINDING MACHINE FEEDER Judah Barragan MD CHEMISTRY ORDERABLES F inal Result Performing Organization Address City/[facility]/ZIP Co de Phone Number [facility] [address] [place] [address] * (ABNORMAL) Salicylate Level (04/13/2024 3:52 PM DISC PAD GRINDING MACHINE FEEDER) SALICYLATE <5.0(L) 15.0 - 30.0 mg/dL 04/13/2024 4:21 PM DISC PAD GRINDING MACHINE FEEDER [facility] Blood Venipuncture / Unknown 04/13/2024 3:52 PM DIS[employer] P[employer] GRINDING MACHINE FEEDER 04/13/2024 3:58 PM DISC PAD GRINDING MACHINE FEEDER Judah Barragan MD CHEMISTRY ORDERABLES F inal Result Performing Organization Address City/[facility] Co de Phone Number [facility] [address] [place] [address] * Magnesium (MG) (04/13/2024 3:52 PM DISC PAD GRINDING MACHINE FEEDER) MAGNESIUM 1.8 1.6 - 2.6 mg/dL 04/13/2024 4:21 PM DISC PAD GRINDING MACHINE FEEDER [facility] Blood Venipuncture / Unknown 04/13/2024 3:52 PM DISC PAD GRINDING MACHINE FEEDER 04/13/2024 3:58 PM DIS[employer] P[employer] GRINDING MACHINE FEEDER Judah Barragan MD CHEMISTRY ORDERABLES F inal Result Performing Organization Address [facility] Co de Phone Number [facility] [address] [place] [address] * ETOH Level (04/13/2024 3:52 PM DISC PAD GRINDING MACHINE FEEDER) Pathologist [facility] ETHANOL <10 <10 mg/dL 04/13/2024 4:2 1 PM DISC PAD GRINDING MACHINE FEEDER [facility] Blood Venipuncture / Unknown 04/13/2024 3:52 PM DISC P[employer] GRINDING MACHINE FEEDER 04/13/2024 3:58 PM DISC P[employer] GRINDING MACHINE FEEDER Judah Barragan MD CHEMISTRY ORDERABLES F inal Result Performing Organization Address City/[facility] Co de Phone Number [facility] [address] [place] [address] * (ABNORMAL) CMP (Comprehensive Metabolic Panel) (04/13/2024 3:52 PM DISC PAD GRINDING MACHINE FEEDER) SODIUM 133(L) 136 - 145 mmol/L 04/13/2024 4:21 PM DISC PAD GRINDING MACHINE FEEDER [facility] POTASSIUM 3.9 3.5 - 5.1 mmol/L 04/13/2024 4:21 PM DISC PAD GRINDING MACHINE FEEDER [facility] CHLORIDE 100 98 - 107 mmol/L 04/13/2024 4:21 PM [facility] CO2, VENOUS 22 22 - 30 mmol/L 04/13/2024 4:21 PM [facility] ANION GAP 14.9 <18.0 mmol/L 04/13/2024 4:21 PM [facility] GLUCOSE 178(H) 70 - 99 mg/dL 04/13/2024 4:21 PM [facility] BUN 11 8 - 26 mg/dL 04/13/2024 4:21 PM [facility] CREATININE, BLOOD 0.91 0.70 - 1.30 mg/dL 04/13/2024 4:21 PM [facility] BUN/CREATININE RATIO 12 - 20 ratio 04/13/2024 4:21 PM [facility] TOTAL PROTEIN 7.3 6.3 - 8.2 g/dL 04/13/2024 4:21 PM [facility] ALBUMIN 4.5 3.5 - 5.0 g/dL 04/13/2024 4:21 PM [facility] A/G RATIO 1.6 1.0 - 2.2 04/13/2024 4:21 PM [facility] CALCIUM 9.7 8.7 - 10.5 mg/dL 04/13/2024 4:21 PM [facility] T BILI 0.4 0.2 - 1.2 mg/dL 04/13/2024 4:21 PM [facility] SGOT (AST) 23 5 - 34 U/L 04/13/2024 4:21 PM [facility] SGPT (ALT) 34 0 - 55 U/L 04/13/2024 4:21 PM [facility] ALKALINE PHOSPHATASE 64 40 - 150 U/L 04/13/2024 4:21 PM [facility] GFR, ESTIMATED >60 >=60 04/13/2024 4:21 PM [facility] Comment: Creatinine Clearance is the preferred criteria for selecting drug dose adjustments in renally impaired patients. ??The GFR is provided as additional pertinent clinical information. GFR is reported in mL/min/1.73 sq m. Calculation based on the Chronic Kidney Disease Epidemiology Collaboration (CKD- EPI) equation refit without adjustment for race. GFR, EST. >60 >=60 024 4:21 PM DISC PAD GRINDING MACHINE FEEDER [facility] GFR, EST. NONAFRICAN >60 >=60 04/13/2024 4:21 PM [employer]C P[employer] GRINDING MACHINE FEEDER [facility] Blood Venipuncture / Unknown 04/13/2024 3:52 PM DISC P[employer] GRINDING MACHINE FEEDER 04/13/2024 3:58 PM [employer]C P[employer] GRINDING MACHINE FEEDER us Judha Barragan MD CHEMISTRY ORDERABLES F inal Result [facility] [address] [place] [address] * (ABNORMAL) Urinalysis with Reflex if Indicated (04/13/2024 3:10 PM DISC P[employer] GRINDING MACHINE FEEDER) SPECIFIC GRAVITY 1.015 1.003 - 1.030 04/13/2024 4:23 PM DISC PAD GRINDING MACHINE FEEDER [facility] URINE PH 6.0 5.0 - 9.0 04/13/2024 4:23 PM DISC P[employer] GRINDING MACHINE FEEDER [facility] WBC ESTERASE Negative Negative 04/13/2024 4:23 PM DISC PAD GRINDING MACHINE FEEDER [facility] NITRITE Negative Negative 04/13/2024 4:23 PM DISC PAD GRINDING MACHINE FEEDER [facility] PROTEIN, RANDOM URINE 15 mg/dL(A) Negative 04/13/2024 4:23 PM DISC PAD GRINDING MACHINE FEEDER [facility] URINE GLUCOSE, QUAL 250 mg/dL(A) Negative 04/13/2024 4:23 PM DISC PAD GRINDING MACHINE FEEDER [facility] URINE KETONES Negative Negative 04/13/2024 4:23 PM DISC P[employer] GRINDING MACHINE FEEDER [facility] UROBILINOGEN Normal Normal mg/dL 04/13/2024 4:23 PM DISC P[employer] GRINDING MACHINE FEEDER [facility] URINE BLOOD Negative Negative jayy/ul 04/13/2024 4:23 PM DISC PAD GRINDING MACHINE FEEDER [facility] URINALYSIS COLOR Yellow 04/13/20 4:23 PM DISC P[employer] GRINDING MACHINE FEEDER [facility] URINALYSIS CLARITY Clear 04/13/2024 4:23 PM DISC P[employer] GRINDING MACHINE FEEDER [facility] Urine URINE SPECIMEN / Unknown Non-Phlebotomy Collection / Unknown 04/13/2024 3:10 PM [employer] P[employer] GRINDING MACHINE FEEDER 04/13/2024 3:38 PM [employer]C PAD GRINDING MACHINE FEEDER us Judah Barragan MD URINE ORDERABLES Final Result [facility] [address] [place] [address] * Urine Drug Screen (04/13/2024 3:10 PM DISC PAD GRINDING MACHINE FEEDER) UR AMPHETAMINE NON DETECTED NON DETECTED 04/13/2024 4:04 PM DISC PAD GRINDING MACHINE FEEDER [facility] Comment: FOR MEDICAL USE ONLY. CUTOFF CONCENTRATION FOR DETECTED RESULT: AMPHETAMINE: ??500 NG/ML UR BENZODIAZEPINES NON DETECTED NON DETECTED 04/13/2024 4:04 PM [facility] Comment: FOR MEDICAL USE ONLY. CUTOFF CONCENTRATION FOR DETECTED RESULT: BENZODIAZAPINE: ??200 NG/ML UR COCAINE METABOLITE NON DETECTED NON DETECTED 04/13/2024 4:04 PM DISC PAD GRINDING MACHINE FEEDER [facility] Comment: FOR MEDICAL USE ONLY. CUTOFF CONCENTRATION FOR DETECTED RESULT: COCAINE: ??150 NG/ML UR OPIATES NON DETECTED NON DETECTED 04/13/2024 4:04 PM DISC P[employer] GRINDING MACHINE FEEDER [facility] Comment: FOR MEDICAL USE ONLY. CUTOFF CONCENTRATION FOR DETECTED RESULT: OPIATES: ? 300 NG/ML UR PHENCYCLIDINE NON DETECTED NON DETECTED 04/13/2024 4:04 PM DISC PAD GRINDING MACHINE FEEDER [facility] Comment: FOR MEDICAL USE ONLY. CUTOFF CONCENTRATION FOR DETECTED RESULT: PCP: ? 25 NG/ML UR CANNABINOID NON DETECTED NON DETECTED 04/13/2024 4:04 PM DISC PAD GRINDING MACHINE FEEDER [facility] Comment: FOR MEDICAL USE ONLY. CUTOFF CONCENTRATION FOR DETECTED RESULT: THC (MARIJUANA): 50 NG/ML UR BARBITURATE NON DETECTED NON DETECTED 04/13/2024 4:04 PM DISC PAD GRINDING MACHINE FEEDER [facility] Comment: FOR MEDICAL USE ONLY. CUTOFF CONCENTRATION FOR DETECTED RESULT: BARBITUATES: ? 200 NG/ML UR FENTANYL NON DETECTED NON DETECTED 04/13/2024 4:04 PM DISC PAD GRINDING MACHINE FEEDER [facility] Comment: FOR MEDICAL USE ONLY. CUTOFF CONCENTRATION FOR DETECTED RESULT: FENTANYL: ??1.0 NG/ML Urine Non-Phlebotomy Collection / Unknown 04/13/2024 3:10 PM DISC PAD GRINDING MACHINE FEEDER 04/13/2024 3:38 PM DISC PAD GRINDING MACHINE FEEDER Judah Barragan MD URINE ORDERABLES Final Result [facility] [address] [place] [address] * rsv,flu,covid (04/13/2024 2:45 PM DISC PAD GRINDING MACHINE FEEDER) FLU A Negative Negative, Error 04/13/2024 3:36 PM DISC PAD GRINDING MACHINE FEEDER [facility] FLU B Negative Negative 04/13/2024 3:36 PM DISC PAD GRINDING MACHINE FEEDER [facility] RESP SYNC VIRUS Negative Negative 3:36 PM DISC PAD GRINDING MACHINE FEEDER [facility] SARSCOV2 NOT DETECTED (Reference Range for this test is Not Detected) 04/13/2024 3:36 PM DISC PAD GRINDING MACHINE FEEDER [facility] Comment:This test was perfor med by a Reverse Desk Officer PCR Method. Swab NASOPHARYNGEAL SWAB / Unknown Non-Phlebotomy Collection / Unknown 04/13/2024 2:45 PM DISC PAD GRINDING MACHINE FEEDER 04/13/2024 2:55 PM DISC PAD GRINDING MACHINE FEEDER Narrative [facility] - 04/13/2024 3:36 PM DISC PAD GRINDING MACHINE FEEDER This test has not been FDA cleared or approved; the test has been authorized by FDA under an Emergency Use Authorization (EUA) for use by laboratories certified under the CLIA that meet the requirements to perform moderate, high or waived complexity tests. Authorized Fact Sheets about this test for providers and patients are available at: https://www.fda.gov/medical-devices/hisoetsxl-aeftlidvub-swshpgl-devices/emergen -us e-authorizations us Judah Barragan MD MICROBIOLOGY - GENERAL ORDERABLES Final Result [facility] [address] [facility] [place] [address] * (ABNORMAL) POCT GLYCOSYLATED HEMOGLOBIN (08/04/2023 2:24 PM CDT) HGB-A1C 8.0(A) 4 - 6 % Blood 08/04/2023 2:24 PM CDT us Deysi Carballo MD POINT OF CARE TESTING (MANUAL) F inal Result from Last 3 Months or Most Recently Relevant to Health Maintenance Insurance MEDICARE C [employer] Advance Directives * Full Code (Latest Code Status on File) Date Activated Date Inactivated Comments 03/08/2022 6:49 PM 03/10/2022 4:09 PM CPR-Full T reatment: FULL ARREST: Attempt Resuscitation/CPR wit intubation and mechanical ventilation. PRE-ARREST: Use entire range of life support measures to stabilize the patient. * Full Code Date Activated Date Inactivated Comments 11/29/2016 4:05 PM 11/30/2016 6:33 PM CPR-Full Homar atment: FULL ARREST: Attempt Resuscitation/CPR wit intubation and mechanical ventilation. PRE-ARREST: Use entire range of life support measures to stabilize the patient. Care Teams Tire Worker Relationship Specialty Start Date End Date Lisa Goldberg APRN [address] [place] [address] PCP - General Advanced Practice Nurse 12/12/22 Joel Denson MD [address] [place] [address] Psychiatry 12/17/16 Sea Hdez MD [address] [address] Consulting Physician Urology 07/08/23 Deysi Carballo MD [address] [id number] Consulting Physician Endocrinology 07/25/23 Nicolás Wright MD [address] [place] [id number] Consulting Physician Neurology 08/11/23
--- OUTSIDE RECORDS SUMMARY | 2024-05-14 13:30 | XMS_ITS | Clinical Summary ---
Author Organization [facility] Address [address] [place] [address]. [place], [place] [id number] [place] [address] Care Team Providers Care Plastic Press Operator Name Role Phone Unavailable Primary Care Provider Unavailabl e Social History Tobacco Use Types Packs/Day Years Used Date Smoking Tobacco: Never Assessed Sex and Gender Information Value Date Recorded Sex Assigned at Not on file Legal Sex Male 5:42 PM CDT Gender Identity Not on file Sexual Orientation Not on file Last Filed Vital Signs Vital Sign Reading Time Taken Comments Blood Pressure 147/82 06/20/2016 1:14 PM WIRE TAPER Pulse 72 06/20/2016 1:14 PM WIRE TAPER Temperature - - Respiratory Rate - - Oxygen Saturation - - Inhaled Oxygen Concentration - - Weight 83.5 kg (184 lb) 06/20/2016 12:53 PM WIRE TAPER Height 170.2 cm (5' 7 ) 06/20/2016 12:53 PM WIRE TAPER Body Mass Index 28.82 06/20/2016 12:53 PM WIRE TAPER Plan of Treatment Health Maintenance Due Date Last Done Comments Colorectal Cancer Screening Colonoscopy (10 Years) 1955 Hepatitis C 09/21/1975 Zoster Vaccines (1 of 2) 09/21/2007 COVID-19 Vaccine ( - 2023-2 5 season) 2023 07/24/2021, 07/31/2020, 07/03/2020 Influenza Adult (#1) 2024 01/05/2018, 12/04/2016, 05/14/2016 DTaP, Tdap and Td Vaccines ( 2 - Td or Tdap) 04/08/2027 04/08/2017 RSV Immunization or 60+ Years (1 - 1-dose 75+ series) 2032 Pneumococcal Vaccine: 65+ Years Completed 08/07/2021, 07/24/2021, 12/19/2016 Meningococcal B Vaccine Aged Out No l onger eligible based on patient's age to complete this topic Meningococcal Vaccine Aged Out No fiona moo eligible based on patient's age to complete this topic RSV Immunizations Under 20 Months Aged Out No longer eligible b ased on patient's age to complete this topic
--- OUTSIDE RECORDS SUMMARY | 2024-05-14 13:30 | XMS_ITS | Continuity of Care Document ---
Author Organization [facility] Address [address] [facility] [address] [place] [address] Phone Care Team Providers Care Carton Filling Machine Operator Name Role Phone Gisella MICHAELA, [place] Unavailable Unavailable Allergies, Adverse Reactions, Alerts Substance Reaction Status Criticality No Known Allergies Active No Inform ation Medications Medication Instructions Dosage Effective Dates (start - stop) Status Comments Seroquel 100 mg tablet take 1 tablet by oral route 2 times every day 100 MG - Active finasteride 1 mg tablet take 1 tablet by oral route every day 1 MG - Active tamsulosin 0.4 mg capsule take 1 capsule by oral route every day 1/2 hour following the same meal each day 0.4 MG - Active amitriptyline 50 mg tablet take 1 tablet by oral route every day at bedtime 50 MG - Active carvedilol 12.5 mg tablet take 1 tablet by oral route 2 times every day with food 12.5 MG - Active aripiprazole 10 mg tablet take 1 tablet by oral route every day 10 MG - Active albuterol sulfate 2.5 mg/3 mL (0.083 %) solution for nebulization inhale 3 milliliter by nebulization route 3 times every day 2.5 MG - Active bupropion HCl 100 mg tablet take 1 tablet by oral route 2 times every day 100 MG - Active atorvastatin 20 mg tablet take 1 tablet by oral route every day 20 MG - Active metformin 500 mg tablet take 2 tablet by oral route every day with morning and evening meals 1000 MG - Active Procedures Procedure Date No Charge Refraction Fundus Photography W/ Report Eye Exam & Treatment Charge For A No Show Refraction Post-op Follow-up Visit Post-op Follow-up Visit Post-op Follow-up Visit Remove Cataract, Insert Lens No Charge GDX Retina No Charge Refraction Post-op Follow-up Visit Post-op Follow-up Visit Remove Cataract, Insert Lens No Charge Optomap Fundus Photos 022 Corneal Topography No Charge Refraction No Charge GDX Retina Office/outpatient Visit, [facility] Advance Directives Directive Yes / No Effective Date File Name Other Directive No N/A N/A WARNING:The information contained in this section is historical and is provided for information only and does not constitute a legal document or any assurance that the information is still accurate. Please verify the information with the casillas of the legal document before using it for clinical purposes. Encounters Encounter Description Practice Location Reason(s) For Visit Diagnoses Date Provider Providers Copied on Encounter [facility], [address] [address] [facility], [place], [place], [id number], [place] tel:[phone] SEC [place] Professional Complete Exam (chief complaint) Presence of intraocular lensOther secondary cataract, bilateralAmbl yopia of right eyeType 2 diab with mild nonp rtnop without mclr edema, l eye 4 Gisella OD [place]. [address] [place] [address] [facility], [address], [place], [place], [address], [place]. tel:[phone] Reba Clarke MD.Other Provider: Lisa Goldberg [facility]-, [address] [place], [address]. tel:[phone] ring Provider: Giuseppe Ruiz, [address] [facility] [address], [place], [address]. tel:[phone] [facility], [address] [place] [address] [address], [place], [place], [address], [place] tel:[phone] SEC Juan GIANG Professional No Information 3 Gisella OD [place]. [facility] [place] [employer], [address], [place], [place], [address], [place]. tel:[phone] Referring Provider: Giuseppe Ruiz, [address] [facility] [address], [place], [address]. tel:[phone] [facility], [address] [place] [address] [address], [place], [place], [address], [place] tel:[phone] SEC Juan GIANG Professional 1 mo CE PO (05/08/22) (chief complaint) Post op visit 3 Dipesh Chin. [address] [place], [address], [place]. tel:[phone] Reba Clarke MD.Referrin g Provider: Giuseppe Ruiz, [address] [facility], [place], [address]. tel:[phone] [facility], [address] [place] [address] [address], [place], [place], [address], [place] tel:[phone] SEC Juan GIANG Professional 1 week s/p PCIOL (chief complaint) Postop check 3 Gisella OD [place]. [facility] [place] [employer], [address], [place], [place], [address], [place]. tel:[phone] Reba Clarke MD.Referrin g Provider: Giuseppe Ruiz, [address] [place], [address]. tel:[phone] [facility], [address] [place] [address] [address], [place], [place], [address], [place] tel:[phone] SEC Juan GIANG Professional post op (chief complaint) Post op visitPresence of intraocular lens 3 Gisella OD [place]. [address] [place] [address] [employer], [address], [place], [place], [address], [place]. tel:[phone] Reba Clarke MD.Referrin g Provider: Giuseppe Ruiz, [address], [place], [address]. tel:[phone] [facility], [address] [place] [address] [address], [place], [place], [address], [place] tel:[phone] [place] [facility] [place] No Information 3 Dipesh Chin. [address], [place], [place], [address], [place]. tel:[phone] Referring Provider: Giuseppe Ruiz, [address], [place], [address]. tel:[phone] [facility], [address] [place] [address], [place], [place], [address], [place] tel:[phone] SEC Juan GIANG Professional 2 week s/p PCIOL (chief complaint) Post op visit 3 Gisella OD [place]. [address] [place] [employer], [address], [place], [place], [address], [place]. tel:[phone] Reba Clarke MD.Referrin g Provider: Giuseppe Ruiz, [address], [place], [address]. tel:[phone] [facility], [address] [place] [address], [place], [place], [address], [place] tel:[phone] SEC Juan GIANG Professional 1 day s/p PCIOL (chief complaint) Post op visit 2 Gisella OD [place]. [address], [address], [place], [place], [address], [place]. tel:[phone] Reba Clarke MD.Referrin g Provider: Giuseppe Ruiz, [address] [facility] [address], [place], [address]. tel:[phone] [facility], [address] [place] [address], [place], [place], [address], [place] [phone] [facility] No Information 2 Dipesh Chin. [address] [facility], [address], [place], [place], [address], [place]. tel:[phone] Referring Provider: Giuseppe Ruiz, [address] [facility] [address], [place], [address]. tel:[phone] Office/outpa tient Visit, [facility], [address] [place] [address], [place], [place], [address], [place] [phone] [facility] Professional Cataract evaluation (chief complaint) Type 2 diabetes mellitus without complications Age-related nuclear cataract, bilateralDry eye syndrome of bilateral lacrimal glands 2 Dipesh Chin. [address] [facility], [address], [place], [place], [address], [place]. tel:[phone] Specialist: Reba Clarke MD, [address] [facility] [address], [place], [address]. tel:[phone] alist: Torin Hartman OD, [address], [place], [address]. tel:[phone] ring Provider: Giuseppe Ruiz, [address] [facility] [address], [place], [address]. tel:[phone] Family History Family Member Type Diagnosis Age At Onset No Information Payers Payer name Insurance type Covered alliance party ID Authoriza tion(s) [employer] [id number] Social History Type Description Quantity Date Captured Comments Alcohol Use Details No Caffeine Use Details No Tobacco Use Status Current non-smoker Smoking Status Never smoker Non-Smoking Tobacco Use Details : No Details Available : No Details Available Sex Male Chief Complaint And Reason For Visit From encounter dated '12/11/2023 09:00'. Complete Exam (chief complaint). Description: The 68 year old patient presents for evaluation of Complete DM Exam in the right eye and left eye. Pt states no changes in Ou since last visit. Pts PCP follows them for Diabetes Type II and last A1C was 8.1 and pts blood sugar this morning was 317. Reason For Referral Reason For Referral No Information Plan Of Treatment Date Type Action Status Patient Education Diabetic Retinopathy: C are Instructions completed Patient Education The Eye: Anatomy Sketch completed History Of Present Illness Encounter Date Complaint History Of Prese nt Illness Complete Exam The 68 year old patient presents for evaluation of Complete DM Exam in the right eye and left eye. Pt states no changes in Ou since last visit. Pts PCP follows them for Diabetes Type II and last A1C was 8.1 and pts blood sugar this morning was 317. 1 mo CE PO (05/08/22) The 66 year old patient presents for evaluation of 1 mo CE PO (05/08/22) in the left eye. Pt reports he is using Moxi BID OS, Pred BID OS, and Ketorolac BID OS. Pt reports OS is doing good and his VA is awesome since CE. Pt states he would like to go back to CLS, tech explained [facility] doesn't do CLS, and he would have to see Dr. Obando for those. 1 week s/p PCIOL The 66 year old patient presents for evaluation of 1 week s/p PCIOL in the left eye (05/08/22). Patient states VA seems ok, patient using p/o gtts and states he ran out of one of them but doesn't know which one he ran out of. post op The 66 year old patient presents for a 1 day post op CE OS. Patient is using Pred, Vigamox and Ketorolac qid OS. Patient declined drop sheet. Patient denies any pain or discomfort. Patient c/o OS is still very blurry. 2 week s/p PCIOL The 66 year old patient presents for evaluation of 2 week s/p PCIOL in the right eye (04/10/22). Patient states his VA seems worse, pretty blurry with the right eye. Patient using p/o gtts as directed. c/o with the left eye is difficulty seeing at night due to glare, some difficulty seeing captions on the television, and seeing street signs. 1 day s/p PCIOL The 66 year old patient presents for evaluation of 1 day s/p PCIOL in the right eye. Patient states VA is blurry. Patient instructed to use Pred, Ket, and Vig as well as use of eye shield. Cataract evaluation The 66 year old patient presents for evaluation of Cataract evaluation in the right eye and left eye. Pt. states noticed about 6 months decrease vision. Pt. states having difficulty reading small print even with his glasses on. Pt. states has trouble reading insurance cards or filling out forms. Pt. is NIDDM for past 5 years. Pt. is followed by Dr. Schrader and PA @ endo office at the [facility] center in [place], [place]. Pt's last HA1C was 8.7 Pt. states no eyedrops at this time. Pt. did remember seeing Dr. Torin Hartman and he recommended pt. have Cataract evaluation. Pt. was told years ago he had an Amblyopic OD. Functional Status Date Functional Assessmen t No Information Instructions Date Instruction Additional Infor terence Impression/Plan Impression/Plan Impression/Plan Impression/Plan Impression/Plan Impression/Plan Impression/Plan Assessments Type Assessment Date assessment Presence of intraocular lens Nov assessment Other secondary cataract, bilate ral assessment Amblyopia of right eye assessment Type 2 diab with mild nonp rtnop without mclr edema, l eye Patient Care Teams Name Effective Dates (start - stop) Status Members No Information
--- OUTSIDE RECORDS SUMMARY | 2024-05-14 13:30 | XMS_ITS | Referral Summary ---
Author Organization [facility] Address [address] [place] [address] Care Team Providers Care Crm Coordinator Name Role Phone Ovi Leavitt MD Unavailable Sang Gutierrez Md, MD Primary Care Provider Unavailable Source Comments [facility],non-owned Affiliates and Associated Physician Practices is amultiple site organization consisting of ambulatory clinics and hospital sitesin [place], [place], [place] and [place]. This disclosure is being madepursuant to the Care Everywhere program and may not contain all information available regarding this patient. Last updated 18.[facility] Allergies Active Allergy Reactions Criticality Noted Date [...] 10/18/2017 2:11 PM CDT Plan of Treatment Not on file Procedures Procedure Name Priority Date/Time Associated Diagnosis Comments GLUCOSE - POINT OF CARE Routine 10/18/2017 3:31 PM CDT from Last 3 Months or Most Recently Relevant to Health Maintenance Results * (ABNORMAL) GLUCOSE - POINT OF CARE (10/18/2017 3:31 PM CDT) Glucose WB/POC 157(H) 70 - 115 mg/dL 10/18/2017 3:48 PM CDT [facility] Specimen Type Arterial/C apillary 10/18/2017 3:48 PM CDT [facility] Blood BLOOD SPECIMEN / Unknown 10/18/2017 3:31 PM CDT 10/18/2017 3:48 PM CDT Narrative [facility] - 10/18/2017 3:48 PM CDT Director [employer]: Rebecca ??Cheyanne Clarence Dobson MD LAB - POINT OF CARE ORDERABLES [facility] [address] [place] [address], [facility] [phone] from Last 3 Months or Most Recently Relevant to Health Maintenance Care Teams Crm Coordinator Relationship Specialty Start Date End Date Sang Gutierrez MD, MD PCP - General Internal Medicine 06/24/16 Ovi Leavitt MD Orthopedic Surgery 10/10/14
== END 2024-05-14 13:26 | disposition home or self-care (01) ==
PROVIDERS: PCP Nurse Practitioner Adult Health; Visit Provider Psychiatry & Neurology Neurology
DX: G31.84 Mild cognitive impairment of uncertain or unknown etiology (principal); E11.42 Type 2 diabetes mellitus with diabetic polyneuropathy; G47.9 Sleep disorder, unspecified; Z87.828 Personal history of other (healed) physical injury and trauma
CPT/HCPCS: 70551

== ENCOUNTER 2024-07-04 11:40 | Observation (INO) | payer OTHER, SELFPAY ==
[2024-07-04] VITALS (7 sets, daily range): BP systolic 111–124; BP diastolic 78–84; PULSE 76–91; RESP 16–18; TEMP 36.3–36.9; O2SAT 97–99; BMI 26.4
--- NOTE | ~2024-07-04 | XR_ITS ---
CHEST RADIOGRAPH CLINICAL HISTORY: cva? . COMPARISON: 09/16/2023 TECHNIQUE: Single portable view of the chest. FINDINGS The cardiomediastinal silhouette is unremarkable. Blunting of the left costophrenic sulcus suggesting a small left-sided pleural effusion versus cardia c fat pad. The remainder the lungs are clear. IMPRESSION: Possible small left-sided pleural effusion (versus cardiac fat pad) without focal infiltrate Reviewed, dictated and finalized at location A. IMPRESSION: Possible small left-sided pleural effusion (versus cardiac fat pad) without foc al infiltrate
--- NOTE | ~2024-07-04 | CT_ITS ---
History: Altered mental status. Last known well 18 hours earlier. PROCEDURE: CT head without contrast. COMPARISON: 02/10/2023 TECHNIQUE: Axial imaging of the head performed from the skull base to the vertex without IV contrast. Sagittal a nd coronal reformations obtained. DLP: 605 mGy-cm FINDINGS: The ventricles are normal in size, shape and position. There is no mass, mass effect or midline shift. There is no abnormal extra-axial fluid collection or intracranial hemorrhage. Visualized paranasal sinuses are clear. The mastoid air cells are well aerated. No acute displaced fractures within the overlying cranium. Impression: No acute intracranial hemorrhage or suspicious mass effect. Reviewed, dictated and finalized at location A. Impression: No acute intracranial hemorrhage or suspicious mass effect.
--- NOTE | ~2024-07-04 | CT_ITS ---
CTA brain carotid Ordering provider: Cyndy Elizabeth MD History: . cva? . Comparison: 01/25/2023 Technique: CT angiogram head and neck was performed following timed intravenous injection of contrast . Thin slice axial images and reformatted coronal images were obtained. Three dimensional reformatted images of the brain were also obtained using a Jump or [employer] workstation. DLP: 979.6 mGy-cm FINDINGS: HEAD: Redemonstration of occlusion of the right internal carotid artery with supraclinoid reconstitution. T his is unchanged from 01/25/2023 --ANTERIOR AND MIDDLE CEREBRAL ARTERIES AND BRANCHES: Normal caliber and contour. --INTERNAL CAROTID ARTERIES: Mild atheromatous disease within the left but no significant stenosis.Re demonstration of occlusion of the right internal carotid artery with supraclinoid reconstitution, unc hanged from 01/25/2023 --BASILAR ARTERY AND BRANCHES: Normal caliber and contour. No atheromatous disease. --POSTERIOR CEREBRAL ARTERIES: Normal caliber and contour --POSTERIOR COMMUNICATING ARTERIES: Not well visualized likely related to congenital absence or small size. --ANEURYSM: None visualized. --BRAIN: Please refer to report of CT head performed the same day. --BONES AND SUPERFICIAL SOFT TISSUES: Please refer to report of CT head performed the same day. --PARANASAL SINUSES AND MASTOIDS: Please refer to report of CT head done the same day. NECK: --RIGHT CERVICAL CAROTID SYSTEM: Trace atheromatous disease of the carotid bulb. 100% stenosis of the internal carotid artery approximately 14 mm beyond its origin, unchanged from 2022. No carotid dissection. --LEFT CERVICAL CAROTID SYSTEM: Normal caliber and contour. Percent stenosis per NASCET criteria is 0% No carotid dissection. --VERTEBRAL ARTERIES: Normal caliber and contour. --VISUALIZED AORTIC ARCH AND BRANCHING VESSELS: Mild atheromatous disease but no significant stenosis . --SOFT TISSUES: Unremarkable. --CERVICAL SPINE: Age advanced degenerative changes. 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 0% stenosis of the proximal left internal carotid artery relative to normal distal artery lumen diame ter. No acute or subacute large vessel occlusion. Reviewed, dictated and finalized at location A. 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 0% stenosis of the proximal left internal carotid artery relative to normal dis emilee artery lumen diameter. No acute or subacute large vessel occlusion.
--- NOTE | ~2024-07-04 | MR_ITS ---
EXAMINATION: MR brain/brain stem wo/w con DATE: 07/05/2024 15:37 INDICATION: CVA TECHNIQUE: Magnetic resonance imaging (MRI) of the brain and brainstem was performed with 15 mL ProHa nce intravenous contrast. Sequences included sagittal and axial T1-weighted SE, axial diffusion-weigh george FS EPI ASSET, axial T2*-weighted GRE, axial T2-weighted FLAIR Propeller, and axial T2-weighted Pr opeller. Postcontrast axial and coronal T1-weighted SE was obtained. Apparent diffusion coefficient ( ADC) maps were created. COMPARISON: 05/14/2024; CT brain and CTA brain carotid 07/04/2024. FINDINGS: No abnormal restricted diffusion to suggest acute ischemic infarct. No MRI evidence of hemorrhage or extra-axial collection. No suspicious foci of susceptibility to suggest prior intraparenchymal hemorr lynn. Scattered foci of white matter hyperintensity, likely representing mild small vessel ischemic d isease. No evidence of advanced or lobar predominant parenchymal volume loss. Redemonstration of righ t internal carotid occlusion, with reconstitution of flow at the supraclinoid right carotid. Flow voi ds are preserved. Paranasal sinuses are within normal limits. Bilateral lens replacements. Globes and orbital contents are otherwise within normal limits. No abnormal enhancement. IMPRESSION: No acute intracranial process. Chronic right internal carotid artery occlusion with supraclinoid arabella nstitution. Reviewed, dictated and finalized at location K. IMPRESSION: No acute intracranial process. Chronic right internal carotid artery occlusion with supraclinoid reconstitution.
--- NOTE | 2024-07-04 12:00 | ECG_ITS ---
Test Date: 2024-07-04 12:18:41 Measurements Intervals Kaiser Rate: 86 P: 16 TN: 173 QRS: -43 QRSD: 88 T: 12 QT: 339 QTc: 407 Interpretive Statements SINUS RHYTHM MARKED LEFT AXIS DEVIATION [QRS AXIS < -30] POSSIBLE ANTERIOR MYOCARDIAL INFARCTION , PROBABLY OLD [30 ms Q WAVE IN V3/V4, OR R < 0.2 mV IN V4] No previous ECG available for comparison Electronically Signed On 07-05-2024 16:30:43 CDT by Mikey Hampton M.D.
[2024-07-04 12:32] LABS: Basophils Percent Auto 0.6 % (0.2-1.2); Eosinophils Percent Auto 0.6 % (0-4.4); Hemoglobin 14.1 g/dL (14.0-18.0); Immature Granulocyte Absolute 0.02 K/mm3 (0.00-0.031); Immature Granulocyte Percent A 0.3 % (0-0.5); Lymphocytes Absolute Auto 0.73 K/mm3 (0.9-3.2); Lymphocytes Percent Auto 11.8 % (18.3-44.2); Mean Corpuscular HGB Conc 32.8 g/dl (32-36); Mean Corpuscular Hemoglobin 28.3 pg (26-34); Mean Corpuscular Volume 86.3 fl (80-100); Mean Platelet Volume 9.8 fl (7.4-10.4); Monocytes Absolute Auto 0.4 K/mm3 (0.1-0.6); Neutrophils Percent Auto 80.7 % (45.5-73.1); Platelet Count Result 158 k/mm3 (150-375); Red Blood Count 4.98 M/mm3 (4.6-6.20); White Blood Count 6.2 K/mm3 (4.5-10.0)
--- NOTE | 2024-07-04 12:32 | ED_ITS ---
HPI - General Adult General Chief complaint: Suspected CVA Stated complaint: weakness/lethargy Time Seen by Provider: 07/04/24 12:31 Source: patient, family and EMS Mode of arrival: EMS Limitations: no limitations History of Present Illness HPI narrative: 68 years old white male last time was been seen by his at his normal baseline 5:00 p.m. yesterday. The noticed at 3:00 a.m. in the morning patient is walking funny, went to smoke and came back answering questions very slowly then went to bed, at 9:00 a.m. tried to wake him a which is unusual to sleep up to 9:00 a.m., got up and walked funny like drank, then went back and sat at the edge of the bed naked does not heartbeat his clothes on. In the ED patient denying any symptoms. He is awake, alert oriented x4. Patient on Plavix and atorvastatin. History of diabetes hypertension hyperlipidemia TIA, cigarette smoking. Denies alcohol intake or drug use Related Data Home Medications ?Medication ?Instructions ?Recorded ?Confirmed ?Last Taken ?Type bupropion HCl 200 mg tablet,12 hr 200 mg PO BID 05/08/21 07/01/24 02/26/24 History sustained-release quetiapine 50 mg tablet 150 mg PO QHS 05/18/22 07/01/24 02/26/24 History finasteride 5 mg tablet 5 mg PO DAILY 03/10/23 07/01/24 02/26/24 History aripiprazole 20 mg tablet 10 mg PO BID 02/13/24 07/01/24 02/26/24 History carvedilol 12.5 mg tablet 12.5 mg PO BID 02/13/24 07/01/24 02/26/24 History Allergies Allergy/AdvReac Type Severity Reaction Status Date / Time No Known Allergies Allergy Verified 07/01/24 09:40 Review of Systems 2 Review of Systems: All systems reviewed & are unremarkable except as noted in HPI and below PMFSH Past Medical History Medical History Sleep disorder, unspecified Diabetic polyneuropathy MCI (mild cognitive impairment) 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 Colon polyp Type 2 diabetes mellitus Gastroesophageal reflux disease Arthritis Lumbar spondylosis Pulmonary embolism (02/2022) Ataxia Rib fracture Benign prostatic hyperplasia Peripheral neuropathy Hypertension Hyperlipidemia Chronic insomnia Former cigarette smoker Bipolar depression Anxiety Surgical History Surgical History History of right knee joint replacement (05/10/21) History of bilateral cataract extraction (04/2022) History of colonoscopy with polypectomy History of arthroscopy of left knee History of right knee surgery x4 Family History Family History Father Age older than 80 years Hypertension Mother Age older than 80 years Patient's mother is in good health Sibling Fibromyalgia Diabetes mellitus Mother Dementia Social History Social History Social History: Code status: Full code Surrogate decision maker: Mona Ricci, spouse Smoking packs per day: 0.5 Smoking cigarettes per day: 10.0 Years smoked: 8 Smoking pack-years: 4.00 Smoking status: Former smoker Tobacco type: cigarettes Second hand tobacco smoke exposure: No Alcohol intake: never Substance use: never Substance use type: does not use Do You Feel Safe in your Home?: Yes Lack of Transportation: No Lack of Food: Never True Current Housing: I Have Housing Concerned About Future Housing: No Difficulty Paying Gas/Electric Bills: No Difficulty Paying for Meds: No Currently Unemployed: No Education: Trade/Vocational Certificate Difficulty w/ Childcare or Family Care: No Living arrangements: with family Additional living arrangements comments: Lives with in [place]. Has 4 children and 21 grandchildren. 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 Spiritual care concerns: No Exam 2 Narrative: General appearance: Well-developed, well-nourished Skin: Normal color Head: Normocephalic, nontraumatic Eyes: Clear conjunctiva ENT: Oropharynx normal, ears normal, nose normal Neck: Supple, nontender Chest and respiratory: Airway patent, no respiratory distress, no accessory muscle use Heart: Regular rate/rhythm Abdomen: Soft, nontender, no organomegaly, quiet bowel sounds Vascular: Normal peripheral pulses, normal capillary refill. Musculoskeletal: Slight weakness of the left upper extremity and left lower x- ray Neurologic: Alert and oriented ?3, poor coordination Course Vital Signs Vital signs: Vital Signs Temperature 36.9 C 07/04/24 11:51 Pulse Rate 86 07/04/24 11:51 Respiratory Rate 16 07/04/24 11:51 Blood Pressure 124/78 07/04/24 11:51 Pulse Oximetry 97 07/04/24 11:51 Oxygen Delivery Room Air 07/04/24 11:51 Temperature 36.9 C 07/04/24 11:51 Pulse Rate 88 07/04/24 12:45 Respiratory Rate 16 07/04/24 12:45 Blood Pressure 122/78 07/04/24 12:45 Pulse Oximetry 99 07/04/24 12:45 Oxygen Delivery Room Air 07/04/24 11:51 Medical Decision Making MDM Narrative Medical decision making narrative: Patient came to the ED with stroke-like symptoms Vital signs are stable Physical examination consistent with ataxia and unsteady gait otherwise within normal limit Differential diagnosis include TIA, CVA, drug abuse, ETOH, electrolyte imbalance, dehydration, depression, stress related symptoms Blood workup today includes CBC, CMP, troponin showed no acute abnormalities Urinalysis showed 3+ glucose Patient tested negative for COVID flu RSV CT head without contrast showed no acute abnormalities, Chest x-ray small left-sided pleural effusion CTA head and neck showed no acute abnormalities Stroke scale is 3, admit to hospitalist, discussed with Dr. Adkins Differential Diagnosis Differential Diagnosis: As above Vital Signs Vital Signs: Vital Signs Temperature 36.9 C 07/04/24 11:51 Pulse Rate 86 07/04/24 11:51 Respiratory Rate 16 07/04/24 11:51 Blood Pressure 124/78 07/04/24 11:51 Pulse Oximetry 97 07/04/24 11:51 Oxygen Delivery Room Air 07/04/24 11:51 Temperature 36.9 C 07/04/24 11:51 Pulse Rate 88 07/04/24 12:45 Respiratory Rate 16 07/04/24 12:45 Blood Pressure 122/78 07/04/24 12:45 Pulse Oximetry 99 07/04/24 12:45 Oxygen Delivery Room Air 07/04/24 11:51 Lab Data 07/04/24 12:15 07/04/24 12:15 Labs: Lab Results 07/04/24 07/04/24 07/04/24 Range/Units 12:15 12:40 13:23 WBC 6.2 (4.5-10.0) K/mm3 RBC 4.98 (4.6-6.20) M/mm3 Hgb 14.1 (14.0-18.0) g/dL Hct 43.0 (42.0-52.0) % MCV 86.3 (80-100) fl MCH 28.3 (26-34) pg MCHC 32.8 (32-36) g/dl RDW 15.0 H (11.5-14.5) % Plt Count 158 (150-375) k/mm3 MPV 9.8 (7.4-10.4) fl Immature Gran % (Auto) 0.3 (0-0.5) % Neut % (Auto) 80.7 H (45.5-73.1) % Lymph % (Auto) 11.8 L (18.3-44.2) % Hill % (Auto) 6.0 (2.6-8.5) % Eos % (Auto) 0.6 (0-4.4) % Baso % (Auto) 0.6 (0.2-1.2) % Lymph # (Auto) 0.73 L (0.9-3.2) K/mm3 Hill # (Auto) 0.4 (0.1-0.6) K/mm3 Eos # (Auto) 0.0 (0-0.3) K/mm3 Baso # (Auto) 0.0 (0.0-0.1) K/mm3 Abs Immat Gran (auto) 0.02 (0.00-0.031) K/mm3 Absolute Neuts (auto) 5.0 (1.3-6.7) K/mm3 Absolute Nucleated RBC 0.000 (0.0-0.012) K/mm3 Nucleated RBC % 0.0 (0.0-0.2) % Sodium 137 (137-145) mmol/L Potassium 4.2 (3.4-5.0) mmol/L Chloride 102 (98-107) mmol/L Carbon Dioxide 19 L (22-30) mmol/L Anion Gap 16 H (4-12) mmol/L BUN 15 (9-20) mg/dL Creatinine 1.00 (0.7-1.3) mg/dL Estim Creat Clear Calc Not Reportable Estimated GFR > 60 (59 - ) Glucose 128 H (65-110) mg/dL POC Capillary Glucose 132 H (65-105) mg/dl Calcium 9.8 (8.4-10.2) mg/dL Total Bilirubin 0.8 (0.2-1.3) mg/dL AST 31 (17-59) U/L ALT 45 (6-50) U/L Alkaline Phosphatase 72 (38-126) U/L Troponin I < 0.012 (0.000-0.034) ng/mL Total Protein 8.0 (6.3-8.2) g/dL Albumin 4.9 (3.5-5.1) g/dL Urine Color Yellow (Yellow) Urine Appearance Clear (Clear) Urine pH 5.0 (5.0-9.0) Ur Specific [place] 1.032 (1.001-1.035) Urine Protein Negative (Negative) mg/dL Urine Glucose (UA) 3+ H (Negative) mg/dL Urine Ketones Negative (Negative) mg/dL Ur Blood (Man) Negative (Negative) Urine Nitrate Negative (Negative) Urine Bilirubin Negative (Negative) Urine Urobilinogen 0.2 (<2.0) mg/dL Leukocyte Esterase Rfl Negative (Negative) JOVANNY/UL Influenza A (RT-PCR) Negative (Negative) Influenza B (RT-PCR) Negative (Negative) RSV (RT-PCR) Negative (Negative) SARS-CoV-2 RNA (RT-PCR) Negative (Negative) Imaging Data Radiologist's impression: Impressions Chest X-Ray 07/04/24 12:29 IMPRESSION: Possible small left-sided pleural effusion (versus cardiac fat pad) without focal infiltrate Head CT 07/04/24 13:29 Impression: No acute intracranial hemorrhage or suspicious mass effect. Head/Neck CTA 07/04/24 13:55 IMPRESSION: Chronic total occlusion of the right internal carotid artery, unchanged from 2022. 0% stenosis of the proximal left internal carotid artery relative to normal distal artery lumen diameter. No acute or subacute large vessel occlusion. ECG Data EKG #1: Attestation: I personally reviewed and interpreted this ECG as follows: ECG completion date: 07/04/24 Critical Care Time Critical Care Time Critical Care Time: No Discharge Plan Discharge Patient Language: Romansh Prescriptions: No Action carvedilol 12.5 mg tablet 12.5 mg PO BID aripiprazole 20 mg tablet 10 mg PO BID finasteride 5 mg tablet 5 mg PO DAILY metformin 1,000 mg tablet 1,000 mg PO BID 90 Days Qty: 180 1RF dapagliflozin propanediol [Farxiga] 5 mg tablet 5 mg PO QAM Qty: 90 2RF insulin glargine [Lantus U-100 Insulin] 100 unit/mL solution 40 unit subcut DAILY 90 Days Qty: 40 2RF insulin lispro [Humalog U-100 Insulin] 100 unit/mL solution See Rx Instructions subcut .COMPLEX MDD 60 90 Days Qty: 60 1RF Rx Instructions: Humalog 14 units before breakfast , 14 units before lunch and 14 units before dinner. add Humalog for high sugar before meals only blood sugar 150-170 - take additional 1 units blood sugar 171-190- take additional 2 units blood sugar 191-210- take additional 3 units blood sugar 211-230- take additional 4 units blood sugar 231-250- take additional 5 units blood sugar 251 - take additional 6 units (DME) BD SafetyGlide Insulin Syringe 1 mL 31 gauge x 15/64 syringe See Rx Instructions .Route Qty: 400 2RF Rx Instructions: use four times a day quetiapine 50 mg tablet 150 mg PO QHS bupropion HCl 200 mg tablet sustained-release 12 hr 200 mg PO BID tamsulosin 0.4 mg capsule 0.4 mg PO DAILY Qty: 90 3RF atorvastatin 20 mg tablet See Rx Instructions .ROUTE .COMPLEX Qty: 90 3RF Dose Instruction: Take 1 tablet by mouth once daily Rx Instructions: Take 1 tablet by mouth once daily pantoprazole 40 mg tablet,delayed release (DR/EC) See Rx Instructions .ROUTE .COMPLEX Qty: 90 3RF Dose Instruction: Take 1 tablet by mouth twice daily Rx Instructions: Take 1 tablet by mouth twice daily lorazepam 0.5 mg tablet 0.5 mg PO .COMPLEX PRN (Reason: anxiety) Qty: 1 0RF Rx Instructions: 0.5 mg orally Take 30 minutes prior to MRI PRN; Must have someone drive to and from MRI (DME) FreeStyle Emmy 2 [place] Misc See Rx Instructions .Route Qty: 1 0RF Rx Instructions: Use to monitor BS clopidogrel 75 mg tablet See Rx Instructions .ROUTE .COMPLEX Qty: 90 0RF Dose Instruction: Take 1 tablet by mouth once daily Rx Instructions: Take 1 tablet by mouth once daily (DME) FreeStyle Emmy 2 Sensor Kit MISCELLANEOUS Qty: 6 2RF Rx Instructions: As directed Follow-up/Referrals: Lisa Goldberg APRN [Primary Care Provider] - Quality Stroke Scale Stroke Scale 1: Stroke scale date:: 07/04/24 1a Level of consciousness: alert-0 1b Level of consciousness questions: answers both correctly-0 1c Level of consciousness commands: obeys both correctly-0 2 Best gaze: normal-0 3 Visual: no visual loss-0 4 Facial palsy: normal-0 5a Motor: left arm: drift-1 5b Motor: right arm: no drift-0 6a Motor: left leg: drift-1 6b Motor: right leg: no drift-0 7 Limb ataxia: present in one limb-1 8 Sensory: normal-0 9 Best language: no aphasia-0 10 Dysarthria: normal-0 11 Extinction and inattention: no abnormality-0 Level:: 3
[2024-07-04 12:35] LABS: Alanine Aminotransferase 45 U/L (6-50); Albumin Level 4.9 g/dL (3.5-5.1); Alkaline Phosphatase 72 U/L (38-126); Anion Gap 16 mmol/L (4-12); Aspartate Amino Transferase 31 U/L (17-59); Bilirubin,Total 0.8 mg/dL (0.2-1.3); Blood Urea Nitrogen 15 mg/dL (9-20); Calcium 9.8 mg/dL (8.4-10.2); Carbon Dioxide 19 mmol/L (22-30); Chloride 102 mmol/L (98-107); Estimated Glomerular Filt Rate > 60; Glucose 128 mg/dL (65-110); Potassium 4.2 mmol/L (3.4-5.0); Sodium 137 mmol/L (137-145)
--- OUTSIDE RECORDS SUMMARY | 2024-07-04 12:45 | XMS_ITS | Clinical Summary ---
Author Organization [facility] Address [address] [place] [address] Care Team Providers Care Electrician Outside Name Role Phone Ovi Leavitt MD Unavailable Sang Gutierrez Md, MD Primary Care Provider Unavailable Source Comments [facility],non-owned Affiliates and Associated Physician Practices is amultiple site organization consisting of ambulatory clinics and hospital sitesin [place], [place], [place] and [place]. This disclosure is being madepursuant to the Care Everywhere program and may not contain all information available regarding this patient. Last updated 18.[facility] Allergies Active Allergy Reactions Criticality Noted Date [...] 69 10/18/2017 6:54 PM CDT Temperature 36.7 C (98.1 F) 10/18/2017 2:11 PM CDT Respiratory Rate 19 10/18/2017 6:54 PM CDT [...] COLON CA SCREENING 1955 LIPID TESTING 1955 MEDICARE AWV 12 MONTHS 1955 HEPATITIS C SCREENING 09/16/1975 DTAP/TDAP/TD VACCINES (1 - Tdap) 1976 PNEUMOCOCCAL VACCINE 50+ (1 of 1 - PCV) 09/21/2007 ZOSTER VACCINE (1 of 2) 09/21/2007 SCREENING FOR DIABETES 10/18/2020 10/18/2017 COVID-19 VACCINE (1 - 2023-2 5 season) 2023 INFLUENZA VACCINE (#1) 2023 DEPRESSION SCREENING 04/14/2024 MEDICARE AWV CALENDAR YEAR 2024 Respiratory Syncytial Virus (RSV) [...] to complete this topic MENINGOCOCCAL (Group B) VACC INE SHARED DECISION-MAKING Aged Out No longer eligibl e based on patient's age to complete this topic MENINGOCOCCAL GROUPS A/C/Y/W VACCINE Aged Out No longer eligible b ased [...] - 115 mg/dL 10/18/2017 3:48 PM CDT [facility] Specimen Type Arterial/C apillary 10/18/2017 3:48 PM CDT [facility] Blood BLOOD SPECIMEN / Unknown 10/18/2017 3:31 PM CDT 10/18/2017 3:48 PM CDT Narrative [facility] - 10/18/2017 3:48 PM CDT 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
--- OUTSIDE RECORDS SUMMARY | 2024-07-04 12:45 | XMS_ITS | CONTINUITY OF CARE DOCUMENT ---
Author Name troy simmons Address Unknown Organization 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 Dyslipidemia active Skyler Allen MD Tobacco use, quit active Skyler Allen MD ENCOUNTERS Date Type Provider Location Encounter Diag nosis 7 - 9 In-person encounter Office Visit Skyler Allen MD [facility] Family History of Hypertension:Diabetes mellitusSinus tachycardiaDyslipidemiaTobacco use, quit 1 - 4 In-person encounter Office Visit Skyler Allen MD [facility] Abnormal EKGHTNDiabetes mellitus VITAL SIGNS Date Observation [...] Payer name Policy type / Coverage type [facility] constitution party ID [facility] (2) Medicaid [id number] ADVANCE DIRECTIVES Name Date DISCUSSED - NO [...] 12. 5 BID. Skyler Allen MD cardiology:His [facility] ed medication list for this problem includes: [...] Abdulaziz Campos EP: O rders: S NOMED-CT: [id number] Current Medications Documented (SCT-[id number]) E KG (CPT-88501) C omplete Echo (CPT-94076) S TR - Adenosine (CPT-55707) His updated medication list for this problem [...] completed EKG Skyler griggs MD completed SNOMED-CT: [id number] Current Medications Documented Skyler Allen MD completed EKG Skyler griggs MD completed SNOMED-CT: [id number] Current Medications Documented Skyler Allen MD completed
--- OUTSIDE RECORDS SUMMARY | 2024-07-04 12:45 | XMS_ITS | Clinical Summary ---
Author Organization [facility] Address [address] [place] [id number] Care Team Providers Care Gas Operator Name Role Phone Unavailable Primary Care [...] Comments Blood Pressure 147/82 06/20/2016 1:14 PM TECHNICAL TRAINER Pulse 72 06/20/2016 1:14 PM TECHNICAL TRAINER Temperature - - Respiratory Rate - - Oxygen Saturation - - Inhaled Oxygen Concentration - - Weight 83.5 kg (184 lb) 06/20/2016 12:53 PM TECHNICAL TRAINER Height 170.2 cm (5' 7 ) 06/20/2016 12:53 PM TECHNICAL TRAINER Body Mass Index 28.82 06/20/2016 12:53 PM TECHNICAL TRAINER Plan of Treatment Health Maintenance Due Date Last Done Comments Colorectal Cancer Screening Colonoscopy (10 Years) 1955 Hepatitis C 09/21/1975 Zoster Vaccines (1 of 2) 09/21/2007 COVID-19 Vaccine (2023-2 5 season) 2023 07/24/2021, 07/31/2020, 07/03/2020 Influenza [...]
--- OUTSIDE RECORDS SUMMARY | 2024-07-04 12:45 | XMS_ITS | Clinical Summary ---
Author Organization [facility] Address [address] [place] [address] Care Team Providers Care Contract Loader Name Role Phone Srikanth Schrader MD Primary Care Provider [phone] Allergies Active Allergy Reactions Criticality Noted Date [...] Type 2 diabetes mellitus with hyperglycemia 02/13 DKA (diabetic ketoacidosis) 01/19/2022 Meralgia paresthetica of both lower extremities 12/08/2020 Dermatophytosis of nail 08/12/2017 Diabetic polyneuropathy asso ciated with type 2 diabetes mellitus 08/12/2017 Subungual hematoma of great toe of right foot Syncope 12/17/2016 TIA involving right internal carotid artery 11/12 Dyslipidemia 08/28/2016 Personal history of nicotine dependence 08/29/19 Sinus tachycardia 08/28/2016 Abnormal EKG 08/12/2016 Diabetes mellitus 08/12/2016 Hypertension 08/12/2016 Hyperlipidemia 06/18/2016 Microalbuminuria 06/18/2016 Type 2 diabetes mellitus wit hout complication, with long-term current use of insulin 06/18/2016 Primary osteoarthritis of right knee 10/10/2014 Knee pain 06/01/2014 Overview (07/19/2016): Knee pain Trauma 06/12/2010 Encounters Date Type Department Care Team Description 04/14/2024 11:24 PM WEB OPERATIONS LEAD - 04/14/2024 11:59 PM WEB OPERATIONS LEAD Hospital Encounter [facility] Emergency, Room R Discharge Disposition: Discharge to home or self care from Last 3 Months Immunizations Immunization Administration Dates Next Due Influenza, Quadrivalent, Spl [...] on file Legal Sex Male 3:33 AM WEB OPERATIONS LEAD Gender Identity Not on file Sexual Orientation Not on file Occupation Industry Job Start Date Job End Date On disability Not on file Not on file Not on file Obstetrics History Last Filed Vital Signs Vital Sign Reading Time Taken Comments Blood Pressure 121/84 01/17/2023 9:43 AM CDT Pulse 99 01/17/2023 9:43 AM CDT Temperature 36.7 C (98 F) 10/18/2017 9:17 AM CDT Respiratory Rate 16 [...] - PCV) 12/19/2017 12/19/2016 eGFR 10/18/2018 10/18/2017, 07/2016, 12/16/2016, Additional history exists Abdominal Aortic [...] (RAMON) Comment: Interpretive Data Reference Interval Normal >/= 90 mL/min/1.73m2 Mildly decreased* 60 - 89 mL/min/1.73m2 Mildly to moderately decreased 45 - 59 mL/min/1.73m2 Moderately to severely decreased 30 - 44 mL/min/1.73m2 Severely decreased 15 - 29 mL/min/1.73m2 Kidney Failure < 15 mL/min/1.73m2 *Relative to young adult level If -[place] multiply value by 1.16. Estimated glomerular filtration [...] 10/18/2017 9:57 AM CDT Narrative [facility] - 10/18/2017 10:18 AM CDT us Raven Anton MD LAB BLOOD ORDERABLE S Final Result Performing Organization Address City/[facility]/ZIP Co de Phone Number [facility] ([place]) [address] [place] [address] * (ABNORMAL) Hemoglobin A1c (12/16/2016 1:23 AM CDT) Hgb A1C 8.0(H) 4.0 - 6.0 % [facility] ([place]) Estimated Average Glucose [address] [facility] ([place]) Blood specimen (specimen) 12/16/2016 1:23 AM CDT 12/16/2016 1:38 AM CDT us Mitzi Jones MD LAB BLOOD ORDERABLES Final Re sult Performing Organization Address [facility] Co de Phone Number [facility]) [address] [facility] [place] [address] from Last 3 Months or Most Recently Relevant to Health Maintenance Insurance [facility] [facility] Care Teams Contract Loader Relationship Specialty Start Date End Date Srikanth Schrader MD PCP - General 12/11/20
--- OUTSIDE RECORDS SUMMARY | 2024-07-04 12:45 | XMS_ITS | Continuity of Care Document ---
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 Wafer Production Worker Name Role Phone Gisella MICHAELA [place] Unavailable Unavailable Allergies, Adverse Reactions, Alerts Substance Reaction Status Criticality No Known Allergies Active No Inform ation Medications Medication Instructions Dosage Effective Dates (start - stop) Status Comments metformin 500 mg tablet take 2 tablet by oral route every day with morning and evening meals 1000 MG - Active atorvastatin 20 mg tablet take 1 tablet by oral route every day 20 MG - Active bupropion HCl 100 mg tablet take 1 tablet by oral route 2 times every day 100 MG - Active albuterol sulfate 2.5 mg/3 mL (0.083 %) solution for nebulization inhale 3 milliliter by nebulization route 3 times every day 2.5 MG - Active aripiprazole 10 mg tablet take 1 tablet by oral route every day 10 MG - Active carvedilol 12.5 mg tablet take 1 tablet by oral route 2 times every day with food 12.5 MG - Active amitriptyline 50 mg tablet take 1 tablet by oral route every day at bedtime 50 MG - Active tamsulosin 0.4 mg capsule take 1 capsule by oral route every day 1/2 hour following the same meal each day 0.4 MG - Active finasteride 1 mg tablet take 1 tablet by oral route every day 1 MG - Active Seroquel 100 mg tablet take 1 tablet by oral route 2 times every day 100 MG - Active Procedures Procedure Date No [...] Refraction No Charge GDX Retina Office/outpatient Visit, [facility] IOLMaster IOLMaster Advance Directives Directive Yes / [...] Diagnoses Date Provider Providers Copied on Encounter [facility], [address] [facility] [address] [facility], [place], [place], [id number], [place] tel:[phone] SEC Juan AL Professional Complete Exam (chief complaint) Presence of intraocular lensOther secondary cataract, bilateralAmbl yopia of right eyeType 2 diab with mild nonp rtnop without mclr edema, l eye 4 Gisella OD [place]. [address] [facility], [address], [place], [place], [address], [place]. tel:[phone] Reba Clarke MD.Other Provider: Lisa Goldberg [facility]-, [address] [place], [address]. tel:[phone] ring Provider: Giuseppe Ruiz, [address] [facility] [address], [place], [address]. tel:[phone] [facility], [address] [place] [address] [address], [place], [place], [address], [place] tel:[phone] SEC Juan GIANG Professional No Information 3 Gisella OD [place]. [facility] [address] [employer] [address], [place], [place], [address], [place]. tel:[phone] Referring Provider: Giuseppe Ruiz, [address] [facility] [address], [place], [address]. tel:[phone] [facility], [address] [place] [address] [address], [place], [place], [address], [place] tel:[phone] SEC Juan GIANG Professional 1 mo CE PO (05/08/22) (chief complaint) Post op visit 3 Dipesh Chin. [address], [address], [place]. tel:[phone] Reba Clarke MD.Referrin g Provider: Giuseppe Ruiz, [address] [facility], [place], [address]. tel:[phone] [facility], [address] [place] [address] [address], [place], [place], [address], [place] tel:[phone] SEC Juan GIANG Professional 1 week s/p PCIOL (chief complaint) Postop check 3 Gisella OD [place]. [facility] [place] [address] [place] [employer] [address], [place], [place], [address], [place]. tel:[phone] Reba Clarke MD.Referrin g Provider: Giuseppe Ruiz, [address] [place], [address]. tel:[phone] [facility], [address] [place] [address] [address], [place], [place], [address], [place] tel:[phone] SEC Juan GIANG Professional post op (chief complaint) Post op visitPresence of intraocular lens 3 Gisella OD [place]. [address] [place] [address] [employer] [address], [place], [place], [address], [place]. tel:[phone] Reba Clarke MD.Referrin g Provider: Giuseppe Ruiz, [address] [employer] [address], [place], [address]. tel:[phone] [facility], [address] [place] [address] [address], [place], [place], [address], [place] tel:[phone] [place] [facility] [place] No Information 3 Dipesh Chin. [address] [employer], [address], [place], [place], [address], [place]. tel:[phone] Referring Provider: Giuseppe Ruiz, [address], [place], [address]. tel:[phone] [facility], [address], [place], [place], [address], [place] tel:[phone] SEC Juan GIANG Professional 2 week s/p PCIOL (chief complaint) Post op visit 3 Gisella OD [place]. [address] [employer] [address], [place], [place], [address], [place]. tel:[phone] Reba Clarke MD.Referrin g Provider: Giuseppe Ruiz, [address], [place], [address]. tel:[phone] [facility], [address], [place], [place], [address], [place] tel:[phone] SEC Juan GIANG Professional 1 day s/p PCIOL (chief complaint) Post op visit 2 Gisella OD [place]. [address] [employer], [address], [place], [place], [address], [place]. tel:[phone] Reba Clarke MD.Referrin g Provider: Giuseppe Ruiz, [address] [facility] [address], [place], [address]. tel:[phone] [facility], [address], [place], [place], [address], [place] [phone] [facility] No Information 2 Dipesh Chin. [address] [facility], [address], [place], [place], [address], [place]. tel:[phone] Referring Provider: Giuseppe Ruiz, [address] [facility] [address], [place], [address]. tel:[phone] Office/outpa tient Visit, [facility], [address], [place], [place], [address], [place] [phone] [facility] Professional Cataract evaluation (chief complaint) Type 2 diabetes mellitus without complications Age-related nuclear cataract, bilateralDry eye syndrome of bilateral lacrimal glands 2 Dipesh Chin. [address] [facility], [address], [place], [place], [address], [place]. tel:[phone] Specialist: Reba Clarke MD, [address] [facility] [address], [place], [address]. tel:[phone] alist: Torin Hartman OD, [address], [place], [address]. tel:[phone] ring Provider: Giuseppe Ruiz, [address] [facility] [address], [place], [address]. tel:[phone] Family History Family Member Type Diagnosis Age At Onset No Information Payers Payer name Insurance type Covered libertarian ID Authoriza tion(s) [employer] [id number] Social History Type Description Quantity Date Captured [...] and PA @ endo office at the [facility] center in [place], [place]. Pt's last HA1C was 8.7 Pt. [...]
--- OUTSIDE RECORDS SUMMARY | 2024-07-04 12:45 | XMS_ITS | Encounter Summary ---
Author Organization [facility] Address [address] [place] [address] Phone Care Team Providers Care Razor Sharpener Name Role Phone Joel Denson MD Unavailable Lisa Goldberg APRN Primary Care Provider [phone] Sea Hdez MD Unavailable [phone] Deysi Carballo MD Unavailable Nicolás Wright MD Unavailable [phone] Reason for Visit * Reason Onset Date Comments Referral 08/21/2023 External Urology Referral Encounter Details Date Type Department Care Team (Late st Contact Info) Description 08/21/2023 Telephone [facility] [address] [place] [address] Lisa Goldberg APRN [address] [place] [address] Referral (External Urology Referral) Social History [...] 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 Not on file Not [...] - 19 04/13/2024 04/13/2024 04/13/2024 3:36 PM FLOUR INSPECTOR Assessment Noted Time PHQ-9 Depression Total Score: 0 04/23/19 17 9:00 AM FLOUR INSPECTOR documented as of this encounter Care Teams Razor Sharpener Relationship Specialty Start Date End Date Lisa Goldberg APRN [address] [place] [address] PCP - General Advanced Practice Nurse 12/12/22 Joel Denson MD [address] [place] [address] Psychiatry 12/17/16 Sea Hdez MD #[address] [address] Consulting Physician Urology 07/08/23 Deysi Carballo MD #[address] [id number] Consulting Physician Endocrinology 07/25/23 Nicolás Wright MD [address] [place] [id number] Consulting Physician Neurology 08/11/23 documented as of this encounter
--- OUTSIDE RECORDS SUMMARY | 2024-07-04 12:45 | XMS_ITS | Encounter Summary ---
Author Organization [facility] Address [address] [place] [address] Phone Care Team Providers Care Hourly Sign Language Interpreter Name Role Phone Joel Denson MD Unavailable Lisa Goldberg APRN Primary Care Provider [phone] Sea Hdez MD Unavailable [phone] Deysi Carballo MD Unavailable Nicolás Wright MD Unavailable [phone] Reason for Referral * Consult, Test & Initiate Treatment (Routine) - Closed Specialty Diagnoses / Procedures Referred By Sarah nunn Referred To Contact Diagnoses Urinary retention Sea Hdez MD #2 [facility] [address] [place] [address] Phone: tel: fax: [facility] [address] [facility] [address] [facility] [place] [address] Phone: tel: fax: Referral ID Status Reason Start Date Expiration Date Visits Re quested Visits Authorized [id number] Closed 07/15/2023 1 1 Scheduling Instructions Edwardo is being referred to [facility]/ [facility] or other specialist in patient's insurance [...] 200 mg by mouth 2 times daily. 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 Please make office visit after urodynamics [...] - 19 04/13/2024 04/13/2024 04/13/2024 3:36 PM TRANSFER PUMPER Assessment Noted Time PHQ-9 Depression Total Score: 0 04/23/19 17 9:00 AM TRANSFER PUMPER documented as of this encounter Care Teams Hourly Sign Language Interpreter Relationship Specialty Start Date End Date Lisa Goldberg APRN [address] [place] [address] PCP - General Advanced Practice Nurse 12/12/22 Joel Denson MD [address] [place] [address] Psychiatry 12/17/16 Sea Hdez MD #2 [facility] [address] [place], [place] [address] Consulting Physician Urology 07/08/23 Deysi Carballo MD #[address] [address] Consulting Physician Endocrinology 07/25/23 Nicolás Wright MD [address] [place] [address] Consulting Physician Neurology 08/11/23 documented as of this encounter
--- OUTSIDE RECORDS SUMMARY | 2024-07-04 12:45 | XMS_ITS | Clinical Summary ---
Author Organization [facility] Address [address] [place] [address] Phone Care Team Providers Care Glove Maker Name Role Phone Joel Denson MD Unavailable Lisa Goldberg APRN Primary Care Provider [phone] Sea Hdez MD Unavailable [phone] Deysi Carballo MD Unavailable Nicolás Wright MD Unavailable [phone] Allergies No known active allergies Medications atorvastatin (LIPITOR) 20 MG Tablet Take 20 mg by mouth daily. Active BuPROPion HCl 200 MG TABLET SR 12 HR Take 200 mg by mouth 2 times daily. [id number] Active Aripiprazole (Abilify) 20 MG Tablet Take 10 mg by mouth 2 times daily. Active finasteride (Proscar) 5 MG Tablet Take 5 mg by mouth daily. Active carvedilol (COREG) 12.5 MG Tablet Take 12.5 mg by mouth 2 times daily. Active tamsulosin (FLOMAX) 0.4 MG Capsule Take 1 Capsule by mouth daily. 2 Active amitriptyline (ELAVIL) 75 MG Tablet Take 75 mg by mouth nightly. 2 Active ondansetron (ZOFRAN-ODT) 4 MG TABLET DISPERSIBLE Take 1 Tablet by mouth every 6 hours as needed for Nausea - 1st line. 10 Tablet 2 Active senna (SENOKOT) 8.6 MG Tablet Take 1 Tablet by mouth 2 times daily as needed for Constipation - 2nd line. 30 Tablet 2 Active clopidogrel (PLAVIX) 75 MG Tablet Take 1 Tablet by mouth daily. 90 Tablet 2 Active pantoprazole (PROTONIX) 40 MG Tablet Delayed Response Take 1 Tablet by mouth daily. 30 Tablet 2 Active Insulin Glargine Solostar (Toujeo SoloStar) 300 UNIT/ML Solution Pen-injector 60 Units by Subcutaneous route nightly. 30 mL 1 4 Active metFORMIN (GLUCOPHAGE) 1000 MG Tablet Take 1 Tablet by mouth 2 times daily (with meals). 180 Tablet 1 4 Active insulin aspart (NovoLOG FlexPen) 100 UNIT/ML Solution Pen-injector 15 units at breakfast, 20 units at lunch, and 15 units at dinner; correctional factor insulin of 1:15 if .140 mg/dL, up to 100 units per day 90 mL 1 4 Active QUEtiapine Fumarate (SEROquel) 50 MG Tablet Take 1 Tablet by mouth 3 times daily. 90 Tablet 5 Active Active Problems Problem Noted Date Diagnosed [...] Department Care Team Description 04/14/2024 11:43 PM MATERIAL REQUISITIONER - 04/15/2024 1:26 AM MATERIAL REQUISITIONER Emergency [facility] Emergency [address] [facility] [place] [address] Cayetano Romero MD Insomnia Discharge Disposition: Discharged to home or Selfcare 04/13/2024 3:15 PM MATERIAL REQUISITIONER - 04/13/2024 6:07 PM MATERIAL REQUISITIONER Emergency [facility] Emergency [address] [facility] [place] [address] Judah Barragan MD Medication withdrawal (HCC) Discharge Disposition: Discharged to home or Selfcare 04/13/2024 Travel from Last 3 Months Immunizations Immunization Administration Dates Next Due Influenza Vaccine, Quadrivalent, PF 02/14/2022 Influenza, High-dose, Quadrivalent 12/28/2022 Influenza, Injectable, Quadrivalent 01/05/2018,0 12/04/2016,05/14/2016 Influenza, Seasonal, Injectable, Undefined 06/01 Pneumococcal Vaccine Adult - 23 Valent 7 Pneumococcal conjugate PCV20 , polysaccharide [id number] conjugate, adjuvant, PF 08/07/2021,07/24/2021 RSV, Recombinant, Protein [...] Industry Job Start Date Job End Date [employer] Not on file Not on file Not on file Last Filed Vital Signs Vital Sign Reading Time Taken Comments Blood Pressure 97/63 04/15/2024 1:16 AM MATERIAL REQUISITIONER Pulse 56 04/15/2024 1:16 AM MATERIAL REQUISITIONER Temperature 36.3 C (97.4 F) 04/13/2024 2:17 PM MATERIAL REQUISITIONER Respiratory Rate 18 04/15/2024 1:16 AM MATERIAL REQUISITIONER Oxygen Saturation 97% 04/15/2024 1:16 AM MATERIAL REQUISITIONER Inhaled Oxygen Concentration - - Weight 76.2 kg (168 lb) 04/14/2024 11:48 PM MATERIAL REQUISITIONER Height 172.7 cm (5' 8 ) 04/14/2024 11:48 PM MATERIAL REQUISITIONER Body Mass Index 25.54 04/14/2024 11:48 PM MATERIAL REQUISITIONER Plan of Treatment Health Maintenance Due Date [...] WITH AUTO DIFFERENTIAL STAT 04/13/2024 3:52 PM MATERIAL REQUISITIONER SALICYLATE LEVEL STAT 04/13/2024 3:52 PM MATERIAL REQUISITIONER ACETAMINOPHEN (TYLENOL) STAT 04/13/2024 3:52 PM MATERIAL REQUISITIONER THYROID STIMULATING HORMONE (TSH) STAT 04/13/2024 3:52 PM MATERIAL REQUISITIONER MAGNESIUM (MG) STAT 04/13/2024 3:52 PM MATERIAL REQUISITIONER ETHYL ALCOHOL (ETHANOL) STAT 04/13/2024 3:52 PM MATERIAL REQUISITIONER CMP (COMPREHENSIVE METABOLIC PANEL) STAT 04/13/2024 3:52 PM MATERIAL REQUISITIONER COMPLETE BLOOD COUNT (CBC) WITH DIFF STAT 04/13/2024 3:52 PM MATERIAL REQUISITIONER URINALYSIS REFLEX IF INDICATED BY ABNORMAL RESULTS STAT 04/13/2024 3:10 PM MATERIAL REQUISITIONER URINE DRUG SCREEN STAT 04/13/2024 3:1 0 PM MATERIAL REQUISITIONER RSV,SARS-COV-2,INFLUEN ZA A&B BY PCR STAT 04/13/2024 2:45 PM MATERIAL REQUISITIONER POCT GLYCOSYLATED HEMOGLOBIN Routine 08/04/2023 2:24 PM CDT Type 2 diabetes mellitus without complication, with long-term current use of insulin (HCC) from Last 3 Months or Most Recently Relevant to Health Maintenance Results * CBC with Auto Differential (04/13/2024 3:52 PM MATERIAL REQUISITIONER) WBC 7.59 4.00 - 12.00 10(3)/mcL 04/13/2024 4:15 PM [facility] RBC 4.71 4.40 - 5.80 10(6)/mcL 04/13/2024 4:15 PM [facility] HEMOGLOBIN (HGB) 13.6 13.0 - 16.5 g/dL 04/13/2024 4:15 PM [facility] HEMATOCRIT (HCT) 39.4 38.0 - 50.0 % 04/13/2024 4:15 PM [facility] MCV 83.7 82.0 - 96.0 fL 04/13/2024 4:15 PM [facility] MCH 28.9 26.0 - 32.0 pg 04/13/2024 4:15 PM [facility] MCHC 34.5 31.0 - 36.0 g/dL 04/13/2024 4:15 PM [facility] PLATELET COUNT 178 140 - 440 10(3)/mcL 04/13/2024 4:15 PM [facility] RDW 14.4 11.8 - 15.5 % 04/13/2024 4:15 PM [facility] MPV 10.0 8.0 - 12.6 fL 04/13/2024 4:15 PM [facility] NEUTROPHILS 59.4 40.0 - 68.0 % 04/13/2024 4:15 PM [facility] LYMPHOCYTES 29.5 19.0 - 49.0 % 04/13/2024 4:15 PM [facility] MONOCYTES 7.8 3.0 - 13.0 % 04/13/2024 4:15 PM [facility] EOSINOPHILS 2.9 0.0 - 8.0 % 04/13/2024 4:15 PM [facility] BASOPHILS 0.4 0.0 - 1.0 % 04/13/2024 4:15 PM [facility] ABSOLUTE NEUTROPHILS 4.51 1.40 - 5.30 10(3)/mcL 04/13/2024 4:15 PM [facility] ABSOLUTE LYMPHOCYTES 2.24 0.90 - 3.30 10(3)/mcL 04/13/2024 4:15 PM MATERIAL REQUISITIONER [facility] ABSOLUTE MONOCYTES 0.59 0.10 - 0.90 10(3)/[facility] 04/13/2024 4:15 PM MATERIAL REQUISITIONER [facility] ABSOLUTE EOSINOPHIL 0.22 0.00 - 0.50 10(3)/[facility] 04/13/2024 4:15 PM MATERIAL REQUISITIONER [facility] ABSOLUTE BASOPHILS 0.03 0.00 - 0.10 10(3)/[facility] 04/13/2024 4:15 PM MATERIAL REQUISITIONER [facility] NRBC PER 100 WBC 0 04/13/20 4:15 PM MATERIAL REQUISITIONER [facility] Blood Venipuncture / Unknown 04/13/2024 3:52 PM MATERIAL REQUISITIONER 04/13/2024 3:58 PM MATERIAL REQUISITIONER us Judah Barragan MD HEMATOLOGY ORDERABLES Final Result [facility] [address] [place] [address] * (ABNORMAL) Acetaminophen Level (04/13/2024 3:52 PM MATERIAL REQUISITIONER) [facility] ACETAMINOPHEN <3(L) 10 - 30 mcg/mL 04/13/2024 4:22 PM MATERIAL REQUISITIONER [facility] Blood Venipuncture / Unknown 04/13/2024 3:52 PM MATERIAL REQUISITIONER 04/13/2024 3:58 PM MATERIAL REQUISITIONER us Judah Barragan MD CHEMISTRY ORDERABLES F inal Result [facility] [address] [place] [address] * Thyroid Stimulating Hormone (TSH) (04/13/2024 3:52 PM MATERIAL REQUISITIONER) Pathologist [facility] TSH 3.953 0.300 - 5.000 mIU/L 04/13/2024 4:39 PM MATERIAL REQUISITIONER [facility] Blood Venipuncture / Unknown 04/13/2024 3:52 PM MATERIAL REQUISITIONER 04/13/2024 3:58 PM MATERIAL REQUISITIONER us Judah Barragan MD CHEMISTRY ORDERABLES F inal Result [facility] [address] [place] [address] * (ABNORMAL) Salicylate Level (04/13/2024 3:52 PM MATERIAL REQUISITIONER) SALICYLATE <5.0(L) 15.0 - 30.0 mg/dL 04/13/2024 4:21 PM MATERIAL REQUISITIONER [facility] Blood Venipuncture / Unknown 04/13/2024 3:52 PM MATERIAL REQUISITIONER 04/13/2024 3:58 PM MATERIAL REQUISITIONER us Judah Barragan MD CHEMISTRY ORDERABLES F inal Result Performing Organization Address City/[facility]/ZIP Co de Phone Number [facility] [address] [place] [address] * Magnesium (MG) (04/13/2024 3:52 PM MATERIAL REQUISITIONER) MAGNESIUM 1.8 1.6 - 2.6 mg/dL 04/13/2024 4:21 PM MATERIAL REQUISITIONER [facility] Blood Venipuncture / Unknown 04/13/2024 3:52 PM MATERIAL REQUISITIONER 04/13/2024 3:58 PM MATERIAL REQUISITIONER Judah Barragan MD CHEMISTRY ORDERABLES F inal Result [facility] [address] [place] [address] * ETOH Level (04/13/2024 3:52 PM MATERIAL REQUISITIONER) Pathologist [facility] ETHANOL <10 <10 mg/dL 04/13/2024 4:2 1 PM MATERIAL REQUISITIONER [facility] Blood Venipuncture / Unknown 04/13/2024 3:52 PM MATERIAL REQUISITIONER 04/13/2024 3:58 PM MATERIAL REQUISITIONER us Judah Barragan MD CHEMISTRY ORDERABLES F inal Result [facility] [address] [place] [address] * (ABNORMAL) CMP (Comprehensive Metabolic Panel) (04/13/2024 3:52 PM MATERIAL REQUISITIONER) Pathologist [facility] SODIUM 133(L) 136 - 145 mmol/L 04/13/2024 4:21 PM [facility] POTASSIUM 3.9 3.5 - 5.1 mmol/L 04/13/2024 4:21 PM [facility] CHLORIDE 100 98 - 107 mmol/L 04/13/2024 4:21 PM [facility] CO2, VENOUS 22 22 - 30 mmol/L 04/13/2024 4:21 PM [facility] ANION GAP 14.9 <18.0 mmol/L 04/13/2024 4:21 PM [facility] GLUCOSE 178(H) 70 - 99 mg/dL 04/13/2024 4:21 PM [facility] BUN 11 8 - 26 mg/dL 04/13/2024 4:21 PM [facility] CREATININE, BLOOD 0.91 0.70 - 1.30 mg/dL 04/13/2024 4:21 PM [facility] BUN/CREATININE RATIO 12 12 - 20 ratio 04/13/2024 4:21 PM [facility] TOTAL PROTEIN 7.3 6.3 - 8.2 g/dL 04/13/2024 4:21 PM [facility] ALBUMIN 4.5 3.5 - 5.0 g/dL 04/13/2024 4:21 PM MATERIAL REQUISITIONER [facility] A/G RATIO 1.6 1.0 - 2.2 04/13/2024 4:21 PM MATERIAL REQUISITIONER [facility] CALCIUM 9.7 8.7 - 10.5 mg/dL 04/13/2024 4:21 PM MATERIAL REQUISITIONER [facility] T BILI 0.4 0.2 - 1.2 mg/dL 04/13/2024 4:21 PM MATERIAL REQUISITIONER [facility] SGOT (AST) 23 5 - 34 U/L 04/13/2024 4:21 PM MATERIAL REQUISITIONER [facility] SGPT (ALT) 34 0 - 55 U/L 04/13/2024 4:21 PM MATERIAL REQUISITIONER [facility] ALKALINE PHOSPHATASE 64 40 - 150 U/L 04/13/2024 4:21 PM MATERIAL REQUISITIONER [facility] GFR, ESTIMATED >60 >=60 04/13/2024 4:21 PM MATERIAL REQUISITIONER [facility] Comment: Creatinine Clearance is the preferred criteria for selecting drug dose adjustments in renally impaired patients. The GFR is provided as additional pertinent clinical information. GFR is reported in mL/min/1.73 sq m. Calculation based on the Chronic Kidney Disease Epidemiology Collaboration (CKD- EPI) equation refit without adjustment for race. GFR, EST. >60 >=60 024 4:21 PM MATERIAL REQUISITIONER [facility] GFR, EST. NONAFRICAN >60 >=60 04/13/2024 4:21 PM MATERIAL REQUISITIONER [facility] Blood Venipuncture / Unknown 04/13/2024 3:52 PM MATERIAL REQUISITIONER 04/13/2024 3:58 PM MATERIAL REQUISITIONER us Judah Barragan MD CHEMISTRY ORDERABLES F inal Result [facility] [address] [place] [address] * (ABNORMAL) Urinalysis with Reflex if Indicated (04/13/2024 3:10 PM MATERIAL REQUISITIONER) Pathologist [facility] SPECIFIC GRAVITY 1.015 1.003 - 1.030 04/13/2024 4:23 PM MATERIAL REQUISITIONER [facility] URINE PH 6.0 5.0 - 9.0 04/13/2024 4:23 PM MATERIAL REQUISITIONER [facility] WBC ESTERASE Negative Negative 04/13/2024 4:23 PM MATERIAL REQUISITIONER [facility] NITRITE Negative Negative 04/13/2024 4:23 PM MATERIAL REQUISITIONER [facility] PROTEIN, RANDOM URINE 15 mg/dL(A) Negative 04/13/2024 4:23 PM MATERIAL REQUISITIONER [facility] URINE GLUCOSE, QUAL 250 mg/dL(A) Negative 04/13/2024 4:23 PM MATERIAL REQUISITIONER [facility] URINE KETONES Negative Negative 04/13/2024 4:23 PM MATERIAL REQUISITIONER [facility] UROBILINOGEN Normal Normal mg/dL 04/13/2024 4:23 PM MATERIAL REQUISITIONER [facility] URINE BLOOD Negative Negative jayy/ul 04/13/2024 4:23 PM MATERIAL REQUISITIONER [facility] URINALYSIS COLOR Yellow 04/13/20 4:23 PM MATERIAL REQUISITIONER [facility] URINALYSIS CLARITY Clear 04/13/2024 4:23 PM MATERIAL REQUISITIONER [facility] Urine URINE SPECIMEN / Unknown Non-Phlebotomy Collection / Unknown 04/13/2024 3:10 PM MATERIAL REQUISITIONER 04/13/2024 3:38 PM MATERIAL REQUISITIONER us Judah Barragan MD URINE ORDERABLES Final Result [facility] [address] [place] [address] * Urine Drug Screen (04/13/2024 3:10 PM MATERIAL REQUISITIONER) [facility] UR AMPHETAMINE NON DETECTED NON DETECTED 04/13/2024 4:04 PM MATERIAL REQUISITIONER [facility] Comment: FOR MEDICAL USE ONLY. CUTOFF CONCENTRATION FOR DETECTED RESULT: AMPHETAMINE: 500 NG/ML UR BENZODIAZEPINES NON DETECTED NON DETECTED 04/13/2024 4:04 PM MATERIAL REQUISITIONER [facility] Comment: FOR MEDICAL USE ONLY. CUTOFF CONCENTRATION FOR DETECTED RESULT: BENZODIAZAPINE: 200 NG/ML UR COCAINE METABOLITE NON DETECTED NON DETECTED 04/13/2024 4:04 PM MATERIAL REQUISITIONER [facility] Comment: FOR MEDICAL USE ONLY. CUTOFF CONCENTRATION FOR DETECTED RESULT: COCAINE: 150 NG/ML UR OPIATES NON DETECTED NON DETECTED 04/13/2024 4:04 PM MATERIAL REQUISITIONER [facility] Comment: FOR MEDICAL USE ONLY. CUTOFF CONCENTRATION FOR DETECTED RESULT: OPIATES: 300 NG/ML UR PHENCYCLIDINE NON DETECTED NON DETECTED 04/13/2024 4:04 PM MATERIAL REQUISITIONER [facility] Comment: FOR MEDICAL USE ONLY. CUTOFF CONCENTRATION FOR DETECTED RESULT: PCP: 25 NG/ML UR CANNABINOID NON DETECTED NON DETECTED 04/13/2024 4:04 PM MATERIAL REQUISITIONER [facility] Comment: FOR MEDICAL USE ONLY. CUTOFF CONCENTRATION FOR DETECTED RESULT: THC (MARIJUANA): 50 NG/ML UR BARBITURATE NON DETECTED NON DETECTED 04/13/2024 4:04 PM MATERIAL REQUISITIONER [facility] Comment: FOR MEDICAL USE ONLY. CUTOFF CONCENTRATION FOR DETECTED RESULT: BARBITUATES: 200 NG/ML UR FENTANYL NON DETECTED NON DETECTED 04/13/2024 4:04 PM MATERIAL REQUISITIONER [facility] Comment: FOR MEDICAL USE ONLY. CUTOFF CONCENTRATION FOR DETECTED RESULT: FENTANYL: 1.0 NG/ML Urine Non-Phlebotomy Collection / Unknown 04/13/2024 3:10 PM MATERIAL REQUISITIONER 04/13/2024 3:38 PM MATERIAL REQUISITIONER us Judah Barragan MD URINE ORDERABLES Final Result [facility] [address] [place] [address] * rsv,flu,covid (04/13/2024 2:45 PM MATERIAL REQUISITIONER) FLU A Negative Negative, Error 04/13/2024 3:36 PM MATERIAL REQUISITIONER [facility] FLU B Negative Negative 04/13/2024 3:36 PM MATERIAL REQUISITIONER [facility] RESP SYNC VIRUS Negative Negative 3:36 PM MATERIAL REQUISITIONER [facility] SARSCOV2 NOT DETECTED (Reference Range for this test is Not Detected) 04/13/2024 3:36 PM MATERIAL REQUISITIONER [facility] Comment:This test was perfor med by a Reverse Quotation Checker PCR Method. Swab NASOPHARYNGEAL SWAB / Unknown Non-Phlebotomy Collection / Unknown 04/13/2024 2:45 PM MATERIAL REQUISITIONER 04/13/2024 2:55 PM MATERIAL REQUISITIONER Narrative [facility] - 04/13/2024 3:36 PM MATERIAL REQUISITIONER This test has not been FDA cleared or approved; the test has been authorized by FDA under an Emergency Use Authorization (EUA) for use by laboratories certified under the CLIA that meet the requirements to perform moderate, high or waived complexity tests. Authorized Fact Sheets about this test for providers and patients are available at: https://www.fda.gov/medical-devices/zmgxylzzf-yhmmixrsho-zeckwme-devices/emergen -us e-authorizations us Judah Barragan MD MICROBIOLOGY - GENERAL ORDERABLES Final Result [facility] [address] [place] [address] * (ABNORMAL) POCT GLYCOSYLATED HEMOGLOBIN (08/04/2023 2:24 [...] measures to stabilize the patient. Care Teams Glove Maker Relationship Specialty Start Date End Date Lisa Goldberg APRN [address] [place] [address] PCP - General Advanced Practice Nurse 12/12/22 Joel Denson MD [address] [place] [address] Psychiatry 12/17/16 Sea Hdez MD [address] [address] Consulting Physician Urology 07/08/23 Deysi Carballo MD [address] [address] Consulting Physician Endocrinology 07/25/23 Nicolás Wright MD [address] [place] [address] Consulting Physician Neurology 08/11/23
--- OUTSIDE RECORDS SUMMARY | 2024-07-04 12:45 | XMS_ITS | Referral Summary ---
Author Organization [facility] Address [address] [place] [address] Care Team Providers Care Tentmaker Name Role Phone Srikanth Schrader MD Primary Care Provider [phone] Encounters Date Type Department Care Team Description 04/14/2024 11:24 PM RN ONCOLOGY CLINICAL - 04/14/2024 11:59 PM RN ONCOLOGY CLINICAL Hospital Encounter [facility] Emergency, Room [...] Overview (07/19/2016): Knee pain Trauma 06/12/2010 Immunizations Immunization Administration Dates Next Due Influenza, [...] on file Legal Sex Male 3:33 AM RN ONCOLOGY CLINICAL Gender Identity Not on file Sexual Orientation [...] mL/min/1.73m2 *Relative to young adult level If -Australian multiply value by 1.16. Estimated glomerular filtration [...] AM CDT 10/18/2017 9:57 AM CDT Narrative [facility] ([place]) - 10/18/2017 10:18 AM CDT Raven Anton MD LAB BLOOD ORDERABLE S Final Result Performing Organization Address City/[facility]/ZIP Co de Phone Number [facility] ([place]) [address] [facility] [place] [address] * (ABNORMAL) Hemoglobin A1c (12/16/2016 1:23 AM CDT) Hgb A1C 8.0(H) 4.0 - 6.0 % [facility] ([place]) Estimated Average Glucose [address] [facility] ([place]) Blood specimen (specimen) 12/16/2016 1:23 AM CDT 12/16/2016 1:38 AM CDT us Mitzi Jones MD LAB BLOOD ORDERABLES Final Re sult [facility] ([place]) [address] [facility] [place] [address] from Last 3 Months or Most Recently Relevant to Health Maintenance Insurance [facility] Care Teams Tentmaker Relationship Specialty Start Date End Date Srikanth Schrader MD PCP - General 12/11/20
[2024-07-04 12:46] LABS: Troponin I < 0.012 ng/mL (0.000-0.034)
--- NOTE | 2024-07-04 12:49 | PC.NURSE ---
Pt. to CT
[2024-07-04 13:07] LABS: Add Urine Microscopic? NO; Appearance Urine Clear (Clear); Bilirubin Urine Negative (Negative); Blood Urine Negative (Negative); Color Urine Yellow (Yellow); Glucose Urine UA 3+ mg/dL (Negative); Ketones Urine Negative (Negative); Leukocyte Esterase Ur Negative LEU/UL (Negative); Nitrate Urine Negative (Negative); Protein Urine Negative (Negative); Specific Grav Ur 1.032 (1.001-1.035); Urobilinogen Urine 0.2 mg/dL (<2.0)
--- NOTE | 2024-07-04 13:20 | PC.NURSE ---
alerted this RN that the pt. is frequently hypoglycemic. POC B.S. obtained by this RN. Pt. not hypoglycemic at this time.
[2024-07-04 13:23] LABS: Influenza A QL RT-PCR Negative (Negative); Influenza B QL RT-PCR Negative (Negative); RSV RNA, RT-PCR Negative (Negative); SARS-CoV-2 RNA PCR Negative (Negative)
[2024-07-04 13:25] LABS: Glucose Point of Care 132 mg/dl (65-105)
--- NOTE | 2024-07-04 15:34 | P.HP_ITS ---
H&P: HPI History of Present Illness Date/Time: 07/04/24 15:34 Chief Complaint: Trouble walking Narrative: 68-year-old male with history of diabetes, hypertension, TIA and hyperlipidemia presents the hospital with stroke-like symptoms. Patient gives very little detail about today only states that he had trouble walking. The patient was told that he was having MRI of the brain tomorrow he is surprised he states that he thought he was having an MRI of his penis. Patient A&O x4 besides that, He states that he has severe claustrophobia. In the ED his lab work is essentially normal, UA noninfective, influenza a B, RSV and COVID negative. 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 0% stenosis of the proximal left internal carotid artery relative to normal distal artery lumen diameter. Patient is being admitted for stroke-like symptoms he was started on Lipitor and aspirin in the emergency room. Neurology was consulted with recommendations for MRI. Review of Systems Review of Systems: 12 systems were reviewed and are negativ e except for as per HPI. 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 Colon polyp Type 2 diabetes mellitus Gastroesophageal reflux disease Arthritis Lumbar spondylosis Pulmonary embolism (02/2022) Ataxia Rib fracture Benign prostatic hyperplasia Peripheral neuropathy Hypertension Hyperlipidemia Chronic insomnia Former cigarette smoker Bipolar depression Anxiety Surgical History Surgical History History of right knee joint replacement (05/10/21) History of bilateral cataract extraction (04/2022) History of colonoscopy with polypectomy History of arthroscopy of left knee History of right knee surgery x4 Family History Family History Father Age older than 80 years Hypertension Mother Age older than 80 years Patient's mother is in good health Sibling Fibromyalgia Diabetes mellitus Mother Dementia Social History Social History Social History: Code status: Full code Surrogate decision maker: Mona Ricci, spouse Smoking packs per day: 0.5 Smoking cigarettes per day: 10.0 Years smoked: 12 Smoking pack-years: 6.00 Smoking status: Current every day smoker Tobacco type: cigarettes Second hand tobacco smoke exposure: No Alcohol intake: never Substance use: never Substance use type: does not use Do You Feel Safe in your Home?: Yes Lack of Transportation: No Lack of Food: Never True Current Housing: I Have Housing Concerned About Future Housing: No Difficulty Paying Gas/Electric Bills: No Difficulty Paying for Meds: No Currently Unemployed: No Education: Don't Know Difficulty w/ Childcare or Family Care: No Living arrangements: with family Additional living arrangements comments: Lives with in [place]. Has 4 children and 21 grandchildren. 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 Spiritual care concerns: No Meds Home Medications and Allergies Home Medications ?Medication ?Instructions ?Recorded ?Confirmed ?Type bupropion HCl 200 mg tablet,12 hr 200 mg PO BID 05/08/21 07/04/24 History sustained-release quetiapine 50 mg tablet 150 mg PO QHS 05/18/22 07/04/24 History finasteride 5 mg tablet 5 mg PO DAILY 03/10/23 07/04/24 History tamsulosin 0.4 mg capsule 0.4 mg PO DAILY #90 caps 10/29/23 07/04/24 Rx aripiprazole 20 mg tablet 10 mg PO BID 02/13/24 07/04/24 History carvedilol 12.5 mg tablet 12.5 mg PO BID 02/13/24 07/04/24 History atorvastatin 20 mg tablet See Rx Instructions .Route 03/01/24 07/04/24 Rx .COMPLEX #90 tabs pantoprazole 40 mg tablet,delayed See Rx Instructions .Route 03/01/24 07/04/24 Rx release .COMPLEX #90 tabs lorazepam 0.5 mg tablet 0.5 mg PO .COMPLEX PRN anxiety #1 05/10/24 07/04/24 Rx tablet clopidogrel 75 mg tablet See Rx Instructions .Route 05/20/24 07/04/24 Rx .COMPLEX #90 tabs dapagliflozin propanediol 5 mg 5 mg PO QAM #90 tabs 07/01/24 07/04/24 Rx tablet (Farxiga) insulin glargine 100 unit/mL 40 unit (0.4 mL) subcut DAILY 3 07/01/24 07/04/24 Rx subcutaneous solution (Lantus months #40 mL U-100 Insulin) insulin lispro 100 unit/mL See Rx Instructions subcut 07/01/24 07/04/24 Rx subcutaneous solution (Humalog .COMPLEX 3 months #60 mL U-100 Insulin) metformin 1,000 mg tablet 1,000 mg PO BID 90 days #180 tabs 07/01/24 07/04/24 Rx Allergies Allergy/AdvReac Type Severity Reaction Status Date / Time No Known Allergies Allergy Verified 07/01/24 09:40 Vital Signs Vital Signs - 24 hr 07/04/24 11:51 07/04/24 12:26 07/04/24 12:45 Temperature 98.4 F Pulse Rate 86 80 88 Respiratory Rate 16 16 Blood Pressure 124/78 122/78 Pulse Oximetry 97 99 Oxygen Delivery Room Air Exam Narrative: General: well appearing, appears stated age. HEENT: normocephalic, atraumatic. Mucous membranes moist. EOMI, PERRLA, bilateral sclera anicteric, no conjunctival injection. Neck supple without JVD, lymphadenopathy, or bruit. Respiratory: clear to ascultation bilaterally. No rales/rhonic/wheezes. Cardiovascular: Regular rate and rhythm, normal S1-S2 upon ascultation. No murmurs, rubs, or clicks. PMI is nondisplaced, capillary refill less than 3 second. Abdomen: Soft, round, no pulsatile masses, nondistended and nontender. No rebound, no guarding. No CVA tenderness, no hepatosplenomegaly. Bowel sounds present to all four quadrants. No high pitch or tinkling sounds, resonant to percussion. Extremities: No cyanosis, clubbing, or edema present. Pulses are palpable 2/2. Active ROM to all four extremities. Neuro: Alert and orientated x 4. PERRLA. Cranial nerves 2-12 intact without focal deficit. Skin: Warm, dry, and intact, without rash, erythema, or lesion. Psych: pleasant, cooperative, normal speech, normal affect, no hallucinations, no dysarthia H&P: Results Labs Labs: Short CBC 07/04/24 Range/Units 12:15 WBC 6.2 (4.5-10.0) K/mm3 Hgb 14.1 (14.0-18.0) g/dL Hct 43.0 (42.0-52.0) % Plt Count 158 (150-375) k/mm3 BMP 07/04/24 12:15 Sodium 137 Potassium 4.2 Chloride 102 Carbon Dioxide 19 L BUN 15 Creatinine 1.00 Glucose 128 H Calcium 9.8 Cardiac Enzymes 07/04/24 Range/Units 12:15 Troponin I < 0.012 (0.000-0.034) ng/mL Liver Function 07/04/24 Range/Units 12:15 Total Bilirubin 0.8 (0.2-1.3) mg/dL AST 31 (17-59) U/L ALT 45 (6-50) U/L Alkaline Phosphatase 72 (38-126) U/L Albumin 4.9 (3.5-5.1) g/dL Urine 07/04/24 Range/Units 12:40 Urine Color Yellow (Yellow) Urine Appearance Clear (Clear) Urine pH 5.0 (5.0-9.0) Ur Specific [place] 1.032 (1.001-1.035) Urine Protein Negative (Negative) mg/dL Urine Glucose (UA) 3+ H (Negative) mg/dL Assessment and Plan Assessment and plan (1) Stroke-like symptoms: Code(s): R29.90 - Unspecified symptoms and signs involving the nervous system Status: Acute Assessment and Plan: Neurology consulted Plan for MRI 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 Echo with bubble pending (2) Claustrophobia: Code(s): F40.240 - Claustrophobia Status: Acute Assessment and Plan: Ativan prior to MRI (3) Right carotid artery occlusion: Code(s): I65.21 - Occlusion and stenosis of right carotid artery Status: Acute Assessment and Plan: Chronic Continue Plavix (4) Bipolar depression: Code(s): F31.9 - Bipolar disorder, unspecified Status: Acute Assessment and Plan: Restart Jeanamanny nedbarrera for patient to bring in from home Restart Wellbutrin and Seroquel (5) Hyperlipidemia: Qualifiers: Hyperlipidemia type: other hyperlipidemia Qualified Code(s): E78.49 - Other hyperlipidemia Code(s): E78.5 - Hyperlipidemia, unspecified Status: Acute Assessment and Plan: Restart statin (6) Diabetes: Code(s): E11.9 - Type 2 diabetes mellitus without complications Status: Acute Assessment and Plan: Diabetic diet Restart home insulin Hold home metformin SSI at bedtime (7) BPH (benign prostatic hyperplasia): Code(s): N40.0 - Benign prostatic hyperplasia without lower urinary tract symptoms Status: Acute Assessment and Plan: Continue Flomax and Proscar Quality VTE Prophylaxis VTE prophylaxis: mechanical ordered and pharmacologic ordered Hospitalist MIPS Advance Care Plan I have confirmed that the patient's Advanced Care Plan is present, code status is documented, or surrogate decision maker is listed in patient medical record.: Yes Medication Reconciliation I have utilized all available resources to obtain, update and review the patients current medications (includes all prescriptions, OTC, herbals, cannabis, and nutritional supplements).: Yes
--- NOTE | 2024-07-04 16:22 | PC.NURSE ---
Dinner tray ordered for pt. to be delivered to [id number].
[2024-07-04] MEDS: ASPIRIN 81 MG ENTERIC TABLET PO (16:29)
[2024-07-04] MEDS: ATORVASTATIN 40 MG TABLET PO (16:29)
--- NOTE | 2024-07-04 17:26 | PC.NURSE ---
This patient, Edwardo Ricci, was admitted to 3 [facility] Surg Room 319-01. Patient/family oriented to hospital policies and general routines including ID bracelet, bed and alarms, visiting hours, pain management, procedures, bathroom and other care routines, personal items, smoking policy, room service/diet, and visiting hours. Information on how to activate the Rapid Response Team has been discussed. Patient/Family are encouraged to report perceived risks to care and to ask questions if they do not understand what they are told or what they should do.
[2024-07-04] MEDS: ARIPiprazole 10 MG TABLET PO (19:19)
[2024-07-04] MEDS: buPROPion HCL SR (12HR) 100 MG TABCR 200 MG PO (20:45)
[2024-07-04] MEDS: QUEtiapine FUMARATE 100 MG TABLET PO (20:46)
[2024-07-04] MEDS: QUEtiapine FUMARATE 25 MG TABLET 50 MG PO (20:46)
[2024-07-04 21:28] LABS: Glucose Point of Care 297 mg/dl (65-105)
[2024-07-04] MEDS: INSULIN ASPART (*BKC) 100 UNITS/ML SUB-Q (23:15)
[2024-07-04] MEDS: PANTOPRAZOLE 40 MG TABLET BY MOUTH (23:16)
[2024-07-04] MEDS: carvediloL 12.5 MG TABLET PO (23:20)
[2024-07-05] VITALS (10 sets, daily range): BP systolic 100–112; BP diastolic 60–78; PULSE 67–96; RESP 13–20; TEMP 36.1–36.5; O2SAT 97–98
--- NOTE | 2024-07-05 | ECHO_ITS ---
Patient Info Name: Edwardo Ricci Age: 68 years : 1955 Gender: Male Ht: 68 in Wt: 173 lbs BSA: 1.95 m2 HR: 86 bpm BP: 100 / 60 mmHg Technical Quality: Good Exam Date: 07/05/2024 12:48 PM Exam Location: Echo Lab Patient Status: Outpatient Admit Date: 07/04/2024 Staff Ordering Physician: Ria Osorio APRN Jewelry Coater: Kristin Jackson RDCS Attending Provider: Allegra Hernández MD Referring Physician: Devon CHINCHILLA; Exam Type: CA echo doppler w bubble study Study Info Indications - Stroke like symptoms Complete two-dimensional, color flow and Doppler transthoracic echocardiogram is performed with agitated saline. Contrast/Agitated Saline Contrast/Ag. Saline: Agitated Saline Amount: 12.00 ml Existing IV Access: Yes IV Access Condition: patent with no signs of infiltration Summary 1. Left ventricular chamber dimension is normal. 2. Left ventricular systolic function is normal, estimated at 60-65%. 3. The left ventricular diastolic function is grade I diastolic dysfunction. 4. E/e' 7 is not elevated. 5. There is trace mitral valve regurgitation. 6. There is trace tricuspid valve regurgitation. 7. No pulmonary hypertension, estimated pulmonary arterial systolic pressure is 22 mmHg. Left Ventricle E/e' 7 is not elevated. Left ventricular chamber dimension is normal. Left ventricular systolic function is normal, estimated at 60-65%. The left ventricular diastolic function is grade I diastolic dysfunction. Right Ventricle Right ventricular chamber dimension is normal. Right ventricular systolic function is normal. Left Atria Left atrial chamber dimension is normal. Right Atria Right atrial chamber dimension is normal. Atrial Septum Agitated saline injection with and without valsalva maneuver opacified right side cardiac chambers without shunt to left side cardiac chambers. Intact interatrial septum visualized by 2D and agitated saline imaging. Aortic Valve The aortic valve is trileaflet. There is no aortic valve stenosis. There is no aortic valve regurgitation. Pulmonic Valve There is no pulmonic regurgitation. Mitral Valve There is no mitral valve stenosis. There is trace mitral valve regurgitation. Tricuspid Valve There is trace tricuspid valve regurgitation. No pulmonary hypertension, estimated pulmonary arterial systolic pressure is 22 mmHg. Pericardium/Pleural There is no pericardial effusion. Inferior Vena Cava Normal inferior vena cava with >50% collapse upon inspiration consistent with normal right atrial pressure, 5 mmHg. Aorta The aortic root size at the sinus of Valsalva is normal. Left Ventricular Outflow Tract Name Value Normal LVOT 2D LVOT Diameter 2.0 cm LVOT Doppler LVOT Peak Gradient 4 mmHg LVOT Mean Gradient 2 mmHg LVOT VTI 20 cm LVOT VTI/AV VTI Ratio 0.7 LVOT Stroke Volume 65 ml LVOT CO 12.7 l/min LVOT CI 6.5 l/min/m2 Pulmonic Valve Name Value Normal PV Doppler PV Peak Gradient 2 mmHg Mitral Valve Name Value Normal MV Doppler MV Decel [place] 206 cm/s2 MV PHT 88 ms MV Area (PHT) 2.5 cm2 4.0-5.0 MV Diastolic Function MV E Peak Velocity 63 cm/s MV A Peak Velocity 76 cm/s MV E/A 0.8 MV Decel Time 303 ms MV Annular TDI MV E/e' (Septal) 10.6 <=8.0 MV E/e' (Lateral) 6.1 <=8.0 MV E/e' (Average) 8.4 Tricuspid Valve Name Value Normal TV Regurgitation Doppler TR Peak Velocity 206 cm/s TR Peak Gradient 17 mmHg Estimated PAP/RSVP RA Pressure 5 mmHg <=5 PA Systolic Pressure 22 mmHg <36 RV Systolic Pressure 22 mmHg <36 Aorta Name Value Normal Ascending Aorta Ao Root Diameter (MM) 2.8 cm Ao Root Diam Index (MM) 1.4 cm/m2 Aortic Valve Name Value Normal AV Doppler AV Peak Velocity 142 cm/s AV Peak Gradient 8 mmHg AV Mean Gradient 5 mmHg AV VTI 27 cm AV Area (Cont Eq VTI) 2.4 cm2 >=3.0 AV Area (Cont Eq Michael) 2.1 cm2 AV Regurgitation 2D LVOT Area 3.2 cm2 Ventricles Name Value Normal LV Dimensions 2D/MM IVS Diastolic Thickness (2D) 1.1 cm 0.6-1.0 LVID Diastole (2D) 4.1 cm 4.2-5.8 LVIW Diastolic Thickness (2D) 1.1 cm 0.6-1.0 LVID Systole (2D) 3.1 cm 2.5-4.0 LVOT Diameter 2.0 cm LV Mass (2D Cubed) 152.57 g 88.00-224.00 LV Mass Index (2D Cubed) 78 g/m2 49-115 Relative Wall Thickness (2D) 0.52 LV Fractional Shortening/Ejection Fraction 2D/MM LV Fractional Shortening (2D) 25 % 25-43 LV EF (2D Teicholz) 51 % 52-72 LV Diastolic Volume (4C MOD) 83 ml LV EF (4C MOD) 61 % LV Diastolic Volume (2C MOD) 65 ml LV EF (2C MOD) 58 % LV Diastolic Volume (BP MOD) 74 ml 62-150 LV Diastolic Volume Index (BP MOD) 38 ml/m2 34-74 LV Systolic Volume (BP MOD) 30 ml 21-61 LV Systolic Volume Index (BP MOD) 16 ml/m2 11-31 LV EF (BP MOD) 59 % 52-72 LV Diastolic Length (4C) 7.6 cm LV Systolic Length (4C) 6.3 cm LV Stroke Volume (4C MOD) 51 ml RV Dimensions 2D/MM RVID Diastole (2D) 3.7 cm 2.5-3.5 Atria Name Value Normal LA Dimensions LA Dimension (MM) 3.1 cm 3.0-4.1 LA Volume (4C A-L) 18 ml LA Volume (BP A-L) 26 ml RA Dimensions RA Area (4C) 14.4 cm2 <=18.0 Report Signatures
[2024-07-05 06:35] LABS: Basophils Percent Auto 0.5 % (0.2-1.2); Eosinophils Absolute Auto 0.1 K/mm3 (0-0.3); Eosinophils Percent Auto 1.5 % (0-4.4); Hematocrit 40.6 % (42.0-52.0); Hemoglobin 13.4 g/dL (14.0-18.0); Immature Granulocyte Absolute 0.02 K/mm3 (0.00-0.031); Immature Granulocyte Percent A 0.3 % (0-0.5); Lymphocytes Absolute Auto 1.57 K/mm3 (0.9-3.2); Lymphocytes Percent Auto 26.4 % (18.3-44.2); Mean Corpuscular Hemoglobin 28.4 pg (26-34); Mean Platelet Volume 10.3 fl (7.4-10.4); Monocytes Absolute Auto 0.6 K/mm3 (0.1-0.6); Monocytes Percent Auto 9.4 % (2.6-8.5); Neutrophils Absolute Auto 3.7 K/mm3 (1.3-6.7); Neutrophils Percent Auto 61.9 % (45.5-73.1); Platelet Count Result 147 k/mm3 (150-375); Red Blood Count 4.72 M/mm3 (4.6-6.20); Red Cell Distribution Width 14.9 % (11.5-14.5)
[2024-07-05 06:57] LABS: Anion Gap 12 mmol/L (4-12); Blood Urea Nitrogen 14 mg/dL (9-20); Calcium 9.2 mg/dL (8.4-10.2); Carbon Dioxide 22 mmol/L (22-30); Chloride 102 mmol/L (98-107); Estimated CRCL calculation 60 ml/min; Estimated Glomerular Filt Rate > 60; Glucose 217 mg/dL (65-110); Potassium 3.9 mmol/L (3.4-5.0); Sodium 136 mmol/L (137-145)
[2024-07-05] MEDS: carvediloL 12.5 MG TABLET PO ×2 (08:09→20:09)
[2024-07-05] MEDS: buPROPion HCL SR (12HR) 100 MG TABCR 200 MG PO ×2 (08:09→17:11)
[2024-07-05] MEDS: CLOPIDOGREL BISULFATE 75 MG TABLET BY MOUTH (08:09)
[2024-07-05] MEDS: PANTOPRAZOLE 40 MG TABLET BY MOUTH ×2 (08:09→20:09)
[2024-07-05] MEDS: ENOXAPARIN 40 MG/0.4 ML SYRINGE SUB-Q (08:09)
[2024-07-05] MEDS: TAMSULOSIN HCL 0.4 MG CAPSULE PO (08:10)
[2024-07-05] MEDS: ARIPiprazole 10 MG TABLET PO ×2 (08:10→17:11)
[2024-07-05] MEDS: ASPIRIN 81 MG CHEWABLE TABLET PO (08:10)
[2024-07-05] MEDS: ATORVASTATIN 20 MG TABLET BY MOUTH (08:10)
[2024-07-05] MEDS: FINASTERIDE 5 MG TABLET PO (08:10)
[2024-07-05 08:11] LABS: Glucose Point of Care 232 mg/dl (65-105)
[2024-07-05] MEDS: INSULIN ASPART (*BKC) 100 UNITS/ML SUB-Q ×4 (08:18→20:10)
[2024-07-05] MEDS: INSULIN ASPART (*BKC) 100 UNITS/ML 14 UNITS SUB-Q ×2 (08:18→11:26)
--- NOTE | 2024-07-05 08:34 | P.CONNEU_ITS ---
Assessment and Plan Assessment and plan (1) TIA (transient ischemic attack): Code(s): G45.9 - Transient cerebral ischemic attack, unspecified Status: Acute Plan 1. 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 Hyperlipidemia 3. Diabetes mellitus insulin dependent4 bipolar illness with history of minimal cognitive impairment. Patient is already receiving clopidogrel 75mg daily in addition to all other medication will be continued as such, aspirin can be added 81mg daily and the Plavix can be taken off after 6 weeks. But other medication can be continued as such. Consult date: 07/05/24 HPI: Edwardo Ricci is a 68 year old male Admitted to the hospital through the emergency room with information that he was walking funny in the morning, noticed by his and was answering questions very slowly then he went to bed 9:00 a.m., she tried to wake him up, he got up and walked funny like drunk and sat at the edge of the bed ,naked, patient himself was denying any symptoms in the ER, he was awake alert and oriented x4, patient had been taking Plavix and atorvastatin in addition to the history of 1. Diabetes mellitus 2. Hypertension 3. Hyperlipidemia 4. TIA 5. History of smoking 6. No history of alcohol intake. Been taking bupropion 200mg b.i.d., Seroquel 150mg at night, finasteride 5mg daily 80 pupils oval 20mg per day, carvedilol 12.5mg b.i.d., he is not allergic to any medication, and does have ongoing history of 1. diabetes mellitus with neuropathy 2. mild cognitive impairment 3. 3. Right carotid artery occlusion documented in May of 2022 4. Bipolar depression 5. Status post right total knee replacement his history of smoking is ears smoke 8 his smoking pack years 4 but at present former smoker. Initial exam in the emergency room was nonfocal except the slight weakness left upper extremity and also poor coordination. His vital signs were normal, CBC was normal, BMP was fairly normal, and routine lab studies were normal, except the clavicular sodium and he was also negative for the routine viral infection. Head CT scan revealed no bleed, Review of Systems 2 Review of Systems: All systems reviewed & are unremarkable except as noted in HPI and below PMFSH Past Medical History Medical History Sleep disorder, unspecified Diabetic polyneuropathy MCI (mild cognitive impairment) 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 Colon polyp Type 2 diabetes mellitus Gastroesophageal reflux disease Arthritis Lumbar spondylosis Pulmonary embolism (02/2022) Ataxia Rib fracture Benign prostatic hyperplasia Peripheral neuropathy Hypertension Hyperlipidemia Chronic insomnia Former cigarette smoker Bipolar depression Anxiety Surgical History Surgical History History of right knee joint replacement (05/10/21) History of bilateral cataract extraction (04/2022) History of colonoscopy with polypectomy History of arthroscopy of left knee History of right knee surgery x4 Family History Family History Father Age older than 80 years Hypertension Mother Age older than 80 years Patient's mother is in good health Sibling Fibromyalgia Diabetes mellitus Mother Dementia Social History Social History Social History: Code status: Full code Surrogate decision maker: Mona Ricci, spouse Smoking packs per day: 0.5 Smoking cigarettes per day: 10.0 Years smoked: 12 Smoking pack-years: 6.00 Smoking status: Current every day smoker Tobacco type: cigarettes Second hand tobacco smoke exposure: No Alcohol intake: never Substance use: never Substance use type: does not use Do You Feel Safe in your Home?: Yes Lack of Transportation: No Lack of Food: Never True Current Housing: I Have Housing Concerned About Future Housing: No Difficulty Paying Gas/Electric Bills: No Difficulty Paying for Meds: No Currently Unemployed: No Education: Don't Know Difficulty w/ Childcare or Family Care: No Living arrangements: with family Additional living arrangements comments: Lives with in [place]. Has 4 children and 21 grandchildren. 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 Spiritual care concerns: No Meds Home Medications and Allergies Home Medications ?Medication ?Instructions ?Recorded ?Confirmed ?Type bupropion HCl 200 mg tablet,12 hr 200 mg PO BID 05/08/21 07/04/24 History sustained-release quetiapine 50 mg tablet 150 mg PO QHS 05/18/22 07/04/24 History finasteride 5 mg tablet 5 mg PO DAILY 03/10/23 07/04/24 History tamsulosin 0.4 mg capsule 0.4 mg PO DAILY #90 caps 10/29/23 07/04/24 Rx aripiprazole 20 mg tablet 10 mg PO BID 02/13/24 07/04/24 History carvedilol 12.5 mg tablet 12.5 mg PO BID 02/13/24 07/04/24 History atorvastatin 20 mg tablet See Rx Instructions .Route 03/01/24 07/04/24 Rx .COMPLEX #90 tabs pantoprazole 40 mg tablet,delayed See Rx Instructions .Route 03/01/24 07/04/24 Rx release .COMPLEX #90 tabs lorazepam 0.5 mg tablet 0.5 mg PO .COMPLEX PRN anxiety #1 05/10/24 07/04/24 Rx tablet clopidogrel 75 mg tablet See Rx Instructions .Route 05/20/24 07/04/24 Rx .COMPLEX #90 tabs dapagliflozin propanediol 5 mg 5 mg PO QAM #90 tabs 07/01/24 07/04/24 Rx tablet (Farxiga) insulin glargine 100 unit/mL 40 unit (0.4 mL) subcut DAILY 3 07/01/24 07/04/24 Rx subcutaneous solution (Lantus months #40 mL U-100 Insulin) insulin lispro 100 unit/mL See Rx Instructions subcut 07/01/24 07/04/24 Rx subcutaneous solution (Humalog .COMPLEX 3 months #60 mL U-100 Insulin) metformin 1,000 mg tablet 1,000 mg PO BID 90 days #180 tabs 07/01/24 07/04/24 Rx Allergies Allergy/AdvReac Type Severity Reaction Status Date / Time No Known Allergies Allergy Verified 07/01/24 09:40 Vital Signs Vital Signs - 24 hr 07/04/24 11:51 07/04/24 12:26 07/04/24 12:45 Temperature 36.9 C Pulse Rate 86 80 88 Respiratory Rate 16 16 Blood Pressure 124/78 122/78 Pulse Oximetry 97 99 Oxygen Delivery Room Air 07/04/24 15:15 07/04/24 17:33 07/04/24 20:03 Temperature Pulse Rate 91 76 Respiratory Rate 16 Blood Pressure 123/81 Pulse Oximetry 98 Oxygen Delivery Room Air 07/04/24 20:45 07/04/24 21:34 07/04/24 23:20 Temperature 36.3 C L Pulse Rate 80 80 Respiratory Rate 18 Blood Pressure 111/84 Pulse Oximetry 98 Oxygen Delivery Room Air 07/05/24 00:03 07/05/24 04:03 07/05/24 06:00 Temperature 36.4 C Pulse Rate 75 67 67 Respiratory Rate 16 Blood Pressure 100/60 Pulse Oximetry 97 Oxygen Delivery Exam 2 Narrative: Revealed him to be awake alert cooperative in no obvious acute distress, head normocephalic with no bruit ear nose throat examination normal, neck supple with no meningeal signs, heart regular with no murmur, lungs clear to auscultation with no rhonchi or crepitation, abdomen soft nontender with normal bowel sounds, neurological is awake alert oriented speech not dysphasic not dysarthric not dysphonic pupils round regular feels the vision full extraocular movements full face symmetrical tongue midline motor examination revealed him to have normal strength and tone reflexes symmetrical and plantars downgoing. There is no evidence of gross cerebellar deficit. Results Labs 07/05/24 05:53 07/05/24 05:53 Labs: Short CBC 07/04/24 07/05/24 Range/Units 12:15 05:53 WBC 6.2 6.0 (4.5-10.0) K/mm3 Hgb 14.1 13.4 L (14.0-18.0) g/dL Hct 43.0 40.6 L (42.0-52.0) % Plt Count 158 147 L (150-375) k/mm3 BMP 07/04/24 07/05/24 12:15 05:53 Sodium 137 136 L Potassium 4.2 3.9 Chloride 102 102 Carbon Dioxide 19 L 22 BUN 15 14 Creatinine 1.00 1.04 Glucose 128 H 217 H Calcium 9.8 9.2 Cardiac Enzymes 07/04/24 Range/Units 12:15 Troponin I < 0.012 (0.000-0.034) ng/mL Liver Function 07/04/24 Range/Units 12:15 Total Bilirubin 0.8 (0.2-1.3) mg/dL AST 31 (17-59) U/L ALT 45 (6-50) U/L Alkaline Phosphatase 72 (38-126) U/L Albumin 4.9 (3.5-5.1) g/dL Urine 07/04/24 Range/Units 12:40 Urine Color Yellow (Yellow) Urine Appearance Clear (Clear) Urine pH 5.0 (5.0-9.0) Ur Specific [place] 1.032 (1.001-1.035) Urine Protein Negative (Negative) mg/dL Urine Glucose (UA) 3+ H (Negative) mg/dL
--- NOTE | 2024-07-05 11:03 | PCSTNOTE ---
Please refer to the Bedside Swallow Evaluation in the EMR. Please note, silent aspiration cannot be ruled out at bedside. The above pleasant and cooperative pt was seen for a swallow evaluation at the bedside. The pt was positioned upright in the bed eating an early lunch. He was alert & oriented & able to follow commands. He is currently on a regular diet and denies dysphagia. Oral mucosa is normal; natural dentition is in good condition; Oral peripheral exam revealed lingual and labial structures to be normal. He was able to dry swallow on command and exhibited a clear vocal quality. He was tested with salad from his lunch tray as well as pudding, crackers, and thin liquids. The oral stages appeared WNL. No oral leakage or pocketing was noted. During the pharyngeal stage, swallow reflex appeared prompt & laryngeal elevation adequate. No overt s/s of aspiration were exhibited; however, silent aspiration cannot be ruled out at the bedside. General impression is normal swallow ability. Recommendation: Continue current diet. Thank you for this referral.
--- NOTE | 2024-07-05 11:53 | P.PNIM_ITS ---
Progress Note: A&P Assessment and Plan (1) Right carotid artery occlusion: Code(s): I65.21 - Occlusion and stenosis of right carotid artery Status: Acute (2) Hyperlipidemia: Qualifiers: Hyperlipidemia type: other hyperlipidemia Qualified Code(s): E78.49 - Other hyperlipidemia Code(s): E78.5 - Hyperlipidemia, unspecified Status: Acute (3) Elevated cholesterol: Code(s): E78.00 - Pure hypercholesterolemia, unspecified Status: Acute (4) Type 2 diabetes mellitus with hyperglycemia: Qualifiers: Diabetes mellitus alf insulin use: with alf use Qualified Code(s): E11.65 - Type 2 diabetes mellitus with hyperglycemia; Z79.4 - skilled nursing (current) use of insulin Code(s): E11.65 - Type 2 diabetes mellitus with hyperglycemia Status: Acute (5) Stroke-like symptoms: Code(s): R29.90 - Unspecified symptoms and signs involving the nervous system Status: Acute (6) Confusion: Code(s): R41.0 - Disorientation, unspecified Status: Acute Plan 68-year-old male with history of diabetes, hypertension, TIA and hyperlipidemia presents the hospital with stroke-like symptoms.ED his lab work is essentially normal, UA noninfective, influenza a B, RSV and COVID negative. 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 0% stenosis of the proximal left internal carotid artery relative to normal distal artery lumen diameter. Neurology is consulted. 1. Stroke-like symptoms: Continue tele monitoring Continue with aspirin, Plavix, statin Await echocardiogram, MRI brain Await Neurology input Await PT/OT No concerns as per speech therapist 2. Type 2 diabetes mellitus with hyperglycemia: Blood glucose checked t.i.d. a.c. images Continue with Lantus 40 units Increase mealtime insulin to 16 units, continue with sliding scale insulin Continue with Jardiance 3. History of bipolar disorder: Continue with Abilify, Wellbutrin, Seroquel 4. History of BPH: Continue with Proscar, finasteride 5. DVT prophylaxis: Continue with Lovenox 6. Code status: Full 7.Disposition:pending improvement Time Spent With Patient Time: 36 min Subjective Date/time seen: 07/05/24 11:53 Interval history: Feeling better, no acute events overnight No weakness, no slurred speech Review of Systems Review of Systems: 12 systems were reviewed and are negativ e except for as per HPI. Exam Narrative: General: well appearing, HEENT: normocephalic, atraumatic. Mucous membranes moist. PERRLA, bilateral sclera anicteric, . Neck supple Respiratory: clear to auscultation bilaterally. Cardiovascular: Regular rate and rhythm, normal S1-S2 upon ascultation. Abdomen: Soft, round, nondistended and nontender. Extremities: No cyanosis, clubbing, or edema present. Pulses are palpable 2/2. Active ROM to all four extremities. Neuro: Alert and orientated x 4. PERRLA. Cranial nerves 2-12 intact without focal deficit. Skin: Warm, dry, and intact, without rash, erythema, or lesion. Psych: pleasant, cooperative, Objective Data Vital Signs Vital Signs: Vital Signs - 24 hr 07/04/24 12:26 07/04/24 12:45 07/04/24 15:15 Temperature Pulse Rate 80 88 91 Respiratory Rate 16 16 Blood Pressure 122/78 123/81 Pulse Oximetry 99 98 Oxygen Delivery 07/04/24 17:33 07/04/24 20:03 07/04/24 20:45 Temperature Pulse Rate 76 Respiratory Rate Blood Pressure Pulse Oximetry Oxygen Delivery Room Air Room Air 07/04/24 21:34 07/04/24 23:20 07/05/24 00:03 Temperature 97.4 F L Pulse Rate 80 80 75 Respiratory Rate 18 Blood Pressure 111/84 Pulse Oximetry 98 Oxygen Delivery 07/05/24 04:03 07/05/24 06:00 07/05/24 08:00 Temperature 97.6 F Pulse Rate 67 67 79 Respiratory Rate 16 Blood Pressure 100/60 Pulse Oximetry 97 Oxygen Delivery Intake/Output Intake/Output: Intake & Output 07/02/24 07/03/24 07/04/24 07/05/24 23:59 23:59 23:59 23:59 Intake Total 200 290 Balance 200 290 Meds/Results Medications: Active Medications Generic Name Dose Route Start Last Admin Trade Name Freq PRN Reason Stop Dose Admin Acetaminophen 650 mg 07/04/24 15:36 Acetaminophen 325 Mg Tablet PO Q4H PRN Mild Pain (1-3) or Fever Aripiprazole 10 mg 07/04/24 18:45 07/05/24 08:10 Aripiprazole 10 Mg Tablet PO 10 mg BID DAYO Administration Aspirin 81 mg 07/05/24 08:00 07/05/24 08:10 Aspirin 81 Mg Chewable Tablet PO 81 mg DAILY@0800 DAYO Administration Atorvastatin Calcium 20 mg 07/05/24 09:00 07/05/24 08:10 Atorvastatin 20 Mg Tablet BY MOUTH 20 mg DAILY DAYO Administration Bupropion HCl 200 mg 07/04/24 21:00 07/05/24 08:09 Bupropion Hcl Sr (12hr) 100 Mg Tabcr PO 200 mg BID DAYO Administration Carvedilol 12.5 mg 07/04/24 22:35 07/05/24 08:09 Carvedilol 12.5 Mg Tablet PO 12.5 mg Q12HR DAYO Administration Clopidogrel Bisulfate 75 mg 07/05/24 09:00 07/05/24 08:09 Clopidogrel Bisulfate 75 Mg Tablet BY MOUTH 75 mg DAILY DAYO Administration Dextrose 12.5 gm 07/04/24 16:40 Dextrose 50% 25 Gm/50 Ml Syringe IV PUSH PRN PRN Hypoglycemia Protocol Dextrose 12.5 gm 07/04/24 22:32 Dextrose 50% 25 Gm/50 Ml Syringe IV PUSH PRN PRN Hypoglycemia Protocol Empagliflozin 10 mg 07/05/24 09:00 07/05/24 08:13 Empagliflozin 10 Mg Tablet [facility] [place] [facility]oxaparin Sodium 40 mg 07/05/24 09:00 07/05/24 08:09 Enoxaparin 40 Mg/0.4 Ml Syringe SUB-Q 40 mg DAILY DAYO Administration Finasteride 5 mg 07/05/24 09:00 07/05/24 08:10 Finasteride 5 Mg Tablet PO 5 mg DAILY DAYO Administration Glucagon 1 mg 07/04/24 16:40 Glucagon For Inj 1 Mg Vial IM PRN PRN Hypoglycemia Protocol Glucagon 1 mg 07/04/24 22:32 Glucagon For Inj 1 Mg Vial IM PRN PRN Hypoglycemia Protocol Glucose 15 gm 07/04/24 16:40 Glucose Oral Gel 15 Gm Of Glucse In 37.5 Gm Tube PO PRN PRN Hypoglycemia Protocol Glucose 15 gm 07/04/24 22:32 Glucose Oral Gel 15 Gm Of Glucse In 37.5 Gm Tube PO PRN PRN Hypoglycemia Protocol Dextrose 1,000 mls @ 100 mls/hr 07/04/24 16:40 Dextrose 5% 1,000 Ml IVPB PRN PRN Hypoglycemia Protocol Dextrose 1,000 mls @ 100 mls/hr 07/04/24 22:32 Dextrose 5% 1,000 Ml IVPB PRN PRN Hypoglycemia Protocol Insulin Aspart 0 units 07/05/24 08:00 07/05/24 11:29 Insulin Aspart (*Bkc) 100 Units/Ml SUB-Q 6 units ACINSULIN DAYO Administration Protocol Insulin Aspart 1 - 3 units 07/04/24 22:40 07/04/24 23:15 Insulin Aspart (*Bkc) 100 Units/Ml SUB-Q 2 units HS DAYO Administration Protocol Insulin Aspart 16 units 07/05/24 12:00 Insulin Aspart (*Bkc) 100 Units/Ml SUB-Q ACINSULIN DAYO Insulin Glargine 40 units 07/05/24 17:00 Insulin Glargine (*Bkc) 100 Units/Ml SUB-Q DAILY@1700 DAYO Lorazepam 0.5 mg 07/04/24 18:38 Lorazepam (*Crx) 0.5 Mg Tablet PO ONCE PRN anxiety Lorazepam 1 mg 07/04/24 22:29 Lorazepam Inj (*Crx) 2 Mg/Ml Vial IV PUSH ONCE PRN Anxiety Pantoprazole Sodium 40 mg 07/04/24 22:35 07/05/24 08:09 Pantoprazole 40 Mg Tablet BY MOUTH 40 mg Q12HR DAYO Administration Perflutren Lipid Microsphere 0 ml 07/04/24 22:29 Perflutren Lipid Microspheres 1.5 Ml Vial Diluted To 10 Ml Total Volume IV PUSH 07/07/24 22:29 ONCE PRN adequate visualization Protocol Quetiapine Fumarate 50 mg 07/04/24 21:00 07/04/24 20:46 Quetiapine Fumarate 25 Mg Tablet PO 50 mg QHS DAYO Administration Quetiapine Fumarate 100 mg 07/04/24 21:00 07/04/24 20:46 Quetiapine Fumarate 100 Mg Tablet PO 100 mg QHS DAYO Administration Tamsulosin HCl 0.4 mg 07/05/24 09:00 07/05/24 08:10 Tamsulosin Hcl 0.4 Mg Capsule PO 0.4 mg DAILY DAYO Administration Radiology Results: ITS Impressions Chest X-Ray 07/04/24 12:29 IMPRESSION: Possible small left-sided pleural effusion (versus cardiac fat pad) without focal infiltrate Head CT 07/04/24 13:29 Impression: No acute intracranial hemorrhage or suspicious mass effect. Head/Neck CTA 07/04/24 13:55 IMPRESSION: Chronic total occlusion of the right internal carotid artery, unchanged from 2022. 0% stenosis of the proximal left internal carotid artery relative to normal distal artery lumen diameter. No acute or subacute large vessel occlusion. Labs Labs: Laboratory Results - last 24 hr 07/04/24 07/04/24 07/04/24 12:15 12:40 13:23 WBC 6.2 RBC 4.98 Hgb 14.1 Hct 43.0 MCV 86.3 MCH 28.3 MCHC 32.8 RDW 15.0 H Plt Count 158 MPV 9.8 Immature Gran % (Auto) 0.3 Neut % (Auto) 80.7 H Lymph % (Auto) 11.8 L [place] % (Auto) 6.0 Eos % (Auto) 0.6 Baso % (Auto) 0.6 Lymph # (Auto) 0.73 L [place] # (Auto) 0.4 Eos # (Auto) 0.0 Baso # (Auto) 0.0 Abs Immat Gran (auto) 0.02 Absolute Neuts (auto) 5.0 Absolute Nucleated RBC 0.000 Nucleated RBC % 0.0 Sodium 137 Potassium 4.2 Chloride 102 Carbon Dioxide 19 L Anion Gap 16 H BUN 15 Creatinine 1.00 Estim Creat Clear Calc Not Reportable Estimated GFR > 60 Glucose 128 H POC Capillary Glucose 132 H Calcium 9.8 Total Bilirubin 0.8 AST 31 ALT 45 Alkaline Phosphatase 72 Troponin I < 0.012 Total Protein 8.0 Albumin 4.9 Urine Color Yellow Urine Appearance Clear Urine pH 5.0 Ur Specific [place] 1.032 Urine Protein Negative Urine Glucose (UA) 3+ H Urine Ketones Negative Ur Blood (Man) Negative Urine Nitrate Negative Urine Bilirubin Negative Urine Urobilinogen 0.2 Leukocyte Esterase Rfl Negative Influenza A (RT-PCR) Negative Influenza B (RT-PCR) Negative RSV (RT-PCR) Negative SARS-CoV-2 RNA (RT-PCR) Negative 07/04/24 07/05/24 07/05/24 21:00 05:53 08:00 WBC 6.0 RBC 4.72 Hgb 13.4 L Hct 40.6 L MCV 86.0 MCH 28.4 MCHC 33.0 RDW 14.9 H Plt Count 147 L MPV 10.3 Immature Gran % (Auto) 0.3 Neut % (Auto) 61.9 Lymph % (Auto) 26.4 [place] % (Auto) 9.4 H Eos % (Auto) 1.5 Baso % (Auto) 0.5 Lymph # (Auto) 1.57 [place] # (Auto) 0.6 Eos # (Auto) 0.1 Baso # (Auto) 0.0 Abs Immat Gran (auto) 0.02 Absolute Neuts (auto) 3.7 Absolute Nucleated RBC 0.000 Nucleated RBC % 0.0 Sodium 136 L Potassium 3.9 Chloride 102 Carbon Dioxide 22 Anion Gap 12 BUN 14 Creatinine 1.04 Estim Creat Clear Calc 60 Estimated GFR > 60 Glucose 217 H POC Capillary Glucose 297 H 232 H Calcium 9.2 Total Bilirubin AST ALT Alkaline Phosphatase Troponin I Total Protein Albumin Urine Color Urine Appearance Urine pH Ur Specific [place] Urine Protein Urine Glucose (UA) Urine Ketones Ur Blood (Man) Urine Nitrate Urine Bilirubin Urine Urobilinogen Leukocyte Esterase Rfl Influenza A (RT-PCR) Influenza B (RT-PCR) RSV (RT-PCR) SARS-CoV-2 RNA (RT-PCR) Quality VTE Prophylaxis VTE prophylaxis: pharmacologic ordered
[2024-07-05 12:23] LABS: Glucose Point of Care 377 mg/dl (65-105)
[2024-07-05] MEDS: LORazepam INJ (*CRX) 2 MG/ML VIAL 1 MG IV PUSH ×2 (13:53→14:45)
[2024-07-05 16:51] LABS: Glucose Point of Care 213 mg/dl (65-105)
[2024-07-05] MEDS: INSULIN GLARGINE (*BKC) 100 UNITS/ML 40 UNITS SUB-Q (17:08)
[2024-07-05] MEDS: INSULIN ASPART (*BKC) 100 UNITS/ML 16 UNITS SUB-Q (17:10)
[2024-07-05] MEDS: QUEtiapine FUMARATE 100 MG TABLET PO (20:09)
[2024-07-05] MEDS: QUEtiapine FUMARATE 25 MG TABLET 50 MG PO (20:09)
[2024-07-05 20:58] LABS: Glucose Point of Care 238 mg/dl (65-105)
[2024-07-06] VITALS (7 sets, daily range): BP systolic 110–121; BP diastolic 71–72; PULSE 61–91; RESP 14–20; TEMP 36.2–36.6; O2SAT 96–99
[2024-07-06 07:45] LABS: Glucose Point of Care 251 mg/dl (65-105)
[2024-07-06] MEDS: INSULIN ASPART (*BKC) 100 UNITS/ML SUB-Q ×2 (08:58→11:53)
[2024-07-06] MEDS: INSULIN ASPART (*BKC) 100 UNITS/ML 16 UNITS SUB-Q ×2 (08:58→11:53)
[2024-07-06] MEDS: buPROPion HCL SR (12HR) 100 MG TABCR 200 MG PO (09:00)
[2024-07-06] MEDS: ARIPiprazole 10 MG TABLET PO (09:00)
[2024-07-06] MEDS: CLOPIDOGREL BISULFATE 75 MG TABLET BY MOUTH (09:00)
[2024-07-06] MEDS: EMPAGLIFLOZIN 10 MG TABLET PO (09:00)
[2024-07-06] MEDS: ASPIRIN 81 MG CHEWABLE TABLET PO (09:00)
[2024-07-06] MEDS: PANTOPRAZOLE 40 MG TABLET BY MOUTH (09:00)
[2024-07-06] MEDS: ATORVASTATIN 20 MG TABLET BY MOUTH (09:00)
[2024-07-06] MEDS: carvediloL 12.5 MG TABLET PO (09:00)
[2024-07-06] MEDS: FINASTERIDE 5 MG TABLET PO (09:00)
[2024-07-06] MEDS: TAMSULOSIN HCL 0.4 MG CAPSULE PO (09:01)
[2024-07-06] MEDS: ENOXAPARIN 40 MG/0.4 ML SYRINGE SUB-Q (09:01)
--- NOTE | 2024-07-06 10:15 | P.PNIM_ITS ---
Progress Note: A&P Assessment and Plan (1) Right carotid artery occlusion: Code(s): I65.21 - Occlusion and stenosis of right carotid artery Status: Acute (2) Hyperlipidemia: Qualifiers: Hyperlipidemia type: other hyperlipidemia Qualified Code(s): E78.49 - Other hyperlipidemia Code(s): E78.5 - Hyperlipidemia, unspecified Status: Acute (3) Elevated cholesterol: Code(s): E78.00 - Pure hypercholesterolemia, unspecified Status: Acute (4) Type 2 diabetes mellitus with hyperglycemia: Qualifiers: Diabetes mellitus care home insulin use: with care home use Qualified Code(s): E11.65 - Type 2 diabetes mellitus with hyperglycemia; Z79.4 - care home (current) use of insulin Code(s): E11.65 - Type 2 diabetes mellitus with hyperglycemia Status: Acute (5) Stroke-like symptoms: Code(s): R29.90 - Unspecified symptoms and signs involving the nervous system Status: Acute (6) Confusion: Code(s): R41.0 - Disorientation, unspecified Status: Acute (7) Gait instability: Code(s): R26.81 - Unsteadiness on feet Status: Acute Plan 68-year-old male with history of diabetes, hypertension, TIA and hyperlipidemia presents the hospital with stroke-like symptoms. Patient gives very little detail about today only states that he had trouble walking. his lab work is essentially normal, UA noninfective, influenza a B, RSV and COVID negative. 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 0% stenosis of the proximal left internal carotid artery relative to normal distal artery lumen diameter. Neurology is consulted. 1. Stroke-like symptoms: Continue tele monitoring Continue with aspirin, Plavix, statin echocardiogram: Agitated saline injection with and without valsalva maneuver opacified right side cardiac chambers without shunt to left side cardiac chambers. MRI brain No acute intracranial process. Chronic right internal carotid artery occlusion with supraclinoid reconstitution. PT/OT consulted neurologist No concerns as per speech therapist 2. Type 2 diabetes mellitus with hyperglycemia: Blood glucose checked t.i.d. a.c. images Continue with Lantus 40 units Increase mealtime insulin to 16 units, continue with sliding scale insulin Continue with Jardiance 3. History of bipolar disorder: Continue with Abilify, Wellbutrin, Seroquel 4. History of BPH: Continue with Proscar, finasteride 5. DVT prophylaxis: Continue with Lovenox 6. Code status: Full 7.Disposition:pending improvement Subjective Date/time seen: 07/06/24 10:15 Interval history: Patient feels comfortable, denies headache, focal weakness, abnormal sensation, patient afebrile blood pressure stable, denies chest pain, palpitation. Telemetry shows no arrhythmia related to stroke Exam Narrative: General: well appearing, HEENT: normocephalic, atraumatic. Mucous membranes moist. PERRLA, bilateral sc deb anicteric, . Neck supple Respiratory: clear to auscultation bilaterally. Cardiovascular: Regular rate and rhythm, normal S1-S2 upon ascultation. Abdomen: Soft, round, nondistended and nontender. Extremities: No cyanosis, clubbing, or edema present. Pulses are palpable 2/2. Active ROM to all four extremities. Neuro: Alert and orientated x 4. PERRLA. Cranial nerves 2-12 intact without fo crista deficit. Skin: Warm, dry, and intact, without rash, erythema, or lesion. Psych: pleasant, cooperative, Objective Data Vital Signs Vital Signs: Vital Signs - 24 hr 07/05/24 11:15 07/05/24 12:00 07/05/24 14:00 Temperature 97.7 F Pulse Rate 73 68 Respiratory Rate 20 Blood Pressure 112/78 Pulse Oximetry 98 Oxygen Delivery Room Air 07/05/24 16:00 07/05/24 20:00 07/05/24 20:00 Temperature Pulse Rate 74 96 Respiratory Rate Blood Pressure Pulse Oximetry Oxygen Delivery Room Air 07/05/24 21:10 07/05/24 22:56 07/06/24 00:00 Temperature 96.9 F L 96.9 F L Pulse Rate 70 70 61 Respiratory Rate 13 13 Blood Pressure 105/60 105/60 Pulse Oximetry 98 98 Oxygen Delivery 07/06/24 04:00 07/06/24 05:54 07/06/24 08:00 Temperature 97.1 F L Pulse Rate 62 65 Respiratory Rate 14 Blood Pressure 121/71 Pulse Oximetry 99 Oxygen Delivery Room Air Intake/Output Intake/Output: Intake & Output 07/03/24 07/04/24 07/05/24 07/06/24 23:59 23:59 23:59 23:59 Intake Total 200 1370 820 Output Total 200 Balance 200 1170 820 Meds/Results Medications: Active Medications Generic Name Dose Route Start Last Admin Trade Name Kathy PRN Reason Stop Dose Admin Acetaminophen 650 mg 07/04/24 15:36 Acetaminophen 325 Mg Tablet PO Q4H PRN Mild Pain (1-3) or Fever Aripiprazole 10 mg 07/04/24 18:45 07/06/24 09:00 Aripiprazole 10 Mg Tablet PO 10 mg BID DAYO Administration Aspirin 81 mg 07/05/24 08:00 07/06/24 09:00 Aspirin 81 Mg Chewable Tablet PO 81 mg DAILY@0800 DAYO Administration Atorvastatin Calcium 20 mg 07/05/24 09:00 07/06/24 09:00 Atorvastatin 20 Mg Tablet BY MOUTH 20 mg DAILY DAYO Administration Bupropion HCl 200 mg 07/04/24 21:00 07/06/24 09:00 Bupropion Hcl Sr (12hr) 100 Mg Tabcr PO 200 mg BID DAYO Administration Carvedilol 12.5 mg 07/04/24 22:35 07/06/24 09:00 Carvedilol 12.5 Mg Tablet PO 12.5 mg Q12HR DAYO Administration Clopidogrel Bisulfate 75 mg 07/05/24 09:00 07/06/24 09:00 Clopidogrel Bisulfate 75 Mg Tablet BY MOUTH 75 mg DAILY DAYO Administration Dextrose 12.5 gm 07/04/24 16:40 Dextrose 50% 25 Gm/50 Ml Syringe IV PUSH PRN PRN Hypoglycemia Protocol Dextrose 12.5 gm 07/04/24 22:32 Dextrose 50% 25 Gm/50 Ml Syringe IV PUSH PRN PRN Hypoglycemia Protocol Empagliflozin 10 mg 07/05/24 09:00 07/06/24 09:00 Empagliflozin 10 Mg Tablet PO 10 mg QAM DAYO Administration Enoxaparin Sodium 40 mg 07/05/24 09:00 07/06/24 09:01 Enoxaparin 40 Mg/0.4 Ml Syringe SUB-Q 40 mg DAILY DAYO Administration Finasteride 5 mg 07/05/24 09:00 07/06/24 09:00 Finasteride 5 Mg Tablet PO 5 mg DAILY DAYO Administration Glucagon 1 mg 07/04/24 16:40 Glucagon For Inj 1 Mg Vial IM PRN PRN Hypoglycemia Protocol Glucagon 1 mg 07/04/24 22:32 Glucagon For Inj 1 Mg Vial IM PRN PRN Hypoglycemia Protocol Glucose 15 gm 07/04/24 16:40 Glucose Oral Gel 15 Gm Of Glucse In 37.5 Gm Tube PO PRN PRN Hypoglycemia Protocol Glucose 15 gm 07/04/24 22:32 Glucose Oral Gel 15 Gm Of Glucse In 37.5 Gm Tube PO PRN PRN Hypoglycemia Protocol Dextrose 1,000 mls @ 100 mls/hr 07/04/24 16:40 Dextrose 5% 1,000 Ml IVPB PRN PRN Hypoglycemia Protocol Dextrose 1,000 mls @ 100 mls/hr 07/04/24 22:32 Dextrose 5% 1,000 Ml IVPB PRN PRN Hypoglycemia Protocol Insulin Aspart 0 units 07/05/24 08:00 07/06/24 08:58 Insulin Aspart (*Bkc) 100 Units/Ml SUB-Q 6 units ACINSULIN DAYO Administration Protocol Insulin Aspart 1 - 3 units 07/04/24 22:40 07/05/24 20:10 Insulin Aspart (*Bkc) 100 Units/Ml SUB-Q 1 units HS DAYO Administration Protocol Insulin Aspart 16 units 07/05/24 17:00 07/06/24 08:58 Insulin Aspart (*Bkc) 100 Units/Ml SUB-Q 16 units ACINSULIN DAYO Administration Insulin Glargine 40 units 07/05/24 17:00 07/05/24 17:08 Insulin Glargine (*Bkc) 100 Units/Ml SUB-Q 40 units DAILY@1700 DAYO Administration Lorazepam 0.5 mg 07/04/24 18:38 Lorazepam (*Crx) 0.5 Mg Tablet PO ONCE PRN anxiety Lorazepam 1 mg 07/04/24 22:29 07/05/24 13:53 Lorazepam Inj (*Crx) 2 Mg/Ml Vial IV PUSH 1 mg ONCE PRN Administration Anxiety Pantoprazole Sodium 40 mg 07/04/24 22:35 07/06/24 09:00 Pantoprazole 40 Mg Tablet BY MOUTH 40 mg Q12HR DAYO Administration Perflutren Lipid Microsphere 0 ml 07/04/24 22:29 Perflutren Lipid Microspheres 1.5 Ml Vial Diluted To 10 Ml Total Volume IV PUSH 07/07/24 22:29 ONCE PRN adequate visualization Protocol Quetiapine Fumarate 50 mg 07/04/24 21:00 07/05/24 20:09 Quetiapine Fumarate 25 Mg Tablet PO 50 mg QHS DAYO Administration Quetiapine Fumarate 100 mg 07/04/24 21:00 07/05/24 20:09 Quetiapine Fumarate 100 Mg Tablet PO 100 mg QHS DAYO Administration Tamsulosin HCl 0.4 mg 07/05/24 09:00 07/06/24 09:01 Tamsulosin Hcl 0.4 Mg Capsule PO 0.4 mg DAILY DAYO Administration Radiology Results: ITS Impressions Chest X-Ray 07/04/24 12:29 IMPRESSION: Possible small left-sided pleural effusion (versus cardiac fat pad) without focal infiltrate Head CT 07/04/24 13:29 Impression: No acute intracranial hemorrhage or suspicious mass effect. Head/Neck CTA 07/04/24 13:55 IMPRESSION: Chronic total occlusion of the right internal carotid artery, unchanged from 2022. 0% stenosis of the proximal left internal carotid artery relative to normal distal artery lumen diameter. No acute or subacute large vessel occlusion. Brain MRI 07/05/24 15:58 IMPRESSION: No acute intracranial process. Chronic right internal carotid artery occlusion with supraclinoid reconstitution. Labs Labs: Laboratory Results - last 24 hr 07/05/24 07/05/24 07/05/24 11:20 16:48 19:47 POC Capillary Glucose 377 H 213 H 238 H 07/06/24 07:42 POC Capillary Glucose 251 H
[2024-07-06 11:19] LABS: Glucose Point of Care 218 mg/dl (65-105)
[2024-07-06 16:04] LABS: Glucose Point of Care 74 mg/dl (65-105)
--- NOTE | 2024-07-06 16:30 | P.DS_ITS ---
DS: Admitting Diagnosis Discharge Date 07/06/24 Admitting Diagnosis (1) Right carotid artery occlusion: Code(s): I65.21 - Occlusion and stenosis of right carotid artery Status: Acute (2) Hyperlipidemia: Qualifiers: Hyperlipidemia type: other hyperlipidemia Qualified Code(s): E78.49 - Other hyperlipidemia Code(s): E78.5 - Hyperlipidemia, unspecified Status: Acute (3) Elevated cholesterol: Code(s): E78.00 - Pure hypercholesterolemia, unspecified Status: Acute (4) Type 2 diabetes mellitus with hyperglycemia: Qualifiers: Diabetes mellitus care home insulin use: with superintendent container terminal use Qualified Code(s): E11.65 - Type 2 diabetes mellitus with hyperglycemia; Z79.4 - care home (current) use of insulin Code(s): E11.65 - Type 2 diabetes mellitus with hyperglycemia Status: Acute (5) Stroke-like symptoms: Code(s): R29.90 - Unspecified symptoms and signs involving the nervous system Status: Acute (6) Confusion: Code(s): R41.0 - Disorientation, unspecified Status: Acute (7) Gait instability: Code(s): R26.81 - Unsteadiness on feet Status: Acute DS: Discharge Diagnosis Discharge Diagnosis (1) Right carotid artery occlusion: Code(s): I65.21 - Occlusion and stenosis of right carotid artery Status: Acute (2) Hyperlipidemia: Qualifiers: Hyperlipidemia type: other hyperlipidemia Qualified Code(s): E78.49 - Other hyperlipidemia Code(s): E78.5 - Hyperlipidemia, unspecified Status: Acute (3) Elevated cholesterol: Code(s): E78.00 - Pure hypercholesterolemia, unspecified Status: Acute (4) Type 2 diabetes mellitus with hyperglycemia: Qualifiers: Diabetes mellitus care home insulin use: with superintendent container terminal use Qualified Code(s): E11.65 - Type 2 diabetes mellitus with hyperglycemia; Z79.4 - care home (current) use of insulin Code(s): E11.65 - Type 2 diabetes mellitus with hyperglycemia Status: Acute (5) Stroke-like symptoms: Code(s): R29.90 - Unspecified symptoms and signs involving the nervous system Status: Acute (6) Confusion: Code(s): R41.0 - Disorientation, unspecified Status: Acute (7) Gait instability: Code(s): R26.81 - Unsteadiness on feet Status: Acute DS: Summary Hospital Course Hospital Course: 68-year-old male with history of diabetes, hypertension, TIA and hyperlipidemia presents the hospital with stroke-like symptoms. Patient gives very little detail about today only states that he had trouble walking. his lab work is essentially normal, UA noninfective, influenza a B, RSV and COVID negative. 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 0% stenosis of the proximal left internal carotid artery relative to normal distal artery lumen diameter. Neurology is consulted. The following med issues have been addressed during hospitalization Stroke-like symptoms: Continue tele monitoring that shows no arrhythmia related to stroke Continue with aspirin, Plavix, statin per neurologist recommendation echocardiogram: Agitated saline injection with and without valsalva maneuver opacified right side cardiac chambers without shunt to left side cardiac chambers. MRI brain No acute intracranial process. Chronic right internal carotid artery occlusion with supraclinoid reconstitution. Consulted PT/OT consulted neurologist No concerns as per speech therapist Type 2 diabetes mellitus with hyperglycemia: Blood glucose checked t.i.d. a.c. images Continue with Lantus 40 units Increased mealtime insulin to 16 units, continue with sliding scale insulin Continue with Jardiance Resume home medication on discharge, adjust medications per primary care doctor 3. History of bipolar disorder: Continue with Abilify, Wellbutrin, Seroquel 4. History of BPH: Continue with Proscar, finasteride 5. DVT prophylaxis: Continue with Lovenox 6. Code status: Full Discharge patient home with self-care Time Spent with Patient Time attestation: Total time spent providing and/or coordinating discharge services: Exam Narrative: GENERAL: Pleasant, in no acute distress. Well-nourished. - EYES: EOMI. Anicteric. - HENT: Moist mucous membranes. - LUNGS: Clear to auscultation bilateral ly, no wheezing, rhonchi, or rales. - CARDIOVASCULAR: Regular rate and rhyth m. No murmur. No JVD. - ABDOMEN: Soft, non-tender and non-dist ended. No palpable masses. - EXTREMITIES: No edema. Peripheral puls es 2+. Non-tender. - NEUROLOGIC: No focal neurological defi cits. CN II-XII grossly intact. - PSYCHIATRIC: Awake, Alert and oriented x 3. Appropriate mood and affect. - SKIN: No rashes or lesions. Warm. - LYMPH: No cervical lymphadenopathy. DS: Data Data Completed and Pending Labs on day of discharge: Labs from last 24 hours 07/06/24 07/06/24 07/06/24 16:01 11:01 07:42 POC Capillary Glucose 74 218 H 251 H 07/05/24 07/05/24 19:47 16:48 POC Capillary Glucose 238 H 213 H Discharge Plan Discharge Attending physician on discharge: Joe Negro Consulting providers: Bianca Adkins Discharging Clinician: Joe Negro Anticipated Discharge Date/Time: 07/06/24 16:28 Patient Disposition: Home, Self-Care Activity: as tolerated Diet: as tolerated and heart healthy Patient Instructions: Aspirin (By mouth), Weakness (DC), Fall Prevention (DC) Patient Language: Czech Stand Alone Forms: General Discharge Information Follow-up/Referrals: Bianca Adkins MD [Physician] - (see neurologist at scheduled appt ) Lisa Goldberg APRN [Primary Care Provider] - (see PCP in one week) Discharge Medications: New aspirin [Children's Aspirin] 81 mg Tablet,Chewable 81 mg PO DAILY@0800 Qty: 60 0RF Continued carvedilol 12.5 mg tablet 12.5 mg PO BID aripiprazole 20 mg tablet 10 mg PO BID finasteride 5 mg tablet 5 mg PO DAILY metformin 1,000 mg tablet 1,000 mg PO BID 90 Days Qty: 180 1RF dapagliflozin propanediol [Farxiga] 5 mg tablet 5 mg PO QAM Qty: 90 2RF insulin glargine [Lantus U-100 Insulin] 100 unit/mL solution 40 unit subcut DAILY 90 Days Qty: 40 2RF insulin lispro [Humalog U-100 Insulin] 100 unit/mL solution See Rx Instructions subcut .COMPLEX MDD 60 90 Days Qty: 60 1RF Rx Instructions: Humalog 14 units before breakfast , 14 units before lunch and 14 units before dinner. add Humalog for high sugar before meals only blood sugar 150-170 - take additional 1 units blood sugar 171-190- take additional 2 units blood sugar 191-210- take additional 3 units blood sugar 211-230- take additional 4 units blood sugar 231-250- take additional 5 units blood sugar 251 - take additional 6 units quetiapine 50 mg tablet 150 mg PO QHS bupropion HCl 200 mg tablet sustained-release 12 hr 200 mg PO BID tamsulosin 0.4 mg capsule 0.4 mg PO DAILY Qty: 90 3RF atorvastatin 20 mg tablet See Rx Instructions .ROUTE .COMPLEX Qty: 90 3RF Dose Instruction: Take 1 tablet by mouth once daily Rx Instructions: Take 1 tablet by mouth once daily pantoprazole 40 mg tablet,delayed release (DR/EC) See Rx Instructions .ROUTE .COMPLEX Qty: 90 3RF Dose Instruction: Take 1 tablet by mouth twice daily Rx Instructions: Take 1 tablet by mouth twice daily lorazepam 0.5 mg tablet 0.5 mg PO .COMPLEX PRN (Reason: anxiety) Qty: 1 0RF Rx Instructions: 0.5 mg orally Take 30 minutes prior to MRI PRN; Must have someone drive to and from MRI clopidogrel 75 mg tablet See Rx Instructions .ROUTE .COMPLEX Qty: 90 0RF Dose Instruction: Take 1 tablet by mouth once daily Rx Instructions: Take 1 tablet by mouth once daily Other Ambulatory Orders: OT Outpatient Eval and Treat (ONCE) Timeframe: 20240713 Location: Determined by Patient Ordered By: Joe Negro PT Outpatient Eval and Treat (ONCE) Timeframe: 20240713 Location: Determined by Patient Ordered By: Joe Negro Date of admission: 07/04/24 15:37 Primary Care Provider: Lisa Goldberg Admitting Provider: Allegra Hernández Attending physician on admission: Allegra Hernández Condition: Stable
[2024-07-06 16:38] LABS: Glucose Point of Care 123 mg/dl (65-105)
== END 2024-07-06 17:00 | disposition home or self-care (01) ==
LOC: ANHED 12:50 → ANH3MEDSUR 07-05 15:44
PROVIDERS: Nurse Practitioner Gerontology; Admitting Provider Internal Medicine; Emergency Provider Emergency Medicine; PCP Nurse Practitioner Adult Health; Visit Provider Hospitalist
DX: R29.818 Other symptoms and signs involving the nervous system (principal); R26.81 Unsteadiness on feet; R41.0 Disorientation, unspecified; I65.21 Occlusion and stenosis of right carotid artery; I10 Essential (primary) hypertension; E78.00 Pure hypercholesterolemia, unspecified; E78.49 Other hyperlipidemia; E11.65 Type 2 diabetes mellitus with hyperglycemia; E11.42 Type 2 diabetes mellitus with diabetic polyneuropathy; F40.240 Claustrophobia; F51.04 Psychophysiologic insomnia; K21.9 Gastro-esophageal reflux disease without esophagitis; M47.816 Spondylosis without myelopathy or radiculopathy, lumbar region; N40.0 Benign prostatic hyperplasia without lower urinary tract symptoms; F31.9 Bipolar disorder, unspecified; F41.9 Anxiety disorder, unspecified; Z20.822 Contact with and (suspected) exposure to COVID-19; Z79.4 Long term (current) use of insulin; Z79.84 Long term (current) use of oral hypoglycemic drugs; Z79.02 Long term (current) use of antithrombotics/antiplatelets; Z79.899 Other long term (current) drug therapy; Z86.0100 Personal history of colon polyps, unspecified; Z86.711 Personal history of pulmonary embolism; Z87.891 Personal history of nicotine dependence; Z96.651 Presence of right artificial knee joint; Z98.890 Other specified postprocedural states
CPT/HCPCS: 36415; 70450; 70496; 70498; 70553; 71045; 80048; 80053; 81003; 82948; 84484; 85025; 87637; 92610; 93005; 93306; 96374; 96375; 96376; 97110; 97116; 97161; 97165; 99285; A9270; A9579; G0378; J1650; J1815; J2060; Q9967

== ENCOUNTER 2024-07-10 12:32 | Outpatient (CLI) | payer OTHER, SELFPAY ==
--- NOTE | ~2024-07-10 | CT_ITS ---
Non-contrast CT scan of the Abdomen and Pelvis Clinical indication: Benign prostatic hypertrophy Technique: 2.5 mm axial scans were obtained through the abdomen and pelvis without intravenous or or al contrast. Dose reduction technique was used on this scan by utilizing automated exposure control a nd iterative reconstruction technique. The dose-length product (DLP) was 501.01 mGy-cm. COMPARISON: 11/29/2022 Findings: Images through the lung bases reveal small hiatal hernia. 3 mm nonobstructing left renal stone present. No right renal stone. No ureteral stone or hydronephros is on either side. The liver, spleen, pancreas, and adrenals appear normal. Cholecystectomy clips present. There are ath erosclerotic calcifications of the aorta. There is no evidence of bowel obstruction. Prominent stool suggests constipation. Images through the pelvis were performed. There is no evidence of ascites or lymphadenopathy. Urinary bladder unremarkable. No pelvic mass seen. No sedrick prostate gland enlargement evident. Impression: Prostate gland appears normal in size. Constipation. 3 mm nonobstructing left renal stone. Reviewed, dictated and finalized at [facility]. Impression: Prostate gland appears normal in size. Constipation. 3 mm nonobstructing left renal stone.
--- OUTSIDE RECORDS SUMMARY | 2024-07-10 12:36 | XMS_ITS | Continuity of Care Document ---
Author Organization [facility] Address [address] [place] [address] Phone Care Team Providers Care Animal Groomer Name Role Phone Gisella MICHAELA [place] Unavailable [...] Refraction No Charge GDX Retina Office/outpatient Visit, [facility] IOLMaster IOLMaster Advance Directives Directive Yes [...] Diagnoses Date Provider Providers Copied on Encounter [facility], [address] [facility], [place], [place], [address], [place] tel:[phone] SEC Juan ND Professional Complete Exam (chief complaint) Presence of intraocular lensOther secondary cataract, bilateralAmbl yopia of right eyeType 2 diab with mild nonp rtnop without mclr edema, l eye 4 Gisella OD [place]. [address] [employer] [facility], [address], [place], [place], [address], [place]. tel:[phone] Reba Clarke MD.Other Provider: Lisa Goldberg [facility]-, [address] [place], [address]. tel:[phone] ring Provider: Giuseppe Ruiz, [address] [facility] [address], [place], [address]. tel:[phone] [facility] [place], [address] [place] [address] [address], [place], [place], [address], [place] tel:[phone] SEC Juan GIANG Professional No Information [address] Gisella OD [place] [facility] [employer], [address], [place], [place], [address], [place]. tel:[phone] Referring Provider: Giuseppe Ruiz, [address] [facility] [address], [place], [address]. tel:[phone] [facility], [address] [place] [address] [address], [place], [place], [address], [place] tel:[phone] SEC Juan GIANG Professional 1 mo CE PO (05/08/22) (chief complaint) Post op visit 3 Dipesh Chin. [address], [address], [place]. tel:[phone] Reba Clarke MD.Referrin g Provider: Giuseppe Ruiz, [address] [facility], [place], [address]. tel:[phone] [facility], [address] [place] [address] [address], [place], [place], [address], [place] tel:[phone] SEC Juan GIANG Professional 1 week s/p PCIOL (chief complaint) Postop check [address] OD [place] [facility] [employer], [address], [place], [place], [address], [place]. tel:[phone] Reba Clarke MD.Referrin g Provider: Giuseppe Ruiz, [address] [place], [address]. tel:[phone] [facility], [address] [place] [address] [address], [place], [place], [address], [place] tel:[phone] SEC Juan GIANG Professional post op (chief complaint) Post op visitPresence of intraocular lens 3 Gisella OD [place]. [address] [place] [address] [employer], [address], [place], [place], [address], [place]. tel:[phone] Reba Clarke MD.Referrin g Provider: Giuseppe Ruiz, [address] [employer] [address], [place], [address]. tel:[phone] [facility], [address] [place] [address] [address], [place], [place], [address], [place] tel:[phone] [facility] [employer] [facility] No Information 3 Dipesh Chin. [address] [employer], [address], [place], [place], [address], [place]. tel:[phone] Referring Provider: Giuseppe Ruiz, [address] [employer] [address], [place], [address]. tel:[phone] [facility], [address], [place], [place], [address], [place] tel:[phone] SEC Juan GIANG Professional 2 week s/p PCIOL (chief complaint) Post op visit 3 Gisella OD [place]. [address] [employer] [employer], [address], [place], [place], [address], [place]. tel:[phone] Reba Clarke MD.Referrin g Provider: Giuseppe Ruiz, [address] [employer] [address], [place], [address]. tel:[phone] [facility], [address], [place], [place], [address], [place] tel:[phone] SEC Juan GIANG Professional 1 day s/p PCIOL (chief complaint) Post op visit 2 Gisella OD [place]. [address], [address], [place], [place], [address], [place]. tel:[phone] Reba Clarke MD.Referrin g Provider: Giuseppe Ruiz, [address] [facility] [address], [place], [address]. tel:[phone] [facility], [address], [place], [place], [address], [place] [phone] [facility] No Information 2 Dipesh Chin. [address] [facility] [address] [facility], [address], [place], [place], [address], [place]. tel:[phone] Referring Provider: Giuseppe Ruiz, [address] [facility] [facility] [address], [place], [address]. tel:[phone] Office/outpa tient Visit, [facility], [address], [place], [place], [address], [place] [phone] [facility] Professional Cataract evaluation (chief complaint) Type 2 diabetes mellitus without complications Age-related nuclear cataract, bilateralDry eye syndrome of bilateral lacrimal glands 2 Dipesh Chin. [address], [address], [place], [place], [address], [place]. tel:[phone] Specialist: Reba Clarke MD, [address], [place], [address]. tel:[phone] alist: Torin Hartman OD, [address], [place], [address]. tel:[phone] ring Provider: Giuseppe Ruiz, [address] [facility] [address] [facility] [address], [place], [address]. tel:[phone] Family History Family Member Type Diagnosis Age At Onset No Information Payers Payer name Insurance type Covered constitution party ID Authoriza tion(s) [employer] [id number] Social History Type Description Quantity Date Captured [...] PA @ endo office at the [facility] center in [place], [place]. Pt's last HA1C was 8.7 Pt. [...]
--- OUTSIDE RECORDS SUMMARY | 2024-07-10 12:36 | XMS_ITS | Clinical Summary ---
Author Organization [facility] [employer] Address [address] [place] [address] Care Team Providers Care Radio Performer Name Role Phone Ovi Leavitt MD Unavailable Sang Gutierrez Md, MD Primary Care Provider Unavailable Source Comments [facility],non-owned Affiliates and Associated Physician Practices is amultiple site organization consisting of ambulatory clinics and hospital sitesin [place], [place], [place] and [place]. This disclosure is being madepursuant to the Care Everywhere program and may not contain all information available regarding this patient. Last updated 18.[facility] [employer] Allergies Active Allergy Reactions Criticality Noted Date [...] - 115 mg/dL 10/18/2017 3:48 PM CDT [facility] Specimen Type Arterial/C apillary 10/18/2017 3:48 PM CDT [facility] Blood BLOOD SPECIMEN / Unknown 10/18/2017 3:31 PM CDT 10/18/2017 3:48 PM CDT Narrative [facility] - 10/18/2017 3:48 PM CDT Chemistry Physics Teacher: Rebecca Edward Clarence Dobson MD LAB - POINT OF CARE ORDERABLES [address] [phone] from Last 3 Months or Most Recently Relevant to Health Maintenance Care Teams Radio Performer Relationship Specialty Start Date End Date Sang Gutierrez MD, PCP - General Internal Medicine 06/24/16 Ovi Leavitt MD Orthopedic Surgery 10/10/14
--- OUTSIDE RECORDS SUMMARY | 2024-07-10 12:36 | XMS_ITS | Encounter Summary ---
Author Organization [facility] Address [address] [place] [address] Phone Care Team Providers Care Director Of Property Management Name Role Phone Joel Denson MD Unavailable Lisa Goldberg APRN Primary Care Provider [phone] Sea Hdez MD Unavailable [phone] Deysi Carballo MD Unavailable Nicolás Wright MD Unavailable [phone] Reason for Visit * Reason Onset Date Comments Referral 08/21/2023 External Urology Referral Encounter Details Date Type Department Care Team (Late st Contact Info) Description 08/21/2023 Telephone [facility] [address] [place] [address] Lisa Goldberg APRN [address] [place] [address] Referral (External Urology Referral) Social History [...] 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 Not on file Not [...] - 19 04/13/2024 04/13/2024 04/13/2024 3:36 PM NUDE MODEL Assessment Noted Time PHQ-9 Depression Total Score: 0 04/23/19 17 9:00 AM NUDE MODEL documented as of this encounter Care Teams Director Of Property Management Relationship Specialty Start Date End Date Lisa Goldberg APRN [address] [place] [address] PCP - General Advanced Practice Nurse 12/12/22 Joel Denson MD [address] [place] [address] Psychiatry 12/17/16 Sea Hdez MD #[address] [address] Consulting Physician Urology 07/08/23 Deysi Carballo MD #[address] [phone] Consulting Physician Endocrinology 07/25/23 Nicolás Wright MD #2 [place] [phone] Consulting Physician Neurology 08/11/23 documented as of this encounter
--- OUTSIDE RECORDS SUMMARY | 2024-07-10 12:36 | XMS_ITS | Encounter Summary ---
Author Organization [facility] Address [address] [place] [address] Phone Care Team Providers Care Aviation All Source Intelligence Name Role Phone Joel Denson MD Unavailable Lisa Goldberg APRN Primary Care Provider [phone] Sea Hdez MD Unavailable [phone] Deysi Carballo MD Unavailable Nicolás Wright MD Unavailable Reason for Referral * Consult, Test & Initiate Treatment (Routine) - Closed Specialty Diagnoses / Procedures Referred By Sarah nunn Referred To Contact Diagnoses Urinary retention Sea Hdez MD #2 [facility], [facility] [address] [place] [address] Phone: tel: fax: [facility] [address] [facility] [address] [facility] [place] [address] Phone: tel: fax: Referral ID Status Reason Start Date Expiration Date Visits Re quested Visits Authorized [id number] Closed 07/15/2023 1 1 Scheduling Instructions Edwardo is being referred to [facility]/ [facility] or other specialist in patient's insurance [...] 200 mg by mouth 2 times daily. 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 Please make office visit after urodynamics [...] - 19 04/13/2024 04/13/2024 04/13/2024 3:36 PM WINEMAKER Assessment Noted Time PHQ-9 Depression Total Score: 0 04/23/19 17 9:00 AM WINEMAKER documented as of this encounter Care Teams Aviation All Source Intelligence Relationship Specialty Start Date End Date Lisa Goldberg APRN [address] [place] [address] PCP - General Advanced Practice Nurse 12/12/22 Joel Denson MD [address] [place] [address] Psychiatry 12/17/16 Sea Hdez MD #2 [facility] [address] [place], [place] [id number] Consulting Physician Urology 07/08/23 Deysi Carballo MD #[address] [address] Consulting Physician Endocrinology 07/25/23 Nicolás Wright MD #2 [place] [address] Consulting Physician Neurology 08/11/23 documented as of this encounter
--- OUTSIDE RECORDS SUMMARY | 2024-07-10 12:36 | XMS_ITS | Clinical Summary ---
Author Organization [facility] Address [address] [place] [address] Care Team Providers Care Landscape Architecture Professor Name Role Phone Unavailable Primary Care Provider [...] Comments Blood Pressure 147/82 06/20/2016 1:14 PM SUPERVISOR WATERWORKS Pulse 72 06/20/2016 1:14 PM SUPERVISOR WATERWORKS Temperature - - Respiratory Rate - - Oxygen Saturation - - Inhaled Oxygen Concentration - - Weight 83.5 kg (184 lb) 06/20/2016 12:53 PM SUPERVISOR WATERWORKS Height 170.2 cm (5' 7 ) 06/20/2016 12:53 PM SUPERVISOR WATERWORKS Body Mass Index 28.82 06/20/2016 12:53 PM SUPERVISOR WATERWORKS Plan of Treatment Health Maintenance Due Date Last Done Comments Colorectal Cancer Screening Colonoscopy (10 Years) 1955 Hepatitis C 09/21/1975 Zoster Vaccines (1 of 2) 09/21/2007 COVID-19 Vaccine (2023-2 5 season) 2023 07/24/2021, 07/31/2020, 07/03/2020 DTaP, Tdap and Td Vaccines ( 2 [...]
--- OUTSIDE RECORDS SUMMARY | 2024-07-10 12:36 | XMS_ITS | CONTINUITY OF CARE DOCUMENT ---
Author Name troy simmons Address Unknown Organization [facility] Address [address] [place] [address] [address] [place] [address] Phone [phone] Care Team Providers Care Soyfreeze Operator Name Role Phone Skyler Allen MD Unavailable [phone] MD Lisa, Perez Unavailable PROBLEMS Condition Status Date Provider Notes Abnormal EKG active Skyler Allen MD Family History of Hypertension: completed - Sa gianfranco Allen MD HTN active Skyler Allen MD Diabetes mellitus active Skyler Allen MD Sinus tachycardia active Andrés Saha INFORMATION SYSTEMS PROFESSOR Dyslipidemia active Skyler Allen MD Tobacco use, quit active Skyler Allen MD ENCOUNTERS Date Type Provider Location Encounter Diag nosis 7 - 9 In-person encounter Office Visit Skyler Allen MD [facility] Family History of Hypertension:Diabetes mellitusSinus tachycardiaDyslipidemiaTobacco use, quit 1 - 4 In-person encounter Office Visit Skyler Allen MD [facility] Abnormal EKGHTNDiabetes mellitus VITAL SIGNS Date [...] Kristen blood pressure, systolic 142 mm[Hg] Pamela Peetrson oxygen saturation, oximetry 97 % Joanna Peterson [...] Saha NP smoking, year quit 2016 Andrés Shaa NP number of years as a smoker [...] Payer name Policy type / Coverage type [facility] democrat ID [facility] (2) Medicaid [id number] ADVANCE DIRECTIVES Name Date DISCUSSED - NO [...] 12. 5 BID. Skyler Allen MD cardiology:His [facility] ed medication list for this problem [...] Abdulaziz Campos EP: O rders: S NOMED-CT: [id number] Current Medications Documented (SCT-[id number]) E KG (CPT-30973) C omplete Echo (CPT-70677) S TR - Adenosine (CPT-18843) His updated medication list for this problem [...] completed EKG Skyler griggs MD completed SNOMED-CT: [id number] Current Medications Documented Skyler Allen MD completed EKG Skyler griggs MD completed SNOMED-CT: [id number] Current Medications Documented Skyler Allen MD completed
--- OUTSIDE RECORDS SUMMARY | 2024-07-10 12:36 | XMS_ITS | Clinical Summary ---
Author Organization [facility] Address [address] [place] [address] Phone Care Team Providers Care Traffic Expert Name Role Phone Joel Denson MD Unavailable Lisa Goldberg APRN Primary Care Provider [phone] Sea Hdez MD Unavailable [phone] Deysi Carballo MD Unavailable Nicolás Wright MD Unavailable [phone] Allergies No known active allergies Medications atorvastatin (LIPITOR) 20 MG Tablet Take 20 mg by mouth daily. Active BuPROPion HCl 200 MG TABLET SR 12 HR Take 200 mg by mouth 2 times daily. [id number] Active Aripiprazole (Abilify) 20 MG Tablet Take [...] Department Care Team Description 04/14/2024 11:43 PM BOOK PUBLISHER - 04/15/2024 1:26 AM BOOK PUBLISHER Emergency [facility] Emergency [address] [facility] [place] [address] Cayetano Romero MD Insomnia Discharge Disposition: Discharged to home or Selfcare 04/13/2024 3:15 PM BOOK PUBLISHER - 04/13/2024 6:07 PM BOOK PUBLISHER Emergency [facility] Emergency [address] [facility] [place] [address] Judah Barragan MD Medication withdrawal (HCC) Discharge Disposition: Discharged to home or Selfcare 04/13/2024 Travel from Last 3 Months Immunizations Immunization Administration Dates Next Due Influenza Vaccine, Quadrivalent, PF 02/14/2022 Influenza, High-dose, Quadrivalent 12/28/2022 Influenza, Injectable, Quadrivalent 01/05/2018,0 12/04/2016,05/14/2016 Influenza, Seasonal, Injectable, Undefined 06/01 Pneumococcal Vaccine Adult - 23 Valent 7 Pneumococcal conjugate PCV20 , polysaccharide [id number] conjugate, adjuvant, PF 08/07/2021,07/24/2021 RSV, Recombinant, Protein [...] 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 on file Not on file Last Filed Vital Signs Vital Sign Reading Time Taken Comments Blood Pressure 97/63 04/15/2024 1:16 AM BOOK PUBLISHER Pulse 56 04/15/2024 1:16 AM BOOK PUBLISHER Temperature 36.3 C (97.4 F) 04/13/2024 2:17 PM BOOK PUBLISHER Respiratory Rate 18 04/15/2024 1:16 AM BOOK PUBLISHER Oxygen Saturation 97% 04/15/2024 1:16 AM BOOK PUBLISHER Inhaled Oxygen Concentration - - Weight 76.2 kg (168 lb) 04/14/2024 11:48 PM BOOK PUBLISHER Height 172.7 cm (5' 8 ) 04/14/2024 11:48 PM BOOK PUBLISHER Body Mass Index 25.54 04/14/2024 11:48 PM BOOK PUBLISHER Plan of Treatment Health Maintenance Due Date [...] WITH AUTO DIFFERENTIAL STAT 04/13/2024 3:52 PM BOOK PUBLISHER SALICYLATE LEVEL STAT 04/13/2024 3:52 PM BOOK PUBLISHER ACETAMINOPHEN (TYLENOL) STAT 04/13/2024 3:52 PM BOOK PUBLISHER THYROID STIMULATING HORMONE (TSH) STAT 04/13/2024 3:52 PM BOOK PUBLISHER MAGNESIUM (MG) STAT 04/13/2024 3:52 PM BOOK PUBLISHER ETHYL ALCOHOL (ETHANOL) STAT 04/13/2024 3:52 PM BOOK PUBLISHER CMP (COMPREHENSIVE METABOLIC PANEL) STAT 04/13/2024 3:52 PM BOOK PUBLISHER COMPLETE BLOOD COUNT (CBC) WITH DIFF STAT 04/13/2024 3:52 PM BOOK PUBLISHER URINALYSIS REFLEX IF INDICATED BY ABNORMAL RESULTS STAT 04/13/2024 3:10 PM BOOK PUBLISHER URINE DRUG SCREEN STAT 04/13/2024 3:1 0 PM BOOK PUBLISHER RSV,SARS-COV-2,INFLUEN ZA A&B BY PCR STAT 04/13/2024 2:45 PM BOOK PUBLISHER POCT GLYCOSYLATED HEMOGLOBIN Routine 08/04/2023 2:24 PM CDT Type 2 diabetes mellitus without complication, with long-term current use of insulin (HCC) from Last 3 Months or Most Recently Relevant to Health Maintenance Results * CBC with Auto Differential (04/13/2024 3:52 PM BOOK PUBLISHER) WBC 7.59 4.00 - 12.00 10(3)/mcL 04/13/2024 4:15 PM [facility] RBC 4.71 4.40 - 5.80 10(6)/mcL 04/13/2024 4:15 PM [facility] HEMOGLOBIN (HGB) 13.6 13.0 - 16.5 g/dL 04/13/2024 4:15 PM [facility] HEMATOCRIT (HCT) 39.4 38.0 - 50.0 % 04/13/2024 4:15 PM [facility] MCV 83.7 82.0 - 96.0 fL 04/13/2024 4:15 PM [facility] MCH 28.9 26.0 - 32.0 pg 04/13/2024 4:15 PM [facility] MCHC 34.5 31.0 - 36.0 g/dL 04/13/2024 4:15 PM [facility] PLATELET COUNT 178 140 - 440 10(3)/mcL 04/13/2024 4:15 PM [facility] RDW 14.4 11.8 - 15.5 % 04/13/2024 4:15 PM [facility] MPV 10.0 8.0 - 12.6 fL 04/13/2024 4:15 PM [facility] NEUTROPHILS 59.4 40.0 - 68.0 % 04/13/2024 4:15 PM [facility] LYMPHOCYTES 29.5 19.0 - 49.0 % 04/13/2024 4:15 PM [facility] MONOCYTES 7.8 3.0 - 13.0 % 04/13/2024 4:15 PM [facility] EOSINOPHILS 2.9 0.0 - 8.0 % 04/13/2024 4:15 PM [facility] BASOPHILS 0.4 0.0 - 1.0 % 04/13/2024 4:15 PM [facility] ABSOLUTE NEUTROPHILS 4.51 1.40 - 5.30 10(3)/mcL 04/13/2024 4:15 PM [facility] ABSOLUTE LYMPHOCYTES 2.24 0.90 - 3.30 10(3)/mcL 04/13/2024 4:15 PM BOOK PUBLISHER [facility] ABSOLUTE MONOCYTES 0.59 0.10 - 0.90 10(3)/[facility] 04/13/2024 4:15 PM BOOK PUBLISHER [facility] ABSOLUTE EOSINOPHIL 0.22 0.00 - 0.50 10(3)/[facility] 04/13/2024 4:15 PM BOOK PUBLISHER [facility] ABSOLUTE BASOPHILS 0.03 0.00 - 0.10 10(3)/[facility] 04/13/2024 4:15 PM BOOK PUBLISHER [facility] NRBC PER 100 WBC 0 04/13/20 4:15 PM BOOK PUBLISHER [facility] Blood Venipuncture / Unknown 04/13/2024 3:52 PM BOOK PUBLISHER 04/13/2024 3:58 PM BOOK PUBLISHER us Judah Barragan MD HEMATOLOGY ORDERABLES Final Result [facility] [address] [place] [address] * (ABNORMAL) Acetaminophen Level (04/13/2024 3:52 PM BOOK PUBLISHER) [facility] ACETAMINOPHEN <3(L) 10 - 30 mcg/mL 04/13/2024 4:22 PM BOOK PUBLISHER [facility] Blood Venipuncture / Unknown 04/13/2024 3:52 PM BOOK PUBLISHER 04/13/2024 3:58 PM BOOK PUBLISHER us Judah Barargan MD CHEMISTRY ORDERABLES F inal Result [facility] [address] [place] [address] * Thyroid Stimulating Hormone (TSH) (04/13/2024 3:52 PM BOOK PUBLISHER) Pathologist [facility] TSH 3.953 0.300 - 5.000 mIU/L 04/13/2024 4:39 PM BOOK PUBLISHER [facility] Blood Venipuncture / Unknown 04/13/2024 3:52 PM BOOK PUBLISHER 04/13/2024 3:58 PM BOOK PUBLISHER us Judah Barragan MD CHEMISTRY ORDERABLES F inal Result [facility] [address] [place] [address] * (ABNORMAL) Salicylate Level (04/13/2024 3:52 PM BOOK PUBLISHER) SALICYLATE <5.0(L) 15.0 - 30.0 mg/dL 04/13/2024 4:21 PM BOOK PUBLISHER [facility] Blood Venipuncture / Unknown 04/13/2024 3:52 PM BOOK PUBLISHER 04/13/2024 3:58 PM BOOK PUBLISHER us Judah Barragan MD CHEMISTRY ORDERABLES F inal Result Performing Organization Address City/[facility]/ZIP Co de Phone Number [facility] [address] [place] [address] * Magnesium (MG) (04/13/2024 3:52 PM BOOK PUBLISHER) MAGNESIUM 1.8 1.6 - 2.6 mg/dL 04/13/2024 4:21 PM BOOK PUBLISHER [facility] Blood Venipuncture / Unknown 04/13/2024 3:52 PM BOOK PUBLISHER 04/13/2024 3:58 PM BOOK PUBLISHER Judah Barragan MD CHEMISTRY ORDERABLES F inal Result [facility] [address] [place] [address] * ETOH Level (04/13/2024 3:52 PM BOOK PUBLISHER) Pathologist [facility] ETHANOL <10 <10 mg/dL 04/13/2024 4:2 1 PM BOOK PUBLISHER [facility] Blood Venipuncture / Unknown 04/13/2024 3:52 PM BOOK PUBLISHER 04/13/2024 3:58 PM BOOK PUBLISHER us Judah Barragan MD CHEMISTRY ORDERABLES F inal Result [facility] [address] [place] [address] * (ABNORMAL) CMP (Comprehensive Metabolic Panel) (04/13/2024 3:52 PM BOOK PUBLISHER) Pathologist [facility] SODIUM 133(L) 136 - 145 mmol/L 04/13/2024 4:21 PM [facility] POTASSIUM 3.9 3.5 - 5.1 mmol/L 04/13/2024 4:21 PM [facility] CHLORIDE 100 98 - 107 mmol/L 04/13/2024 4:21 PM [facility] CO2, VENOUS 22 22 - 30 mmol/L 04/13/2024 4:21 PM [facility] ANION GAP 14.9 <18.0 mmol/L 04/13/2024 4:21 PM [facility] GLUCOSE 178(H) 70 - 99 mg/dL 04/13/2024 4:21 PM [facility] BUN 11 8 - 26 mg/dL 04/13/2024 4:21 PM [facility] CREATININE, BLOOD 0.91 0.70 - 1.30 mg/dL 04/13/2024 4:21 PM [facility] BUN/CREATININE RATIO 12 12 - 20 ratio 04/13/2024 4:21 PM [facility] TOTAL PROTEIN 7.3 6.3 - 8.2 g/dL 04/13/2024 4:21 PM [facility] ALBUMIN 4.5 3.5 - 5.0 g/dL 04/13/2024 4:21 PM BOOK PUBLISHER [facility] A/G RATIO 1.6 1.0 - 2.2 04/13/2024 4:21 PM BOOK PUBLISHER [facility] CALCIUM 9.7 8.7 - 10.5 mg/dL 04/13/2024 4:21 PM BOOK PUBLISHER [facility] T BILI 0.4 0.2 - 1.2 mg/dL 04/13/2024 4:21 PM BOOK PUBLISHER [facility] SGOT (AST) 23 5 - 34 U/L 04/13/2024 4:21 PM BOOK PUBLISHER [facility] SGPT (ALT) 34 0 - 55 U/L 04/13/2024 4:21 PM BOOK PUBLISHER [facility] ALKALINE PHOSPHATASE 64 40 - 150 U/L 04/13/2024 4:21 PM BOOK PUBLISHER [facility] GFR, ESTIMATED >60 >=60 04/13/2024 4:21 PM BOOK PUBLISHER [facility] Comment: Creatinine Clearance is the preferred criteria for selecting drug dose adjustments in renally impaired patients. The GFR is provided as additional pertinent clinical information. GFR is reported in mL/min/1.73 sq m. Calculation based on the Chronic Kidney Disease Epidemiology Collaboration (CKD- EPI) equation refit without adjustment for race. GFR, EST. >60 >=60 024 4:21 PM BOOK PUBLISHER [facility] GFR, EST. NONAFRICAN >60 >=60 04/13/2024 4:21 PM BOOK PUBLISHER [facility] Blood Venipuncture / Unknown 04/13/2024 3:52 PM BOOK PUBLISHER 04/13/2024 3:58 PM BOOK PUBLISHER us Judah Barragan MD CHEMISTRY ORDERABLES F inal Result [facility] [address] [place] [address] * (ABNORMAL) Urinalysis with Reflex if Indicated (04/13/2024 3:10 PM BOOK PUBLISHER) Pathologist [facility] SPECIFIC GRAVITY 1.015 1.003 - 1.030 04/13/2024 4:23 PM BOOK PUBLISHER [facility] URINE PH 6.0 5.0 - 9.0 04/13/2024 4:23 PM BOOK PUBLISHER [facility] WBC ESTERASE Negative Negative 04/13/2024 4:23 PM BOOK PUBLISHER [facility] NITRITE Negative Negative 04/13/2024 4:23 PM BOOK PUBLISHER [facility] PROTEIN, RANDOM URINE 15 mg/dL(A) Negative 04/13/2024 4:23 PM BOOK PUBLISHER [facility] URINE GLUCOSE, QUAL 250 mg/dL(A) Negative 04/13/2024 4:23 PM BOOK PUBLISHER [facility] URINE KETONES Negative Negative 04/13/2024 4:23 PM BOOK PUBLISHER [facility] UROBILINOGEN Normal Normal mg/dL 04/13/2024 4:23 PM BOOK PUBLISHER [facility] URINE BLOOD Negative Negative jayy/ul 04/13/2024 4:23 PM BOOK PUBLISHER [facility] URINALYSIS COLOR Yellow 04/13/20 4:23 PM BOOK PUBLISHER [facility] URINALYSIS CLARITY Clear 04/13/2024 4:23 PM BOOK PUBLISHER [facility] Urine URINE SPECIMEN / Unknown Non-Phlebotomy Collection / Unknown 04/13/2024 3:10 PM BOOK PUBLISHER 04/13/2024 3:38 PM BOOK PUBLISHER us Judah Barragan MD URINE ORDERABLES Final Result [facility] [address] [place] [address] * Urine Drug Screen (04/13/2024 3:10 PM BOOK PUBLISHER) [facility] UR AMPHETAMINE NON DETECTED NON DETECTED 04/13/2024 4:04 PM BOOK PUBLISHER [facility] Comment: FOR MEDICAL USE ONLY. CUTOFF CONCENTRATION FOR DETECTED RESULT: AMPHETAMINE: 500 NG/ML UR BENZODIAZEPINES NON DETECTED NON DETECTED 04/13/2024 4:04 PM BOOK PUBLISHER [facility] Comment: FOR MEDICAL USE ONLY. CUTOFF CONCENTRATION FOR DETECTED RESULT: BENZODIAZAPINE: 200 NG/ML UR COCAINE METABOLITE NON DETECTED NON DETECTED 04/13/2024 4:04 PM BOOK PUBLISHER [facility] Comment: FOR MEDICAL USE ONLY. CUTOFF CONCENTRATION FOR DETECTED RESULT: COCAINE: 150 NG/ML UR OPIATES NON DETECTED NON DETECTED 04/13/2024 4:04 PM BOOK PUBLISHER [facility] Comment: FOR MEDICAL USE ONLY. CUTOFF CONCENTRATION FOR DETECTED RESULT: OPIATES: 300 NG/ML UR PHENCYCLIDINE NON DETECTED NON DETECTED 04/13/2024 4:04 PM BOOK PUBLISHER [facility] Comment: FOR MEDICAL USE ONLY. CUTOFF CONCENTRATION FOR DETECTED RESULT: PCP: 25 NG/ML UR CANNABINOID NON DETECTED NON DETECTED 04/13/2024 4:04 PM BOOK PUBLISHER [facility] Comment: FOR MEDICAL USE ONLY. CUTOFF CONCENTRATION FOR DETECTED RESULT: THC (MARIJUANA): 50 NG/ML UR BARBITURATE NON DETECTED NON DETECTED 04/13/2024 4:04 PM BOOK PUBLISHER [facility] Comment: FOR MEDICAL USE ONLY. CUTOFF CONCENTRATION FOR DETECTED RESULT: BARBITUATES: 200 NG/ML UR FENTANYL NON DETECTED NON DETECTED 04/13/2024 4:04 PM BOOK PUBLISHER [facility] Comment: FOR MEDICAL USE ONLY. CUTOFF CONCENTRATION FOR DETECTED RESULT: FENTANYL: 1.0 NG/ML Urine Non-Phlebotomy Collection / Unknown 04/13/2024 3:10 PM BOOK PUBLISHER 04/13/2024 3:38 PM BOOK PUBLISHER us Judah Barragan MD URINE ORDERABLES Final Result [facility] [address] [place] [address] * rsv,flu,covid (04/13/2024 2:45 PM BOOK PUBLISHER) FLU A Negative Negative, Error 04/13/2024 3:36 PM BOOK PUBLISHER [facility] FLU B Negative Negative 04/13/2024 3:36 PM BOOK PUBLISHER [facility] RESP SYNC VIRUS Negative Negative 3:36 PM BOOK PUBLISHER [facility] SARSCOV2 NOT DETECTED (Reference Range for this test is Not Detected) 04/13/2024 3:36 PM BOOK PUBLISHER [facility] Comment:This test was perfor med by a Reverse Leasing Representative PCR Method. Swab NASOPHARYNGEAL SWAB / Unknown Non-Phlebotomy Collection / Unknown 04/13/2024 2:45 PM BOOK PUBLISHER 04/13/2024 2:55 PM BOOK PUBLISHER Narrative [facility] - 04/13/2024 3:36 PM BOOK PUBLISHER This test has not been FDA cleared or approved; the test has been authorized by FDA under an Emergency Use Authorization (EUA) for use by laboratories certified under the CLIA that meet the requirements to perform moderate, high or waived complexity tests. Authorized Fact Sheets about this test for providers and patients are available at: https://www.fda.gov/medical-devices/anqledxiw-zrtudratdt-yfujnly-devices/emergen -us e-authorizations us Judah Barragan MD MICROBIOLOGY - GENERAL ORDERABLES Final Result [facility] [address] [place] [address] * (ABNORMAL) POCT GLYCOSYLATED HEMOGLOBIN (08/04/2023 2:24 [...] measures to stabilize the patient. Care Teams Traffic Expert Relationship Specialty Start Date End Date Lisa Goldberg APRN [address] [place] [address] PCP - General Advanced Practice Nurse 12/12/22 Joel Denson MD [address] [place] [address] Psychiatry 12/17/16 Sea Hdez MD #[address] [address] Consulting Physician Urology 07/08/23 Deysi Carballo MD #[address] [address] Consulting Physician Endocrinology 07/25/23 Nicolás Wright MD [address] [place] [address] Consulting Physician Neurology 08/11/23
--- OUTSIDE RECORDS SUMMARY | 2024-07-10 12:36 | XMS_ITS | Referral Summary ---
Author Organization [facility] Address [address] [place] [address] Care Team Providers Care Director Of Enrollment Name Role Phone Srikanth Schrader MD Primary Care Provider [phone] Encounters Date Type Department Care Team Description 07/04/2024 11:19 AM CDT - 07/04/2024 11:59 PM CDT Hospital Encounter [facility] Discharge Disposition: Discharge to home or self care 04/14/2024 11:24 PM FIRE PILOT - 04/14/2024 11:59 PM FIRE PILOT Hospital Encounter [facility] Emergency, Room [...] (5 mg total) by mouth daily 11/28/19 Active meloxicam (MOBIC) 15 mg tablet Take 1 tablet (15 mg total) by mouth daily 11/27/19 21 Active carvediloL (COREG) 12.5 mg tablet TAKE 1 TABLET BY MOUTH EVERY 12 HOURS WITH A MEAL OR FOOD 12/03/19 Active LORazepam (Ativan) 2 mg tablet Take one tablet one hour before MRI. May repeat once if not sedated in one hour. Do not drive with Ativan 2 tablet 04/25/19 23 Active Additional Information Patient not taking.Reported on 06/13/2022 clopidogreL (PLAVIX) 75 mg tablet 06/10/19 23 Active FreeStyle Emmy 2 Sensor kit DIRECTED TO MONITOR GLUCOSE 04/17/19 23 Active insulin aspart (NovoLOG) 100 unit/mL vial [...] INJECT 40 UNITS SUBCUTANEOUSLY AT BEDTIME 01/10/20 Active ARIPiprazole (ABILIFY) 20 mg tablet Take 0.5 tablets (10 mg total) by mouth 2 (two) times a day 01/08/20 Active amitriptyline (ELAVIL) 75 mg tabletIndication s:Meralgia [...] on file Legal Sex Male 3:33 AM FIRE PILOT Gender Identity Not on file Sexual Orientation [...] mL/min/1.73m2 *Relative to young adult level If -Kosovan multiply value by 1.16. Estimated glomerular filtration [...] 10/18/2017 9:57 AM CDT Narrative [facility] ([place]) - 10/18/2017 10:18 AM CDT us Raven Anton MD LAB BLOOD ORDERABLE S Final Result Performing Organization Address City/[facility]/ZIP Co de Phone Number [facility] ([place]) 1 [facility] [place] [address] * (ABNORMAL) Hemoglobin A1c (12/16/2016 1:23 AM CDT) Hgb A1C 8.0(H) 4.0 - 6.0 % [facility] ([place]) Estimated Average Glucose 183 [facility] ([place]) Blood specimen (specimen) 12/16/2016 1:23 AM CDT 12/16/2016 1:38 AM CDT us Mitzi Jones MD LAB BLOOD ORDERABLES Final Re sult [facility] ([place]) [address] [facility] [place] [address] from Last 3 Months or Most Recently Relevant to Health Maintenance Insurance [id number] [place] [address] Member Subscriber Plan / Payer (Ef fective 2016-Present) Name:Edwardo Ricci Relation to Subscriber:Self Name:Edwardo Ricci Payer ID:[id number] (NAIC) Group ID:Not on file Type:MEDICAID [id number] OTHER Address: [address] [place], [place] [id number] [place] [address] [facility] Care Teams Director Of Enrollment Relationship Specialty Start Date End Date Srikanth Schrader MD PCP - General 12/11/20
--- OUTSIDE RECORDS SUMMARY | 2024-07-10 12:36 | XMS_ITS | Clinical Summary ---
Author Organization [facility] Address [address] [place] [address] Care Team Providers Care Oncology Transplant Network Manager Name Role Phone Srikanth Schrader MD Primary Care Provider [phone] Allergies Active Allergy Reactions Criticality Noted Date [...] home or self care 04/14/2024 11:24 PM PROCESS MANUFACTURING ENGINEER - 04/14/2024 11:59 PM PROCESS MANUFACTURING ENGINEER Hospital Encounter [facility] AMBULANCE BILLING Emergency, Room R Discharge Disposition: [...] on file Legal Sex Male 3:33 AM PROCESS MANUFACTURING ENGINEER Gender Identity Not on file Sexual Orientation [...] mL/min/1.73m2 *Relative to young adult level If -Macedonian multiply value by 1.16. Estimated glomerular filtration [...] 10/18/2017 9:57 AM CDT Narrative [facility] ([place]) - 10/18/2017 10:18 AM CDT us Raven Anton MD LAB BLOOD ORDERABLE S Final Result [facility] ([place]) [address] [facility] [place] [address] * (ABNORMAL) Hemoglobin A1c (12/16/2016 1:23 AM CDT) Hgb A1C 8.0(H) 4.0 - 6.0 % [facility] ([place]) Estimated Average Glucose 183 [facility] ([place]) Blood specimen (specimen) 12/16/2016 1:23 AM CDT 12/16/2016 1:38 AM CDT us Mitzi Jones MD LAB BLOOD ORDERABLES Final Re sult [facility] ([place]) 1 [facility] [place] [address] from Last 3 Months or Most Recently Relevant to Health Maintenance Insurance [facility] HEALTHCARE HEALTHCARE Care Teams Oncology Transplant Network Manager Relationship Specialty Start Date End Date Srikanth Schrader MD [facility] - General 12/11/20
== END 2024-07-10 12:33 | disposition home or self-care (01) ==
PROVIDERS: PCP Nurse Practitioner Adult Health; Visit Provider Urology
DX: N40.1 Benign prostatic hyperplasia with lower urinary tract symptoms (principal); K59.00 Constipation, unspecified; N20.0 Calculus of kidney
CPT/HCPCS: 74176

== ENCOUNTER 2024-09-08 15:46 | Emergency (ER) | payer OTHER, SELFPAY ==
--- NOTE | ~2024-09-08 | CT_ITS ---
CT abdomen pelvis wo con Ordering provider: Galileo Arias MD History: 68 years Male with . Hematuria . Comparison: None. Technique: CT abdomen and pelvis without IV and without oral contrast. Automated exposure control and iterative reconstruction technique were employed. The dose-length product was 232.11 mGy-cm. Findings: VISUALIZED LOWER CHEST: Normal. UPPER ABDOMINAL ORGANS: Liver: Normal. Gallbladder: Status post cholecystectomy. Spleen: Normal. Stomach/duodenum: Sliding hiatus hernia. Pancreas: Normal. Adrenals: Normal. Kidneys: 4 mm stone is seen in the left kidney lower pole. The PELVIC ORGANS: The bladder wall is slightly thickened. Evaluation for cystitis advised. BOWEL AND MESENTERY: Colon: No evidence of diverticulitis. Fecal material is loaded in the colon. Normal appendix. Small Bowel: Normal. No obstruction. Peritoneum/mesentery: No free air or free fluid. No mesenteric lymphadenopathy. RETROPERITONEUM: Mild atheromatous disease of the abdominal aorta. Retroaortic left renal vein is no george. No retroperitoneal lymphadenopathy. MUSCULOSKELETAL: Superficial soft tissues: Fat stranding seen in the subcutaneous tissues on the right side most likel y postinjection. Small right inguinal hernia with fat content. Clinical correlation advised. Otherwis e, The superficial soft tissues are normal. Bones: Age appropriate degenerative changes of the spine. Spondylolysis on the right side at the leve l of L5-S1. IMPRESSION: 1. No evidence of appendicitis, diverticulitis or intestinal obstruction. 2. Left kidney stone 3. Sliding hiatus hernia. 4. Constipation. 5. Possible cystitis. Clinical evaluation advised. Reviewed, dictated and finalized at location A.
[2024-09-08 15:48] VITALS: BP 127/71; PULSE 83; RESP 16; TEMP 36.8; O2SAT 97
--- OUTSIDE RECORDS SUMMARY | 2024-09-08 15:49 | XMS_ITS | Clinical Summary ---
Author Organization [facility] Address [address] [place] [address] Phone Care Team Providers Care Award Clerk Name Role Phone Joel Denson MD Unavailable Lisa Goldberg APRN Primary Care Provider [phone] Sea Hdez MD Unavailable [phone] Deysi Carballo MD Unavailable Nicolás Wright MD Unavailable [phone] Allergies No known active allergies Medications atorvastatin (LIPITOR) 20 MG Tablet Take 20 mg by mouth daily. Active BuPROPion HCl 200 MG TABLET SR 12 HR Take 200 mg by mouth 2 times daily. 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 Not on file Not on file Last Filed Vital Signs Vital Sign Reading Time Taken Comments Blood Pressure 97/63 04/15/2024 1:16 AM CONCHE LOADER AND UNLOADER Pulse 56 04/15/2024 1:16 AM CONCHE LOADER AND UNLOADER Temperature 36.3 C (97.4 F) 04/13/2024 2:17 PM CONCHE LOADER AND UNLOADER Respiratory Rate 18 04/15/2024 1:16 AM CONCHE LOADER AND UNLOADER Oxygen Saturation 97% 04/15/2024 1:16 AM CONCHE LOADER AND UNLOADER Inhaled Oxygen Concentration - - Weight 76.2 kg (168 lb) 04/14/2024 11:48 PM CONCHE LOADER AND UNLOADER Height 172.7 cm (5' 8) 04/14/2024 11:48 PM CONCHE LOADER AND UNLOADER Body Mass Index 25.54 04/14/2024 11:48 PM CONCHE LOADER AND UNLOADER Plan of Treatment Health Maintenance Due Date Last Done Comments Diabetes: Eye Exam 1955 Hepatitis C Virus (HCV) Screening 1955 Cologuard 09/21/2007 Immunochemical Fecal Occult Blood 09/21/2007 Zoster Immunization (1 of 2) 09/21/2007 PSA Discussion 2012 Colonoscopy 01/17/2020 01/16/2017 Colorectal Cancer Screening 01/17/2020 AAA Screening Ultrasound 2022 SARS-COV-2 Immunization ( season) 2023 07/24/2021, 07/31/2020, 07/03/2020 Diabetes: Hemoglobin A1c 02/03/2024 024, 03/08/2022, 06/05/2017, Additional history exists Diabetes: Foot Exam 08/03/2024 08/04/2023 Influenza Immunization (Season Ended) 2024 12/28/2022, 02/14/2022, 01/05/2018, Additional history exists Diabetes: Nephropathy Screening 04/13/2025 04/13/2024, 04/12/2022, 01/19/2022, [...] Procedure Name Priority Date/Time Associated Diagnosis Comments CMP (COMPREHENSIVE METABOLIC PANEL) STAT 04/13/2024 3:52 PM CONCHE LOADER AND UNLOADER POCT GLYCOSYLATED HEMOGLOBIN Routine 08/04/2023 2:24 PM CDT Type 2 diabetes mellitus without complication, with long-term current use of insulin (HCC) from Last 3 Months or Most Recently Relevant to Health Maintenance Results * (ABNORMAL) CMP (Comprehensive Metabolic Panel) (04/13/2024 3:52 PM CONCHE LOADER AND UNLOADER) SODIUM 133(L) 136 - 145 mmol/L 04/13/2024 4:21 PM [facility] POTASSIUM 3.9 3.5 - 5.1 mmol/L 04/13/2024 4:21 PM [facility] CHLORIDE 100 98 - 107 mmol/L 04/13/2024 4:21 PM [facility] CO2, VENOUS 22 22 - 30 mmol/L 04/13/2024 4:21 PM [facility] ANION GAP 14.9 <18.0 mmol/L 04/13/2024 4:21 PM [facility] GLUCOSE 178(H) 70 - 99 mg/dL 04/13/2024 4:21 PM [facility] BUN 11 8 - 26 mg/dL 04/13/2024 4:21 PM [facility] CREATININE, BLOOD 0.91 0.70 - 1.30 mg/dL 04/13/2024 4:21 PM [facility] BUN/CREATININE RATIO 12 12 - 20 ratio 04/13/2024 4:21 PM [facility] TOTAL PROTEIN 7.3 6.3 - 8.2 g/dL 04/13/2024 4:21 PM [facility] ALBUMIN 4.5 3.5 - 5.0 g/dL 04/13/2024 4:21 PM [facility] A/G RATIO 1.6 1.0 - 2.2 04/13/2024 4:21 PM [facility] CALCIUM 9.7 8.7 - 10.5 mg/dL 04/13/2024 4:21 PM [facility] T BILI 0.4 0.2 - 1.2 mg/dL 04/13/2024 4:21 PM [facility] SGOT (AST) 23 5 - 34 U/L 04/13/2024 4:21 PM [facility] SGPT (ALT) 34 0 - 55 U/L 04/13/2024 4:21 PM [facility] ALKALINE PHOSPHATASE 64 40 - 150 U/L 04/13/2024 4:21 PM CONCHE LOADER AND UNLOADER [facility] GFR, ESTIMATED >60 >=60 04/13/2024 4:21 PM CONCHE LOADER AND UNLOADER [facility] Comment: Creatinine Clearance is the preferred criteria for selecting drug dose adjustments in renally impaired patients. The GFR is provided as additional pertinent clinical information. GFR is reported in mL/min/1.73 sq m. Calculation based on the Chronic Kidney Disease Epidemiology Collaboration (CKD- EPI) equation refit without adjustment for race. GFR, EST. >60 >=60 024 4:21 PM CONCHE LOADER AND UNLOADER [facility] GFR, EST. NONAFRICAN >60 >=60 04/13/2024 4:21 PM CONCHE LOADER AND UNLOADER [facility] Blood Venipuncture / Unknown 04/13/2024 3:52 PM CONCHE LOADER AND UNLOADER 04/13/2024 3:58 PM CONCHE LOADER AND UNLOADER us Judah Barragan MD CHEMISTRY ORDERABLES F inal Result [facility] [address] [place] [address] * (ABNORMAL) POCT GLYCOSYLATED HEMOGLOBIN (08/04/2023 2:24 [...] measures to stabilize the patient. Care Teams Award Clerk Relationship Specialty Start Date End Date Lisa Goldberg APRN [address] [place] [address] PCP - General Advanced Practice Nurse 12/12/22 Joel Denson MD [address] [place] [address] Psychiatry 12/17/16 Sea Hdez MD [address] [facility] [address] [place] [address] Consulting Physician Urology 07/08/23 Deysi Carballo MD [address] [facility] [address] [place] [address] Consulting Physician Endocrinology 07/25/23 Nicolás Wright MD [address] [place] [phone] Consulting Physician Neurology 08/11/23
--- OUTSIDE RECORDS SUMMARY | 2024-09-08 15:49 | XMS_ITS | Encounter Summary ---
Author Organization [facility] Address [address] [place] [address] Phone Care Team Providers Care Policy Loan Calculator Name Role Phone Joel Denson MD Unavailable Lisa Goldberg APRN Primary Care Provider [phone] Sea Hdez MD Unavailable [phone] Deysi Carballo MD Unavailable Nicolás Wright MD Unavailable [phone] Reason for Visit * Reason Onset Date Comments Referral 08/21/2023 External Urology Referral Encounter Details Date Type Department Care Team (Late st Contact Info) Description 08/21/2023 Telephone [facility] [address] [place] [address] Lisa Goldberg APRN [address] [place] [address] Referral (External Urology Referral) Social History [...] 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 on file Not [...] - 19 04/13/2024 04/13/2024 04/13/2024 3:36 PM CORPORATE TRAVEL COORDINATOR Assessment Noted Time PHQ-9 Depression Total Score: 0 04/23/19 17 9:00 AM CORPORATE TRAVEL COORDINATOR documented as of this encounter Care Teams Policy Loan Calculator Relationship Specialty Start Date End Date Lisa Goldberg APRN [address] [place] [address] PCP - General Advanced Practice Nurse 12/12/22 Joel Denson MD [address] [place] [address] Psychiatry 12/17/16 Sea Hdez MD [address] [address] Consulting Physician Urology 07/08/23 Deysi Carballo MD [address] [phone] Consulting Physician Endocrinology 07/25/23 Nicolás Wright MD [address] [place] [phone] Consulting Physician Neurology 08/11/23 documented as of this encounter
--- OUTSIDE RECORDS SUMMARY | 2024-09-08 15:49 | XMS_ITS | Encounter Summary ---
Author Organization [facility] Address [address] [place] [address] Phone Care Team Providers Care Bar Machine Operator Multiple Spindle Name Role Phone Joel Denson MD Unavailable Lisa Goldberg APRN Primary Care Provider [phone] Sea Hdez MD Unavailable [phone] Deysi Carballo MD Unavailable Nicolás Wright MD Unavailable [phone] Reason for Referral * Consult, Test & Initiate Treatment (Routine) - Closed Specialty Diagnoses / Procedures Referred By Sarah nunn Referred To Contact Diagnoses Urinary retention Sea Hdez MD [address] [facility], [facility] [address] [place] [address] Phone: tel: fax: [facility] [address] [facility] [address] [facility] [place] [address] Phone: tel: fax: Referral ID Status Reason Start Date Expiration Date Visits Re quested Visits Authorized [id number] Closed 07/15/2023 1 1 Scheduling Instructions Edwardo is being referred to [place]/ [facility] [[email or web address]] or other specialist in patient's insurance network [...] 200 mg by mouth 2 times daily. 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 Please make office visit after urodynamics [...] - 19 04/13/2024 04/13/2024 04/13/2024 3:36 PM PASTORAL MINISTRIES PROFESSOR Assessment Noted Time PHQ-9 Depression Total Score: 0 04/23/19 17 9:00 AM PASTORAL MINISTRIES PROFESSOR documented as of this encounter Care Teams Bar Machine Operator Multiple Spindle Relationship Specialty Start Date End Date Lisa Goldberg APRN [address] [place] [address] PCP - General Advanced Practice Nurse 12/12/22 Joel Denson MD [address] [place] [address] Psychiatry 12/17/16 Sea Hdez MD [address] [facility] [address] [place], [place] [id number] Consulting Physician Urology 07/08/23 Deysi Carballo MD [address] [address] Consulting Physician Endocrinology 07/25/23 Nicolás Wright MD [address] [place] [address] Consulting Physician Neurology 08/11/23 documented as of this encounter
--- NOTE | 2024-09-08 16:28 | ED_ITS ---
HPI - Male Genitourinary General Chief complaint: Urogenital-Male <Leonela Fernandez PA-C - Last Filed: 09/09/24 09:17> Stated complaint: Blood in urine, burning with urination <Leonela Fernandez PA-C - Last Filed: 09/09/24 09:17> Time Seen by Provider: 09/08/24 16:28 <Leonela Fernandez PA-C - Last Filed: 09/09/24 09:17> Focused HPI: This is a 68 year old male that presents to the ER for blood in the urine, dysuria. Ongoing since Dr. Jackson did a cystoscopy on the 09/03. Denies fevers, vomiting. GENERAL: Well-appearing, well-nourished, and in no acute distress. HEAD: Normocephalic, atraumatic. CHEST: Clear to auscultation. ?No respiratory distress. HEART: Regular rate and rhythm.? NEURO: ?Alert and oriented x3. Patient screened in triage and initial orders placed.? ?Additional care and disposition to be based upon?diagnostic testing and treatment. <Leonela Fernandez PA-C - Last Filed: 09/09/24 09:17> History of Present Illness HPI Narrative: 68-year-old male presenting with dysuria and hematuria after having a cystoscopy. He is not having any signs of urinary retention or lower abdominal pain. He has been on Bactrim without relief. <Galileo Arias MD - Last Filed: 09/08/24 22:05> Related Data Home medications: Home Medications ?Medication ?Instructions ?Recorded ?Confirmed ?Last Taken ?Type bupropion HCl 200 mg tablet,12 hr 200 mg PO BID 05/08/21 08/31/24 07/03/24 History sustained-release quetiapine 50 mg tablet 150 mg PO QHS 05/18/22 08/31/24 07/03/24 History finasteride 5 mg tablet 5 mg PO DAILY 03/10/23 08/31/24 07/03/24 History aripiprazole 20 mg tablet 10 mg PO BID 02/13/24 08/31/24 07/03/24 History <Leonela Fernandez PA-C - Last Filed: 09/09/24 09:17> Allergies/Adverse reactions: Allergies Allergy/AdvReac Type Severity Reaction Status Date / Time No Known Allergies Allergy Verified 09/08/24 15:47 <Leonela Fernandez PA-C - Last Filed: 09/09/24 09:17> Review of Systems 2 Review of Systems: All systems reviewed & are unremarkable except as noted in HPI and below <Leonela Fernandez PA-C - Last Filed: 09/09/24 09:17> [facility] Past Medical History Medical History: Medical History (Updated 09/09/24 @ 09:17 by Leonela Fernandez PA-C) Excessive daytime sleepiness Sleep disorder, unspecified Diabetic polyneuropathy MCI (mild cognitive impairment) 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 Colon polyp Type 2 diabetes mellitus Gastroesophageal reflux disease Arthritis Lumbar spondylosis Pulmonary embolism (02/2022) Ataxia Rib fracture Benign prostatic hyperplasia Peripheral neuropathy Hypertension Hyperlipidemia Chronic insomnia Former cigarette smoker Bipolar depression Anxiety <Leonela Fernandez PA-C - Last Filed: 09/09/24 09:17> Surgical History Surgical History: Surgical History History of right knee joint replacement (05/10/21) History of bilateral cataract extraction (04/2022) History of colonoscopy with polypectomy History of arthroscopy of left knee History of right knee surgery x4 <Leonela Fernandez PA-C - Last Filed: 09/09/24 09:17> Family History Family History: Family History Father Age older than 80 years Hypertension Mother Age older than 80 years Patient's mother is in good health Sibling Fibromyalgia Diabetes mellitus Mother Dementia <Leonela Fernandez PA-C - Last Filed: 09/09/24 09:17> Social History Social History: Social History Social History: Code status: Full code Surrogate decision maker: Mona Ricci, spouse Smoking packs per day: 0.5 Smoking cigarettes per day: 10.0 Years smoked: 12 Smoking pack-years: 6.00 Smoking status: Current every day smoker Tobacco type: cigarettes Second hand tobacco smoke exposure: No Alcohol intake: never Substance use: never Substance use type: does not use Do You Feel Safe in your Home?: Yes Lack of Transportation: No Lack of Food: Never True Current Housing: I Have Housing Concerned About Future Housing: No Difficulty Paying Gas/Electric Bills: No Difficulty Paying for Meds: No Currently Unemployed: No Education: Don't Know Difficulty w/ Childcare or Family Care: No Living arrangements: with family Additional living arrangements comments: Lives with in [place]. Has 4 children and 21 grandchildren. 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 Spiritual care concerns: No <Leonela Fernandez PA-C - Last Filed: 09/09/24 09:17> Exam 2 Narrative: APPEARANCE: No apparent distress. Head: atraumatic. EYES: EOMI, NOSE: Atraumatic NECK: Trachea midline RESPIRATORY: No increased rate of breathing CTAB CARDIOVASCULAR: RRR, no peripheral edema ABDOMINAL: Non-distended no suprapubic fullness, no CVA tenderness MUSCULOSKELETAl: No obvious deformities NEURO: Alert. Moving 4/4 extremities SKIN:: Warm, dry. Normal color PSYCHIATRIC: Normal affect <Galileo Arias MD - Last Filed: 09/08/24 22:05> Course Vital Signs Vital signs: Vital Signs Temperature 98.2 F 09/08/24 15:48 Pulse Rate 83 09/08/24 15:48 Respiratory Rate 16 09/08/24 15:48 Blood Pressure 127/71 09/08/24 15:48 Pulse Oximetry 97 09/08/24 15:48 Temperature 98.2 F 09/08/24 15:48 Pulse Rate 82 09/08/24 22:21 Respiratory Rate 16 09/08/24 22:21 Blood Pressure 110/87 09/08/24 22:21 Pulse Oximetry 97 09/08/24 22:21 <Leonela Fernandez PA-C - Last Filed: 09/09/24 09:17> Vital Signs Temperature 98.2 F 09/08/24 15:48 Pulse Rate 83 09/08/24 15:48 Respiratory Rate 16 09/08/24 15:48 Blood Pressure 127/71 09/08/24 15:48 Pulse Oximetry 97 09/08/24 15:48 Temperature 98.2 F 09/08/24 15:48 Pulse Rate 82 09/08/24 22:21 Respiratory Rate 16 09/08/24 22:21 Blood Pressure 110/87 09/08/24 22:21 Pulse Oximetry 97 09/08/24 22:21 <Galileo Arias MD - Last Filed: 09/08/24 22:05> MDM - Male Genitourinary MDM Narrative Medical decision making narrative: -Course: 68-year-old male presenting with hematuria and dysuria after cystoscopy. He has been on Bactrim with no relief. Patient will be placed on cefdinir. CT abdomen pelvis without contrast was ordered to further evaluate for cause of his hematuria, however the patient did not want await the results. He then became irate and rude with nursing staff saying that he wanted to leave immediately. He was provided appropriate discharge instructions and RX. He then demanded to speak to the MD. When I went to talk to him he was angry/rude and stated I had not made any attempt to help him despite ordering urinalysis, CT abdomen pelvis and antibiotics to treat his infection. Patient then left the emergency department. Instructed to follow up with [facility]. Given a prescription for cefdinir. Tylenol for pain. Given return precautions. -DDX includes but is not limited to: UTI, hematuria, urinary retention <Leonlea Fernandez PA-C - Last Filed: 09/09/24 09:17> -Course: 68-year-old male presenting with hematuria and dysuria after cystoscopy. He has been on Bactrim with no relief. Patient will be placed on cefdinir. CT abdomen pelvis without contrast was ordered to further evaluate for cause of his hematuria however the patient did not want await the results. He then became irate and rude with nursing staff saying that he wanted to leave immediately. He was provided appropriate discharge instructions and RX. He then demanded to speak to the MD. When I went to talk to him he was angry/rude and stated I had not made any attempt to help him despite ordering urinalysis, CT abdomen pelvis and antibiotics to treat his infection. Patient then left the emergency department. Instructed to follow up with [facility]. Given a prescription for cefdinir. Tylenol for pain.Given return precautions. -DDX includes but is not limited to: UTI, hematuria, urinary retention <Galileo Arias MD - Last Filed: 09/08/24 22:05> Lab Data Result diagrams: 09/08/24 16:38 09/08/24 16:38 <Leonela Fernandez PA-C - Last Filed: 09/09/24 09:17> Labs: Lab Results 09/08/24 Range/Units 16:38 WBC 6.6 (4.5-10.0) K/mm3 RBC 4.92 (4.6-6.20) M/mm3 Hgb 13.4 L (14.0-18.0) g/dL Hct 42.5 (42.0-52.0) % MCV 86.4 (80-100) fl MCH 27.2 (26-34) pg MCHC 31.5 L (32-36) g/dl RDW 14.6 H (11.5-14.5) % Plt Count 169 (150-375) k/mm3 MPV 9.2 (7.4-10.4) fl Immature Gran % (Auto) 0.2 (0-0.5) % Neut % (Auto) 65.0 (45.5-73.1) % Lymph % (Auto) 25.1 (18.3-44.2) % [place] % (Auto) 7.1 (2.6-8.5) % Eos % (Auto) 2.1 (0-4.4) % Baso % (Auto) 0.5 (0.2-1.2) % Lymph # (Auto) 1.66 (0.9-3.2) K/mm3 [place] # (Auto) 0.5 (0.1-0.6) K/mm3 Eos # (Auto) 0.1 (0-0.3) K/mm3 Baso # (Auto) 0.0 (0.0-0.1) K/mm3 Abs Immat Gran (auto) 0.01 (0.00-0.031) K/mm3 Absolute Neuts (auto) 4.3 (1.3-6.7) K/mm3 Absolute Nucleated RBC 0.000 (0.0-0.012) K/mm3 Nucleated RBC % 0.0 (0.0-0.2) % PT 11.8 (11.1-14.7) Seconds INR 0.8 APTT 25.3 (22.3-36.8) Seconds Sodium 133 L (137-145) mmol/L Potassium 4.3 (3.4-5.0) mmol/L Chloride 103 (98-107) mmol/L Carbon Dioxide 19 L (22-30) mmol/L Anion Gap 11 (4-12) mmol/L BUN 20 (9-20) mg/dL Creatinine 1.09 (0.7-1.3) mg/dL Estim Creat Clear Calc 57 ml/min Estimated GFR > 60 (59 - ) Glucose 298 H (65-110) mg/dL Calcium 9.4 (8.4-10.2) mg/dL Total Bilirubin 0.4 (0.2-1.3) mg/dL AST 33 (17-59) U/L ALT 33 (6-50) U/L Alkaline Phosphatase 77 (38-126) U/L Total Protein 8.0 (6.3-8.2) g/dL Albumin 4.4 (3.5-5.1) g/dL Lipase 79 (23-300) U/L Urine Color [place] H (Yellow) Urine Appearance Clear (Clear) Urine pH TNP Ur Specific [place] TNP Urine Protein TNP Urine Glucose (UA) TNP Urine Ketones TNP Ur Blood (Man) TNP Urine Nitrate TNP Urine Bilirubin TNP Urine Urobilinogen TNP Leukocyte Esterase Rfl TNP Urine RBC 0-2 (0-2) /hpf Urine WBC 6-10 H (0-3) /hpf Ur Squamous Epith Cells Rare (Few) /hpf Urine Bacteria None seen (None) /hpf <Leonela Fernandez PA-C - Last Filed: 09/09/24 09:17> Lab Results 09/08/24 Range/Units 16:38 WBC 6.6 (4.5-10.0) K/mm3 RBC 4.92 (4.6-6.20) M/mm3 Hgb 13.4 L (14.0-18.0) g/dL Hct 42.5 (42.0-52.0) % MCV 86.4 (80-100) fl MCH 27.2 (26-34) pg MCHC 31.5 L (32-36) g/dl RDW 14.6 H (11.5-14.5) % Plt Count 169 (150-375) k/mm3 MPV 9.2 (7.4-10.4) fl Immature Gran % (Auto) 0.2 (0-0.5) % Neut % (Auto) 65.0 (45.5-73.1) % Lymph % (Auto) 25.1 (18.3-44.2) % [place] % (Auto) 7.1 (2.6-8.5) % Eos % (Auto) 2.1 (0-4.4) % Baso % (Auto) 0.5 (0.2-1.2) % Lymph # (Auto) 1.66 (0.9-3.2) K/mm3 [place] # (Auto) 0.5 (0.1-0.6) K/mm3 Eos # (Auto) 0.1 (0-0.3) K/mm3 Baso # (Auto) 0.0 (0.0-0.1) K/mm3 Abs Immat Gran (auto) 0.01 (0.00-0.031) K/mm3 Absolute Neuts (auto) 4.3 (1.3-6.7) K/mm3 Absolute Nucleated RBC 0.000 (0.0-0.012) K/mm3 Nucleated RBC % 0.0 (0.0-0.2) % PT 11.8 (11.1-14.7) Seconds INR 0.8 APTT 25.3 (22.3-36.8) Seconds Sodium 133 L (137-145) mmol/L Potassium 4.3 (3.4-5.0) mmol/L Chloride 103 (98-107) mmol/L Carbon Dioxide 19 L (22-30) mmol/L Anion Gap 11 (4-12) mmol/L BUN 20 (9-20) mg/dL Creatinine 1.09 (0.7-1.3) mg/dL Estim Creat Clear Calc 57 ml/min Estimated GFR > 60 (59 - ) Glucose 298 H (65-110) mg/dL Calcium 9.4 (8.4-10.2) mg/dL Total Bilirubin 0.4 (0.2-1.3) mg/dL AST 33 (17-59) U/L ALT 33 (6-50) U/L Alkaline Phosphatase 77 (38-126) U/L Total Protein 8.0 (6.3-8.2) g/dL Albumin 4.4 (3.5-5.1) g/dL Lipase 79 (23-300) U/L Urine Color [place] H (Yellow) Urine Appearance Clear (Clear) Urine pH TNP Ur Specific [place] TNP Urine Protein TNP Urine Glucose (UA) TNP Urine Ketones TNP Ur Blood (Man) TNP Urine Nitrate TNP Urine Bilirubin TNP Urine Urobilinogen TNP Leukocyte Esterase Rfl TNP Urine RBC 0-2 (0-2) /hpf Urine WBC 6-10 H (0-3) /hpf Ur Squamous Epith Cells Rare (Few) /hpf Urine Bacteria None seen (None) /hpf <Galileo Arias MD - Last Filed: 09/08/24 22:05> Imaging Data Radiologist's impression: ITS Impressions Abdomen/Pelvis CT 09/08/24 21:33 IMPRESSION: 1. No evidence of appendicitis, diverticulitis or intestinal obstruction. 2. Left kidney stone 3. Sliding hiatus hernia. 4. Constipation. 5. Possible cystitis. Clinical evaluation advised. <Leonela Fernandez PA-C - Last Filed: 09/09/24 09:17> Critical Care Time Critical Care Time Critical Care Time: No <Leonela Fernandez PA-C - Last Filed: 09/09/24 09:17> Discharge Plan Discharge Clinical Impression: Hematuria Qualifiers: Hematuria type: gross Qualified Code(s): R31.0 - Gross hematuria <Leonela Fernandez PA-C - Last Filed: 09/09/24 09:17> Patient Disposition: Elopement After Seen by Prov <Leonela Fernandez PA-C - Last Filed: 09/09/24 09:17> Instructions: Hematuria (ED) <Leonela Fernandez PA-C - Last Filed: 09/09/24 09:17> Additional Instructions: Please take the cefdinir as instructed. Please follow-up with Dr. Jackson as soon as possible. If you develop fevers, flank pain or your condition is worsening please return to the ED for re-evaluation immediately. <Leonela Fernandez PA-C - Last Filed: 09/09/24 09:17> Patient Language: French <Leonela Fernandez PA-C - Last Filed: 09/09/24 09:17> Prescriptions: New cefdinir 300 mg capsule 300 mg PO Q12H Qty: 20 0RF acetaminophen 500 mg tablet 1,000 mg PO TID PRN (Reason: naty) 7 Days Qty: 42 0RF No Action aripiprazole 20 mg tablet 10 mg PO BID finasteride 5 mg tablet 5 mg PO DAILY metformin 1,000 mg tablet 1,000 mg PO BID 90 Days Qty: 180 1RF insulin lispro [Humalog KwikPen Insulin] 100 unit/mL insulin pen 1 sliding scale dose subcut USEASDIRECTD MDD 60 Qty: 54 2RF Rx Instructions: Humalog 14 units before breakfast , 14 units before lunch and 14 units before dinner. add Humalog for high sugar before meals only blood sugar 150-170 - take additional 1 units blood sugar 171-190- take additional 2 units blood sugar 191-210- take additional 3 units blood sugar 211-230- take additional 4 units blood sugar 231-250- take additional 5 units blood sugar 251 - take additional 6 units insulin glargine U-300 conc [Toujeo Max U-300 SoloStar] 300 unit/mL (3 mL) insulin pen 40 unit subcut DAILY 90 Days Qty: 12 1RF methylprednisolone [Medrol (Harshil)] 4 mg tablets,dose pack See Rx Instructions PO PER PKG DIR Qty: 21 0RF Rx Instructions: PO PER PKG DIR quetiapine 50 mg tablet 150 mg PO QHS bupropion HCl 200 mg tablet sustained-release 12 hr 200 mg PO BID aspirin [Children's Aspirin] 81 mg Tablet,Chewable 81 mg PO DAILY@0800 Qty: 60 0RF tamsulosin 0.4 mg capsule 0.4 mg PO DAILY Qty: 90 3RF atorvastatin 20 mg tablet See Rx Instructions .ROUTE .COMPLEX Qty: 90 3RF Dose Instruction: Take 1 tablet by mouth once daily Rx Instructions: Take 1 tablet by mouth once daily pantoprazole 40 mg tablet,delayed release (DR/EC) See Rx Instructions .ROUTE .COMPLEX Qty: 90 3RF Dose Instruction: Take 1 tablet by mouth twice daily Rx Instructions: Take 1 tablet by mouth twice daily lorazepam 0.5 mg tablet 0.5 mg PO .COMPLEX PRN (Reason: anxiety) Qty: 1 0RF Rx Instructions: 0.5 mg orally Take 30 minutes prior to MRI PRN; Must have someone drive to and from MRI carvedilol 12.5 mg tablet See Rx Instructions .ROUTE .COMPLEX Qty: 180 0RF Dose Instruction: TAKE 1 TABLET BY MOUTH EVERY 12 HOURS WITH FOOD Rx Instructions: TAKE 1 TABLET BY MOUTH EVERY 12 HOURS WITH FOOD clopidogrel 75 mg tablet See Rx Instructions .ROUTE .COMPLEX Qty: 90 3RF Dose Instruction: Take 1 tablet by mouth once daily Rx Instructions: Take 1 tablet by mouth once daily <Leonela Fernandez PA-C - Last Filed: 09/09/24 09:17> Follow-up/Referrals: Ha Jackson MD [Physician] - 2 Days (Urinary symptoms s/p cystoscopy) Lisa Goldberg APRN [Primary Care Provider] - <Leonela Fernandez PA-C - Last Filed: 09/09/24 09:17>
[2024-09-08 16:49] LABS: Basophils Percent Auto 0.5 % (0.2-1.2); Eosinophils Absolute Auto 0.1 K/mm3 (0-0.3); Eosinophils Percent Auto 2.1 % (0-4.4); Hematocrit 42.5 % (42.0-52.0); Hemoglobin 13.4 g/dL (14.0-18.0); Immature Granulocyte Absolute 0.01 K/mm3 (0.00-0.031); Immature Granulocyte Percent A 0.2 % (0-0.5); Lymphocytes Absolute Auto 1.66 K/mm3 (0.9-3.2); Lymphocytes Percent Auto 25.1 % (18.3-44.2); Mean Corpuscular HGB Conc 31.5 g/dl (32-36); Mean Corpuscular Hemoglobin 27.2 pg (26-34); Mean Corpuscular Volume 86.4 fl (80-100); Mean Platelet Volume 9.2 fl (7.4-10.4); Monocytes Absolute Auto 0.5 K/mm3 (0.1-0.6); Monocytes Percent Auto 7.1 % (2.6-8.5); Neutrophils Absolute Auto 4.3 K/mm3 (1.3-6.7); Platelet Count Result 169 k/mm3 (150-375); Red Blood Count 4.92 M/mm3 (4.6-6.20); Red Cell Distribution Width 14.6 % (11.5-14.5); White Blood Count 6.6 K/mm3 (4.5-10.0)
[2024-09-08 17:03] LABS: Alanine Aminotransferase 33 U/L (6-50); Albumin Level 4.4 g/dL (3.5-5.1); Alkaline Phosphatase 77 U/L (38-126); Anion Gap 11 mmol/L (4-12); Aspartate Amino Transferase 33 U/L (17-59); Bilirubin,Total 0.4 mg/dL (0.2-1.3); Blood Urea Nitrogen 20 mg/dL (9-20); Calcium 9.4 mg/dL (8.4-10.2); Carbon Dioxide 19 mmol/L (22-30); Chloride 103 mmol/L (98-107); Estimated CRCL calculation 57 ml/min; Estimated Glomerular Filt Rate > 60; Glucose 298 mg/dL (65-110); Lipase 79 U/L (23-300); Potassium 4.3 mmol/L (3.4-5.0); Sodium 133 mmol/L (137-145)
[2024-09-08 17:10] LABS: Color Urine Orange (Yellow)
[2024-09-08 17:11] LABS: Appearance Urine Clear (Clear)
[2024-09-08 17:12] LABS: Add Urine Microscopic? YES; RBC Urine 0-2 /hpf (0-2)
[2024-09-08 17:13] LABS: Squamous Epithelial Cell Urine Rare /hpf (Few)
[2024-09-08 17:14] LABS: Bacteria Urine None seen /hpf
[2024-09-08 17:27] LABS: INR 0.8; Prothrombin Time 11.8 Seconds (11.1-14.7)
[2024-09-08 17:28] LABS: Partial Thromboplastin Time 25.3 Seconds (22.3-36.8)
--- OUTSIDE RECORDS SUMMARY | 2024-09-08 20:11 | XMS_ITS | Encounter Summary ---
Author Organization [facility] Address [address] [place] [address] Phone Care Team Providers Care Salvage Winder And Inspector Name Role Phone Joel Denson MD Unavailable Lisa Goldberg APRN Primary Care Provider [phone] Sea Hdez MD Unavailable [phone] Deysi Carballo MD Unavailable Nicolás Wright MD Unavailable [phone] Reason for Visit * Reason Onset Date Comments Referral 08/21/2023 External Urology Referral Encounter Details Date Type Department Care Team (Late st Contact Info) Description 08/21/2023 Telephone [facility] [address] [place] [address] Lisa Goldberg APRN [address] [place] [id number] Referral (External Urology Referral) Social History [...] 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 Not on file Not [...] - 19 04/13/2024 04/13/2024 04/13/2024 3:36 PM AS400 OPERATOR Assessment Noted Time PHQ-9 Depression Total Score: 0 04/23/19 17 9:00 AM AS400 OPERATOR documented as of this encounter Care Teams Salvage Winder And Inspector Relationship Specialty Start Date End Date Lisa Goldberg APRN [address] [place] [address] PCP - General Advanced Practice Nurse 12/12/22 Joel Denson MD [address] [place] [address] Psychiatry 12/17/16 Sea Hdez MD [address] [address] Consulting Physician Urology 07/08/23 Deysi Carballo MD [address] [phone] Consulting Physician Endocrinology 07/25/23 Nicolás Wright MD [address] [place] [phone] Consulting Physician Neurology 08/11/23 documented as of this encounter
--- OUTSIDE RECORDS SUMMARY | 2024-09-08 20:11 | XMS_ITS | Encounter Summary ---
Author Organization [facility] Address [address] [place] [address] Phone Care Team Providers Care Sales Inspector Name Role Phone Joel Denson MD Unavailable Lisa Goldberg APRN Primary Care Provider [phone] Sea Hdez MD Unavailable [phone] Deysi Carballo MD Unavailable Nicolás Wright MD Unavailable [phone] Reason for Referral * Consult, Test & Initiate Treatment (Routine) - Closed Specialty Diagnoses / Procedures Referred By Sarah nunn Referred To Contact Diagnoses Urinary retention Sea Hdez MD [address] [facility] [address] [place] [address] Phone: tel: fax: [facility] [address] [facility] [address] [facility] [place] [address] Phone: tel: fax: Referral ID Status Reason Start Date Expiration Date Visits Re quested Visits Authorized [id number] Closed 07/15/2023 1 1 Scheduling Instructions Edwardo is being referred to [facility] or other specialist in patient's insurance network [...] 200 mg by mouth 2 times daily. 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 Please make office visit after urodynamics [...] - 19 04/13/2024 04/13/2024 04/13/2024 3:36 PM PIPE PULLER Assessment Noted Time PHQ-9 Depression Total Score: 0 04/23/19 17 9:00 AM PIPE PULLER documented as of this encounter Care Teams Sales Inspector Relationship Specialty Start Date End Date Lisa Goldberg APRN [address] [place] [address] PCP - General Advanced Practice Nurse 12/12/22 Joel Denson MD [address] [place] [address] Psychiatry 12/17/16 Sea Hdez MD [address] [facility] [address] [place], [place] [id number] Consulting Physician Urology 07/08/23 Deysi Carballo MD #[address] [address] Consulting Physician Endocrinology 07/25/23 Nicolás Wright MD [address] [place] [address] Consulting Physician Neurology 08/11/23 documented as of this encounter
--- OUTSIDE RECORDS SUMMARY | 2024-09-08 20:11 | XMS_ITS | Clinical Summary ---
Author Organization [facility] Address [address] [place] [address] Phone Care Team Providers Care Babcock Tester Name Role Phone Joel Denson MD Unavailable Lisa Goldberg APRN Primary Care Provider [phone] Sea Hdez MD Unavailable [phone] Deysi Carballo MD Unavailable Nicolás Wright MD Unavailable Allergies No known active allergies Medications atorvastatin (LIPITOR) 20 MG Tablet Take 20 mg by mouth daily. Active BuPROPion HCl 200 MG TABLET SR 12 HR Take 200 mg by mouth 2 times daily. 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 on file Not on file Last Filed Vital Signs Vital Sign Reading Time Taken Comments Blood Pressure 97/63 04/15/2024 1:16 AM INSTRUCTOR PHYSICAL Pulse 56 04/15/2024 1:16 AM INSTRUCTOR PHYSICAL Temperature 36.3 C (97.4 F) 04/13/2024 2:17 PM INSTRUCTOR PHYSICAL Respiratory Rate 18 04/15/2024 1:16 AM INSTRUCTOR PHYSICAL Oxygen Saturation 97% 04/15/2024 1:16 AM INSTRUCTOR PHYSICAL Inhaled Oxygen Concentration - - Weight 76.2 kg (168 lb) 04/14/2024 11:48 PM INSTRUCTOR PHYSICAL Height 172.7 cm (5' 8) 04/14/2024 11:48 PM INSTRUCTOR PHYSICAL Body Mass Index 25.54 04/14/2024 11:48 PM INSTRUCTOR PHYSICAL Plan of Treatment Health Maintenance Due Date [...] (COMPREHENSIVE METABOLIC PANEL) STAT 04/13/2024 3:52 PM INSTRUCTOR PHYSICAL POCT GLYCOSYLATED HEMOGLOBIN Routine 08/04/2023 2:24 PM CDT Type 2 diabetes mellitus without complication, with long-term current use of insulin (HCC) from Last 3 Months or Most Recently Relevant to Health Maintenance Results * (ABNORMAL) CMP (Comprehensive Metabolic Panel) (04/13/2024 3:52 PM INSTRUCTOR PHYSICAL) SODIUM 133(L) 136 - 145 mmol/L 04/13/2024 4:21 PM [facility] POTASSIUM 3.9 3.5 - 5.1 mmol/L 04/13/2024 4:21 PM [facility] CHLORIDE 100 98 - 107 mmol/L 04/13/2024 4:21 PM [facility] CO2, VENOUS 22 22 - 30 mmol/L 04/13/2024 4:21 PM [facility] ANION GAP 14.9 <18.0 mmol/L 04/13/2024 4:21 PM [facility] GLUCOSE 178(H) 70 - 99 mg/dL 04/13/2024 4:21 PM [facility] BUN 11 8 - 26 mg/dL 04/13/2024 4:21 PM [facility] CREATININE, BLOOD 0.91 0.70 - 1.30 mg/dL 04/13/2024 4:21 PM [facility] BUN/CREATININE RATIO 12 12 - 20 ratio 04/13/2024 4:21 PM [facility] TOTAL PROTEIN 7.3 6.3 - 8.2 g/dL 04/13/2024 4:21 PM [facility] ALBUMIN 4.5 3.5 - 5.0 g/dL 04/13/2024 4:21 PM [facility] A/G RATIO 1.6 1.0 - 2.2 04/13/2024 4:21 PM [facility] CALCIUM 9.7 8.7 - 10.5 mg/dL 04/13/2024 4:21 PM [facility] T BILI 0.4 0.2 - 1.2 mg/dL 04/13/2024 4:21 PM [facility] SGOT (AST) 23 5 - 34 U/L 04/13/2024 4:21 PM [facility] SGPT (ALT) 34 0 - 55 U/L 04/13/2024 4:21 PM [facility] ALKALINE PHOSPHATASE 64 40 - 150 U/L 04/13/2024 4:21 PM INSTRUCTOR PHYSICAL [facility] GFR, ESTIMATED >60 >=60 04/13/2024 4:21 PM INSTRUCTOR PHYSICAL [facility] Comment: Creatinine Clearance is the preferred criteria for selecting drug dose adjustments in renally impaired patients. The GFR is provided as additional pertinent clinical information. GFR is reported in mL/min/1.73 sq m. Calculation based on the Chronic Kidney Disease Epidemiology Collaboration (CKD- EPI) equation refit without adjustment for race. GFR, EST. >60 >=60 024 4:21 PM INSTRUCTOR PHYSICAL [facility] GFR, EST. NONAFRICAN >60 >=60 04/13/2024 4:21 PM INSTRUCTOR PHYSICAL [facility] Blood Venipuncture / Unknown 04/13/2024 3:52 PM INSTRUCTOR PHYSICAL 04/13/2024 3:58 PM INSTRUCTOR PHYSICAL us Judah Barragan MD CHEMISTRY ORDERABLES F inal Result [facility] [address] [place] [address] * (ABNORMAL) POCT GLYCOSYLATED HEMOGLOBIN (08/04/2023 2:24 [...] measures to stabilize the patient. Care Teams Babcock Tester Relationship Specialty Start Date End Date Lisa Goldberg APRN [address] [place] [address] PCP - General Advanced Practice Nurse 12/12/22 Joel Denson MD [address] [place] [address] Psychiatry 12/17/16 Sea Hdez MD [address]2 [facility] [address] [place] [address] Consulting Physician Urology 07/08/23 Deysi Carballo MD [address]2 [facility] [address] [place] [address] Consulting Physician Endocrinology 07/25/23 Nicolás Wright MD [address] [place] [phone] Consulting Physician Neurology 08/11/23
[2024-09-08 20:16] VITALS: BP 108/85; PULSE 84; RESP 17; O2SAT 96
[2024-09-08] MEDS: CEFDINIR 300 MG CAPSULE PO (21:41)
[2024-09-08 22:21] VITALS: BP 110/87; PULSE 82; RESP 16; O2SAT 97
== END 2024-09-08 22:21 | disposition left against medical advice (07) ==
PROVIDERS: Physician Assistant; Emergency Provider Emergency Medicine; PCP Nurse Practitioner Adult Health
DX: R31.0 Gross hematuria (principal); E11.9 Type 2 diabetes mellitus without complications; Z86.711 Personal history of pulmonary embolism; I10 Essential (primary) hypertension; E78.5 Hyperlipidemia, unspecified; F31.9 Bipolar disorder, unspecified; Z96.651 Presence of right artificial knee joint; F17.210 Nicotine dependence, cigarettes, uncomplicated
CPT/HCPCS: 36415; 74176; 80053; 81001; 83690; 85025; 85610; 85730; 99284; A9270

== ENCOUNTER 2024-09-30 02:10 | Day surgery (SDC) | payer OTHER, SELFPAY ==
--- NOTE | 2024-09-22 15:28 | PC.NURSE ---
Report to the Outpatient Waiting Room, entrance under the green pavilion located off [facility], at time __10 AM on date __09/30/24 . Planned Procedure Time: _1200 .? Time changes happen often and if your time is changed the preop area will call you the afternoon before. - You and your visitor will be asked to self-screen and do not enter if you have any COVID symptoms. Please call surgeon if you need to reschedule. - A mask is optional within the hospital at this time. Patients may have clear liquids (water, carbonated beverages, clear teas, apple juice) until 3 hours prior to surgery ( 9AM) with a maximum of 20 ounces. - No food from midnight until time of surgery and no smoking, or chewing tobacco (or any form of nicotine). No chewing gum, candy or mints. - Take only the following medications with a SIP of water on the morning of surgery: _ARIPIPRAZOLE,BUPROPION,CARVEDILOL,TAKE 1/2 OF AM INSULIN DO NOT STOP ANY OF YOUR OTHER PRESCRIPTION MEDICATIONS PRIOR TO SURGERY EXCEPT THE FOLLOWING Hold all vitamins and supplements for 3 days per anesthesiologist. Medications to discontinue per physician HOLD ASPIRIN AND PLAVIX PER DR SWEET Date to take last dose Please no make-up, nail portuguese, hairspray, perfume, deodorant, or body powder the day of surgery.? No jewelry (including any body piercings) or valuables the day of surgery, leave them at home.? Please take a shower or bath the night before, or the morning of, surgery with an antibacterial soap.? Wear comfortable, loose fitting clothing.? Children are encouraged to wear pajamas. - Jewelry must be removed prior to entering the operating room.? Rings and piercings that are not removed may be cut off. - The hospital will not accept responsibility for valuables.? - Please leave all valuables, including medications, at home the day of surgery. If you are going home after surgery, a licensed drive away driver must drive you home.? - NO public transportation without another adult if you receive anesthesia. - We recommend that an adult stay with you for 24 hours following discharge. - We also recommend that you do not drive, make important decision, drink alcoholic beverages, or take any drugs that were not prescribed by your health care provider for at least 24 hours after your discharge time. For Pediatric surgeries, we recommend two adults accompany the child home. Follow any additional instructions given to you from your surgeon. Telephone instructions given to _PATIENT and asked if any additional questions and then verbalized understanding. Patient advised to call surgeon office or pre surgery nurse liaison [phone] if any additional questions.
[2024-09-22 15:47] VITALS: BMI 25.1
[2024-09-30] VITALS (19 sets, daily range): BP systolic 97–128; BP diastolic 59–80; PULSE 57–95; RESP 10–17; TEMP 35.3–36.6; O2SAT 96–100; BMI 27.1
--- OUTSIDE RECORDS SUMMARY | 2024-09-30 02:13 | XMS_ITS | Encounter Summary ---
Author Organization [facility] Address [address] [place] [address] Phone Care Team Providers Care Wood Boatbuilder Name Role Phone Joel Denson MD Unavailable Lisa Goldberg APRN Primary Care Provider [phone] Sea Hdez MD Unavailable [phone] Deysi Carballo MD Unavailable Nicolás Wright MD Unavailable [phone] Reason for Visit * Reason Onset Date Comments Referral 08/21/2023 External Urology Referral Encounter Details Date Type Department Care Team (Late st Contact Info) Description 08/21/2023 Telephone [facility] [address] [place] [address] Lisa Goldberg APRN [address] [place] [address] Referral (External Urology Referral) Social History [...] 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 Not on file [...] - 19 04/13/2024 04/13/2024 04/13/2024 3:36 PM CERTIFIED NURSING ASSISTANT INSTRUCTOR Assessment Noted Time PHQ-9 Depression Total Score: 0 04/23/19 17 9:00 AM CERTIFIED NURSING ASSISTANT INSTRUCTOR documented as of this encounter Care Teams Wood Boatbuilder Relationship Specialty Start Date End Date Lisa Goldberg APRN [address] [place] [address] PCP - General Advanced Practice Nurse 12/12/22 Joel Denson MD [address] [place] [address] Psychiatry 12/17/16 Sea Hdez MD [address] [address] Consulting Physician Urology 07/08/23 Deysi Carballo MD #[address] [phone] Consulting Physician Endocrinology 07/25/23 Nicolás Wright MD [address] [place] [phone] Consulting Physician Neurology 08/11/23 documented as of this encounter
--- OUTSIDE RECORDS SUMMARY | 2024-09-30 02:13 | XMS_ITS | Clinical Summary ---
Author Organization [facility] Address [address] [place] [address] Care Team Providers Care Mining Analyst Name Role Phone Unavailable Primary Care Provider [...] Comments Blood Pressure 147/82 06/20/2016 1:14 PM HEEL SPRAYER Pulse 72 06/20/2016 1:14 PM HEEL SPRAYER Temperature - - Respiratory Rate - - Oxygen Saturation - - Inhaled Oxygen Concentration - - Weight 83.5 kg (184 lb) 06/20/2016 12:53 PM HEEL SPRAYER Height 170.2 cm (5' 7) 06/20/2016 12:53 PM HEEL SPRAYER Body Mass Index 28.82 06/20/2016 12:53 PM HEEL SPRAYER Plan of Treatment Health Maintenance Due Date Last Done Comments Colorectal Cancer Screening Colonoscopy (10 Years) 1955 Hepatitis C 09/21/1975 Zoster Vaccines (1 of 2) 09/21/2007 COVID-19 Vaccine (2023-2 5 season) 2023 07/24/2021, 07/31/2020, 07/03/2020 DTaP, Tdap and Td Vaccines ( 2 - Td or Tdap) 04/08/2027 04/08/2017 RSV Immunization or 60+ Years (1 - 1-dose 75+ series) 2032 Pneumococcal Vaccine: 50+ Years Completed 08/07/2021, 07/24/2021, 12/19/2016 Meningococcal B [...]
--- OUTSIDE RECORDS SUMMARY | 2024-09-30 02:13 | XMS_ITS | Clinical Summary ---
Author Organization [facility] Address [address] [place] [address] Phone Care Team Providers Care Crusher And Binder Operator Name Role Phone Joel Denson MD Unavailable Lisa Goldberg APRN Primary Care Provider [phone] Sea Hdez MD Unavailable [phone] Deysi Carballo MD Unavailable Nicolás Wright MD Unavailable [phone] Allergies No known active allergies Medications atorvastatin (LIPITOR) 20 MG Tablet Take 20 mg by mouth daily. Active BuPROPion HCl 200 MG TABLET SR 12 HR Take 200 mg by mouth 2 times daily. 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 Not on file Not on file Last Filed Vital Signs Vital Sign Reading Time Taken Comments Blood Pressure 97/63 04/15/2024 1:16 AM VISUAL STYLIST Pulse 56 04/15/2024 1:16 AM VISUAL STYLIST Temperature 36.3 C (97.4 F) 04/13/2024 2:17 PM VISUAL STYLIST Respiratory Rate 18 04/15/2024 1:16 AM VISUAL STYLIST Oxygen Saturation 97% 04/15/2024 1:16 AM VISUAL STYLIST Inhaled Oxygen Concentration - - Weight 76.2 kg (168 lb) 04/14/2024 11:48 PM VISUAL STYLIST Height 172.7 cm (5' 8) 04/14/2024 11:48 PM VISUAL STYLIST Body Mass Index 25.54 04/14/2024 11:48 PM VISUAL STYLIST Plan of Treatment Health Maintenance Due Date Last Done Comments Diabetes: Eye Exam 1955 Hepatitis C Virus (HCV) Screening 1955 Cologuard 2002 Immunochemical Fecal Occult Blood 2002 Zoster Immunization (1 of 2) 09/21/2007 PSA [...] Years (Adults With 1 Tdap) 04/08/2027 04/08/2017 DTaP/Tdap/Td Immunization Discontinued 04/08/2017 TdaP Immunization Discontinued 04/08/2017 Pneumococcal Immunization (50+ years) Completed 08/07/2021, 07/24/2021, 12/19/2016 Pneumococcal Immunization Combined Discontinued 08/07/2021, 07/24/2021, 12/19/2016 Respiratory Syncytial Virus (RSV) Immunization (Adult) Completed 12/28/2022 Hepatitis B Immunization Aged Out No longer eligible based on patient's age to complete this topic Human Papillomavirus (HPV) Immunization Aged Out No longer eligible based on patient's age to complete this topic Meningococcal Immunization (ACWY) Aged Out No longer eligible based on patient's age to complete this topic Rotavirus Immunization Aged Out No lo nger eligible based on patient's age to complete this topic Procedures Procedure Name Priority Date/Time Associated Diagnosis Comments CMP (COMPREHENSIVE METABOLIC PANEL) STAT 04/13/2024 3:52 PM VISUAL STYLIST POCT GLYCOSYLATED HEMOGLOBIN Routine 08/04/2023 2:24 PM CDT Type 2 diabetes mellitus without complication, with long-term current use of insulin (HCC) from Last 3 Months or Most Recently Relevant to Health Maintenance Results * (ABNORMAL) CMP (Comprehensive Metabolic Panel) (04/13/2024 3:52 PM VISUAL STYLIST) SODIUM 133(L) 136 - 145 mmol/L 04/13/2024 4:21 PM [facility] POTASSIUM 3.9 3.5 - 5.1 mmol/L 04/13/2024 4:21 PM [facility] CHLORIDE 100 98 - 107 mmol/L 04/13/2024 4:21 PM [facility] CO2, VENOUS 22 22 - 30 mmol/L 04/13/2024 4:21 PM [facility] ANION GAP 14.9 <18.0 mmol/L 04/13/2024 4:21 PM [facility] GLUCOSE 178(H) 70 - 99 mg/dL 04/13/2024 4:21 PM [facility] BUN 11 8 - 26 mg/dL 04/13/2024 4:21 PM [facility] CREATININE, BLOOD 0.91 0.70 - 1.30 mg/dL 04/13/2024 4:21 PM [facility] BUN/CREATININE RATIO 12 12 - 20 ratio 04/13/2024 4:21 PM [facility] TOTAL PROTEIN 7.3 6.3 - 8.2 g/dL 04/13/2024 4:21 PM [facility] ALBUMIN 4.5 3.5 - 5.0 g/dL 04/13/2024 4:21 PM [facility] A/G RATIO 1.6 1.0 - 2.2 04/13/2024 4:21 PM [facility] CALCIUM 9.7 8.7 - 10.5 mg/dL 04/13/2024 4:21 PM [facility] T BILI 0.4 0.2 - 1.2 mg/dL 04/13/2024 4:21 PM [facility] SGOT (AST) 23 5 - 34 U/L 04/13/2024 4:21 PM [facility] SGPT (ALT) 34 0 - 55 U/L 04/13/2024 4:21 PM VISUAL STYLIST [facility] ALKALINE PHOSPHATASE 64 40 - 150 U/L 04/13/2024 4:21 PM VISUAL STYLIST [facility] GFR, ESTIMATED >60 >=60 04/13/2024 4:21 PM VISUAL STYLIST [facility] Comment: Creatinine Clearance is the preferred criteria for selecting drug dose adjustments in renally impaired patients. The GFR is provided as additional pertinent clinical information. GFR is reported in mL/min/1.73 sq m. Calculation based on the Chronic Kidney Disease Epidemiology Collaboration (CKD- EPI) equation refit without adjustment for race. GFR, EST. >60 >=60 024 4:21 PM VISUAL STYLIST [facility] GFR, EST. NONAFRICAN >60 >=60 04/13/2024 4:21 PM VISUAL STYLIST [facility] Blood Venipuncture / Unknown 04/13/2024 3:52 PM VISUAL STYLIST 04/13/2024 3:58 PM VISUAL STYLIST us Judah Barragan MD CHEMISTRY ORDERABLES F inal Result [facility] [address] [place] [address] * (ABNORMAL) POCT GLYCOSYLATED HEMOGLOBIN (08/04/2023 2:24 [...] measures to stabilize the patient. Care Teams Crusher And Binder Operator Relationship Specialty Start Date End Date Lisa Goldberg APRN [address] [place] [address] PCP - General Advanced Practice Nurse 12/12/22 Joel Denson MD [address] [place] [address] Psychiatry 12/17/16 Sea Hdez MD #[address] [address] Consulting Physician Urology 07/08/23 Deysi Carballo MD #[address] [address] Consulting Physician Endocrinology 07/25/23 Nicolás Wright MD [address] [place] [phone] Consulting Physician Neurology 08/11/23
--- OUTSIDE RECORDS SUMMARY | 2024-09-30 02:13 | XMS_ITS | Encounter Summary ---
Author Organization [facility] Address [address] [place] [address] Phone Care Team Providers Care Irrigator Overhead Name Role Phone Joel Denson MD Unavailable Lisa Goldberg APRN Primary Care Provider [phone] Sea Hdez MD Unavailable [phone] Deysi Carballo MD Unavailable Nicolás Wright MD Unavailable [phone] Reason for Referral * Consult, Test & Initiate Treatment (Routine) - Closed Specialty Diagnoses / Procedures Referred By Sarah nunn Referred To Contact Diagnoses Urinary retention Sea Hdez MD [address]2 [facility] [address] [place] [address] Phone: tel: fax: [facility] [address] [facility] [address] [facility] [place] [address] Phone: tel: fax: Referral ID Status Reason Start Date Expiration Date Visits Re quested Visits Authorized [id number] Closed 07/15/2023 1 1 Scheduling Instructions Edwardo is being referred to [place]/ [facility] or other specialist in patient's insurance network [...] 200 mg by mouth 2 times daily. 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 Please make office visit after urodynamics [...] - 19 04/13/2024 04/13/2024 04/13/2024 3:36 PM ACCOUNTING MANAGER CPA Assessment Noted Time PHQ-9 Depression Total Score: 0 04/23/19 17 9:00 AM ACCOUNTING MANAGER CPA documented as of this encounter Care Teams Irrigator Overhead Relationship Specialty Start Date End Date Lisa Goldberg APRN [address] [place] [address] PCP - General Advanced Practice Nurse 12/12/22 Joel Denson MD [address] [place] [address] Psychiatry 12/17/16 Sea Hdez MD #2 [facility] [address] [place], [place] [id number] Consulting Physician Urology 07/08/23 Deysi Carballo MD #[address] [address] Consulting Physician Endocrinology 07/25/23 Nicolás Wright MD [address] [place] [address] Consulting Physician Neurology 08/11/23 documented as of this encounter
--- NOTE | 2024-09-30 06:28 | WPDHPUPDATE1 ---
History and Physical Update Update Date/Time: 09/30/24 06:28 History and Physical has been reviewed, including an updated exam of the patient. There are NO changes in the patient's condition. Risks, benefits, and alternatives have been discussed and questions answered. Patient agrees to proceed with procedure.
[2024-09-30] MEDS: LACTATED RINGERS 1,000 ML 30 ML IV CONT ×2 (06:40→08:53)
[2024-09-30 06:43] LABS: Glucose Point of Care 256 mg/dl (65-105)
--- NOTE | 2024-09-30 06:47 | P.PNAN_ITS ---
Anes - Initial Pre Proc Eval Procedure: Operation Date: 09/30/24 07:30 Proposed Procedures p Trans Urethral Resection Prostate - Ha Jackson MD Date/Time: 09/30/24 06:47 Surgeon: Ha Jackson MD Pre Op Diagnosis: BPH Patient Data Age: 69 Gender: M Height: 1.73 m Weight: 75.45 kg Last Vital Signs Temp 36.1 C L 09/30/24 06:20 Pulse 95 09/30/24 06:20 Resp 16 09/30/24 06:20 BP 115/73 09/30/24 06:20 Pulse Ox 99 09/30/24 06:20 O2 Del Method Room Air 09/30/24 06:20 Allergies Allergy/AdvReac Type Severity Reaction Status Date / Time No Known Allergies Allergy Verified 09/30/24 06:26 Home Medications ?Medication ?Instructions ?Recorded ?Confirmed ?Type bupropion HCl 200 mg tablet,12 hr 200 mg PO BID 05/08/21 09/22/24 History sustained-release quetiapine 50 mg tablet 150 mg PO QHS 05/18/22 09/22/24 History finasteride 5 mg tablet 5 mg PO DAILY 03/10/23 09/22/24 History tamsulosin 0.4 mg capsule 0.4 mg PO DAILY #90 caps 10/29/23 09/22/24 Rx aripiprazole 20 mg tablet 10 mg PO BID 02/13/24 09/22/24 History atorvastatin 20 mg tablet See Rx Instructions .Route 03/01/24 09/22/24 Rx .COMPLEX #90 tabs pantoprazole 40 mg tablet,delayed See Rx Instructions .Route 03/01/24 09/22/24 Rx release .COMPLEX #90 tabs lorazepam 0.5 mg tablet 0.5 mg PO .COMPLEX PRN anxiety #1 05/10/24 09/22/24 Rx tablet metformin 1,000 mg tablet 1,000 mg PO BID 90 days #180 tabs 07/01/24 09/22/24 Rx carvedilol 12.5 mg tablet See Rx Instructions .Route 07/26/24 09/22/24 Rx .COMPLEX #180 tabs insulin lispro 100 unit/mL 1 sliding scale dose subcut 07/27/24 09/22/24 Rx subcutaneous pen (Humalog KwikPen USEASDIRECTD #54 mL (U-100) Insulin) clopidogrel 75 mg tablet See Rx Instructions .Route 08/16/24 09/22/24 Rx .COMPLEX #90 tabs acetaminophen 500 mg tablet 1,000 mg (2 x 500 mg) PO TID PRN 09/08/24 09/22/24 Rx pain 7 days #42 tabs cefdinir 300 mg capsule 300 mg PO Q12H #20 caps 09/08/24 09/22/24 Rx methocarbamol 500 mg tablet 500 mg PO BID PRN muscle pain #30 09/15/24 09/22/24 Rx tabs insulin glargine U-300 conc 300 40 unit subcut QPM 09/22/24 09/22/24 History unit/mL (3 mL) subcutaneous pen (Toujeo Max U-300 SoloStar) aspirin 81 mg chewable tablet 81 mg PO DAILY@0800 #90 tabs 09/28/24 Rx (Children's Aspirin) Laboratory Tests 09/30/24 06:40 POC Capillary Glucose 256 H mg/dl (65-105) Patient hx anesthesia problems: none Family hx anesthesia problems: none Results Review: All pre-operative results and documents have been reviewed as part of the pre- operative evaluation. 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 Colon polyp Type 2 diabetes mellitus Gastroesophageal reflux disease Arthritis Lumbar spondylosis Pulmonary embolism (02/2022) Ataxia Rib fracture Benign prostatic hyperplasia Peripheral neuropathy Hypertension Hyperlipidemia Chronic insomnia Former cigarette smoker Bipolar depression Anxiety Surgical History Surgical History History of right knee joint replacement (05/10/21) History of bilateral cataract extraction (04/2022) History of colonoscopy with polypectomy History of arthroscopy of left knee History of right knee surgery x4 Family History Family History Father Age older than 80 years Hypertension Mother Age older than 80 years Patient's mother is in good health Sibling Fibromyalgia Diabetes mellitus Mother Dementia Social History Social History Social History: Code status: Full code Surrogate decision maker: Mona Ricci, spouse Smoking packs per day: 0.5 Smoking cigarettes per day: 10.0 Years smoked: 12 Smoking pack-years: 6.00 Smoking status: Current every day smoker Tobacco type: cigarettes Second hand tobacco smoke exposure: No Alcohol intake: never Substance use: never Substance use type: does not use Do You Feel Safe in your Home?: Yes Lack of Transportation: No Lack of Food: Never True Current Housing: I Have Housing Concerned About Future Housing: No Difficulty Paying Gas/Electric Bills: No Difficulty Paying for Meds: No Currently Unemployed: No Education: Don't Know Difficulty w/ Childcare or Family Care: No Living arrangements: with family Additional living arrangements comments: Lives with in [place]. Has 4 children and 21 grandchildren. 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 Spiritual care concerns: No Anes - Eval Final PreProcedure Day of Procedure 09/30/24 06:47 Patient weight: normal Heart: regular rate and rhythm Lungs: decreased breath sounds Airway: Mallampati scale class II Neurological: alert and oriented Last oral intake: >/= 8 hours ASA classification: III Emergent: no Anesthetic plan: proceed Anesthesia type and monitoring: general LMA and standard monitoring Results Review: All pre-operative results and documents have been reviewed as part of the pre- operative evaluation. Informed Consent: The patient's anesthetic plan and its attendant risks and benefits were discussed with the patient/family/POA. Questions were solicited and answers provided to the satisfaction of the patient/family/POA.
[2024-09-30] MEDS: INSULIN HUMAN REGULAR (*BKC) 100 UNITS/ML 8 UNITS SUB-Q (07:19)
--- NOTE | 2024-09-30 07:28 | SUR.PREOP ---
ARABELLA Matos notified of patient just receiving 8u insulin per EMR documentation and need for recheck during case.
[2024-09-30] MEDS: ceFAZolin 2 GM/D5W 50 ML 2 GM/50 ML BAG IVPB (07:29)
[2024-09-30] MEDS: LIDOCAINE 2% GEL UROJET 10 ML PKG MUCOUS MEM (07:41)
--- NOTE | 2024-09-30 07:55 | S_PTH ---
PATIENT: Edwardo Ricci LOC: [facility] U#:[id number] AGE/SX: 69/M ROOM: RE09/30/[address]: Ha Jackson MD : 1955 BED: DIS: 10/01/2024 SPEC #: [id number] RECD: 09/30/24 08:44 STATUS: CHANG REQ #: [id number] PETE: 09/30/24 07:[address]: Ha Jackson DEPT: [facility] Surgical RECD BY: Samia Mladonado ENTERED: 09/30/24 08:45 SP TYPE: Surgical OTHR DR: Lisa Goldberg APRN Tissues: A - Prostate Turp Procedures: Hematoxylin and Eosin Stain Gross and Microscopic Level 4
--- NOTE | 2024-09-30 08:25 | P.OP_ITS ---
Procedure Note - Detailed Date of Procedure 09/30/24 Pre-op Diagnosis BPH Post-op Diagnosis Same Procedure Performed TURP Surgeon Ha Jackson MD Anesthesia General Description of Procedure The patient was brought to the operative suite where he is prepped and draped in routine sterile fashion while in the dorsal lithotomy position after the uneventful induction of a general LMA anesthetic. A 2F Swedish resectoscope sheath was placed into his bladder. He had no urethral strictures. The patient had trilobar hyperplasia with a moderate median lobe. The bladder itself was endoscopically normal, showing no mucosal hyperemia, intravesical neoplasm or foreign bodies. There was a single, orthotopic ureteral orifice bilaterally. These orifices were identified and preserved throughout the remainder of the procedure. Attention was first turned to resection of the median lobe. This resection was undertaken from the bladder neck to the verumontanum and carried out until the transverse fibers of the bladder neck were identified. The left lateral lobe was then resected starting at the 6 o'clock position, working counter clockwise to the 12 o'clock position. Again, resection was carried out from the bladder neck to the verumontanum until the capsular fibers of the prostate were identified. The right lateral lobe was resected in a similar fashion starting at the 6 o'clock position working clockwise to the 12 o'clock position and carried out until the capsular fibers of the prostate were identified. Apical tissue was then circumferentially resected. All chips were evacuated from the bladder using an Lessonwriter evacuator. Hemostasis was obtained with electric cautery. The ureteral orifices were again inspected and found to be without injury. Estimated blood loss throughout this procedure was 30cc. The patient was taken to recovery room having tolerated this well. Drains No Pathology Yes Complications No immediate complications Condition Stable
[2024-09-30 08:29] LABS: Glucose Point of Care 198 mg/dl (65-105)
[2024-09-30] MEDS: fentaNYL CITRATE INJ (*CRX) 100 MCG/2 ML VIAL 25 MCG IV PUSH ×8 (08:43→09:48)
--- NOTE | 2024-09-30 10:10 | ADMGEN ---
This patient, Edwardo Ricci, was admitted to Medical Room 249-01. Patient/family oriented to hospital policies and general routines including ID bracelet, bed and alarms, visiting hours, pain management, procedures, bathroom and other care routines, personal items, smoking policy, room service/diet, and visiting hours. Information on how to activate the Rapid Response Team has been discussed. Patient/Family are encouraged to report perceived risks to care and to ask questions if they do not understand what they are told or what they should do.
[2024-09-30] MEDS: DOCUSATE SODIUM 100 MG CAPSULE PO ×2 (11:00→16:56)
[2024-09-30] MEDS: HYDROcodone/acetaminophen (*CRX) 5-325 MG TABLET 1 TAB PO ×4 (11:00→22:39)
[2024-09-30] MEDS: PANTOPRAZOLE 40 MG TABLET BY MOUTH ×2 (11:01→22:40)
[2024-09-30] MEDS: carvediloL 12.5 MG TABLET BY MOUTH ×2 (11:01→22:40)
[2024-09-30] MEDS: ARIPiprazole 10 MG TABLET PO ×2 (11:02→16:56)
[2024-09-30] MEDS: TAMSULOSIN HCL 0.4 MG CAPSULE PO (11:02)
[2024-09-30] MEDS: ATORVASTATIN 20 MG TABLET BY MOUTH (11:02)
[2024-09-30] MEDS: buPROPion HCL SR (12HR) 100 MG TABCR 200 MG PO ×2 (11:10→22:40)
[2024-09-30 11:48] LABS: Glucose Point of Care 140 mg/dl (65-105)
[2024-09-30] MEDS: INSULIN ASPART (*BKC) 100 UNITS/ML 14 UNITS SUB-Q ×2 (12:26→17:11)
[2024-09-30] MEDS: ceFAZolin 1 GM/NS 50 ML 1 GM/50 ML BAG IVPB ×2 (14:49→22:53)
[2024-09-30] MEDS: metFORMIN HCL 500 MG TABLET 1000 MG PO (16:56)
[2024-09-30] MEDS: HYOSCYAMINE SULFATE 0.125 MG TABLET SUBLINGUAL (17:01)
[2024-09-30 17:08] LABS: Glucose Point of Care 236 mg/dl (65-105)
[2024-09-30 20:52] LABS: Glucose Point of Care 239 mg/dl (65-105)
[2024-09-30] MEDS: MORPHINE SULFATE (*CRX) 2 MG/ML INJ IV PUSH (21:00)
[2024-09-30] MEDS: QUEtiapine FUMARATE 25 MG TABLET 50 MG PO (22:39)
[2024-09-30] MEDS: QUEtiapine FUMARATE 100 MG TABLET PO (22:40)
[2024-10-01 03:35] VITALS: BP 100/64; PULSE 78; RESP 17; TEMP 36.6; O2SAT 96
[2024-10-01 05:40] LABS: Hematocrit 39.9 % (42.0-52.0); Hemoglobin 12.8 g/dL (14.0-18.0)
[2024-10-01 05:47] LABS: Anion Gap 11 mmol/L (4-12); Blood Urea Nitrogen 13 mg/dL (9-20); Calcium 8.9 mg/dL (8.4-10.2); Carbon Dioxide 22 mmol/L (22-30); Chloride 101 mmol/L (98-107); Estimated CRCL calculation 74 ml/min; Estimated Glomerular Filt Rate > 60; Glucose 282 mg/dL (65-110); Sodium 134 mmol/L (137-145)
--- NOTE | 2024-10-01 06:48 | WPDUROPN2 ---
Progress Note: A&P Assessment and Plan (1) BPH (benign prostatic hyperplasia): Code(s): N40.0 - Benign prostatic hyperplasia without lower urinary tract symptoms Status: Acute Assessment and Plan: Doing well POD #1 s/p TURP Catheter out for voiding tiral this morning. Subjective Subjective Date/Time Seen: 10/01/24 06:48 Interval history: Doing well POD #1 TURP Review of Systems Cardiovascular: Cardiovascular: Denies chest pain, Denies lightheadedness, Denies palpitations and Denies dyspnea Respiratory: Respiratory: Denies dyspnea Gastrointestinal: Gastrointestinal: Denies diarrhea, Denies nausea and Denies vomiting Genitourinary: Genitourinary: Denies hematuria and Denies dysuria Endocrine: Endocrine: Denies palpitations Exam Const: General: no acute distress Resp: Effort & Inspection: normal respiratory effort GI: Inspection: non-distended GI Palp: No abdominal tenderness and No Guarding due to palpation present (GI) Auscultation: normal bowel sounds Urinary Catheter: Urinary Catheter: patent and draining and urine clear Objective Data Vital Signs Vital Signs: Vital Signs - 24 hr 09/30/24 08:18 09/30/24 08:30 09/30/24 08:45 Temperature 97.1 F L Pulse Rate 73 74 65 Respiratory Rate 10 L 14 12 Blood Pressure 108/74 114/77 123/80 Pulse Oximetry 100 100 100 Oxygen Delivery Simple Face Mask Simple Face Mask Simple Face Mask Oxygen Flow Rate 6 10 10 09/30/24 09:00 09/30/24 09:15 09/30/24 09:30 Temperature Pulse Rate 65 62 57 L Respiratory Rate 14 16 12 Blood Pressure 120/80 124/78 128/73 Pulse Oximetry 100 100 100 Oxygen Delivery Room Air Room Air Room Air Oxygen Flow Rate 09/30/24 09:45 09/30/24 10:20 09/30/24 11:01 Temperature Pulse Rate 57 L 60 Respiratory Rate 12 16 Blood Pressure 116/72 Pulse Oximetry 98 100 Oxygen Delivery Room Air Room Air Oxygen Flow Rate 09/30/24 11:09 09/30/24 11:10 09/30/24 11:41 Temperature 96.1 F L 95.6 F L 96.2 F L Pulse Rate 61 58 L 60 Respiratory Rate 14 14 16 Blood Pressure 116/64 113/66 116/72 Pulse Oximetry 100 100 98 Oxygen Delivery Oxygen Flow Rate 09/30/24 12:40 09/30/24 15:41 09/30/24 19:41 Temperature 96.3 F L 97.3 F L Pulse Rate 70 61 69 Respiratory Rate 14 16 17 Blood Pressure 122/69 97/60 L 108/59 L Pulse Oximetry 99 96 99 Oxygen Delivery Oxygen Flow Rate 09/30/24 21:00 09/30/24 22:35 09/30/24 22:40 Temperature Pulse Rate 70 Respiratory Rate Blood Pressure 109/69 Pulse Oximetry Oxygen Delivery Room Air Oxygen Flow Rate 09/30/24 23:41 10/01/24 03:35 Temperature 97.9 F 97.9 F Pulse Rate 78 78 Respiratory Rate 17 17 Blood Pressure 105/69 100/64 Pulse Oximetry 97 96 Oxygen Delivery Oxygen Flow Rate Intake/Output Intake/Output: Intake & Output 09/28/24 09/29/24 09/30/24 10/01/24 23:59 23:59 23:59 23:59 Intake Total 2220 150 Output Total 5800 2450 Balance -3580 -2300 Meds/Results Medications: Active Medications Generic Name Dose Route Start Last Admin Trade Name Freq PRN Reason Stop Dose Admin Acetaminophen 1,000 mg 09/30/24 09:56 Acetaminophen 500 Mg Tablet PO TID PRN pain Hydrocodone Bitart/Acetaminophen 1 tab 09/30/24 09:56 09/30/24 22:39 Hydrocodone/Acetaminophen (*Crx) 5-325 Mg Tablet PO 1 tab Q4H PRN Administration Pain Rated 1-6 Aripiprazole 10 mg 09/30/24 09:56 09/30/24 16:56 Aripiprazole 10 Mg Tablet PO 10/30/24 09:55 10 mg BID DAYO Administration Atorvastatin Calcium 20 mg 09/30/24 09:56 09/30/24 11:02 Atorvastatin 20 Mg Tablet BY MOUTH 20 mg QAM DAYO Administration Bupropion HCl 200 mg 09/30/24 09:56 09/30/24 22:40 Bupropion Hcl Sr (12hr) 100 Mg Tabcr PO 200 mg Q12HR DAYO Administration Carvedilol 12.5 mg 09/30/24 09:56 09/30/24 22:40 Carvedilol 12.5 Mg Tablet BY MOUTH 12.5 mg Q12H DAYO Administration Cephalexin HCl 500 mg 10/01/24 09:00 Cephalexin 500 Mg Capsule PO QID DAYO Docusate Sodium 100 mg 09/30/24 09:56 09/30/24 16:56 Docusate Sodium 100 Mg Capsule PO 100 mg BID DAYO Administration Hyoscyamine 0.125 mg 09/30/24 09:56 09/30/24 17:01 Hyoscyamine Sulfate 0.125 Mg Tablet SUBLINGUAL 0.125 mg Q6H PRN Administration Bladder Spasm Insulin Aspart 14 units 09/30/24 12:00 09/30/24 17:11 Insulin Aspart (*Bkc) 100 Units/Ml SUB-Q 14 units TIDWM DAYO Administration Metformin HCl 1,000 mg 09/30/24 17:00 09/30/24 16:56 Metformin Hcl 500 Mg Tablet PO 1,000 mg BIDWM DAYO Administration Miscellaneous Information 0 each 09/30/24 00:01 09/30/24 18:24 Insulin Glargine U-300 Conc Toujeo Max U-300 Solostar = Non Formulary Pharmacy Does Not S XX 10/30/24 00:00 Not Given [facility] Miscellaneous Information 0 each 09/30/24 00:01 09/30/24 18:24 Recommend Change To Hospital Sliding Scale- Spoke With Erica Palm XX 10/30/24 00:00 Not Given [facility] Morphine Sulfate 2 mg 09/30/24 09:56 09/30/24 21:00 Morphine Sulfate (*Crx) 2 Mg/Ml Inj IV PUSH 2 mg Q2H PRN Administration Pain Rated 7-10 Naloxone HCl 0.1 mg 09/30/24 09:56 Naloxone Hcl 0.4 Mg/Ml Vial IV PUSH Q2M PRN Opiate Reversal Ondansetron HCl 4 mg 09/30/24 09:56 Ondansetron Inj 4 Mg/2 Ml Vial IV PUSH Q12H PRN Nausea And Vomiting Pantoprazole Sodium 40 mg 09/30/24 09:56 09/30/24 22:40 Pantoprazole 40 Mg Tablet BY MOUTH 40 mg Q12HR DAYO Administration Quetiapine Fumarate 100 mg 09/30/24 21:00 09/30/24 22:40 Quetiapine Fumarate 100 Mg Tablet PO 100 mg HS DAYO Administration Quetiapine Fumarate 50 mg 09/30/24 21:00 09/30/24 22:39 Quetiapine Fumarate 25 Mg Tablet PO 50 mg HS DAYO Administration Tamsulosin HCl 0.4 mg 09/30/24 09:56 09/30/24 11:02 Tamsulosin Hcl 0.4 Mg Capsule PO 0.4 mg DAILY DAYO Administration Labs Labs: Laboratory Results - last 24 hr 09/30/24 09/30/24 09/30/24 08:26 11:45 17:06 Hgb Hct Sodium Potassium Chloride Carbon Dioxide Anion Gap BUN Creatinine Estim Creat Clear Calc Estimated GFR Glucose POC Capillary Glucose 198 H 140 H 236 H Calcium 09/30/24 10/01/24 20:42 05:03 Hgb 12.8 L Hct 39.9 L Sodium 134 L Potassium 4.0 Chloride 101 Carbon Dioxide 22 Anion Gap 11 BUN 13 D Creatinine 0.82 Estim Creat Clear Calc 74 Estimated GFR > 60 Glucose 282 H POC Capillary Glucose 239 H Calcium 8.9
[2024-10-01 08:00] VITALS: BP 123/73; PULSE 97; RESP 14; O2SAT 96
--- NOTE | 2024-10-01 08:04 | WPDANESPN ---
Anes - Prog Note Post-Op Date/Time: 10/01/24 08:04 Cardiovascular status: normal Respiratory status: normal Airway patency: baseline Mental status: baseline Vital Signs: Last Vital Signs Temp 36.6 C 10/01/24 03:35 Pulse 78 10/01/24 03:35 Resp 17 10/01/24 03:35 BP 100/64 10/01/24 03:35 Pulse Ox 96 10/01/24 03:35 O2 Del Method Room Air 09/30/24 21:00 O2 Flow Rate 10 09/30/24 08:45 Pain Score (VAS): 0 I/O: Intake & Output 09/30/24 10/01/24 10/01/24 23:59 07:59 15:59 Intake Total 480 150 Output Total 700 2450 Balance -220 -2300 Laboratory Tests 10/01/24 05:03 10/01/24 05:03 09/30/24 09/30/24 09/30/24 08:26 11:45 17:06 Hgb Hct Sodium Potassium Chloride Carbon Dioxide Anion Gap BUN Creatinine Estim Creat Clear Calc Estimated GFR Glucose POC Capillary Glucose 198 H 140 H 236 H Calcium 09/30/24 10/01/24 20:42 05:03 Hgb 12.8 L Hct 39.9 L Sodium 134 L Potassium 4.0 Chloride 101 Carbon Dioxide 22 Anion Gap 11 BUN 13 D Creatinine 0.82 Estim Creat Clear Calc 74 Estimated GFR > 60 Glucose 282 H POC Capillary Glucose 239 H Calcium 8.9 Patient Feedback: Patient satisfied with anesthetic care.
[2024-10-01 08:25] LABS: Glucose Point of Care 336 mg/dl (65-105)
[2024-10-01 08:47] VITALS: PULSE 97
[2024-10-01] MEDS: DOCUSATE SODIUM 100 MG CAPSULE PO (08:47)
[2024-10-01] MEDS: carvediloL 12.5 MG TABLET BY MOUTH (08:47)
[2024-10-01] MEDS: PANTOPRAZOLE 40 MG TABLET BY MOUTH (08:47)
[2024-10-01] MEDS: metFORMIN HCL 500 MG TABLET 1000 MG PO (08:48)
[2024-10-01] MEDS: CEPHALEXIN 500 MG CAPSULE PO ×2 (08:48→12:35)
[2024-10-01] MEDS: ARIPiprazole 10 MG TABLET PO (08:48)
[2024-10-01] MEDS: TAMSULOSIN HCL 0.4 MG CAPSULE PO (08:48)
[2024-10-01] MEDS: buPROPion HCL SR (12HR) 100 MG TABCR 200 MG PO (08:48)
[2024-10-01] MEDS: ATORVASTATIN 20 MG TABLET BY MOUTH (08:48)
[2024-10-01] MEDS: INSULIN ASPART (*BKC) 100 UNITS/ML 14 UNITS SUB-Q ×2 (08:49→12:35)
[2024-10-01 11:41] VITALS: BP 126/85; PULSE 111; RESP 16; TEMP 36.6; O2SAT 98
[2024-10-01 11:49] LABS: Glucose Point of Care 428 mg/dl (65-105)
--- NOTE | 2024-10-01 12:49 | P.DS_ITS ---
DS: Admitting Diagnosis Discharge Date 10/01/2024 Admitting Diagnosis BPH DS: Summary Hospital Course Hospital Course: This patient with longstanding prostatism refractory for medical management was admitted on the morning of his planned TURP. The procedure was undertaken on that same day in an uneventful fashion. His post-operative course was, likewise, uneventful. On the evening of the procedure he was tolerating a diet. On POD#1 his urine was clear on CBI. The urine remained clear and, therefore, the catheter was removed late morning. The patient was observed for several leonor rs, until he demonstrated he could void effectively without significant hematuria. He was discharged with careful instruction on limiting physical activity x2 weeks and plans to f/ in 2-3 weeks. At discharge he was comfortable and tolerating a diet. Time Spent with Patient Time attestation: Total time spent providing and/or coordinating discharge services: DS: Data Data Completed and Pending Completed studies during hospitalization: Pending at discharge 09/30/24 07:55 Surgical [PTH] Routine Labs on day of discharge: Labs from last 24 hours 10/01/24 10/01/24 10/01/24 11:46 07:45 05:03 Hgb 12.8 L Hct 39.9 L Sodium 134 L Potassium 4.0 Chloride 101 Carbon Dioxide 22 Anion Gap 11 BUN 13 D Creatinine 0.82 Estim Creat Clear Calc 74 Estimated GFR > 60 Glucose 282 H POC Capillary Glucose 428 H 336 H Calcium 8.9 09/30/24 09/30/24 20:42 17:06 Hgb Hct Sodium Potassium Chloride Carbon Dioxide Anion Gap BUN Creatinine Estim Creat Clear Calc Estimated GFR Glucose POC Capillary Glucose 239 H 236 H Calcium Discharge Plan Discharge Patient Disposition: Home Discharge Instructions: 1) Activity: No lifting/straining >15lbs. x2 weeks. 2) Diet: Resume normal pre-admission diet. 3) Follow-up: 2-3 weeks / call office for appointment ([phone]). Patient Language: Maltese Stand Alone Forms: General Discharge Instructions Discharge Orders: Discharge Order (Routine); Ordered 10/01/24 Ordered By: Ha Jackson Discharge Medications: New hydrocodone-acetaminophen 5-325 mg tablet 1 - 2 tablet PO Q6H PRN (Reason: pain) Qty: 20 0RF docusate sodium [Colace] 100 mg capsule 100 mg PO DAILY Qty: 14 0RF cefdinir 300 mg capsule 300 mg PO Q12H Qty: 10 0RF Continued aripiprazole 20 mg tablet 10 mg PO BID finasteride 5 mg tablet 5 mg PO DAILY methocarbamol 500 mg tablet 500 mg PO BID PRN (Reason: muscle pain) Qty: 30 0RF metformin 1,000 mg tablet 1,000 mg PO BID 90 Days Qty: 180 1RF insulin lispro [Humalog KwikPen Insulin] 100 unit/mL insulin pen 1 sliding scale dose subcut USEASDIRECTD MDD 60 Qty: 54 2RF Rx Instructions: Humalog 14 units before breakfast , 14 units before lunch and 14 units before dinner. add Humalog for high sugar before meals only blood sugar 150-170 - take additional 1 units blood sugar 171-190- take additional 2 units blood sugar 191-210- take additional 3 units blood sugar 211-230- take additional 4 units blood sugar 231-250- take additional 5 units blood sugar 251 - take additional 6 units quetiapine 50 mg tablet 150 mg PO QHS cefdinir 300 mg capsule 300 mg PO Q12H Qty: 20 0RF acetaminophen 500 mg tablet 1,000 mg PO TID PRN (Reason: pain) 7 Days Qty: 42 0RF bupropion HCl 200 mg tablet sustained-release 12 hr 200 mg PO BID insulin glargine U-300 conc [Toujeo Max U-300 SoloStar] 300 unit/mL (3 mL) insulin pen 40 unit subcut QPM tamsulosin 0.4 mg capsule 0.4 mg PO DAILY Qty: 90 3RF atorvastatin 20 mg tablet See Rx Instructions .ROUTE .COMPLEX Qty: 90 3RF Dose Instruction: Take 1 tablet by mouth once daily Rx Instructions: Take 1 tablet by mouth once daily pantoprazole 40 mg tablet,delayed release (DR/EC) See Rx Instructions .ROUTE .COMPLEX Qty: 90 3RF Dose Instruction: Take 1 tablet by mouth twice daily Rx Instructions: Take 1 tablet by mouth twice daily carvedilol 12.5 mg tablet See Rx Instructions .ROUTE .COMPLEX Qty: 180 0RF Dose Instruction: TAKE 1 TABLET BY MOUTH EVERY 12 HOURS WITH FOOD Rx Instructions: TAKE 1 TABLET BY MOUTH EVERY 12 HOURS WITH FOOD Held clopidogrel 75 mg tablet See Rx Instructions .ROUTE .COMPLEX Qty: 90 3RF Hold Instructions: Resume on 10/04/24. Dose Instruction: Take 1 tablet by mouth once daily Rx Instructions: Take 1 tablet by mouth once daily aspirin [Children's Aspirin] 81 mg tablet,chewable 81 mg PO DAILY@0800 Qty: 90 3RF Hold Instructions: Resume on 10/02/24.
== END 2024-10-01 13:50 | disposition home or self-care (01) ==
LOC: ANHSURGERY 09:30 → ANH2MED 09:59
PROVIDERS: PCP Nurse Practitioner Adult Health; Visit Provider Urology
PROC: 0VT08ZZ Resection of Prostate, Via Natural or Artificial Opening Endoscopic (ICD-10-PCS; CPT 52601; principal; 2024-09-30 07:30)
DX: N40.1 Benign prostatic hyperplasia with lower urinary tract symptoms (principal); I10 Essential (primary) hypertension; E78.5 Hyperlipidemia, unspecified; E11.42 Type 2 diabetes mellitus with diabetic polyneuropathy; E11.65 Type 2 diabetes mellitus with hyperglycemia; F51.04 Psychophysiologic insomnia; G62.9 Polyneuropathy, unspecified; R39.12 Poor urinary stream; E16.2 Hypoglycemia, unspecified; N39.0 Urinary tract infection, site not specified; N52.01 Erectile dysfunction due to arterial insufficiency; R35.0 Frequency of micturition; G31.84 Mild cognitive impairment of uncertain or unknown etiology; F31.9 Bipolar disorder, unspecified; F41.9 Anxiety disorder, unspecified; K21.9 Gastro-esophageal reflux disease without esophagitis; M19.90 Unspecified osteoarthritis, unspecified site; M47.896 Other spondylosis, lumbar region; F17.210 Nicotine dependence, cigarettes, uncomplicated; Z79.84 Long term (current) use of oral hypoglycemic drugs; Z79.4 Long term (current) use of insulin; Z79.02 Long term (current) use of antithrombotics/antiplatelets; Z79.82 Long term (current) use of aspirin; Z98.890 Other specified postprocedural states; Z86.711 Personal history of pulmonary embolism; Z86.79 Personal history of other diseases of the circulatory system; Z86.0100 Personal history of colon polyps, unspecified
CPT/HCPCS: 52601; 36415; 80048; 82948; 85014; 85018; 88305; A9270; C1757; J0690; J1815; J2003; J2270; J2405; J2704; J3010; J7120

== ENCOUNTER 2024-10-17 06:15 | Emergency (ER) | payer OTHER, SELFPAY ==
--- NOTE | ~2024-10-17 | CT_ITS ---
CLINICAL INDICATION: Hematuria COMPARISON: 09/08/2024 and 07/12/2024. TECHNIQUE: Multiple contiguous axial images of the abdomen and pelvis were performed following the ad ministration of with 100 mL Omnipaque-350 intravenous contrast The dose-length product (DLP) was 358.13 mGy-cm. Automated exposure control and iterative reconstruction technique were employed. FINDINGS/OBSERVATIONS: Visualized lower thorax: The bilateral lung bases are clear. The heart is of normal size, without pericardial effusion. Moderate hiatal hernia is present. Liver: The liver demonstrates homogeneous enhancement and is not enlarged. Gallbladder and biliary system: The gallbladder is only minimally distended, and otherwise unremarkable. Pancreas: The pancreas enhances homogeneously without ductal dilatation. Spleen: The spleen enhances homogeneously and remains enlarged measuring 15 cm in longitudinal dimension. Kidneys: Redemonstration of a 3 mm nonobstructing left renal calculus within the interpolar region, u nchanged from prior. The remainder of the bilateral kidneys otherwise enhance symmetrically without hydronephrosis or aryan tional renal calculi. Adrenal glands: Unremarkable. Gastrointestinal tract: Colonic diverticulosis without surrounding inflammatory change. Fecal stasis within the colon. Appendix: The air-filled appendix is of normal caliber (axial series, images 93 through 115) Vasculature: Calcified atherosclerotic disease within the infrarenal abdominal aorta. Lymph nodes: No pathologically enlarged or morphologically suspicious lymph nodes within the retroperitoneum or at the root of the mesentery. Pelvic structures: The bladder is distended, with thickened barry and surrounding inflammatory change for which cystitis is suspected.. The prostate gland is enlarged. A central defect is identified within the prostate contiguous with th e bladder neck for which interval TURP is suspected and for which clinical correlation is needed. Irregular rim enhancement is detected along the left lateral border of the central defect with adjace nt increased attenuation suggesting blood products Body wall and musculoskeletal: Age-appropriate degenerative disease within the lower lumbar spine. IMPRESSION: Mural thickening of the bladder with surrounding inflammatory change for which cystitis is suspected. Additional findings suggestive of interval TURP with irregular rim enhancement along the left lateral border of the central most defect with adjacent increased attenuation suggesting blood products for which gross hematuria would be expected. Clinical correlation regarding patient's current presentatio n is needed. Persistent splenomegaly, as detailed above. Reviewed, dictated and finalized at location A. IMPRESSION: Mural thickening of the bladder with surrounding inflammatory change for which cystitis is suspected. Additional findings suggestive of interval TURP with irregular rim enhancement along the left lateral border of the central most defect with adjacent increase d attenuation suggesting blood products for which gross hematuria would be expe cted. Clinical correlation regarding patient's current presentation is needed. Persistent splenomegaly, as detailed above.
--- OUTSIDE RECORDS SUMMARY | 2024-10-17 06:17 | XMS_ITS | Clinical Summary ---
Author Organization [facility] Address [address] [place] [id number] Care Team Providers Care Mental Tester Name Role Phone Unavailable Primary Care Provider [...] Comments Blood Pressure 147/82 06/20/2016 1:14 PM COVER OPERATOR Pulse 72 06/20/2016 1:14 PM COVER OPERATOR Temperature - - Respiratory Rate - - Oxygen Saturation - - Inhaled Oxygen Concentration - - Weight 83.5 kg (184 lb) 06/20/2016 12:53 PM COVER OPERATOR Height 170.2 cm (5' 7) 06/20/2016 12:53 PM COVER OPERATOR Body Mass Index 28.82 06/20/2016 12:53 PM COVER OPERATOR Plan of Treatment Health Maintenance Due Date [...]
--- OUTSIDE RECORDS SUMMARY | 2024-10-17 06:17 | XMS_ITS | Encounter Summary ---
Author Organization [facility] Address [address] [place] [address] Phone Care Team Providers Care Professor Of Voice Name Role Phone Joel Denson MD Unavailable Lisa Goldberg APRN Primary Care Provider [phone] Sea Hdez MD Unavailable [phone] Deysi Carballo MD Unavailable Nicolás Wright MD Unavailable [phone] Reason for Visit * Reason Onset Date Comments Referral 08/21/2023 External Urology Referral Encounter Details Date Type Department Care Team (Late st Contact Info) Description 08/21/2023 Telephone [facility] [address] [place] [address] Lisa Goldberg APRN [address] [place] [id number] Referral (External Urology Referral) Social History [...] 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 on file Not [...] - 19 04/13/2024 04/13/2024 04/13/2024 3:36 PM [employer] Assessment Noted Time PHQ-9 Depression Total Score: 0 04/23/19 17 9:00 AM [employer] documented as of this encounter Care Teams Professor Of Voice Relationship Specialty Start Date End Date Lisa Goldberg APRN [address] [place] [address] PCP - General Advanced Practice Nurse 12/12/22 Joel Denson MD [address] [place] [address] Psychiatry 12/17/16 Sea Hdez MD #[address] [address] Consulting Physician Urology 07/08/23 Deysi Carballo MD #[address] [phone] Consulting Physician Endocrinology 07/25/23 Nicolás Wright MD [address] [place] [phone] Consulting Physician Neurology 08/11/23 documented as of this encounter
--- OUTSIDE RECORDS SUMMARY | 2024-10-17 06:17 | XMS_ITS | Encounter Summary ---
Author Organization [facility] Address [address] [place] [address] Phone Care Team Providers Care Leasing Assistant Name Role Phone Joel Denson MD Unavailable Lisa Goldberg APRN Primary Care Provider [phone] Sea Hdez MD Unavailable [phone] Deysi Carballo MD Unavailable Nicolás Wright MD Unavailable [phone] Reason for Referral * Consult, Test & Initiate Treatment (Routine) - Closed Specialty Diagnoses / Procedures Referred By Sarah nunn Referred To Contact Diagnoses Urinary retention Sea Hdez MD #2 [facility], [facility] [address] [place] [address] Phone: tel: fax: [facility] [address] [facility] 200 [facility] [place] [address] Phone: tel: fax: Referral ID Status Reason Start Date Expiration Date Visits Re quested Visits Authorized [id number] Closed 07/15/2023 1 1 Scheduling Instructions Edwardo is being referred to [place]/ [facility] or other specialist in patient's insurance [...] 200 mg by mouth 2 times daily. 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 Please make office visit after urodynamics [...] - 19 04/13/2024 04/13/2024 04/13/2024 3:36 PM WELDER PLASMA ARC Assessment Noted Time PHQ-9 Depression Total Score: 0 04/23/19 17 9:00 AM WELDER PLASMA ARC documented as of this encounter Care Teams Leasing Assistant Relationship Specialty Start Date End Date Lisa Goldberg APRN [address] [place] [address] PCP - General Advanced Practice Nurse 12/12/22 Joel Denson MD [address] [place] [address] Psychiatry 12/17/16 Sea Hdez MD #2 [facility] [address] [place], [place] [id number] Consulting Physician Urology 07/08/23 Deysi Carballo MD #[address] [address] Consulting Physician Endocrinology 07/25/23 Nicolás Wright MD #2 [place] [address] Consulting Physician Neurology 08/11/23 documented as of this encounter
--- OUTSIDE RECORDS SUMMARY | 2024-10-17 06:17 | XMS_ITS | Clinical Summary ---
Author Organization [facility] Address #1 [place] [address] Phone Care Team Providers Care Hydraulic Blocker Name Role Phone Joel Denson MD Unavailable Lisa Goldberg APRN Primary Care Provider [phone] Sea Hdez MD Unavailable [phone] Deysi Carballo MD Unavailable Nicolás Wright MD Unavailable [phone] Allergies No known active allergies Medications atorvastatin (LIPITOR) 20 MG Tablet Take 20 mg by mouth daily. Active BuPROPion HCl 200 MG TABLET SR 12 HR Take 200 mg by mouth 2 times daily. [id number] Active Aripiprazole (Abilify) 20 MG Tablet Take [...] nightly. 30 mL 1 09/17/19 24 Active insulin aspart (NovoLOG [...] times daily. 90 Tablet 04/15/19 25 Active metFORMIN (GLUCOPHAGE) 1000 MG Tablet TAKE 1 TABLET BY MOUTH TWICE DAILY WITH A MEAL 180 Tablet 10/12/19 25 Active metFORMIN (GLUCOPHAGE) 1000 MG Tablet Take 1 Tablet by mouth 2 times daily (with meals). 180 Tablet 1 09/17/19 24 025 Discontinued Active Problems Problem Noted Date Diagnosed Date [...] Encounters Date Type Department Care Team Description 10/09/2024 Refill [facility] - Endocrinology [facility] #2 [place] [address] Deysi Carballo MD Medication Refill from Last 3 Months Immunizations Immunization Administration Dates Next Due Influenza Vaccine, Quadrivalent, PF 02/14/2022 Influenza, High-dose, Quadrivalent 12/28/2022 Influenza, Injectable, Quadrivalent 01/05/2018,0 12/04/2016,05/14/2016 Influenza, Seasonal, Injectable, Undefined 06/01 Pneumococcal Vaccine Adult - 23 Valent 7 Pneumococcal conjugate PCV20 , polysaccharide [id number] conjugate, adjuvant, PF 08/07/2021,07/24/2021 RSV, Recombinant, Protein [...] 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 Not on file Not on file Last Filed Vital Signs Vital Sign Reading Time Taken Comments Blood Pressure 97/63 04/15/2024 1:16 AM PROFESSIONAL SERVICES CONSULTANT Pulse 56 04/15/2024 1:16 AM PROFESSIONAL SERVICES CONSULTANT Temperature 36.3 C (97.4 F) 04/13/2024 2:17 PM PROFESSIONAL SERVICES CONSULTANT Respiratory Rate 18 04/15/2024 1:16 AM PROFESSIONAL SERVICES CONSULTANT Oxygen Saturation 97% 04/15/2024 1:16 AM PROFESSIONAL SERVICES CONSULTANT Inhaled Oxygen Concentration - - Weight 76.2 kg (168 lb) 04/14/2024 11:48 PM PROFESSIONAL SERVICES CONSULTANT Height 172.7 cm (5' 8) 04/14/2024 11:48 PM PROFESSIONAL SERVICES CONSULTANT Body Mass Index 25.54 04/14/2024 11:48 PM PROFESSIONAL SERVICES CONSULTANT Plan of Treatment Health Maintenance Due Date [...] (COMPREHENSIVE METABOLIC PANEL) STAT 04/13/2024 3:52 PM PROFESSIONAL SERVICES CONSULTANT POCT GLYCOSYLATED HEMOGLOBIN Routine 08/04/2023 2:24 PM CDT Type 2 diabetes mellitus without complication, with long-term current use of insulin (HCC) from Last 3 Months or Most Recently Relevant to Health Maintenance Results * (ABNORMAL) CMP (Comprehensive Metabolic Panel) (04/13/2024 3:52 PM PROFESSIONAL SERVICES CONSULTANT) SODIUM 133(L) 136 - 145 mmol/L 04/13/2024 4:21 PM PROFESSIONAL SERVICES CONSULTANT [facility] POTASSIUM 3.9 3.5 - 5.1 mmol/L 04/13/2024 4:21 PM [facility] CHLORIDE 100 98 - 107 mmol/L 04/13/2024 4:21 PM [facility] CO2, VENOUS 22 22 - 30 mmol/L 04/13/2024 4:21 PM [facility] ANION GAP 14.9 <18.0 mmol/L 04/13/2024 4:21 PM [facility] GLUCOSE 178(H) 70 - 99 mg/dL 04/13/2024 4:21 PM [facility] BUN 11 8 - 26 mg/dL 04/13/2024 4:21 PM [facility] CREATININE, BLOOD 0.91 0.70 - 1.30 mg/dL 04/13/2024 4:21 PM [facility] BUN/CREATININE RATIO 12 12 - 20 ratio 04/13/2024 4:21 PM [facility] TOTAL PROTEIN 7.3 6.3 - 8.2 g/dL 04/13/2024 4:21 PM [facility] ALBUMIN 4.5 3.5 - 5.0 g/dL 04/13/2024 4:21 PM [facility] A/G RATIO 1.6 1.0 - 2.2 04/13/2024 4:21 PM [facility] CALCIUM 9.7 8.7 - 10.5 mg/dL 04/13/2024 4:21 PM PROFESSIONAL SERVICES CONSULTANT [facility] T BILI 0.4 0.2 - 1.2 mg/dL 04/13/2024 4:21 PM PROFESSIONAL SERVICES CONSULTANT [facility] SGOT (AST) 23 5 - 34 U/L 04/13/2024 4:21 PM PROFESSIONAL SERVICES CONSULTANT [facility] SGPT (ALT) 34 0 - 55 U/L 04/13/2024 4:21 PM PROFESSIONAL SERVICES CONSULTANT [facility] ALKALINE PHOSPHATASE 64 40 - 150 U/L 04/13/2024 4:21 PM PROFESSIONAL SERVICES CONSULTANT [facility] GFR, ESTIMATED >60 >=60 04/13/2024 4:21 PM PROFESSIONAL SERVICES CONSULTANT [facility] Comment: Creatinine Clearance is the preferred criteria for selecting drug dose adjustments in renally impaired patients. The GFR is provided as additional pertinent clinical information. GFR is reported in mL/min/1.73 sq m. Calculation based on the Chronic Kidney Disease Epidemiology Collaboration (CKD- EPI) equation refit without adjustment for race. GFR, EST. >60 >=60 024 4:21 PM PROFESSIONAL SERVICES CONSULTANT [facility] GFR, EST. NONAFRICAN >60 >=60 04/13/2024 4:21 PM PROFESSIONAL SERVICES CONSULTANT [facility] Blood Venipuncture / Unknown 04/13/2024 3:52 PM PROFESSIONAL SERVICES CONSULTANT 04/13/2024 3:58 PM PROFESSIONAL SERVICES CONSULTANT us Judah Barragan MD CHEMISTRY ORDERABLES F inal Result [facility] #1 [place] [address] * (ABNORMAL) POCT GLYCOSYLATED HEMOGLOBIN (08/04/2023 2:24 [...] measures to stabilize the patient. Care Teams Hydraulic Blocker Relationship Specialty Start Date End Date Lisa Goldberg APRN [address] [place] [address] PCP - General Advanced Practice Nurse 12/12/22 Joel Denson MD [address] [place] [address] Psychiatry 12/17/16 Sea Hdez MD #[address] [address] Consulting Physician Urology 07/08/23 Deysi Carballo MD #2 [facility] [address] [address] Consulting Physician Endocrinology 07/25/23 Nicolás Wright MD #2 [place] [address] Consulting Physician Neurology 08/11/23
[2024-10-17 06:21] VITALS: BP 135/68; PULSE 80; RESP 18; TEMP 36.7; O2SAT 100
--- OUTSIDE RECORDS SUMMARY | 2024-10-17 07:24 | XMS_ITS | Clinical Summary ---
Author Organization [facility] Address [address] [place] [address] Care Team Providers Care Risk And Insurance Manager Name Role Phone Unavailable Primary Care Provider [...] Comments Blood Pressure 147/82 06/20/2016 1:14 PM PATIENT ACCESS Pulse 72 06/20/2016 1:14 PM PATIENT ACCESS Temperature - - Respiratory Rate - - Oxygen Saturation - - Inhaled Oxygen Concentration - - Weight 83.5 kg (184 lb) 06/20/2016 12:53 PM PATIENT ACCESS Height 170.2 cm (5' 7) 06/20/2016 12:53 PM PATIENT ACCESS Body Mass Index 28.82 06/20/2016 12:53 PM PATIENT ACCESS Plan of Treatment Health Maintenance Due Date [...]
--- OUTSIDE RECORDS SUMMARY | 2024-10-17 07:24 | XMS_ITS | Encounter Summary ---
Author Organization [facility] Address [address] [place] [address] Phone Care Team Providers Care Food And Nutrition Services Assistant Name Role Phone Joel Denson MD Unavailable Lisa Goldberg APRN Primary Care Provider [phone] Sea Hdez MD Unavailable [phone] Deysi Carballo MD Unavailable Nicolás Wright MD Unavailable [phone] Reason for Referral * Consult, Test & Initiate Treatment (Routine) - Closed Specialty Diagnoses / Procedures Referred By Sarah nunn Referred To Contact Diagnoses Urinary retention Sea Hdez MD #2 [facility], [facility] [[email or web address]] [address] [place] [address] Phone: tel: fax: [facility] [address] 162 [facility] [[email or web address] 200 [facility] [place] [address] Phone: tel: fax: Referral ID Status Reason Start Date Expiration Date Visits Re quested Visits Authorized [id number] Closed 07/15/2023 1 1 Scheduling Instructions Edwardo is being referred to [place]/ [facility] or other specialist in patient's insurance network [...] 200 mg by mouth 2 times daily. 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 Please make office visit after urodynamics [...] - 19 04/13/2024 04/13/2024 04/13/2024 3:36 PM ALIGNMENT SPECIALIST Assessment Noted Time PHQ-9 Depression Total Score: 0 04/23/19 17 9:00 AM ALIGNMENT SPECIALIST documented as of this encounter Care Teams Food And Nutrition Services Assistant Relationship Specialty Start Date End Date Lisa Goldberg APRN [address] [place] [address] PCP - General Advanced Practice Nurse 12/12/22 Joel Denson MD [address] [place] [address] Psychiatry 12/17/16 Sea Hdez MD #2 [facility] [address] [place], [place] [id number] Consulting Physician Urology 07/08/23 Deysi Carballo MD #[address] [address] Consulting Physician Endocrinology 07/25/23 Nicolás Wright MD #2 [place] [address] Consulting Physician Neurology 08/11/23 documented as of this encounter
--- OUTSIDE RECORDS SUMMARY | 2024-10-17 07:24 | XMS_ITS | Clinical Summary ---
Author Organization [facility] Address #1 [place] [address] Phone Care Team Providers Care Auto Mechanic Supervisor Name Role Phone Joel Denson MD Unavailable Lisa Goldberg APRN Primary Care Provider [phone] Sea Hdez MD Unavailable [phone] Deysi Carballo MD Unavailable Nicolás Wright MD Unavailable [phone] Allergies No known active allergies Medications atorvastatin (LIPITOR) 20 MG Tablet Take 20 mg by mouth daily. Active BuPROPion HCl 200 MG TABLET SR 12 HR Take 200 mg by mouth 2 times daily. [id number] Active Aripiprazole (Abilify) 20 MG Tablet Take [...] 10/09/2024 Refill [facility] - Endocrinology [facility] #[address] [place] [address] Deysi Carballo MD Medication Refill from Last 3 Months Immunizations Immunization Administration Dates Next Due Influenza Vaccine, Quadrivalent, PF 02/14/2022 Influenza, High-dose, Quadrivalent 12/28/2022 Influenza, Injectable, Quadrivalent 01/05/2018,0 12/04/2016,05/14/2016 Influenza, Seasonal, Injectable, Undefined 06/01 Pneumococcal Vaccine Adult - 23 Valent 7 Pneumococcal conjugate PCV20 , polysaccharide [id number] conjugate, adjuvant, PF 08/07/2021,07/24/2021 RSV, Recombinant, Protein [...] 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 Not on file Not on file Last Filed Vital Signs Vital Sign Reading Time Taken Comments Blood Pressure 97/63 04/15/2024 1:16 AM CHAIRMAN & CHIEF EXECUTIVE OFFICER Pulse 56 04/15/2024 1:16 AM CHAIRMAN & CHIEF EXECUTIVE OFFICER Temperature 36.3 C (97.4 F) 04/13/2024 2:17 PM CHAIRMAN & CHIEF EXECUTIVE OFFICER Respiratory Rate 18 04/15/2024 1:16 AM CHAIRMAN & CHIEF EXECUTIVE OFFICER Oxygen Saturation 97% 04/15/2024 1:16 AM CHAIRMAN & CHIEF EXECUTIVE OFFICER Inhaled Oxygen Concentration - - Weight 76.2 kg (168 lb) 04/14/2024 11:48 PM CHAIRMAN & CHIEF EXECUTIVE OFFICER Height 172.7 cm (5' 8) 04/14/2024 11:48 PM CHAIRMAN & CHIEF EXECUTIVE OFFICER Body Mass Index 25.54 04/14/2024 11:48 PM CHAIRMAN & CHIEF EXECUTIVE OFFICER Plan of Treatment Health Maintenance Due Date [...] (COMPREHENSIVE METABOLIC PANEL) STAT 04/13/2024 3:52 PM CHAIRMAN & CHIEF EXECUTIVE OFFICER POCT GLYCOSYLATED HEMOGLOBIN Routine 08/04/2023 2:24 PM CDT Type 2 diabetes mellitus without complication, with long-term current use of insulin (HCC) from Last 3 Months or Most Recently Relevant to Health Maintenance Results * (ABNORMAL) CMP (Comprehensive Metabolic Panel) (04/13/2024 3:52 PM CHAIRMAN & CHIEF EXECUTIVE OFFICER) SODIUM 133(L) 136 - 145 mmol/L 04/13/2024 4:21 PM CHAIRMAN & CHIEF EXECUTIVE OFFICER [facility] POTASSIUM 3.9 3.5 - 5.1 mmol/L 04/13/2024 4:21 PM [facility] CHLORIDE 100 98 - 107 mmol/L 04/13/2024 4:21 PM [facility] CO2, VENOUS 22 22 - 30 mmol/L 04/13/2024 4:21 PM [facility] ANION GAP 14.9 <18.0 mmol/L 04/13/2024 4:21 PM [facility] GLUCOSE 178(H) 70 - 99 mg/dL 04/13/2024 4:21 PM [facility] BUN 11 8 - 26 mg/dL 04/13/2024 4:21 PM [facility] CREATININE, BLOOD 0.91 0.70 - 1.30 mg/dL 04/13/2024 4:21 PM [facility] BUN/CREATININE RATIO 12 12 - 20 ratio 04/13/2024 4:21 PM [facility] TOTAL PROTEIN 7.3 6.3 - 8.2 g/dL 04/13/2024 4:21 PM [facility] ALBUMIN 4.5 3.5 - 5.0 g/dL 04/13/2024 4:21 PM [facility] A/G RATIO 1.6 1.0 - 2.2 04/13/2024 4:21 PM [facility] CALCIUM 9.7 8.7 - 10.5 mg/dL 04/13/2024 4:21 PM CHAIRMAN & CHIEF EXECUTIVE OFFICER [facility] T BILI 0.4 0.2 - 1.2 mg/dL 04/13/2024 4:21 PM CHAIRMAN & CHIEF EXECUTIVE OFFICER [facility] SGOT (AST) 23 5 - 34 U/L 04/13/2024 4:21 PM CHAIRMAN & CHIEF EXECUTIVE OFFICER [facility] SGPT (ALT) 34 0 - 55 U/L 04/13/2024 4:21 PM CHAIRMAN & CHIEF EXECUTIVE OFFICER [facility] ALKALINE PHOSPHATASE 64 40 - 150 U/L 04/13/2024 4:21 PM CHAIRMAN & CHIEF EXECUTIVE OFFICER [facility] GFR, ESTIMATED >60 >=60 04/13/2024 4:21 PM CHAIRMAN & CHIEF EXECUTIVE OFFICER [facility] Comment: Creatinine Clearance is the preferred criteria for selecting drug dose adjustments in renally impaired patients. The GFR is provided as additional pertinent clinical information. GFR is reported in mL/min/1.73 sq m. Calculation based on the Chronic Kidney Disease Epidemiology Collaboration (CKD- EPI) equation refit without adjustment for race. GFR, EST. >60 >=60 024 4:21 PM CHAIRMAN & CHIEF EXECUTIVE OFFICER [facility] GFR, EST. NONAFRICAN >60 >=60 04/13/2024 4:21 PM CHAIRMAN & CHIEF EXECUTIVE OFFICER [facility] Blood Venipuncture / Unknown 04/13/2024 3:52 PM CHAIRMAN & CHIEF EXECUTIVE OFFICER 04/13/2024 3:58 PM CHAIRMAN & CHIEF EXECUTIVE OFFICER us Judah Barragan MD CHEMISTRY ORDERABLES F inal Result [facility] #1 [place] [address] * (ABNORMAL) POCT GLYCOSYLATED HEMOGLOBIN (08/04/2023 2:24 PM CDT) HGB-A1C 8.0(A) 4 - 6 % Blood 08/04/2023 2:24 PM CDT us Desyi Carballo MD POINT OF CARE TESTING (MANUAL) [...] measures to stabilize the patient. Care Teams Auto Mechanic Supervisor Relationship Specialty Start Date End Date Lisa Goldberg APRN [address] [place] [address] PCP - General Advanced Practice Nurse 12/12/22 Joel Denson MD [address] [place] [address] Psychiatry 12/17/16 Sea Hdez MD #[address] [address] Consulting Physician Urology 07/08/23 Deysi Carballo MD #2 [facility] [address] [address] Consulting Physician Endocrinology 07/25/23 Nicolás Wright MD #2 [place] [address] Consulting Physician Neurology 08/11/23
--- OUTSIDE RECORDS SUMMARY | 2024-10-17 07:24 | XMS_ITS | Encounter Summary ---
Author Organization [facility] Address [address] [place] [address] Phone Care Team Providers Care Low Emission Automobile Designer Name Role Phone Joel Denson MD Unavailable Lisa Goldberg APRN Primary Care Provider [phone] Sea Hdez MD Unavailable [phone] Deysi Carballo MD Unavailable Nicolás Wright MD Unavailable [phone] Reason for Visit * Reason Onset Date Comments Referral 08/21/2023 External Urology Referral Encounter Details Date Type Department Care Team (Late st Contact Info) Description 08/21/2023 Telephone [facility] [address] [place] [address] Lisa Goldberg APRN [address] [place] [address] Referral (External Urology Referral) Social History [...] 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 Not on file Not [...] - 19 04/13/2024 04/13/2024 04/13/2024 3:36 PM CROP DUSTER Assessment Noted Time PHQ-9 Depression Total Score: 0 04/23/19 17 9:00 AM CROP DUSTER documented as of this encounter Care Teams Low Emission Automobile Designer Relationship Specialty Start Date End Date Lisa Goldberg APRN [address] [place] [address] PCP - General Advanced Practice Nurse 12/12/22 Joel Denson MD [address] [place] [address] Psychiatry 12/17/16 Sea Hdez MD #[address] [address] Consulting Physician Urology 07/08/23 Deysi Carballo MD #[address] [phone] Consulting Physician Endocrinology 07/25/23 Nicolás Wright MD #2 [place] [address] Consulting Physician Neurology 08/11/23 documented as of this encounter
[2024-10-17 07:26] LABS: Hematocrit 38.1 % (42.0-52.0); Hemoglobin 12.3 g/dL (14.0-18.0); Immature Granulocyte Percent A 0.2 % (0-0.5); Lymphocytes Absolute Auto 1.84 K/mm3 (0.9-3.2); Mean Corpuscular HGB Conc 32.3 g/dl (32-36); Mean Corpuscular Hemoglobin 27.2 pg (26-34); Mean Corpuscular Volume 84.1 fl (80-100); Nucleated Red Blood Cells Absolute Auto 0.000 K/mm3 (0.0-0.012); Nucleated Red Blood Cells Perc 0.0 % (0.0-0.2); Platelet Count Result 162 k/mm3 (150-375); Red Blood Count 4.53 M/mm3 (4.6-6.20); White Blood Count 6.4 K/mm3 (4.5-10.0)
--- NOTE | 2024-10-17 07:34 | PC.NURSE ---
Dr. Quinones at bedside assessing pt.
--- NOTE | 2024-10-17 07:34 | ED.GENADULT ---
HPI - General Adult General Chief complaint: Urogenital-Male Stated complaint: large clots when i pee Time Seen by Provider: 10/17/24 06:55 History of Present Illness HPI narrative: 69-year-old male presenting to the emergency department for evaluation for intermittent hematuria. Patient states he did have prostate surgery on 09/[address] Mcnulty. Patient does take Plavix. Patient states that he has had some intermittent bleeding since the procedure but this morning was passing urine and past 3 clots. Patient denies any difficulty urinating. Patient denies any associated abdominal pain. Related Data Home Medications ?Medication ?Instructions ?Recorded ?Confirmed ?Last Taken ?Type bupropion HCl 200 mg tablet,12 hr 200 mg PO BID 05/08/21 10/11/24 09/29/24 History sustained-release quetiapine 50 mg tablet 150 mg PO QHS 05/18/22 10/11/24 09/29/24 History finasteride 5 mg tablet 5 mg PO DAILY 03/10/23 10/11/24 09/29/24 History aripiprazole 20 mg tablet 10 mg PO BID 02/13/24 10/11/24 09/29/24 History insulin glargine U-300 conc 300 40 unit subcut QPM 09/22/24 10/11/24 09/29/24 History unit/mL (3 mL) subcutaneous pen (Toujeo Max U-300 SoloStar) Allergies Allergy/AdvReac Type Severity Reaction Status Date / Time No Known Allergies Allergy Verified 10/17/24 06:23 Review of Systems Review of Systems: All systems reviewed & are unremarkable except as noted in HPI and below PMFSH Past Medical History Medical History Excessive daytime sleepiness Sleep disorder, unspecified Diabetic polyneuropathy MCI (mild cognitive impairment) 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 Colon polyp Type 2 diabetes mellitus Gastroesophageal reflux disease Arthritis Lumbar spondylosis Pulmonary embolism (02/2022) Ataxia Rib fracture Benign prostatic hyperplasia Peripheral neuropathy Hypertension Hyperlipidemia Chronic insomnia Former cigarette smoker Bipolar depression Anxiety Surgical History Surgical History History of right knee joint replacement (05/10/21) History of bilateral cataract extraction (04/2022) History of colonoscopy with polypectomy History of arthroscopy of left knee History of right knee surgery x4 Family History Family History Father Age older than 80 years Hypertension Mother Age older than 80 years Patient's mother is in good health Sibling Fibromyalgia Diabetes mellitus Mother Dementia Social History Social History Social History: Code status: Full code Surrogate decision maker: Mona Ricci, spouse Smoking packs per day: 0.5 Smoking cigarettes per day: 10.0 Years smoked: 12 Smoking pack-years: 6.00 Smoking status: Current every day smoker Second hand tobacco smoke exposure: No Alcohol intake: never Substance use: never Substance use type: does not use Do You Feel Safe in your Home?: Yes Lack of Transportation: No Lack of Food: Never True Current Housing: I Have Housing Concerned About Future Housing: No Difficulty Paying Gas/Electric Bills: No Difficulty Paying for Meds: No Currently Unemployed: No Education: Don't Know Difficulty w/ Childcare or Family Care: No Living arrangements: with family Additional living arrangements comments: Lives with in [place]. Has 4 children and 21 grandchildren. 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 Spiritual care concerns: No Exam Narrative: APPEARANCE: Well appearing, no pain, no distress, well-nourished. HEAD: normocephalic, atraumatic. EYES: PERRLA/EOMI, conjunctivae clear. NOSE: Normal no drainage EARS:TMS clear with good light reflex. THROAT: Pharynx clear, no exudate. NECK: Supple. No adenopathy, no masses. RESPIRATORY: Airway patent, respirations nonlabored. Clear to auscultation bilaterally, no rales, rhonchi, wheezing. CARDIOVASCULAR: Regular rate and rhythm without murmurs rubs or gallops. ABDOMINAL: Soft, nontender, nondistended, normal bowel sounds MUSCULOSKELETAL: Moves all extremities. Strength/ROM intact, No edema, No calf tenderness. NEURO: Alert. Cranial nerves II through XII intact. Grossly intact SKIN: Warm, dry. Normal Color Course Vital Signs Vital signs: Vital Signs Temperature 98.1 F 10/17/24 06:21 Pulse Rate 80 07/06/25 06:21 Respiratory Rate 18 10/17/24 06:21 Blood Pressure 135/68 10/17/24 06:21 Pulse Oximetry 100 10/17/24 06:21 Oxygen Delivery Room Air 10/17/24 06:21 Temperature 98.1 F 10/17/24 06:21 Pulse Rate 80 10/17/24 11:00 Respiratory Rate 14 10/17/24 11:00 Blood Pressure 110/72 10/17/24 11:00 Pulse Oximetry 99 10/17/24 11:00 Oxygen Delivery Room Air 10/17/24 06:21 Medical Decision Making MDM Narrative Medical decision making narrative: 69-year-old male presenting emergency department for evaluation for intermittent hematuria. Patient states he is having no difficulty starting urination but did have some blood in his urine today and did pass a few large clots. Patient denies any increasing abdominal pain. Patient had approximately 240 prevoid and did pass to 250 mL urine and had a negative bladder scan postvoid. CT does show some possible blood clot within the bladder. Patient was encouraged to increase his water intake and to continue have close follow-up with Dr. mcnulty. Differential Diagnosis Differential Diagnosis: UTI, urinary retention, bladder obstruction, bladder hematoma Vital Signs Vital Signs: Vital Signs Temperature 98.1 F 10/17/24 06:21 Pulse Rate 80 10/17/24 06:21 Respiratory Rate 18 10/17/24 06:21 Blood Pressure 135/68 10/17/24 06:21 Pulse Oximetry 100 10/17/24 06:21 Oxygen Delivery Room Air 10/17/24 06:21 Temperature 98.1 F 10/17/24 06:21 Pulse Rate 80 10/17/24 11:00 Respiratory Rate 14 10/17/24 11:00 Blood Pressure 110/72 10/17/24 11:00 Pulse Oximetry 99 10/17/24 11:00 Oxygen Delivery Room Air 10/17/24 06:21 Lab Data Lab results reviewed: Yes I reviewed the patient's lab results. 10/17/24 07:13 10/17/24 07:13 Labs: Lab Results 10/17/24 Range/Units 07:13 WBC 6.4 (4.5-10.0) K/mm3 RBC 4.53 L (4.6-6.20) M/mm3 Hgb 12.3 L (14.0-18.0) g/dL Hct 38.1 L (42.0-52.0) % MCV 84.1 (80-100) fl MCH 27.2 (26-34) pg MCHC 32.3 (32-36) g/dl RDW 15.3 H (11.5-14.5) % Plt Count 162 (150-375) k/mm3 MPV 9.4 (7.4-10.4) fl Immature Gran % (Auto) 0.2 (0-0.5) % Neut % (Auto) 61.8 (45.5-73.1) % Lymph % (Auto) 28.8 (18.3-44.2) % [place] % (Auto) 5.3 (2.6-8.5) % Eos % (Auto) 3.1 (0-4.4) % Baso % (Auto) 0.8 (0.2-1.2) % Lymph # (Auto) 1.84 (0.9-3.2) K/mm3 [place] # (Auto) 0.3 (0.1-0.6) K/mm3 Eos # (Auto) 0.2 (0-0.3) K/mm3 Baso # (Auto) 0.1 (0.0-0.1) K/mm3 Abs Immat Gran (auto) 0.01 (0.00-0.031) K/mm3 Absolute Neuts (auto) 3.9 (1.3-6.7) K/mm3 Absolute Nucleated RBC 0.000 (0.0-0.012) K/mm3 Nucleated RBC % 0.0 (0.0-0.2) % PT 13.4 (11.1-14.7) Seconds INR 1.0 APTT 27.4 (22.3-36.8) Seconds Sodium 134 L (137-145) mmol/L Potassium 4.2 (3.4-5.0) mmol/L Chloride 100 (98-107) mmol/L Carbon Dioxide 21 L (22-30) mmol/L Anion Gap 13 H (4-12) mmol/L BUN 17 (9-20) mg/dL Creatinine 0.91 (0.7-1.3) mg/dL Estim Creat Clear Calc 67 ml/min Estimated GFR > 60 (59 - ) Glucose 291 H (65-110) mg/dL Calcium 9.6 (8.4-10.2) mg/dL Total Bilirubin 0.2 (0.2-1.3) mg/dL AST 33 (17-59) U/L ALT 39 (6-50) U/L Alkaline Phosphatase 55 (38-126) U/L Troponin I < 0.012 (0.000-0.034) ng/mL Total Protein 6.9 (6.3-8.2) g/dL Albumin 4.1 (3.5-5.1) g/dL Urine Color [place] H (Yellow) Urine Appearance [place]urb[place] H (Clear) Urine pH 5.0 (5.0-9.0) Ur Specific [place] 1.023 (1.001-1.035) Urine Protein 2+ H (Negative) mg/dL Urine Glucose (UA) 3+ H (Negative) mg/dL Urine Ketones Trace H (Negative) mg/dL Ur Blood (Man) 3+ H (Negative) Urine Nitrate Negative (Negative) Urine Bilirubin Negative (Negative) Urine Urobilinogen 0.2 (<2.0) mg/dL Leukocyte Esterase Rfl 2+ H (Negative) JOVANNY/UL Imaging Data Radiologist's impression: Impressions Abdomen/Pelvis CT 10/17/24 09:42 IMPRESSION: Mural thickening of the bladder with surrounding inflammatory change for which cystitis is suspected. Additional findings suggestive of interval TURP with irregular rim enhancement along the left lateral border of the central most defect with adjacent increased attenuation suggesting blood products for which gross hematuria would be expected. Clinical correlation regarding patient's current presentation is needed. Persistent splenomegaly, as detailed above. Discharge Plan Discharge Clinical Impression: Hematuria Patient Disposition: Home Condition: Stable Instructions: Antibiotic Form, Hematuria (ED) Additional Instructions: Continue to drink plenty of fluids. Have close follow-up with Urology. If you have any difficulty starting urination or urinary retention then please call or return to the emergency department. Patient Language: Finnish Prescriptions: No Action aripiprazole 20 mg tablet 10 mg PO BID finasteride 5 mg tablet 5 mg PO DAILY methocarbamol 500 mg tablet 500 mg PO BID PRN (Reason: muscle pain) Qty: 30 0RF metformin 1,000 mg tablet 1,000 mg PO BID 90 Days Qty: 180 1RF insulin lispro [Humalog KwikPen Insulin] 100 unit/mL insulin pen 1 sliding scale dose subcut USEASDIRECTD MDD 60 Qty: 54 2RF Rx Instructions: Humalog 14 units before breakfast , 14 units before lunch and 14 units before dinner. add Humalog for high sugar before meals only blood sugar 150-170 - take additional 1 units blood sugar 171-190- take additional 2 units blood sugar 191-210- take additional 3 units blood sugar 211-230- take additional 4 units blood sugar 231-250- take additional 5 units blood sugar 251 - take additional 6 units quetiapine 50 mg tablet 150 mg PO QHS cefdinir 300 mg capsule 300 mg PO Q12H Qty: 20 0RF acetaminophen 500 mg tablet 1,000 mg PO TID PRN (Reason: pain) 7 Days Qty: 42 0RF bupropion HCl 200 mg tablet sustained-release 12 hr 200 mg PO BID insulin glargine U-300 conc [Toujeo Max U-300 SoloStar] 300 unit/mL (3 mL) insulin pen 40 unit subcut QPM hydrocodone-acetaminophen 5-325 mg tablet 1 - 2 tablet PO Q6H PRN (Reason: pain) Qty: 20 0RF docusate sodium [Colace] 100 mg capsule 100 mg PO DAILY Qty: 14 0RF cefdinir 300 mg capsule 300 mg PO Q12H Qty: 10 0RF tamsulosin 0.4 mg capsule 0.4 mg PO DAILY Qty: 90 3RF atorvastatin 20 mg tablet See Rx Instructions .ROUTE .COMPLEX Qty: 90 3RF Dose Instruction: Take 1 tablet by mouth once daily Rx Instructions: Take 1 tablet by mouth once daily carvedilol 12.5 mg tablet See Rx Instructions .ROUTE .COMPLEX Qty: 180 0RF Dose Instruction: TAKE 1 TABLET BY MOUTH EVERY 12 HOURS WITH FOOD Rx Instructions: TAKE 1 TABLET BY MOUTH EVERY 12 HOURS WITH FOOD clopidogrel 75 mg tablet See Rx Instructions .ROUTE .COMPLEX Qty: 90 3RF Dose Instruction: Take 1 tablet by mouth once daily Rx Instructions: Take 1 tablet by mouth once daily aspirin [Children's Aspirin] 81 mg tablet,chewable 81 mg PO DAILY@0800 Qty: 90 3RF pantoprazole 40 mg tablet,delayed release (DR/EC) See Rx Instructions .ROUTE .COMPLEX Qty: 90 3RF Dose Instruction: Take 1 tablet by mouth twice daily Rx Instructions: Take 1 tablet by mouth twice daily Follow-up/Referrals: Ha Mcnulty MD [Physician] - Lisa Goldberg APRN [Primary Care Provider] -
[2024-10-17 07:38] LABS: Alanine Aminotransferase 39 U/L (6-50); Albumin Level 4.1 g/dL (3.5-5.1); Alkaline Phosphatase 55 U/L (38-126); Anion Gap 13 mmol/L (4-12); Aspartate Amino Transferase 33 U/L (17-59); Bilirubin,Total 0.2 mg/dL (0.2-1.3); Blood Urea Nitrogen 17 mg/dL (9-20); Calcium 9.6 mg/dL (8.4-10.2); Carbon Dioxide 21 mmol/L (22-30); Chloride 100 mmol/L (98-107); Estimated CRCL calculation 67 ml/min; Estimated Glomerular Filt Rate > 60; Glucose 291 mg/dL (65-110); Potassium 4.2 mmol/L (3.4-5.0); Sodium 134 mmol/L (137-145); Total Protein 6.9 g/dL (6.3-8.2)
[2024-10-17 07:42] LABS: Add Urine Microscopic? YES; Appearance Urine Turbid (Clear); Glucose Urine UA 3+ mg/dL (Negative); Leukocyte Esterase Ur 2+ LEU/UL (Negative); Nitrate Urine Negative (Negative); Specific Grav Ur 1.023 (1.001-1.035)
[2024-10-17 07:44] LABS: INR 1.0; Prothrombin Time 13.4 Seconds (11.1-14.7)
[2024-10-17 07:45] LABS: Partial Thromboplastin Time 27.4 Seconds (22.3-36.8)
[2024-10-17 08:00] LABS: Troponin I < 0.012 ng/mL (0.000-0.034)
[2024-10-17 09:21] VITALS: BP 105/72; PULSE 75; RESP 14; O2SAT 95
[2024-10-17 11:00] VITALS: BP 110/72; PULSE 80; RESP 14; O2SAT 99
== END 2024-10-17 11:15 | disposition home or self-care (01) ==
PROVIDERS: Emergency Provider Emergency Medicine; PCP Nurse Practitioner Adult Health
DX: R31.9 Hematuria, unspecified (principal); Z79.02 Long term (current) use of antithrombotics/antiplatelets; E11.42 Type 2 diabetes mellitus with diabetic polyneuropathy; Z79.4 Long term (current) use of insulin; K21.9 Gastro-esophageal reflux disease without esophagitis; Z86.711 Personal history of pulmonary embolism; I10 Essential (primary) hypertension; E78.5 Hyperlipidemia, unspecified; F41.8 Other specified anxiety disorders; Z96.651 Presence of right artificial knee joint; F17.210 Nicotine dependence, cigarettes, uncomplicated
CPT/HCPCS: 36415; 74177; 80053; 81001; 84484; 85025; 85610; 85730; 87086; 99284; Q9967

== ENCOUNTER 2024-11-03 08:52 | Emergency (ER) | payer OTHER, SELFPAY ==
--- NOTE | ~2024-11-03 | XR_ITS ---
EXAM/PROCEDURE: XR chest 2V - 11/03/2024 9:15 CDT HISTORY: 69 years old Male with cough fatigue one week TECHNIQUE: Two view(s) of the chest. COMPARISON: None available. FINDINGS: LUNGS/ PLEURA: Consolidation in right lung base along the right heart border, can represent pneumonia in appropriate clinical settings. No pleural effusions or pneumothorax. HEART/ MEDIASTINUM: Heart appears normal in size. BONES: No acute osseous abnormality. OTHER: Visualized upper abdomen is unremarkable. IMPRESSION: Right lung consolidation, as detailed above. This can represent pneumonia in appropriate clinical set tings. Clinical correlation is recommended. Short-term follow-up chest radiograph is recommended afte r appropriate clinical therapy to document resolution. Reviewed, dictated and finalized at location A. IMPRESSION: Right lung consolidation, as detailed above. This can represent pneumonia in ap propriate clinical settings. Clinical correlation is recommended. Short-term fo llow-up chest radiograph is recommended after appropriate clinical therapy to d ocument resolution.
[2024-11-03 08:58] VITALS: BP 112/72; PULSE 84; RESP 20; TEMP 36.4; O2SAT 99
--- OUTSIDE RECORDS SUMMARY | 2024-11-03 09:06 | XMS_ITS | Encounter Summary ---
Author Organization [facility] Address [address] [place] [address] Phone Care Team Providers Care Lamp Shade Maker Name Role Phone Joel Denson MD Unavailable Lisa Goldberg APRN Primary Care Provider [phone] Sea Hdez MD Unavailable [phone] Deysi Carballo MD Unavailable Nicolás Wright MD Unavailable [phone] Reason for Visit * Reason Onset Date Comments Referral 08/21/2023 External Urology Referral Encounter Details Date Type Department Care Team (Late st Contact Info) Description 08/21/2023 Telephone [facility] [address] [place] [address] Lisa Goldberg APRN [address] [place] [phone] Referral (External Urology Referral) Social History [...] 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 Not on file Not [...] - 19 04/13/2024 04/13/2024 04/13/2024 3:36 PM BENDER HELPER Assessment Noted Time PHQ-9 Depression Total Score: 0 04/23/19 17 9:00 AM BENDER HELPER documented as of this encounter Care Teams Lamp Shade Maker Relationship Specialty Start Date End Date Lisa Goldberg APRN [address] [place] [address] PCP - General Advanced Practice Nurse 12/12/22 Joel Denson MD [address] [place] [address] Psychiatry 12/17/16 Sea Hdez MD #[address] [address] Consulting Physician Urology 07/08/23 Deysi Carballo MD #[address] [phone] Consulting Physician Endocrinology 07/25/23 Nicolás Wright MD [address] [place] [phone] Consulting Physician Neurology 08/11/23 documented as of this encounter
--- OUTSIDE RECORDS SUMMARY | 2024-11-03 09:06 | XMS_ITS | Encounter Summary ---
Author Organization [facility] Address [address] [place] [address] Phone Care Team Providers Care Caretaker Name Role Phone Joel Denson MD Unavailable Lisa Goldberg APRN Primary Care Provider [phone] Sea Hdez MD Unavailable [phone] Deysi Carballo MD Unavailable Nicolás Wright MD Unavailable [phone] Reason for Referral * Consult, Test & Initiate Treatment (Routine) - Closed Specialty Diagnoses / Procedures Referred By Sarah nunn Referred To Contact Diagnoses Urinary retention Sea Hdez MD [address] [facility], [facility] [address] [place] [address] Phone: tel: fax: [facility] [address] [facility] [address] [facility] [place] [address] Phone: tel: fax: Referral ID Status Reason Start Date Expiration Date Visits Re quested Visits Authorized [id number] Closed 07/15/2023 1 1 Scheduling Instructions Edwardo is being referred to [place]/ [facility] or other specialist in [...] 200 mg by mouth 2 times daily. 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 Please make office visit after urodynamics [...] - 19 04/13/2024 04/13/2024 04/13/2024 3:36 PM WEB KNITTER Assessment Noted Time PHQ-9 Depression Total Score: 0 04/23/19 17 9:00 AM WEB KNITTER documented as of this encounter Care Teams Caretaker Relationship Specialty Start Date End Date Lisa Goldberg APRN [address] [place] [address] PCP - General Advanced Practice Nurse 12/12/22 Joel Denson MD [address] [place] [address] Psychiatry 12/17/16 Sea Hdez MD [address]2 [facility] [address] [place], [place] [id number] Consulting Physician Urology 07/08/23 Deysi Carballo MD #[address] [address] Consulting Physician Endocrinology 07/25/23 Nicolás Wright MD [address] [place] [address] Consulting Physician Neurology 08/11/23 documented as of this encounter
--- OUTSIDE RECORDS SUMMARY | 2024-11-03 09:06 | XMS_ITS | Clinical Summary ---
Author Organization [facility] Address [address] [place] [address] Phone Care Team Providers Care Penal Officer Name Role Phone Joel Denson MD Unavailable Lisa Goldberg APRN Primary Care Provider [phone] Sea Hdez MD Unavailable [phone] Deysi Carballo MD Unavailable Nicolás Wright MD Unavailable [phone] Allergies No known active allergies Medications atorvastatin (LIPITOR) 20 MG Tablet Take 20 mg by mouth daily. Active BuPROPion HCl 200 MG TABLET SR 12 HR Take 200 mg by mouth 2 times daily. [id number] Active Aripiprazole (Abilify) 20 MG Tablet Take [...] 10/09/2024 Refill [facility] - Endocrinology 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 on file Not on file Last Filed Vital Signs Vital Sign Reading Time Taken Comments Blood Pressure 97/63 04/15/2024 1:16 AM WAD LUBRICATOR Pulse 56 04/15/2024 1:16 AM WAD LUBRICATOR Temperature 36.3 C (97.4 F) 04/13/2024 2:17 PM WAD LUBRICATOR Respiratory Rate 18 04/15/2024 1:16 AM WAD LUBRICATOR Oxygen Saturation 97% 04/15/2024 1:16 AM WAD LUBRICATOR Inhaled Oxygen Concentration - - Weight 76.2 kg (168 lb) 04/14/2024 11:48 PM WAD LUBRICATOR Height 172.7 cm (5' 8) 04/14/2024 11:48 PM WAD LUBRICATOR Body Mass Index 25.54 04/14/2024 11:48 PM WAD LUBRICATOR Plan of Treatment Health Maintenance Due Date [...] Diabetes: Foot Exam 08/03/2024 08/04/2023 Influenza Immunization (#1) 12/13/202412/13, 02/14/2022, 01/05/2018, Additional history exists Diabetes: Nephropathy [...] (COMPREHENSIVE METABOLIC PANEL) STAT 04/13/2024 3:52 PM WAD LUBRICATOR POCT GLYCOSYLATED HEMOGLOBIN Routine 08/04/2023 2:24 PM CDT Type 2 diabetes mellitus without complication, with long-term current use of insulin (HCC) from Last 3 Months or Most Recently Relevant to Health Maintenance Results * (ABNORMAL) CMP (Comprehensive Metabolic Panel) (04/13/2024 3:52 PM WAD LUBRICATOR) SODIUM 133(L) 136 - 145 mmol/L 04/13/2024 4:21 PM WAD LUBRICATOR [facility] POTASSIUM 3.9 3.5 - 5.1 mmol/L 04/13/2024 4:21 PM [facility] CHLORIDE 100 98 - 107 mmol/L 04/13/2024 4:21 PM [facility] CO2, VENOUS 22 22 - 30 mmol/L 04/13/2024 4:21 PM [facility] ANION GAP 14.9 <18.0 mmol/L 04/13/2024 4:21 PM [facility] GLUCOSE 178(H) 70 - 99 mg/dL 04/13/2024 4:21 PM [facility] BUN 11 8 - 26 mg/dL 04/13/2024 4:21 PM [facility] CREATININE, BLOOD 0.91 0.70 - 1.30 mg/dL 04/13/2024 4:21 PM [facility] BUN/CREATININE RATIO 12 - 20 ratio 04/13/2024 4:21 PM [facility] TOTAL PROTEIN 7.3 6.3 - 8.2 g/dL 04/13/2024 4:21 PM [facility] ALBUMIN 4.5 3.5 - 5.0 g/dL 04/13/2024 4:21 PM [facility] A/G RATIO 1.6 1.0 - 2.2 04/13/2024 4:21 PM [facility] CALCIUM 9.7 8.7 - 10.5 mg/dL 04/13/2024 4:21 PM WAD LUBRICATOR [facility] T BILI 0.4 0.2 - 1.2 mg/dL 04/13/2024 4:21 PM WAD LUBRICATOR [facility] SGOT (AST) 23 5 - 34 U/L 04/13/2024 4:21 PM WAD LUBRICATOR [facility] SGPT (ALT) 34 0 - 55 U/L 04/13/2024 4:21 PM WAD LUBRICATOR [facility] ALKALINE PHOSPHATASE 64 40 - 150 U/L 04/13/2024 4:21 PM WAD LUBRICATOR [facility] GFR, ESTIMATED >60 >=60 04/13/2024 4:21 PM WAD LUBRICATOR [facility] Comment: Creatinine Clearance is the preferred criteria for selecting drug dose adjustments in renally impaired patients. The GFR is provided as additional pertinent clinical information. GFR is reported in mL/min/1.73 sq m. Calculation based on the Chronic Kidney Disease Epidemiology Collaboration (CKD- EPI) equation refit without adjustment for race. GFR, EST. >60 >=60 024 4:21 PM WAD LUBRICATOR [facility] GFR, EST. NONAFRICAN >60 >=60 04/13/2024 4:21 PM WAD LUBRICATOR [facility] Blood Venipuncture / Unknown 04/13/2024 3:52 PM WAD LUBRICATOR 04/13/2024 3:58 PM WAD LUBRICATOR us Judah Barragan MD CHEMISTRY ORDERABLES F inal Result [facility] [address] [place] [address] * (ABNORMAL) POCT GLYCOSYLATED HEMOGLOBIN (08/04/2023 2:24 [...] measures to stabilize the patient. Care Teams Penal Officer Relationship Specialty Start Date End Date Lisa Goldberg APRN [address] [place] [address] PCP - General Advanced Practice Nurse 12/12/22 Joel Denson MD [address] [place] [address] Psychiatry 12/17/16 Sea Hdez MD #[address] [address] Consulting Physician Urology 07/08/23 Deysi Carballo MD [facility] [address] [phone] Consulting Physician Endocrinology 07/25/23 Nicolás Wright MD [address] [place] [address] Consulting Physician Neurology 08/11/23
--- NOTE | 2024-11-03 09:09 | ED_ITS ---
HPI - URI/Sore Throat General Chief Complaint: Upper Respiratory Infection Stated Complaint: Cough/Chest Congestion/Weakness Time Seen by Provider: 11/03/24 09:09 Source: patient Mode of arrival: ambulatory Limitations: no limitations History of Present Illness HPI Narrative: 69 y/o male with hx DM presented for c/o cough for over one week. Says lungs feel heavy and endorses fatigue and generalized weakness. Denies sob, wheezing, n/v/d/f/c. Taking Mucinex. Related Data Home Medications ?Medication ?Instructions ?Recorded ?Confirmed ?Last Taken ?Type bupropion HCl 200 mg tablet,12 hr 200 mg PO BID 05/08/21 10/11/24 09/29/24 History sustained-release quetiapine 50 mg tablet 150 mg PO QHS 05/18/22 10/11/24 09/29/24 History finasteride 5 mg tablet 5 mg PO DAILY 03/10/23 10/11/24 09/29/24 History aripiprazole 20 mg tablet 10 mg PO BID 02/13/24 10/11/24 09/29/24 History insulin glargine U-300 conc 300 40 unit subcut QPM 09/22/24 10/11/24 09/29/24 History unit/mL (3 mL) subcutaneous pen (Toujeo Max U-300 SoloStar) cephalexin 250 mg capsule mg 11/03/24 Unknown History quetiapine 200 mg tablet mg 11/03/24 Unknown History Allergies Allergy/AdvReac Type Severity Reaction Status Date / Time No Known Allergies Allergy Verified 10/17/24 06:23 Review of Systems Review of Systems: CONSTITUTIONAL: Endorses malaise Denies body aches, fever, chills, or sweats. EYES: Denies visual changes, redness, or discharge. ENT: reports rhinorrhea, congestion, Denies sore throat, or otalgia. CARDIOVASCULAR: Denies chest pain, palpitations, or edema. RESPIRATORY: Reports cough, denies sob, wheezing. GASTROINTESTINAL: Denies abdominal pain, nausea, vomiting, or diarrhea. SKIN: Denies rash, itching MUSCULOSKELETAL: Denies back pain, joint pain NEUROLOGIC: Denies headache, numbness, tingling, or weakness. PSYCH: Denies depression or anxiety. 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 Colon polyp Type 2 diabetes mellitus Gastroesophageal reflux disease Arthritis Lumbar spondylosis Pulmonary embolism (02/2022) Ataxia Rib fracture Benign prostatic hyperplasia Peripheral neuropathy Hypertension Hyperlipidemia Chronic insomnia Former cigarette smoker Bipolar depression Anxiety Surgical History Surgical History History of right knee joint replacement (05/10/21) History of bilateral cataract extraction (04/2022) History of colonoscopy with polypectomy History of arthroscopy of left knee History of right knee surgery x4 Family History Family History Father Age older than 80 years Hypertension Mother Age older than 80 years Patient's mother is in good health Sibling Fibromyalgia Diabetes mellitus Mother Dementia Social History Social History Social History: Code status: Full code Surrogate decision maker: Mona Ricci, spouse Smoking packs per day: 0.5 Smoking cigarettes per day: 10.0 Years smoked: 12 Smoking pack-years: 6.00 Smoking status: Current every day smoker Second hand tobacco smoke exposure: No Alcohol intake: never Substance use: never Substance use type: does not use Do You Feel Safe in your Home?: Yes Lack of Transportation: No Lack of Food: Never True Current Housing: I Have Housing Concerned About Future Housing: No Difficulty Paying Gas/Electric Bills: No Difficulty Paying for Meds: No Currently Unemployed: No Education: Don't Know Difficulty w/ Childcare or Family Care: No Living arrangements: with family Additional living arrangements comments: Lives with in [place]. Has 4 children and 21 grandchildren. 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 Spiritual care concerns: No Comments At time of signature, I have reviewed and agree with nursing past medical, surgical, social and family history unless otherwise noted. Please see nursing chart for further information. There is no relevant family history pertinent to the presenting complaint Exam Narrative: GENERAL: Well-appearing, in no acute distress. EYES: EOMI. No redness or drainage. Conjunctivae normal. ENT: Mucous membranes pink and moist. No rhinorrhea. TMs normal bilaterally. Throat normal. Uvula midline. NECK: Normal AROM. CHEST: No respiratory distress. Right mid lung and left lower lung with end inspiratory crackles. HEART: Regular rate and rhythm. No murmur appreciated. ABDOMEN: Soft, nontender, nondistended, normal active bowel sounds. EXTREMITIES: Normal range of motion. No edema. SKIN: Warm, dry, no rash. Capillary refill normal. Normal skin turgor. NEURO: Alert and oriented x3. Gait steady. PSYCH: Normal affect. Course Course Emergency Course: Patient is aware of diagnosis, understands and agrees to treatment plan. Anticipatory guidance given. Patient agrees to follow-up as directed and is aware of reasons to seek care at the emergency department. Portions of this record may have been created with voice recognition software Level of Care: Express Care Visit Vital Signs Vital signs: Vital Signs Temperature 97.5 F L 11/03/24 08:58 Pulse Rate 84 11/03/24 08:58 Respiratory Rate 20 11/03/24 08:58 Blood Pressure 112/72 11/03/24 08:58 Pulse Oximetry 99 11/03/24 08:58 Oxygen Delivery Room Air 11/03/24 08:58 Temperature 97.5 F L 11/03/24 08:58 Pulse Rate 84 11/03/24 08:58 Respiratory Rate 20 11/03/24 08:58 Blood Pressure 112/72 11/03/24 08:58 Pulse Oximetry 99 11/03/24 08:58 Oxygen Delivery Room Air 11/03/24 08:58 MDM - URI/Sore Throat MDM Narrative Medical decision making narrative: Discussed physical exam findings and CXR. Treat for pna. Reviewed RX. Category D interaction of azithromycin quetiapine, therefore will only prescribe Augmentin at this time. Low-dose steroid due to history of diabetes and changes in sugars. Advised supportive measures and signs/symptoms to go to the ER. Pt is appropriate for outpt treatment and f/u. Differential Diagnosis Differential diagnosis: Likely upper respiratory infection, sinusitis, viral infection, bronchitis, pharyngitis and other (Angioedema, perforation, asthma, pneumonia, PE, tension pneumothorax, cardiac tamponade NC, pericarditis, pleural effusion, CHF, bronchitis, cardiac arrhythmia) Discharge Plan Discharge Clinical Impression: Pneumonia Patient Disposition: Home Condition: Stable Instructions: Antibiotic Form, Community Acquired Pneumonia (ED) Additional Instructions: Pneumonia is a lung infection that can cause a fever, cough, and trouble breathing. How it spreads: When someone with bacterial pneumonia coughs, sneezes, or talks, they release respiratory droplets into the air that can be inhaled by others.?You can also get pneumonia by touching a contaminated surface or object and then touching your mouth or nose. You're generally contagious for around 48 hours after starting antibiotics and your fever goes away.? To prevent the spread of pneumonia, you can:? ? Get vaccinated? ? Wash your hands often with soap and water for 20 seconds? ? Cover your mouth with a tissue when you cough or sneeze? ? Avoid people who are already sick with pneumonia? ? Stay home when you have pneumonia Take antibiotics as directed until complete. eat small frequent meals. Get lots of rest and drink fluids. Alternate Tylenol and ibuprofen for pain/fever Tevd-tjj-eixaprr cough medication can cause drowsiness, take according to package directions Call your Primary Care Doctor and make a follow-up appointment in 3 days. Go to the ER for worsening symptoms or concerns Patient Language: Samoan Prescriptions: New prednisone 20 mg tablet 20 mg PO DAILY Qty: 5 0RF amoxicillin-pot clavulanate 875-125 mg tablet 1 tablet PO Q12H 7 Days Qty: 14 0RF No Action aripiprazole 20 mg tablet 10 mg PO BID cephalexin 250 mg capsule quetiapine 200 mg tablet finasteride 5 mg tablet 5 mg PO DAILY metformin 1,000 mg tablet 1,000 mg PO BID 90 Days Qty: 180 1RF insulin lispro [Humalog KwikPen Insulin] 100 unit/mL insulin pen 1 sliding scale dose subcut USEASDIRECTD MDD 60 Qty: 54 2RF Rx Instructions: Humalog 14 units before breakfast , 14 units before lunch and 14 units before dinner. add Humalog for high sugar before meals only blood sugar 150-170 - take additional 1 units blood sugar 171-190- take additional 2 units blood sugar 191-210- take additional 3 units blood sugar 211-230- take additional 4 units blood sugar 231-250- take additional 5 units blood sugar 251 - take additional 6 units quetiapine 50 mg tablet 150 mg PO QHS acetaminophen 500 mg tablet 1,000 mg PO TID PRN (Reason: pain) 7 Days Qty: 42 0RF bupropion HCl 200 mg tablet sustained-release 12 hr 200 mg PO BID insulin glargine U-300 conc [Toujeo Max U-300 SoloStar] 300 unit/mL (3 mL) insulin pen 40 unit subcut QPM docusate sodium [Colace] 100 mg capsule 100 mg PO DAILY Qty: 14 0RF tamsulosin 0.4 mg capsule 0.4 mg PO DAILY Qty: 90 3RF atorvastatin 20 mg tablet See Rx Instructions .ROUTE .COMPLEX Qty: 90 3RF Dose Instruction: Take 1 tablet by mouth once daily Rx Instructions: Take 1 tablet by mouth once daily carvedilol 12.5 mg tablet See Rx Instructions .ROUTE .COMPLEX Qty: 180 0RF Dose Instruction: TAKE 1 TABLET BY MOUTH EVERY 12 HOURS WITH FOOD Rx Instructions: TAKE 1 TABLET BY MOUTH EVERY 12 HOURS WITH FOOD clopidogrel 75 mg tablet See Rx Instructions .ROUTE .COMPLEX Qty: 90 3RF Dose Instruction: Take 1 tablet by mouth once daily Rx Instructions: Take 1 tablet by mouth once daily aspirin [Children's Aspirin] 81 mg tablet,chewable 81 mg PO DAILY@0800 Qty: 90 3RF pantoprazole 40 mg tablet,delayed release (DR/EC) See Rx Instructions .ROUTE .COMPLEX Qty: 90 3RF Dose Instruction: Take 1 tablet by mouth twice daily Rx Instructions: Take 1 tablet by mouth twice daily Follow-up/Referrals: Lisa Goldberg APRN [Primary Care Provider] - Time of Disposition: 09:42
== END 2024-11-03 09:49 | disposition home or self-care (01) ==
PROVIDERS: Emergency Provider Nurse Practitioner Family; PCP Nurse Practitioner Adult Health
DX: J18.9 Pneumonia, unspecified organism (principal); F17.210 Nicotine dependence, cigarettes, uncomplicated; I65.21 Occlusion and stenosis of right carotid artery; E11.42 Type 2 diabetes mellitus with diabetic polyneuropathy; Z79.4 Long term (current) use of insulin; Z79.84 Long term (current) use of oral hypoglycemic drugs; I10 Essential (primary) hypertension; K21.9 Gastro-esophageal reflux disease without esophagitis; M19.90 Unspecified osteoarthritis, unspecified site; M47.816 Spondylosis without myelopathy or radiculopathy, lumbar region; N40.0 Benign prostatic hyperplasia without lower urinary tract symptoms; E78.5 Hyperlipidemia, unspecified; Z96.651 Presence of right artificial knee joint; Z98.42 Cataract extraction status, left eye; Z98.41 Cataract extraction status, right eye; Z79.82 Long term (current) use of aspirin; F31.9 Bipolar disorder, unspecified
CPT/HCPCS: 71046; 99213; G0463

== ENCOUNTER 2024-11-09 13:09 | Emergency (ER) | payer OTHER, SELFPAY ==
[2024-11-09 13:16] VITALS: BP 130/74; PULSE 91; RESP 20; TEMP 36.4; O2SAT 99
--- NOTE | 2024-11-09 13:20 | ED_ITS ---
HPI - General Adult General Chief complaint: Upper Respiratory Infection Stated complaint: pnuemonia Time Seen by Provider: 11/09/24 13:20 Source: patient, RN notes reviewed and old records reviewed Mode of arrival: ambulatory Limitations: no limitations History of Present Illness HPI narrative: 69-year-old male presents to the [facility] with continued symptoms after being diagnosed with pneumonia 6 days ago. Patient comes in hoping to get additional antibiotics. States that he completed his medications. States that he has continued have a productive cough, shortness of breath, fatigue. Patient has a history of a blood clot, diabetes, cardiac issues Has an appointment with his primary care provider on the Reports that he did call his primary care today and was instructed to go to the ER Treatments prior to arrival: other (Antibiotics) Related Data Home Medications ?Medication ?Instructions ?Recorded ?Confirmed ?Last Taken ?Type bupropion HCl 200 mg tablet,12 hr 200 mg PO BID 05/08/21 10/11/24 09/29/24 History sustained-release quetiapine 50 mg tablet 150 mg PO QHS 05/18/22 10/11/24 09/29/24 History finasteride 5 mg tablet 5 mg PO DAILY 03/10/23 10/11/24 09/29/24 History aripiprazole 20 mg tablet 10 mg PO BID 02/13/24 10/11/24 09/29/24 History insulin glargine U-300 conc 300 40 unit subcut QPM 09/22/24 10/11/24 09/29/24 History unit/mL (3 mL) subcutaneous pen (Toujeo Max U-300 SoloStar) quetiapine 200 mg tablet mg 11/03/24 Unknown History Allergies Allergy/AdvReac Type Severity Reaction Status Date / Time No Known Allergies Allergy Verified 11/09/24 13:17 Review of Systems Review of Systems: All systems reviewed & are unremarkable except as noted in HPI and below Constitutional: Constitutional: Reports as per HPI, Reports body ache(s), Reports fatigue and Reports lethargy ENT: Reports system reviewed and no additional complaints, except as documented Cardiovascular: Cardiovascular: Reports no additional cardiovascular complaints, Denies chest pain and Denies dyspnea Respiratory: Respiratory: Reports as per HPI, Reports chest congestion, Reports cough and Reports dyspnea Musculoskeletal: Musculoskeletal: Reports as per HPI Integumentary/Breasts: Skin/Breast: Reports system reviewed and no additional complaints, except as docu PMFSH Past Medical History Medical History Excessive daytime sleepiness Sleep disorder, unspecified Diabetic polyneuropathy MCI (mild cognitive impairment) 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 Colon polyp Type 2 diabetes mellitus Gastroesophageal reflux disease Arthritis Lumbar spondylosis Pulmonary embolism (02/2022) Ataxia Rib fracture Benign prostatic hyperplasia Peripheral neuropathy Hypertension Hyperlipidemia Chronic insomnia Former cigarette smoker Bipolar depression Anxiety Surgical History Surgical History History of right knee joint replacement (05/10/21) History of bilateral cataract extraction (04/2022) History of colonoscopy with polypectomy History of arthroscopy of left knee History of right knee surgery x4 Family History Family History Father Age older than 80 years Hypertension Mother Age older than 80 years Patient's mother is in good health Sibling Fibromyalgia Diabetes mellitus Mother Dementia Social History Social History Social History: Code status: Full code Surrogate decision maker: Mona Ricci, spouse Smoking packs per day: 0.5 Smoking cigarettes per day: 10.0 Years smoked: 12 Smoking pack-years: 6.00 Smoking status: Current every day smoker Second hand tobacco smoke exposure: No Alcohol intake: never Substance use: never Substance use type: does not use Do You Feel Safe in your Home?: Yes Lack of Transportation: No Lack of Food: Never True Current Housing: I Have Housing Concerned About Future Housing: No Difficulty Paying Gas/Electric Bills: No Difficulty Paying for Meds: No Currently Unemployed: No Education: Don't Know Difficulty w/ Childcare or Family Care: No Living arrangements: with family Additional living arrangements comments: Lives with in [place]. Has 4 children and 21 grandchildren. 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 Spiritual care concerns: No Comments At the time of my signature, I reviewed and agree with the nursing past medical, surgical, social, and family history. There is no relevant family history pertinent to the patient complaint. Exam Const: General: cooperative, well developed, alert, ill appearing acutely and chronically, uncomfortable and well nourished Nutritional Appearance: well nourished Orientation/consciousness: patient oriented x3 Limitations: no limitations HENMT: Head: normal to inspection Ears: hearing grossly normal bilaterally, external ears normal, TM's normal bilaterally, EAC's normal, mastoids normal and no periauricular adenopathy Throat: posterior oropharynx normal, uvula midline and no uvular edema Eyes: General: appearance normal, both eyes and all related structures Alignment and Position: alignment normal Neck: Neck: normal visual inspection, full ROM, no lymphadenopathy and no meningeal signs Chest: Chest palpation & inspection: normal inspection of the chest Resp: Effort & Inspection: normal respiratory effort and able to speak in complete sentences Auscultation: crackles bilateral and diffuse, no rales, no rhonchi and no wheezes Cardio: Rate: regular rate Skin: General skin exam: normal color and no rashes or lesions noted Neuro: General: patient oriented x3, gait normal, moves all extremities and no meningeal signs Cognition (Neuro): normal cognition Speech: normal speech Gait exam (Neuro): Normal gait present Extrem: General: normal to inspection, full ROM, capillary refill normal and normal gait Psych: Appearance: grossly normal and well kempt Mental Status: mental status grossly normal Speech and movement: Normal speech and movement present and Clear speech present Affect: normal affect Attitude: cooperative Course Course Level of Care: Express Care Visit Vital Signs Vital signs: Vital Signs Temperature 97.6 F 11/09/24 13:16 Pulse Rate 91 11/09/24 13:16 Respiratory Rate 11/09/24 13:16 Blood Pressure 130/74 11/09/24 13:16 Pulse Oximetry 99 11/09/24 13:16 Oxygen Delivery Room Air 11/09/24 13:16 Temperature 97.6 F 11/09/24 13:16 Pulse Rate 91 11/09/24 13:16 Respiratory Rate 11/09/24 13:16 Blood Pressure 130/74 11/09/24 13:16 Pulse Oximetry 99 11/09/24 13:16 Oxygen Delivery Room Air 11/09/24 13:16 Reviewed Transfer Transfered to: [facility] (Per patient request) Transportation: Other (Declined EMS, wants to drive self) Transfer rationale: Patient treatment failure of history of pneumonia 6 days ago. Sending for higher level of care Accepting physician: Dr. Gonzalez, spoke with Rob FLORES Medical Decision Making MDM Narrative Medical decision making narrative: Patient is sitting in exam room. Up appears ill, vitals are stable however. Checked blood sugar, 307 Patient with probable treatment failure of pneumonia, elevated blood sugar. Sending for higher level of care Transfer instructions reviewed with patient, EMS offered, patient politely declined All questions have been answered, and the patient deny any further questions Some parts of this dictation were generated by voice recognition software and may contain typographical and/or grammatical inaccuracies. Differential Diagnosis Differential Diagnosis: Pneumonia, treatment failure, DKA, renal insufficiency, PE, cardiac issue Medical Records Medical records reviewed: Yes I reviewed the external patient's medical records. Vital Signs Vital Signs: Vital Signs Temperature 97.6 F 11/09/24 13:16 Pulse Rate 91 11/09/24 13:16 Respiratory Rate 20 11/09/24 13:16 Blood Pressure 130/74 11/09/24 13:16 Pulse Oximetry 99 11/09/24 13:16 Oxygen Delivery Room Air 11/09/24 13:16 Temperature 97.6 F 11/09/24 13:16 Pulse Rate 91 11/09/24 13:16 Respiratory Rate 20 11/09/24 13:16 Blood Pressure 130/74 11/09/24 13:16 Pulse Oximetry 99 11/09/24 13:16 Oxygen Delivery Room Air 11/09/24 13:16 Reviewed Lab Data Lab results reviewed: Yes I reviewed the patient's lab results. Labs: Lab Results 11/09/24 Range/Units 13:29 POC Capillary Glucose 307 H (65-105) mg/dl Reviewed Critical Care Time Critical Care Time Critical Care Time: No Discharge Plan Discharge Clinical Impression: Type 2 diabetes mellitus, History of pneumonia Patient Disposition: Acute Care Hospital Condition: Stable Patient Language: Danish Prescriptions: No Action aripiprazole 20 mg tablet 10 mg PO BID quetiapine 200 mg tablet prednisone 20 mg tablet 20 mg PO DAILY Qty: 5 0RF finasteride 5 mg tablet 5 mg PO DAILY metformin 1,000 mg tablet 1,000 mg PO BID 90 Days Qty: 180 1RF insulin lispro [Humalog KwikPen Insulin] 100 unit/mL insulin pen 1 sliding scale dose subcut USEASDIRECTD MDD 60 Qty: 54 2RF Rx Instructions: Humalog 14 units before breakfast , 14 units before lunch and 14 units before dinner. add Humalog for high sugar before meals only blood sugar 150-170 - take additional 1 units blood sugar 171-190- take additional 2 units blood sugar 191-210- take additional 3 units blood sugar 211-230- take additional 4 units blood sugar 231-250- take additional 5 units blood sugar 251 - take additional 6 units quetiapine 50 mg tablet 150 mg PO QHS acetaminophen 500 mg tablet 1,000 mg PO TID PRN (Reason: pain) 7 Days Qty: 42 0RF bupropion HCl 200 mg tablet sustained-release 12 hr 200 mg PO BID insulin glargine U-300 conc [Toujeo Max U-300 SoloStar] 300 unit/mL (3 mL) insulin pen 40 unit subcut QPM docusate sodium [Colace] 100 mg capsule 100 mg PO DAILY Qty: 14 0RF tamsulosin 0.4 mg capsule 0.4 mg PO DAILY Qty: 90 3RF atorvastatin 20 mg tablet See Rx Instructions .ROUTE .COMPLEX Qty: 90 3RF Dose Instruction: Take 1 tablet by mouth once daily Rx Instructions: Take 1 tablet by mouth once daily carvedilol 12.5 mg tablet See Rx Instructions .ROUTE .COMPLEX Qty: 180 0RF Dose Instruction: TAKE 1 TABLET BY MOUTH EVERY 12 HOURS WITH FOOD Rx Instructions: TAKE 1 TABLET BY MOUTH EVERY 12 HOURS WITH FOOD clopidogrel 75 mg tablet See Rx Instructions .ROUTE .COMPLEX Qty: 90 3RF Dose Instruction: Take 1 tablet by mouth once daily Rx Instructions: Take 1 tablet by mouth once daily aspirin [Children's Aspirin] 81 mg tablet,chewable 81 mg PO DAILY@0800 Qty: 90 3RF pantoprazole 40 mg tablet,delayed release (DR/EC) See Rx Instructions .ROUTE .COMPLEX Qty: 90 3RF Dose Instruction: Take 1 tablet by mouth twice daily Rx Instructions: Take 1 tablet by mouth twice daily Follow-up/Referrals: Lisa Goldberg APRN [Primary Care Provider] -
--- OUTSIDE RECORDS SUMMARY | 2024-11-09 13:20 | XMS_ITS | Encounter Summary ---
Author Organization [facility] Address [address] [place] [address] Phone Care Team Providers Care Watchmaker Apprentice Name Role Phone Joel Denson MD Unavailable Lisa Goldberg APRN Primary Care Provider [phone] Sea Hdez MD Unavailable [phone] Deysi Carballo MD Unavailable Nicolás Wright MD Unavailable [phone] Reason for Visit * Reason Onset Date Comments Referral 08/21/2023 External Urology Referral Encounter Details Date Type Department Care Team (Late st Contact Info) Description 08/21/2023 Telephone [facility] [address] [place] [address] Lisa Goldberg APRN [address] [place] [id number] Referral (External Urology Referral) Social History [...] 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 on file Not [...] - 19 04/13/2024 04/13/2024 04/13/2024 3:36 PM BUDDER Assessment Noted Time PHQ-9 Depression Total Score: 0 04/23/19 17 9:00 AM BUDDER documented as of this encounter Care Teams Watchmaker Apprentice Relationship Specialty Start Date End Date Lisa Goldberg APRN [address] [place] [address] PCP - General Advanced Practice Nurse 12/12/22 Joel Denson MD [address] [place] [address] Psychiatry 12/17/16 Sea Hdez MD #[address] [address] Consulting Physician Urology 07/08/23 Deysi Carballo MD #[address] [id number] Consulting Physician Endocrinology 07/25/23 Nicolás Wright MD [address] [place] [phone] Consulting Physician Neurology 08/11/23 documented as of this encounter
--- OUTSIDE RECORDS SUMMARY | 2024-11-09 13:20 | XMS_ITS | Encounter Summary ---
Author Organization [facility] Address [address] [place] [address] Phone Care Team Providers Care Sem Manager Name Role Phone Joel Denson MD Unavailable Lisa Goldberg APRN Primary Care Provider [phone] Sea Hdez MD Unavailable [phone] Deysi Carballo MD Unavailable Nicolás Wright MD Unavailable [phone] Reason for Referral * Consult, Test & Initiate Treatment (Routine) - Closed Specialty Diagnoses / Procedures Referred By Sarah nunn Referred To Contact Diagnoses Urinary retention Sea Hdez MD [address] [facility], [facility] [address] [place] [address] Phone: tel: fax: [facility] [address] [facility] [address] [facility] [place] [place] [address] Phone: tel: fax: Referral ID Status Reason Start Date Expiration Date Visits Re quested Visits Authorized [id number] Closed 07/15/2023 1 1 Scheduling Instructions Edwardo is being referred to [place] or other specialist in patient's insurance [...] 200 mg by mouth 2 times daily. 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 Please make office visit after urodynamics [...] - 19 04/13/2024 04/13/2024 04/13/2024 3:36 PM ELECTRICAL FITTER Assessment Noted Time PHQ-9 Depression Total Score: 0 04/23/19 17 9:00 AM ELECTRICAL FITTER documented as of this encounter Care Teams Sem Manager Relationship Specialty Start Date End Date Lisa Goldberg APRN [address] [place] [address] PCP - General Advanced Practice Nurse 12/12/22 Joel Denson MD [address] [place] [address] Psychiatry 12/17/16 Sea Hdez MD [address] [facility] [address] [place], [place] [id number] Consulting Physician Urology 07/08/23 Deysi Carballo MD #[address] [phone] Consulting Physician Endocrinology 07/25/23 Nicolás Wright MD [address] [place] [address] Consulting Physician Neurology 08/11/23 documented as of this encounter
--- OUTSIDE RECORDS SUMMARY | 2024-11-09 13:20 | XMS_ITS | Clinical Summary ---
Author Organization [facility] Address [address] [place] [id number] Care Team Providers Care Laborer Powerhouse Name Role Phone Unavailable Primary Care Provider [...] Comments Blood Pressure 147/82 06/20/2016 1:14 PM CARDROOM ATTENDANT Pulse 72 06/20/2016 1:14 PM CARDROOM ATTENDANT Temperature - - Respiratory Rate - - Oxygen Saturation - - Inhaled Oxygen Concentration - - Weight 83.5 kg (184 lb) 06/20/2016 12:53 PM CARDROOM ATTENDANT Height 170.2 cm (5' 7) 06/20/2016 12:53 PM CARDROOM ATTENDANT Body Mass Index 28.82 06/20/2016 12:53 PM CARDROOM ATTENDANT Plan of Treatment Health Maintenance Due Date [...]
--- OUTSIDE RECORDS SUMMARY | 2024-11-09 13:20 | XMS_ITS | Clinical Summary ---
Author Organization [facility] Address [address] [place] [address] Phone Care Team Providers Care Business Applications Manager Name Role Phone Joel Denson MD Unavailable Lisa Goldberg APRN Primary Care Provider [phone] Sea Hdez MD Unavailable [phone] Deysi Carballo MD Unavailable Nicolás Wright MD Unavailable [phone] Allergies No known active allergies Medications atorvastatin (LIPITOR) 20 MG Tablet Take 20 mg by mouth daily. Active BuPROPion HCl 200 MG TABLET SR 12 HR Take 200 mg by mouth 2 times daily. [id number] Active Aripiprazole (Abilify) 20 MG Tablet Take [...] 10/09/2024 Refill [facility] - Endocrinology [facility] [address] [place] [address] Deysi Carballo MD Medication Refill from Last 3 Months Immunizations Immunization Administration Dates Next Due Influenza Vaccine, Quadrivalent, PF 02/14/2022 Influenza, High-dose, Quadrivalent 12/28/2022 Influenza, Injectable, Quadrivalent 01/05/2018,0 12/04/2016,05/14/2016 Influenza, Seasonal, Injectable, Undefined 06/01 Pneumococcal Vaccine Adult - 23 Valent 7 Pneumococcal conjugate PCV20 , polysaccharide [id number] conjugate, adjuvant, PF 08/07/2021,07/24/2021 RSV, Recombinant, Protein [...] 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 on file Not on file Not on file Last Filed Vital Signs Vital Sign Reading Time Taken Comments Blood Pressure 97/63 04/15/2024 1:16 AM SUGAR SAMPLER Pulse 56 04/15/2024 1:16 AM SUGAR SAMPLER Temperature 36.3 C (97.4 F) 04/13/2024 2:17 PM SUGAR SAMPLER Respiratory Rate 18 04/15/2024 1:16 AM SUGAR SAMPLER Oxygen Saturation 97% 04/15/2024 1:16 AM SUGAR SAMPLER Inhaled Oxygen Concentration - - Weight 76.2 kg (168 lb) 04/14/2024 11:48 PM SUGAR SAMPLER Height 172.7 cm (5' 8) 04/14/2024 11:48 PM SUGAR SAMPLER Body Mass Index 25.54 04/14/2024 11:48 PM SUGAR SAMPLER Plan of Treatment Health Maintenance Due Date [...] (COMPREHENSIVE METABOLIC PANEL) STAT 04/13/2024 3:52 PM SUGAR SAMPLER POCT GLYCOSYLATED HEMOGLOBIN Routine 08/04/2023 2:24 PM CDT Type 2 diabetes mellitus without complication, with long-term current use of insulin (HCC) from Last 3 Months or Most Recently Relevant to Health Maintenance Results * (ABNORMAL) CMP (Comprehensive Metabolic Panel) (04/13/2024 3:52 PM SUGAR SAMPLER) SODIUM 133(L) 136 - 145 mmol/L 04/13/2024 4:21 PM SUGAR SAMPLER [facility] POTASSIUM 3.9 3.5 - 5.1 mmol/L 04/13/2024 4:21 PM [facility] CHLORIDE 100 98 - 107 mmol/L 04/13/2024 4:21 PM [facility] CO2, VENOUS 22 22 - 30 mmol/L 04/13/2024 4:21 PM [facility] ANION GAP 14.9 <18.0 mmol/L 04/13/2024 4:21 PM [facility] GLUCOSE 178(H) 70 - 99 mg/dL 04/13/2024 4:21 PM [facility] BUN 11 8 - 26 mg/dL 04/13/2024 4:21 PM [facility] CREATININE, BLOOD 0.91 0.70 - 1.30 mg/dL 04/13/2024 4:21 PM [facility] BUN/CREATININE RATIO 12 - 20 ratio 04/13/2024 4:21 PM [facility] TOTAL PROTEIN 7.3 6.3 - 8.2 g/dL 04/13/2024 4:21 PM [facility] ALBUMIN 4.5 3.5 - 5.0 g/dL 04/13/2024 4:21 PM [facility] A/G RATIO 1.6 1.0 - 2.2 04/13/2024 4:21 PM [facility] CALCIUM 9.7 8.7 - 10.5 mg/dL 04/13/2024 4:21 PM SUGAR SAMPLER [facility] T BILI 0.4 0.2 - 1.2 mg/dL 04/13/2024 4:21 PM SUGAR SAMPLER [facility] SGOT (AST) 23 5 - 34 U/L 04/13/2024 4:21 PM SUGAR SAMPLER [facility] SGPT (ALT) 34 0 - 55 U/L 04/13/2024 4:21 PM SUGAR SAMPLER [facility] ALKALINE PHOSPHATASE 64 40 - 150 U/L 04/13/2024 4:21 PM SUGAR SAMPLER [facility] GFR, ESTIMATED >60 >=60 04/13/2024 4:21 PM SUGAR SAMPLER [facility] Comment: Creatinine Clearance is the preferred criteria for selecting drug dose adjustments in renally impaired patients. The GFR is provided as additional pertinent clinical information. GFR is reported in mL/min/1.73 sq m. Calculation based on the Chronic Kidney Disease Epidemiology Collaboration (CKD- EPI) equation refit without adjustment for race. GFR, EST. >60 >=60 024 4:21 PM SUGAR SAMPLER [facility] GFR, EST. NONAFRICAN >60 >=60 04/13/2024 4:21 PM SUGAR SAMPLER [facility] Blood Venipuncture / Unknown 04/13/2024 3:52 PM SUGAR SAMPLER 04/13/2024 3:58 PM SUGAR SAMPLER us Judah Barragan MD CHEMISTRY ORDERABLES F inal Result [facility] [address] [place] [address] * (ABNORMAL) POCT GLYCOSYLATED HEMOGLOBIN (08/04/2023 2:24 [...] measures to stabilize the patient. Care Teams Business Applications Manager Relationship Specialty Start Date End Date Lisa Goldberg APRN [address] [place] [address] PCP - General Advanced Practice Nurse 12/12/22 Joel Denson MD [address] [place] [address] Psychiatry 12/17/16 Sea Hdez MD [address] [address] Consulting Physician Urology 07/08/23 Deysi [facility]ballo MD [address] [facility] [address] [address] Consulting Physician Endocrinology 07/25/23 Nicolás Wright MD [address] [place] [address] Consulting Physician Neurology 08/11/23
== END 2024-11-09 13:41 | disposition short-term general hospital (02) ==
PROVIDERS: Emergency Provider Nurse Practitioner; PCP Nurse Practitioner Adult Health
DX: E11.42 Type 2 diabetes mellitus with diabetic polyneuropathy (principal); Z79.4 Long term (current) use of insulin; Z87.01 Personal history of pneumonia (recurrent); F17.210 Nicotine dependence, cigarettes, uncomplicated; I65.21 Occlusion and stenosis of right carotid artery; I10 Essential (primary) hypertension; K21.9 Gastro-esophageal reflux disease without esophagitis; Z86.711 Personal history of pulmonary embolism; N40.0 Benign prostatic hyperplasia without lower urinary tract symptoms; E78.5 Hyperlipidemia, unspecified; M19.90 Unspecified osteoarthritis, unspecified site; F41.9 Anxiety disorder, unspecified; F31.9 Bipolar disorder, unspecified; Z96.651 Presence of right artificial knee joint; Z98.42 Cataract extraction status, left eye; Z98.41 Cataract extraction status, right eye
CPT/HCPCS: 82948; 99212; G0463

== ENCOUNTER 2025-01-06 10:46 | Outpatient (CLI) | payer OTHER, SELFPAY ==
--- OUTSIDE RECORDS SUMMARY | 2025-01-06 12:31 | XMS_ITS | Clinical Summary ---
Author Organization [facility] Address [address] [place] [address] Care Team Providers Care Database Support Name Role Phone Unavailable Primary Care Provider [...] Comments Blood Pressure 147/82 06/20/2016 1:14 PM NEUROUROLOGIST Pulse 72 06/20/2016 1:14 PM NEUROUROLOGIST Temperature - - Respiratory Rate - - Oxygen Saturation - - Inhaled Oxygen Concentration - - Weight 83.5 kg (184 lb) 06/20/2016 12:53 PM NEUROUROLOGIST Height 170.2 cm (5' 7) 06/20/2016 12:53 PM NEUROUROLOGIST Body Mass Index 28.82 06/20/2016 12:53 PM NEUROUROLOGIST Plan of Treatment Health Maintenance Due Date Last Done Comments Colorectal Cancer Screening Colonoscopy (10 Years) 1955 Hepatitis C 09/21/1975 Zoster Vaccines (1 of 2) 09/21/2007 COVID-19 Vaccine (2024-2 6 season) 2024 07/24/2021, 07/31/2020, 07/03/2020 DTaP, Tdap and Td [...]
--- OUTSIDE RECORDS SUMMARY | 2025-01-06 12:31 | XMS_ITS | Clinical Summary ---
Author Organization [facility] Address [address] [address] Care Team Providers Care Energy Operations Vice President Name Role Phone Ovi Leavitt MD Unavailable Sang Gutierrez Md, MD Primary Care Provider Unavailable Source Comments [facility],non-owned Affiliates and Associated Physician Practices is amultiple site organization consisting of ambulatory clinics and hospital sitesin [place], [place], [place] and [place]. This disclosure is being madepursuant to the Care Everywhere program and may not contain all information available regarding this patient. Last updated 18.[facility] Allergies Active Allergy Reactions Criticality Noted Date Comments Tramadol Itching 10/10/2014 Medications * Be aware that medications may not be up to date on this document. Alwaysverify current medications with the patient. hydrocodone-td taminophen (VICODIN) 5-500 MG tablet Take 1-2 Tabs by mouth 4 times daily as needed for Pain. 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 Glucose WB/POC 157(H) 70 - 115 mg/dL 10/18/2017 3:48 PM CDT [facility] Specimen Type Arterial/C apillary 10/18/2017 3:48 PM CDT [facility] Blood BLOOD SPECIMEN / Unknown 10/18/2017 3:31 PM CDT 10/18/2017 3:48 PM CDT Narrative [facility] - 10/18/2017 3:48 PM CDT Business Director: Rebecca Edward us Clarence Dobson MD LAB - POINT OF CARE ORDERABL ES Final Result [address] [phone] from Last 3 Months or Most Recently Relevant to Health Maintenance Insurance [facility] MEDICARE SELF PAY NO INSURANCE Member Subscriber Plan / Payer (Ef fective for All Dates) Name:Edwardo Escobedo Member ID:Not on file Relation to Subscriber:Not on file Name:EDWARDO ESCOBEDO Subscriber ID:Not on file (Home) Address: [address] [place] [id number] Payer ID:Not on file Group ID:Not on file Type:Self Pay Address: [place], [place] Care Teams Energy Operations Vice President Relationship Specialty Start Date End Date Sang Gutierrez MD, MD PCP - General Internal Medicine 06/24/16 Ovi Leavitt MD Orthopedic Surgery 10/10/14
--- OUTSIDE RECORDS SUMMARY | 2025-01-06 12:31 | XMS_ITS | Clinical Summary ---
Author Organization [facility] Address [address] [place] [address] Phone Care Team Providers Care Sow Manager Name Role Phone Joel Denson MD Unavailable Lisa Goldberg APRN Primary Care Provider [phone] Sea Hdez MD Unavailable [phone] Deysi Carballo MD Unavailable Nicolás Wright MD Unavailable [phone] Allergies No known active allergies Medications atorvastatin (LIPITOR) 20 MG Tablet Take 20 mg by mouth daily. Active BuPROPion HCl 200 MG TABLET SR 12 HR Take 200 mg by mouth 2 times daily. [id number] Active Aripiprazole (Abilify) 20 MG Tablet Take [...] route nightly. 30 mL 1 4 Active insulin aspart (NovoLOG FlexPen) 100 UNIT/ML Solution Pen-injector 15 units at breakfast, 20 units at lunch, and 15 units at dinner; correctional factor insulin of 1:15 if .140 mg/dL, up to 100 units per day 90 mL 1 4 Active QUEtiapine Fumarate (SEROquel) 50 MG Tablet Take 1 Tablet by mouth 3 times daily. 90 Tablet 5 Active metFORMIN (GLUCOPHAGE) 1000 MG Tablet TAKE 1 TABLET BY MOUTH TWICE DAILY WITH A MEAL 180 Tablet 5 Active Active Problems Problem Noted [...] Encounters Date Type Department Care Team Description 11/09/2024 2:06 PM CDT - 11/09/2024 4:01 PM CDT Emergency [facility] Emergency [address] [place] [address] Judah Espinal MD Acute cough Discharge Disposition: Discharged to home or Selfcare 11/09/2024 Travel 10/09/2024 Refill [facility] [place] [address] [place] [address] Deysi Carballo MD Medication Refill from Last 3 Months Immunizations Immunization Administration Dates Next Due Influenza Vaccine, Quadrivalent, PF 02/14/2022 Influenza, High-dose, Quadrivalent 12/28/2022 Influenza, Injectable, Quadrivalent 01/05/2018,0 12/04/2016,05/14/2016 Influenza, Seasonal, Injectable, Undefined 06/01 Pneumococcal Vaccine Adult - 23 Valent 7 Pneumococcal conjugate PCV20 , polysaccharide [id number] conjugate, adjuvant, PF 08/07/2021,07/24/2021 RSV, Recombinant, Protein [...] 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 on file Not on file Last Filed Vital Signs Vital Sign Reading Time Taken Comments Blood Pressure 117/85 11/09/2024 2:45 PM CDT Pulse 84 11/09/2024 2:45 PM CDT Temperature 37 C (98.6 F) 11/09/2024 2:08 PM CDT Respiratory Rate 20 11/09/2024 2:08 PM CDT Oxygen Saturation 96% 11/09/2024 2:45 PM CDT Inhaled Oxygen Concentration - - Weight 72.6 kg (160 lb) 11/09/2024 2:08 PM CDT Height 172.7 cm (5' 8) 11/09/2024 2:08 PM CDT Body Mass Index 24.33 11/09/2024 2:08 PM CDT Plan of Treatment Health Maintenance Due Date Last Done Comments Diabetes: Eye Exam 1955 Hepatitis C Virus (HCV) Screening 1955 Cologuard 2002 Immunochemical Fecal Occult Blood 2002 PSA Discussion 2012 Colonoscopy 01/17/2020 01/16/2017 Colorectal Cancer Screening 01/17/2020 AAA Screening Ultrasound 2022 Diabetes: Hemoglobin A1c 02/03/2024 024, 03/08/2022, 06/05/2017, Additional history exists Diabetes: Foot Exam 08/03/2024 08/04/2023 Influenza Immunization (#1) 2024 11/0 09/2023, 12/28/2022, 02/14/2022, Additional history exists SARS-COV-2 Immunization ( season) 2024 07/24/2021, 07/31/2020, 07/03/2020 Diabetes: Nephropathy Screening 11/09/2025 11/09/2024, 04/13/2024, 04/12/2022, Additional history exists Td Immunization Every 10 Years (Adults With 1 Tdap) 04/08/2027 04/08/2017 DTaP/Tdap/Td Immunization Discontinued 04/08/2017 TdaP Immunization Discontinued 04/08/2017 Pneumococcal Immunization (50+ years) Completed 08/07/2021, 07/24/2021, 12/19/2016 Pneumococcal Immunization Combined Discontinued 08/07/2021, 07/24/2021, 12/19/2016 Respiratory Syncytial Virus (RSV) Immunization (Adult) Completed 12/28/2022 Zoster Immunization Completed 07/03/2024, Hepatitis B Immunization Aged Out No longer [...] Procedure Name Priority Date/Time Associated Diagnosis Comments XR CHEST SINGLE VIEW PORTABLE STAT 11/09/2024 2:36 PM CDT GOLD TOP TUBE STAT 11/09/2024 2:27 PM CDT BLUE TOP TUBE STAT 11/09/2024 2:27 PM CDT CBC WITH AUTO DIFFERENTIAL STAT 11/09/2024 2:27 PM CDT EXTRA TUBES STAT 11/09/2024 2:27 PM CDT MAGNESIUM (MG) STAT 11/09/2024 2:27 PM CDT CMP (COMPREHENSIVE METABOLIC PANEL) STAT 11/09/2024 2:27 PM CDT COMPLETE BLOOD COUNT (CBC) WITH DIFF STAT 11/09/2024 2:27 PM CDT EKG 12 LEAD STAT 11/09/2024 2:18 PM CDT EKG SCAN 11/09/2024 12:00 AM CDT POCT GLYCOSYLATED HEMOGLOBIN Routine 08/04/2023 2:24 PM CDT Type 2 diabetes mellitus without complication, with long-term current use of insulin (HCC) from Last 3 Months or Most Recently Relevant to Health Maintenance Results * XR CHEST SINGLE VIEW PORTABLE (11/09/2024 2:36 PM CDT) Anatomical Region Laterality Modality Chest N/A Digital Radiogra phy 11/09/2024 3:35 PM CDT Impressions 11/09/2024 3:37 PM CDT IMPRESSION: No focal consolidation. Minimal linear opacities within the left lung base would be favored to represent atelectasis as opposed to pneumonia. Overall, improved aeration within the lungs compared to the prior study from February 2022. Narrative 11/09/2024 3:37 PM CDT EXAM DESCRIPTION: XR CHEST SINGLE VIEW PORTABLE REASON FOR STUDY: c/o productive cough starting 2 weeks ago. Patient states he went to urgent care 2 weeks ago and was diagnosed with pneumonia. Patient reports finishing Amoxicillin without relief. Patient returned to urgent care today and was advised to come to the ER f TECHNIQUE: AP radiographic view(s) of the chest. COMPARISON: 03/08/2022. FINDINGS: LUNGS: There is mild coarsening of interstitial markings in the lungs. Overall, improved aeration compared to the prior study in February 2022. Minimal opacity in the left base is linear in configuration which would favor atelectasis as opposed to pneumonia. No large effusion and no pneumothorax. HEART/MEDIASTINUM: Cardiac silhouette and mediastinal contours are within normal limits. LINES/TUBES: None. BONES: No acute osseous abnormality. THIS IS AN ELECTRONICALLY VERIFIED FINAL REPORT 11/09/2024 3:35 PM - Electronically signed by Mary Bingham M.D. TW: TW Report ID: [id number] Reading Location: [id number] Procedure Note Mary Bingham MD - 11/09/2024 EXAM DESCRIPTION: XR CHEST SINGLE VIEW PORTABLE REASON FOR STUDY: c/o productive cough starting 2 weeks ago. Patient states he went to urgent care 2 weeks ago and was diagnosed with pneumonia. Patient reports finishing Amoxicillin without relief. Patient returned to urgent care today and was advised to come to the ER f TECHNIQUE: AP radiographic view(s) of the chest. COMPARISON: 03/08/2022. FINDINGS: LUNGS: There is mild coarsening of interstitial markings in the lungs. Overall, improved aeration compared to the prior study in February 2022. Minimal opacity in the left base is linear in configuration which would favor atelectasis as opposed to pneumonia. No large effusion and no pneumothorax. HEART/MEDIASTINUM: Cardiac silhouette and mediastinal contours are within normal limits. LINES/TUBES: None. BONES: No acute osseous abnormality. THIS IS AN ELECTRONICALLY VERIFIED FINAL REPORT 11/09/2024 3:35 PM - Electronically signed by Mary Bingham M.D. TW: TW Report ID: [id number] Reading Location: [id number] IMPRESSION: No focal consolidation. Minimal linear opacities within the left lung base would be favored to represent atelectasis as opposed to pneumonia. Overall, improved aeration within the lungs compared to the prior study from February 2022. Judah Espinal MD IMG DIAGNOSTIC ORDERABLES Final Result * Gold Top Tube (11/09/2024 2:27 PM CDT) Blood No Phlebotomy Charged / Unknown 11/09/2024 2:27 PM CDT 11/09/2024 2:40 PM CDT Judah Espinal MD CHEMISTRY ORDERABLES Rosanna l Result Performing Organization Address City/[facility]/ZIP Co de Phone Number [facility] [address] [place] [address] * Blue Top Tube (11/09/2024 2:27 PM CDT) Blood No Phlebotomy Charged / Unknown 11/09/2024 2:27 PM CDT 11/09/2024 2:40 PM CDT Judah Espinal MD HEMATOLOGY ORDERABLES Fin al Result Performing Organization Address City/[facility]/ZIP Co de Phone Number [facility] [address] [place] [address] * (ABNORMAL) CBC with Auto Differential (11/09/2024 2:27 PM CDT) WBC 7.04 4.00 - 12.00 10(3)/mcL 11/09/2024 2:45 PM CDT [facility] RBC 4.66 4.40 - 5.80 10(6)/mcL 11/09/2024 2:45 PM CDT [facility] HEMOGLOBIN (HGB) 12.8(L) 13.0 - 16.5 g/dL 11/09/2024 2:45 PM CDT [facility] HEMATOCRIT (HCT) 39.3 38.0 - 50.0 % 11/09/2024 2:45 PM CDT [facility] MCV 84.3 82.0 - 96.0 fL 11/09/2024 2:45 PM CDT [facility] MCH 27.5 26.0 - 32.0 pg 11/09/2024 2:45 PM CDT [facility] MCHC 32.6 31.0 - 36.0 g/dL 11/09/2024 2:45 PM CDT [facility] PLATELET COUNT 215 140 - 440 10(3)/mcL 11/09/2024 2:45 PM CDT [facility] RDW 15.4 11.8 - 15.5 % 11/09/2024 2:45 PM CDT [facility] MPV 10.0 8.0 - 12.6 fL 11/09/2024 2:45 PM CDT [facility] NEUTROPHILS 60.8 40.0 - 68.0 % 11/09/2024 2:45 PM CDT [facility] LYMPHOCYTES 30.8 19.0 - 49.0 % 11/09/2024 2:45 PM CDT [facility] MONOCYTES 6.0 3.0 - 13.0 % 11/09/2024 2:45 PM CDT [facility] EOSINOPHILS 1.7 0.0 - 8.0 % 11/09/2024 2:45 PM CDT [facility] BASOPHILS 0.3 0.0 - 1.0 % 11/09/2024 2:45 PM CDT [facility] IMMATURE GRANULOCYTE 0.4 0.0 - 0.4 % 11/09/2024 2:45 PM CDT [facility] Comment:Immature Granulocyte s includes Metamyelocytes, Myelocytes, and Promyelocytes. ABSOLUTE NEUTROPHILS 4.28 1.40 - 5.30 10(3)/mcL 11/09/2024 2:45 PM CDT [facility] ABSOLUTE LYMPHOCYTES 2.17 0.90 - 3.30 10(3)/mcL 11/09/2024 2:45 PM CDT [facility] ABSOLUTE MONOCYTES 0.42 0.10 - 0.90 10(3)/mcL 11/09/2024 2:45 PM CDT [facility] ABSOLUTE EOSINOPHIL 0.12 0.00 - 0.50 10(3)/mcL 11/09/2024 2:45 PM CDT [facility] ABSOLUTE BASOPHILS 0.02 0.00 - 0.10 10(3)/mcL 11/09/2024 2:45 PM CDT [facility] ABSOLUTE IMMATURE GRANULOCYTE 0.03 0.00 - 0.03 10 (3) mcL. 11/09/2024 2:45 PM CDT [facility] NRBC PER 100 WBC 0 11/10/19 2:45 PM CDT [facility] Blood Venipuncture / Unknown 11/09/2024 2:27 PM CDT 11/09/2024 2:38 PM CDT us Judah Espinal MD HEMATOLOGY ORDERABLES Fin al Result [facility] [address] [place] [address] * (ABNORMAL) Magnesium (11/09/2024 2:27 PM CDT) MAGNESIUM 1.5(L) 1.6 - 2.6 mg/dL 11/09/2024 3:02 PM CDT [facility] Blood Venipuncture / Unknown 11/09/2024 2:27 PM CDT 11/09/2024 2:38 PM CDT us Judah Espinal MD CHEMISTRY ORDERABLES Rosanna l Result [facility] [address] [place] [address] * (ABNORMAL) CMP (11/09/2024 2:27 PM CDT) SODIUM 135(L) 136 - 145 mmol/L 11/09/2024 3:02 PM CDT [facility] POTASSIUM 4.4 3.5 - 5.1 mmol/L 11/09/2024 3:02 PM CDT [facility] CHLORIDE 102 98 - 107 mmol/L 11/09/2024 3:02 PM CDT [facility] CO2, VENOUS 18(L) 22 - 30 mmol/L 11/09/2024 3:02 PM CDT [facility] ANION GAP 19.4(H) <18.0 mmol/L 11/09/2024 3:02 PM CDT [facility] GLUCOSE 372(H) 70 - 99 mg/dL 11/09/2024 3:02 PM CDT [facility] BUN 13 8 - 26 mg/dL 11/09/2024 3:02 PM CDT [facility] CREATININE, BLOOD 0.97 0.70 - 1.30 mg/dL 11/09/2024 3:02 PM CDT [facility] BUN/CREATININE RATIO 13 12 - 20 ratio 11/09/2024 3:02 PM CDT [facility] TOTAL PROTEIN 7.6 6.0 - 8.0 g/dL 11/09/2024 3:02 PM CDT [facility] ALBUMIN 4.4 3.5 - 5.0 g/dL 11/09/2024 3:02 PM CDT [facility] A/G RATIO 1.4 1.0 - 2.2 11/09/2024 3:02 PM CDT [facility] CALCIUM 9.4 8.7 - 10.5 mg/dL 11/09/2024 3:02 PM CDT [facility] T BILI 0.2 0.2 - 1.2 mg/dL 11/09/2024 3:02 PM CDT [facility] SGOT (AST) 20 <43 U/L 11/09/2024 3:02 PM CDT [facility] SGPT (ALT) 26 <56 U/L 11/09/2024 3:02 PM CDT [facility] ALKALINE PHOSPHATASE 82 40 - 150 U/L 11/09/2024 3:02 PM CDT [facility] GFR, ESTIMATED >60 >=60 11/09/2024 3:02 PM CDT [facility] Comment: Creatinine Clearance is the preferred criteria for selecting drug dose adjustments in renally impaired patients. The GFR is provided as additional pertinent clinical information. GFR is reported in mL/min/1.73 sq m. Calculation based on the Chronic Kidney Disease Epidemiology Collaboration (CKD- EPI) equation refit without adjustment for race. GFR, EST. >60 >=60 025 3:02 PM CDT [facility] GFR, EST. NONAFRICAN >60 >=60 11/09/2024 3:02 PM CDT [facility] Blood Venipuncture / Unknown 11/09/2024 2:27 PM CDT 11/09/2024 2:38 PM CDT us Judah Espinal MD CHEMISTRY ORDERABLES Rosanna l Result [facility] [address] [place] [address] * EKG 12 LEAD (11/09/2024 2:18 PM CDT) Ventricular Rate 81 BPM EXTERNAL EKG Atrial Rate 81 BPM EXTERNAL EKG P-R Interval 162 ms EXTERNAL EKG QRS Duration 82 ms EXTERNAL EKG Q-T Duration 370 ms EXTERNAL EKG QTC CALCULATION 429 ms EXTERNAL EKG P [place] 33 degrees EXTERNAL EKG R [place] -22 degrees EXTERNAL EKG T [place] 55 degrees EXTERNAL EKG 11/09/2024 2:18 PM CDT Impressions EXTERNAL EKG - 11/10/2024 9:04 AM CDT Normal sinus rhythm Anterior infarct (cited on or before 12-APR-2022) Abnormal ECG When compared with ECG of 12-APR-2022 11:42, Nonspecific T wave abnormality no longer evident in Inferior leads Confirmed by RON TAN ([id number]) on 11/10/2024 9:04:00 AM Narrative Procedure Note Ron Tan MD - 11/10/2024 IMPRESSION: Normal sinus rhythm Anterior infarct (cited on or before 12-APR-2022) Abnormal ECG When compared with ECG of 12-APR-2022 11:42, Nonspecific T wave abnormality no longer evident in Inferior leads Confirmed by RON TAN ([id number]) on 11/10/2024 9:04:00 AM us Judah Espinal MD IMG ECG ORDERABLES Final Result EXTERNAL EKG * EKG SCAN (11/09/2024 12:00 AM CDT) 11/09/2024 us Provider Scan IMG ECG ORDERABLES Final Result RESULTING AGENCY * (ABNORMAL) POCT GLYCOSYLATED HEMOGLOBIN (08/04/2023 2:24 [...] measures to stabilize the patient. Care Teams Sow Manager Relationship Specialty Start Date End Date Lisa Goldberg APRN [address] [place] [address] PCP - General Advanced Practice Nurse 12/12/22 Joel Denson MD [address] [place] [address] Psychiatry 12/17/16 Sea Hdez MD [address] [address] Consulting Physician Urology 07/08/23 Deysi Carballo MD [address] [address] Consulting Physician Endocrinology 07/25/23 Nicolás Wright MD [address] [place] [address] Consulting Physician Neurology 08/11/23
--- OUTSIDE RECORDS SUMMARY | 2025-01-06 12:31 | XMS_ITS | Encounter Summary ---
Author Organization [facility] Address [address] [place] [address] Phone Care Team Providers Care Supervisor Beet End Name Role Phone Joel Denson MD Unavailable Lisa Goldberg APRN Primary Care Provider [phone] Sea Hdez MD Unavailable [phone] Deysi Carballo MD Unavailable Nicolás Wright MD Unavailable [phone] Reason for Visit * Reason Onset Date Comments Referral 08/21/2023 External Urology Referral Encounter Details Date Type Department Care Team (Late st Contact Info) Description 08/21/2023 Telephone [facility] [address] [place] [address] Lisa Goldberg APRN [address] [place] [address] Referral (External Urology Referral) Social History [...] 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 on 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 Not [...] - 19 04/13/2024 04/13/2024 04/13/2024 3:36 PM [employer]REE AND [employer] WORKER Assessment Noted Time PHQ-9 Depression Total Score: 0 04/23/19 17 9:00 AM TREE AND SHR[employer] WORKER documented as of this encounter Care Teams Supervisor Beet End Relationship Specialty Start Date End Date Lisa Goldberg APRN [address] [place] [address] PCP - General Advanced Practice Nurse 12/12/22 Joel Denson MD [address] [place] [address] Psychiatry 12/17/16 Sea Hdez MD [address] [address] Consulting Physician Urology 07/08/23 Deysi Carballo MD [address] [address] Consulting Physician Endocrinology 07/25/23 Nicolás Wright MD [address] [place] [address] Consulting Physician Neurology 08/11/23 documented as of this encounter
--- OUTSIDE RECORDS SUMMARY | 2025-01-06 12:31 | XMS_ITS | Encounter Summary ---
Author Organization [facility] Address [address] [place] [address] Phone Care Team Providers Care Manager Sustainability Name Role Phone Joel Denson MD Unavailable Lisa Goldberg APRN Primary Care Provider [phone] Sea Hdez MD Unavailable [phone] Deysi Carballo MD Unavailable Nicolás Wright MD Unavailable [phone] Reason for Referral * Consult, Test & Initiate Treatment (Routine) - Closed Specialty Diagnoses / Procedures Referred By Sarah nunn Referred To Contact Diagnoses Urinary retention Sea Hdez MD [address] [facility] [address] [place] [address] Phone: tel: fax: [facility] [address] [place] [address] Phone: tel: fax: Referral ID Status Reason Start Date Expiration Date Visits Re quested Visits Authorized [id number] Closed 07/15/2023 1 1 Scheduling Instructions Edwardo is being referred to [place]/ [facility] or other specialist in patient's [...] 200 mg by mouth 2 times daily. 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
--- NOTE | 2025-01-31 11:16 | WPDSLEEPSTUD ---
Sleep Study Date of Study: 01/06/25 Ordering Provider: Silvio Duarte APRN Interpreting Physician: Samina Pro DO Sleep Study Type: Polysomnogram Height: 1.73 m Weight: 74.843 kg Body Mass Index: 25.0 Neck Circumference (inches): 17 [place]: 6 Reason for Sleep Study Daytime hypersomnia Sleep History The patient is a 69-year-old male that had a sleep study ordered by the Pulmonary group for evaluation of sleep apnea. The patient denies awakening from sleep short of breath. He denies awakening at night with heartburn, belching or cough. He denies snoring. He denies having trouble sleeping when he has a cold. He denies waking up gasping for air throughout the night. He denies having breathing problems at night observed by himself or others. He occasionally sweats excessively night. He denies having heart palpitations or irregular heartbeats during the night. He frequently falls asleep during the day but never while driving. He denies sleep paralysis, cataplexy and hypnagogic/ hypnopompic hallucinations. He denies having trouble at school or work due to sleepiness. He denies feeling afraid of going to sleep. He denies having nightmares. He frequently remembers his dreams. He denies having thoughts racing through his mind. He denies feeling sad, depressed or anxious. He denies having muscular tension. He denies noticing parts of his body jerk. He denies kicking during the night. He denies having crawling and aching feelings in his legs and denies having leg pain during the night. He denies grinding his teeth during sleep and denies awakening with morning jaw pain. He denies being bothered by pain during the day and denies being awakened by pain during the night. He frequently wakes up feeling stiff in the morning. He denies waking up with sore or achy muscles. He denies waking up with pain in the neck, spine and other joints. He goes to bed at 6:00 p.m. every night. It takes him 10 minutes to fall asleep. He wakes up 4 times throughout the night for unknown reasons and it can take him 2 hours to fall back asleep. He wakes up at 4:00 a.m. every morning. He typically gets 6 hours of sleep per night. He stays in bed for 5 minutes after waking up in the morning. He currently lives with his . He will consume caffeinated beverages within 2 hours of bedtime. He denies engaging in physical exercise before bedtime. He will watch television before falling asleep. He will take naps in afternoon or the evening but they are not refreshing. He smokes half a pack of cigarettes per day. He denies alcohol and recreational drug use. 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 Colon polyp Type 2 diabetes mellitus Gastroesophageal reflux disease Arthritis Lumbar spondylosis Pulmonary embolism (02/2022) Ataxia Rib fracture Benign prostatic hyperplasia Peripheral neuropathy Hypertension Hyperlipidemia Chronic insomnia Former cigarette smoker Bipolar depression Anxiety Surgical History Surgical History History of right knee joint replacement (05/10/21) History of bilateral cataract extraction (04/2022) History of colonoscopy with polypectomy History of arthroscopy of left knee History of right knee surgery x4 Family History Family History Father Age older than 80 years Hypertension Mother Age older than 80 years Patient's mother is in good health Sibling Fibromyalgia Diabetes mellitus Mother Dementia Social History Social History Social History: Code status: Full code Surrogate decision maker: Mona Ricci, spouse Smoking packs per day: 0.5 Smoking cigarettes per day: 10.0 Years smoked: 12 Smoking pack-years: 6.00 Smoking status: Current every day smoker Second hand tobacco smoke exposure: No Alcohol intake: never Substance use: never Substance use type: does not use Do You Feel Safe in your Home?: Yes Lack of Transportation: No Lack of Food: Never True Current Housing: I Have Housing Concerned About Future Housing: No Difficulty Paying Gas/Electric Bills: No Difficulty Paying for Meds: No Currently Unemployed: No Education: Don't Know Difficulty w/ Childcare or Family Care: No Living arrangements: with family Additional living arrangements comments: Lives with in [place]. Has 4 children and 21 grandchildren. 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 Spiritual care concerns: No Medications Home Medications ?Medication ?Instructions ?Recorded ?Confirmed ?Type bupropion HCl 200 mg tablet,12 hr 200 mg PO BID 05/08/21 01/12/25 History sustained-release aripiprazole 20 mg tablet 10 mg PO BID 02/13/24 01/12/25 History atorvastatin 20 mg tablet See Rx Instructions .Route 03/01/24 01/12/25 Rx .COMPLEX #90 tabs metformin 1,000 mg tablet 1,000 mg PO BID 90 days #180 tabs 07/01/24 01/12/25 Rx insulin lispro 100 unit/mL 1 sliding scale dose subcut 07/27/24 01/12/25 Rx subcutaneous pen (Humalog KwikPen USEASDIRECTD #54 mL (U-100) Insulin) clopidogrel 75 mg tablet See Rx Instructions .Route 08/16/24 01/12/25 Rx Held on 09/30/24. .COMPLEX #90 tabs Instructions: Resume on 10/04/24. aspirin 81 mg chewable tablet 81 mg PO DAILY@0800 #90 tabs 09/28/24 01/12/25 Rx (Children's Aspirin) Held on 09/30/24. Instructions: Resume on 10/02/24. pantoprazole 40 mg tablet,delayed See Rx Instructions .Route 10/07/24 01/12/25 Rx release .COMPLEX #90 tabs quetiapine 200 mg tablet mg 11/03/24 01/12/25 History carvedilol 12.5 mg tablet See Rx Instructions .Route 11/15/24 01/12/25 Rx .COMPLEX #180 tabs Farxiga 5 mg tablet (dapagliflozin 5 mg PO QAM #90 tabs 12/01/24 01/12/25 Rx propanediol) insulin glargine U-300 conc 300 40 unit (0.1333 mL) subcut QPM 3 12/16/24 01/12/25 Rx unit/mL (3 mL) subcutaneous pen months #12 mL (Toujeo Max U-300 SoloStar) Sleep Procedure A full night polysomnogram using the [facility] [employer] multi-channel system recorded the standard physiologic parameters including EEG, EOG, submentalis EMG, anterior tibialis EMG, EKG, body position, nasal and oral airflow using nasal pressure sensor and thermistor.? Respiratory parameters of chest and abdominal movements were recorded with Respiratory Inductance Plethysmography belts. Oxygen saturation was recorded by pulse oximetry. Video monitoring was also performed. Sleep stages, periodic limb movements, and EEG arousals were scored in 30 second epochs according to the criteria of the AASM Scoring Manual. The Apnea-Hypopnea Index was calculated using [facility] guidelines for definition of hypopnea with 4% O2 desaturations while scoring respiratory events. Sleep Architecture The total recording time was 452.9 minutes.? The total sleep time was 311.0 minutes. Sleep latency was 34.0 minutes. REM latency was 25.5 minutes. Sleep efficiency was 68.7%. The patient had 25 awakenings for an awakening index of 4.8. Wake after sleep onset time was 107.5 minutes. The patient spent 27.5 minutes, 8.8% of total sleep time in Stage N1. The patient spent 201.5 minutes, 64.8% in Stage N2. The patient spent 0.0 minutes, 0.0% in Stage N3. The patient spent 82.0 minutes, 26.4% in Stage REM sleep. Respiratory Analysis The patient had 18 hypopneas, 25 obstructive apneas, 34 mixed apneas, and 48 central apneas for an overall Apnea Hypopnea Index of 24.1. The REM Apnea Hypopnea Index was 21.2. The NREM Apnea Hypopnea Index was 26.7. The patient had a Central Apnea Hypopnea Index of 9.3. There was no evidence of Jaycob-Mancilla Respirations. Arousals There were 103 total arousals for an arousal index of 19.9. There were 60 spontaneous arousals for an index of 11.6. There were 10 arousals due to respiratory events for an index of 1.9. There were 12 arousals due to periodic limb movements for an index of 2.3.? There were 22 arousals due to isolated limb movements for an index of 4.2. Periodic Limb Movements The patient had 51 isolated limb movements with an index of 9.8. The patient had 63 periodic limb movements with an index of 12.2. Patient had a total of 114 limb movements with a total limb movement index of 22.0. Oximetry Data The patient had an average oxygen saturation of 93.2% in sleep with a minimum oxygen saturation of 89.0% and a maximum oxygen saturation of 98.0%. The patient had 103 oxygen desaturations that were 4% or greater resulting in an Oxygen Desaturation Index of 19.9.? The patient spent 0 minutes of total sleep time with an oxygen saturation below 88%. Snoring Profile Mild snoring was present in the beginning of the study. Cardiac Profile The EKG showed normal sinus rhythm with occasional PVCs.?The patient had an average pulse rate of 68.6 bpm with a minimum pulse of rate of 60.0 bpm and a maximum pulse rate of 94.0 bpm.? EEG Profile No signs of seizure activity seen. Assessment and Plan Assessment and Plan (1) ABRIL (obstructive sleep apnea): Code(s): G47.33 - Obstructive sleep apnea (adult) (pediatric) Status: Acute Assessment and Plan: The patient had an overall AHI of 24.1 with desaturation down to 89%. He had a central apnea index of 9.3, which is elevated (normal < 5). This is consistent with moderate sleep apnea. Due to the patient's elevated central apnea index, he is not an ideal candidate for AutoPAP. AutoPAP can increase the frequency and severity of central apneas. I recommend that the patient have a CPAP Titration with the use of a hypnotic to ensure we obtain enough sleep data and find an optimal pressure setting. I recommend that the patient have an echocardiogram to rule out cardiogenic causes for an elevated central apnea index. Data The data obtained during this sleep study is adequate for interpretation. Certification This sleep study has been reviewed by a board certified sleep medicine physician.
[2025-01-31 13:45] VITALS: BMI 25.0
== END 2025-01-07 05:12 | disposition home or self-care (01) ==
PROVIDERS: PCP Nurse Practitioner Adult Health; Visit Provider Nurse Practitioner Family
DX: G47.00 Insomnia, unspecified (principal); G47.33 Obstructive sleep apnea (adult) (pediatric)
CPT/HCPCS: 95810

== ENCOUNTER 2025-03-17 13:13 | Outpatient (CLI) | payer OTHER, SELFPAY ==
--- NOTE | ~2025-03-17 | XR_ITS ---
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 Technique: 2 views obtained. Findings: The lungs are clear, no effusion. No pneumothorax. Heart is normal size. Mediastinal and hilar contours are within normal limits. Bony thorax no acute abnormality. Impression: No acute cardiopulmonary abnormality. Reviewed, dictated and finalized at location P. R SUPERINTENDENT Impression: No acute cardiopulmonary abnormality.
== END 2025-03-17 13:14 | disposition home or self-care (01) ==
LOC: ANHBWCIMG 13:14
PROVIDERS: PCP Nurse Practitioner Adult Health; Visit Provider Nurse Practitioner Adult Health
DX: R05.9 Cough, unspecified (principal)
CPT/HCPCS: 71046